=== PATIENT | female | born 1955 | race Caucasian/White ===

== ENCOUNTER → 2018-02-26 21:26 | Outpatient (CLI) | payer OTHER, SELFPAY ==
[2018-02-26 21:40] LABS: Absolute Lymphocyte Count 2.54 X10^3/ul (0.83-4.51); Basophil# 0.04 X10^3/uL; Basophil% 0.4 % (0-1); Eosinophil# 0.66 X10^3/uL; Eosinophils% 7.3 % (0-5); Hematocrit 42.9 % (37-47); Hemoglobin 13.7 g/dl (12.0-15.0); Lymphocyte # 2.54 X10^3/ul (4.0); Lymphocyte % 27.9 % (19-41); Mean Corp Hgb Conc 31.9 g/gl (32-36); Mean Corpuscular Hgb 28.2 pg (27.0-32.0); Mean Corpuscular Volume 88.3 fL (81-99); Mean Platelet Vol. 11.1 fl (6.2-12.0); Monocyte# 0.82 X10^3/uL; Neutrophil # 5.03 X10^3/uL (2.7-7.7); Neutrophil % 55.3 % (47-70); Platelet Count 264 K/mm3 (150-450); RBC Distribution Width CV 13.4 % (11.6-14.6); RBC Distribution Width SD 43.3 fl (35.1-43.9); Red Blood Count 4.86 M/mm3 (4.2-5.4); White Blood Count 9.1 K/mm3 (4.4-11.0)
[2018-02-26 21:41] LABS: POSITIVE COUNT NO; POSITIVE DIFFERENTIAL NO; POSITIVE MORPHOLOGY NO
[2018-02-26 22:07] LABS: ALB/GLOB Ratio 0.8 RATIO (0.9-2.4); AST(SGOT) 19 U/L (15-37); Alanine Aminotransfer ALT/SGPT 30 U/L (13-56); Albumin, Serum 3.5 g/dL (3.2-5.0); Alkaline Phosphatase 112 U/L (45-117); Anion Gap 7 (5-15); BUN 15 mg/dL (7-18); BUN/Creat Ratio 16.4 RATIO (10-20); Calcium,Total 8.6 mg/dL (8.5-10.1); Chloride 106 mmol/L (98-107); Cholesterol 211 mg/dL (200); Creatinine, Serum 0.92 mg/dL (0.55-1.02); EST Glomerular Filtration Rate 67 mL/min (>60); Est Glom Filt Rate - Afr Amer 80 mL/min (>60); Globulin 4.3 g/dL (2.2-4.2); Glucose 129 mg/dL (74-106); High Density Lipoprotein 45 mg/dL; Potassium 3.8 mmol/L (3.5-5.1); Protein, Total 7.8 g/dL (6.4-8.2); Sodium Level 141 mmol/L (136-145); Triglycerides 303 mg/dL; Very Low Density Lipoprotein 61 mg/dL (5-40)
== END ==
PROVIDERS: Referring Provider Nurse Practitioner; Visit Provider Nurse Practitioner
DX: F32.0 Major depressive disorder, single episode, mild (principal); F41.1 Generalized anxiety disorder; E78.1 Pure hyperglyceridemia
CPT/HCPCS: 80053; 80061; 85025

== ENCOUNTER → 2019-03-11 13:00 | Outpatient (CLI) | payer OTHER, SELFPAY ==
[2019-03-11 17:10] VITALS: BMI 33.2
[2019-03-12 00:31] LABS: Absolute Lymphocyte Count 2.95 X10^3/uL (0.83-4.51); Basophil# 0.06 X10^3/uL; Basophil% 0.6 % (0-1); Eosinophil# 0.41 X10^3/uL; Hemoglobin 13.1 g/dL (12.0-15.0); Lymphocyte # 2.95 X10^3/ul (4.0); Lymphocyte % 28.8 % (19-41); Mean Corp Hgb Conc 31.2 g/dL (32-36); Mean Corpuscular Hgb 27.9 pg (27.0-32.0); Mean Corpuscular Volume 89.6 fL (81-99); Monocyte# 0.84 X10^3/uL; Monocyte% 8.2 % (0-10); NRBC Flagged by Analyzer 0 % (0-5); Neutrophil # 5.95 X10^3/uL (2.7-7.7); Neutrophil % 58.1 % (47-70); Platelet Count 284 K/mm3 (150-450); RBC Distribution Width CV 13.5 % (11.6-14.6); RBC Distribution Width SD 44.2 fl (35.1-43.9); Red Blood Count 4.69 M/mm3 (4.2-5.4); White Blood Count 10.2 K/mm3 (4.4-11.0)
[2019-03-12 00:44] LABS: AST(SGOT) 18 U/L (15-37); Alanine Aminotransfer ALT/SGPT 26 U/L (13-56); Albumin, Serum 3.8 g/dL (3.2-5.0); Alkaline Phosphatase 102 U/L (45-117); Anion Gap 4 (5-15); BUN 21 mg/dL (7-18); BUN/Creat Ratio 27.3 RATIO (10-20); Calcium,Total 9.3 mg/dL (8.5-10.1); Chloride 107 mmol/L (98-107); Cholesterol 213 mg/dL (200); Creatinine, Serum 0.77 mg/dL (0.55-1.02); EST Glomerular Filtration Rate 81 mL/min (>60); Est Glom Filt Rate - Afr Amer 98 mL/min (>60); Globulin 3.8 g/dL (2.2-4.2); Glucose 82 mg/dL (74-106); High Density Lipoprotein 69 mg/dL; Potassium 4.5 mmol/L (3.5-5.1); Protein, Total 7.6 g/dL (6.4-8.2); Sodium Level 140 mmol/L (136-145); Triglycerides 78 mg/dL; Very Low Density Lipoprotein 16 mg/dL (5-40)
== END ==
PROVIDERS: Referring Provider Nurse Practitioner; Visit Provider Nurse Practitioner
DX: E78.1 Pure hyperglyceridemia (principal); F32.9 Major depressive disorder, single episode, unspecified
CPT/HCPCS: 80053; 80061; 85025

== ENCOUNTER → 2020-04-08 21:51 | Outpatient (CLI) | payer OTHER, SELFPAY ==
[2020-04-08 16:50] VITALS: BMI 33.3
[2020-04-08 22:10] LABS: Absolute Neutrophil Count 5.8 X10^3/uL (2.0-7.7); Basophil# 0.06 X10^3/uL; Basophil% 0.6 % (0-1); Eosinophil# 0.37 X10^3/uL; Hematocrit 41.2 % (37-47); Hemoglobin 12.8 g/dL (12.0-15.0); Lymphocyte % 25.8 % (19-41); Mean Corp Hgb Conc 31.1 g/dL (32-36); Mean Corpuscular Hgb 27.1 pg (27.0-32.0); Mean Corpuscular Volume 87.3 fL (81-99); Mean Platelet Vol. 11.1 fl (6.2-12.0); Monocyte# 0.65 X10^3/uL; NRBC Flagged by Analyzer 0 % (0-5); Neutrophil # 5.79 X10^3/uL (2.7-7.7); Neutrophil % 62.4 % (47-70); Platelet Count 300 K/mm3 (150-450); RBC Distribution Width CV 14.1 % (11.6-14.6); Red Blood Count 4.72 M/mm3 (4.2-5.4); White Blood Count 9.3 K/mm3 (4.4-11.0)
[2020-04-08 22:22] LABS: ALB/GLOB Ratio 0.9 RATIO (0.9-2.4); AST(SGOT) 18 U/L (15-37); Alanine Aminotransfer ALT/SGPT 25 U/L (13-56); Albumin, Serum 3.7 g/dL (3.2-5.0); Alkaline Phosphatase 114 U/L (45-117); Anion Gap 5 (5-15); BUN 15 mg/dL (7-18); BUN/Creat Ratio 16.8 RATIO (10-20); Chloride 109 mmol/L (98-107); Cholesterol 210 mg/dL (200); Creatinine, Serum 0.89 mg/dL (0.55-1.02); EST Glomerular Filtration Rate 68 mL/min (>60); Est Glom Filt Rate - Afr Amer 82 mL/min (>60); Globulin 3.9 g/dL (2.2-4.2); Glucose 98 mg/dL (74-106); High Density Lipoprotein 65 mg/dL; Potassium 3.8 mmol/L (3.5-5.1); Protein, Total 7.6 g/dL (6.4-8.2); Sodium Level 142 mmol/L (136-145); Triglycerides 95 mg/dL; Very Low Density Lipoprotein 19 mg/dL (5-40)
== END ==
PROVIDERS: Referring Provider Nurse Practitioner; Visit Provider Nurse Practitioner
DX: E78.1 Pure hyperglyceridemia (principal)
CPT/HCPCS: 80053; 80061; 85025

== ENCOUNTER 2021-05-12 21:27 | Outpatient (CLI) | payer OTHER, SELFPAY ==
[2021-05-12 22:26] LABS: Absolute Lymphocyte Count 2.51 X10^3/uL (0.83-4.51); Absolute Neutrophil Count 4.7 X10^3/uL (2.0-7.7); Basophil# 0.05 X10^3/uL; Basophil% 0.6 % (0-1); Eosinophil# 0.28 X10^3/uL; Eosinophils% 3.4 % (0-5); Hematocrit 39.9 % (37-47); Hemoglobin 12.7 g/dL (12.0-15.0); Lymphocyte # 2.51 X10^3/ul (0.83-4.51); Lymphocyte % 30.3 % (19-41); Mean Corp Hgb Conc 31.8 g/dL (32-36); Mean Corpuscular Hgb 27.4 pg (27.0-32.0); Mean Platelet Vol. 11.2 fl (6.2-12.0); Monocyte# 0.68 X10^3/uL; Monocyte% 8.2 % (0-10); NRBC Flagged by Analyzer 0 % (0-5); Neutrophil # 4.73 X10^3/uL (2.7-7.7); Neutrophil % 57.1 % (47-70); Platelet Count 316 K/mm3 (150-450); RBC Distribution Width CV 13.3 % (11.6-14.6); RBC Distribution Width SD 41.1 fl (35.1-43.9); Red Blood Count 4.64 M/mm3 (4.2-5.4); White Blood Count 8.3 K/mm3 (4.4-11.0)
[2021-05-12 22:44] LABS: ALB/GLOB Ratio 0.9 RATIO (0.9-2.4); AST(SGOT) 17 U/L (15-37); Alanine Aminotransfer ALT/SGPT 28 U/L (13-56); Albumin, Serum 3.6 g/dL (3.2-5.0); Alkaline Phosphatase 113 U/L (45-117); Anion Gap 7 (5-15); BUN 17 mg/dL (7-18); BUN/Creat Ratio 20.7 RATIO (10-20); Calcium,Total 9.1 mg/dL (8.5-10.1); Chloride 106 mmol/L (98-107); Cholesterol 185 mg/dL (200); Creatinine, Serum 0.82 mg/dL (0.55-1.02); EST Glomerular Filtration Rate 74 mL/min (>60); Est Glom Filt Rate - Afr Amer 90 mL/min (>60); Globulin 3.9 g/dL (2.2-4.2); Glucose 90 mg/dL (74-106); High Density Lipoprotein 51 mg/dL; Potassium 4.2 mmol/L (3.5-5.1); Protein, Total 7.5 g/dL (6.4-8.2); Sodium Level 142 mmol/L (136-145); Triglycerides 205 mg/dL; Very Low Density Lipoprotein 41 mg/dL (5-40)
== END 2021-05-12 23:59 | disposition short-term general hospital (02) ==
PROVIDERS: PCP Nurse Practitioner; Referring Provider Nurse Practitioner; Visit Provider Nurse Practitioner
DX: E78.1 Pure hyperglyceridemia (principal); R03.0 Elevated blood-pressure reading, without diagnosis of hypertension
CPT/HCPCS: 80053; 80061; 85025

== ENCOUNTER → 2022-02-20 | Outpatient (CLI) | payer OTHER, SELFPAY | END | disposition home or self-care (01) | PROVIDERS: PCP Nurse Practitioner; Visit Provider Nurse Practitioner | DX: G62.9 Polyneuropathy, unspecified (principal); L97.509 Non-pressure chronic ulcer of other part of unspecified foot with unspecified severity; T14.8XXA Other injury of unspecified body region, initial encounter | CPT/HCPCS: 87070; 87075; 87077; 87186; 87205 ==

== ENCOUNTER 2022-02-22 07:34 | Outpatient (RCR) | payer OTHER, SELFPAY ==
[2022-02-22 08:05] VITALS: BP 143/68; PULSE 69; TEMP 36.2; BMI 34.3
[2022-02-22 08:24] VITALS: BMI 34.3
--- NOTE | 2022-02-22 09:17 | PCM.WC.HP ---
History of Present Illness Date of Service: 02/22/22 Chief Complaint: Patient was seen in primary care office on Sunday with a right great toe ulcer of the anterior and posterior great toe. Also was cellulitis developed. Debrided in the office and was put on calcium alginate till seen here on Sunday. Right great toe was swollen debrided a lot of of slough and callus. Patient was placed in a postop shoe and taken off work for 3 days till seen on today. [facility] Medical History (Reviewed 02/22/22 @ 09:20 by Mary Basilio RECEPTIONIST/TELEPHONE OPERATOR, RECEPTIONIST/TELEPHONE OPERATOR-C) Depression GERD (gastroesophageal reflux disease) Hypertriglyceridemia Neuropathy Osteoarthritis Osteoarthritis Home Medications sertraline 50 mg tablet 50 mg PO DAILY #30 tabs 05/12/21 [Rx Last Taken Unknown] sulfamethoxazole 800 mg-trimethoprim 160 mg tablet 1 tab PO BID hematuria 10 days #20 tabs 02/20/22 [Rx Last Taken Unknown] Allergy/AdvReac Type Severity Reaction Status Date / Time No Known Allergies Allergy Verified 02/26/18 19:39 Surgical History (Reviewed 02/22/22 @ 09:20 by Mary Basilio RECEPTIONIST/TELEPHONE OPERATOR, RECEPTIONIST/TELEPHONE OPERATOR-C) History of cholecystectomy ROS Constitutional Constitutional: Reports systems reviewed and no addt'l complaints, except as documented Integumentary Integumentary: Reports systems reviewed and no addt'l complaints, except as documented, rash, skin ulcer, skin swelling and wounds Neurologic Neurologic: Reports paresthesias RLE and LLE and sensory deficit Psychiatric Psychiatric: Reports anxiety and depression Vital Signs Vital Signs Vital Signs: 02/22/22 08:05 Temperature 97.1 F L Temperature Source Temporal Pulse Rate 69 Blood Pressure 143/68 H Blood Pressure Mean 93 Blood Pressure Source Monitor Weight Weight: 194 lb Body Mass Index (BMI) 34.3 Physical Exam Const oriented x3 General Appearance: cooperative Exam Limitations: no limitations Resp normal respiratory effort Effort and Inspection: able to speak in complete sentences Auscultation: clear to auscultation bilaterally Cardio regular rate and regular rhythm Palpation: normal PMI Rate: regular rate Rhythm: regular rhythm Extremity Negative for normal to inspection or no clubbing, cyanosis or edema General Extremity: normal exam except as noted and other findings Skin No no rashes or lesions noted and No no wounds General Skin Exam: dry skin; Negative for no breakdown Rashes: rashes noted Dorsal foot maculopapular red Neuro oriented x3 Neuro Narrative: Patient suffers from neuropathy bilateral lower legs Psych Appearance: grossly normal Speech: normal speech Thought Content: normal thought content Judgement: judgement good Debridement Note Debridement Note Wound debrided: Anterior right great toe from neuropathy and blisters from shoes Type of Debridement: Excisional debridement Anesthesia Used: 5% Lidocaine Gel Depth: in the subcutaneous layer Percentage of wound debrided: 100 Instrument Used: 5mm curette Tissue Removed: Slough fibrin devitalized tissue Severity: Fat Layer Exposed Amount of bleeding with debridement: Mild Bleeding Controlled with: Compression and gauze Patient tolerated procedure: Patient tolerated procedure well Post-Debridement Measurements and Additional Note: Post-Debridement Measurements/Treatment - Nurse 1 - General Ulcer Assessment Start: 02/22/22 08:05 Freq: Status: Active Protocol: SANDRO Activity Type Activity Date Activity User E-sign Co-sign Detail Recorded Client Recorded Date Recorded By Document 02/22/22 08:05 ROMELIA [id number] 02/22/22 08:20 AK Document 02/22/22 08:24 ROMEILA [id number] 02/22/22 08:25 ROMELIA 02/22/22 02/22/22 08:05 08:24 WC - Today's Visit Information Type of service Initial Visit Arrival Mode Ambulatory Patient Identification Verified (Name & Yes ) Patient Requires Transmission-Based No Precautions Safety Precautions NA Height and Weight Height 5 ft 3 in Weight 194 lb Weight in Pounds 194.0 lbs Body Mass Index (BMI) 34.3 34.3 BMI Classification Obese Obese BSA - Nick 1.91 Vital Signs Temperature (97.8 F-99.1 F) 97.1 F L Temperature Source Temporal Pulse Rate (60-100) 69 Pulse Location Monitor Blood Pressure (90/60-120/80) 143/68 H Blood Pressure Mean (mm Hg) 93 Source Monitor History Since Last Visit- (Skip if this is Patient's initial visit) Left Footwear Surgical Shoe with pressure relief insole Right Footwear Regular Shoe Pain Scale: 0-10 Numeric Is Patient Pain Free? Yes Yes - Nurse 1 - General Ulcer Measurement Start: 02/22/22 08:05 Freq: Status: Active Protocol: Activity Type Activity Date Activity User E-sign Co-sign Detail Recorded Client Recorded Date Recorded By Document 02/22/22 08:05 ROMELIA [id number] 02/22/22 08:20 AK 02/22/22 08:05 Wound Center Nurse 1 #2 R Plantar Great toe -Combined with other wound No -Current Size (cm) - Length 2.5 -Current Size (cm) - Width 2.5 -Current Size (cm) - Depth 0.2 -Total Square Cm 6.25 -Photo Taken Yes -Tunneling No -Undermining/Tunneling No -Circular Undermining No -Change in Wound Grade/Stage No -Exudate Amt Large -Exudate Type Yellow/Green -Wound Margin Distinct, Outline Attached -Granulation Amt Large (67-100%) -Granulation Quality [place] -Slough/Fibrin No -Necrosis Amt None Present (0 %) -Structure Exposed N/A -Texture (Sammie-wound Skin Appearance) No Abnormality, Assessed -Moisture (Sammie-wound Skin Appearance) No Abnormality, Assessed -Color (Sammie-wound Skin Appearance) No Abnormality, Assessed -Temperature (Sammie-wound Skin No Abnormality Appearance) (Pt Warm) -Tenderness on Palpation (Sammie-wound No Skin Appearance) -Ulcer Cleansing Rinsed/ Irrigated with Saline -Foul Odor after Cleansing No -Anesthetic Used 5% Lidocaine Gel #1 R anterior great toe -Combined with other wound No -Current Size (cm) - Length 2 -Current Size (cm) - Width 2.6 -Current Size (cm) - Depth 0.1 -Total Square Cm 5.2 -Date of Last Picture (Recall this 02/22/22 field) -Photo Taken Yes -Undermining/Tunneling No -Circular Undermining No -Change in Wound Grade/Stage No -Exudate Amt Large -Exudate Type Serosanguineous -Wound Margin Distinct, Outline Attached -Granulation Amt Large (67-100%) -Granulation Quality Pale,[place] -Slough/Fibrin No -Necrosis Amt None Present (0 %) -Structure Exposed N/A -Texture (Sammie-wound Skin Appearance) No Abnormality, Assessed -Moisture (Sammie-wound Skin Appearance) Maceration -Color (Sammie-wound Skin Appearance) No Abnormality, Assessed -Temperature (Sammie-wound Skin No Abnormality Appearance) (Pt Warm) -Tenderness on Palpation (Sammie-wound No Skin Appearance) -Ulcer Cleansing Rinsed/ Irrigated with Saline -Foul Odor after Cleansing No -Anesthetic Used 5% Lidocaine Gel Right Calf (cm) 37 Right Ankle (cm) 25 WC - Nurse 2 - General Ulcer CM Notes Start: 02/22/22 08:05 Freq: Status: Active Protocol: Activity Type Activity Date Activity User E-sign Co-sign Detail Recorded Client Recorded Date Recorded By Document 02/22/22 08:30 MW [id number] 02/22/22 08:46 MW 02/22/22 08:30 Wound Center Nurse 2 #2 R Plantar Great toe -Time 08:35 -Correct Patient Yes -Correct Side, Site, Position Yes -Correct Procedure Yes -Procedure Performed Yes -Type of Procedure Debridement -Clinical Debridement Subcutaneous -Tissue Removed Subcutaneous -Post Debridement (cm) - Length 3.2 -Post Debridement (cm) - Width 2.3 -Post Debridement (cm) - Depth 0.3 -Total Square (Post) (cm) 7.36 -Area of Debridement (cm) - Length 3.2 -Area of Debridement (cm) - Width 2.3 -Total Square (Area) (cm) 7.36 -Tunneling No -Undermining/Tunneling No -Circular Undermining No -Wound/Ulcer Outcome Not Healed -Ulcer Cleansing Rinsed/ Irrigated with Saline -Foul Odor after Cleansing No -Bioengineered Tissue No -Bleeding Controlled with Pressure -Treatment Response Procedure Tolerated Well -Offloading No -Debridement - Subq, 20sq cm Yes #1 R anterior great toe -Time 08:35 -Correct Patient Yes -Correct Side, Site, Position Yes -Correct Procedure Yes -Procedure Performed Yes -Type of Procedure Debridement -Clinical Debridement Subcutaneous -Tissue Removed Subcutaneous -Post Debridement (cm) - Length 3.2 -Post Debridement (cm) - Width 3.5 -Post Debridement (cm) - Depth 0.2 -Total Square (Post) (cm) 11.20 -Area of Debridement (cm) - Length 3.2 -Area of Debridement (cm) - Width 3.5 -Total Square (Area) (cm) 11.20 -Tunneling No -Undermining/Tunneling No -Circular Undermining No -Wound/Ulcer Outcome Not Healed -Ulcer Cleansing Rinsed/ Irrigated with Saline -Foul Odor after Cleansing No -Bioengineered Tissue No -Bleeding Controlled with Pressure -Treatment Response Procedure Tolerated Well -Offloading No -Debridement - Subq, 1st 20sq cm No Pain Scale: 0-10 Numeric Is Patient Pain Free? Yes WC - Nurse 3 - General Ulcer D/C NN Start: 02/22/22 08:05 Freq: Status: Active Protocol: Activity Type Activity Date Activity User E-sign Co-sign Detail Recorded Client Recorded Date Recorded By Document 02/22/22 08:51 DL [id number] 02/22/22 08:52 DL 02/22/22 08:51 Wound Care Nurse 3 #2 R Plantar Great toe -Ulcer Cleansing Soap and Water -Foul Odor after Cleansing No -Primary Dressing Applied Aquacel Extra -Primary Dressing Covered/Secured with Dry Gauze & Roll Gauze, Secured with Tape -Aquacel Extra 1 #1 R anterior great toe -Ulcer Cleansing Soap and Water -Foul Odor after Cleansing No -Other Dressing Aquacel Ex -Primary Dressing Covered/Secured with Dry Gauze & Roll Gauze, Secured with Tape Treatment Response Procedure Tolerated Well Pain Scale: 0-10 Numeric Is Patient Pain Free? Yes WC - Visit Discharge Discharge Condition Stable Ambulatory Status Ambulatory Transportation Private Auto Additional Wound Wound debrided: Plantar right great toe ulcer from blisters and trauma Type of Debridement: Excisional debridement Anesthesia Used: 5% Lidocaine Gel Depth: in the subcutaneous layer Percentage of wound debrided: 100 Instrument Used: 5mm curette Tissue Removed: Slough fibrin callus Severity: Fat Layer Exposed Amount of bleeding with debridement: Mild Bleeding Controlled with: Compression and gauze Patient tolerated procedure: Patient tolerated procedure well Lab / Micro Data Result Diagrams: 02/22/22 09:16 02/22/22 09:16 Assessment/Plan Assessment/Plan (1) Cellulitis: CODE(S): L03.90 - Cellulitis, unspecified PLAN: Continue antibiotic therapy of Bactrim DS twice daily till cultures return (2) Infected wound: CODE(S): T14.8XXA - Other injury of unspecified body region, initial encounter; L08.9 - Local infection of the skin and subcutaneous tissue, unspecified PLAN: Wound cultures were obtained in office still pending bacteria growth was staph (3) Nonhealing nonsurgical wound: CODE(S): T14.8XXA - Other injury of unspecified body region, initial encounter (4) Ulcer of great toe: CODE(S): L97.509 - Non-pressure chronic ulcer of other part of unspecified foot with unspecified severity PLAN: Wash right foot and great toe with antibacterial soap. Apply Aquacel extra to wound base anterior and posterior toe moistened. Apply gauze Nick and tape. [place] wrap from toes to knee. Follow-up in 1 week Get x-ray done of foot and have labs drawn for next week
--- NOTE | 2022-02-22 09:40 | RAD_ITS ---
STUDY: X-RAY - RIGHT FOOT CLINICAL: Female, 66 years old. ULCER TECHNIQUE: 3 view(s) of the foot. COMPARISON: None. FINDINGS: Talus intact. Tarsal bones mild osteoarthritis. Mild plantar calcaneal spurring. Normal visualized subtalar, talonavicular, calcaneocuboid, tarsal and tarsometatarsal articulations. Normal metatarsi. Metatarsal phalangeal joint of the great toe is normal. Normal tibial and fibular sesamoid bones. First interphalangeal joint demonstrates periarticular osteopenia and erosions consistent with septic arthritis/osteomyelitis. Severe soft tissue swelling of the great toe. Normal phalanges of the great toe. Normal second through fifth metatarsophalangeal joints. Normal interphalangeal joints and phalanges of the lesser toes. The soft tissue structures are unremarkable. RAD/Foot min 3 Views IMPRESSION: Findings consistent with septic arthritis/osteomyelitis first interphalangeal joint with severe soft tissue swelling. Electronically Signed: Orlin Christiansen MD, TRAY at 10:00 EDT ,
--- NOTE | 2022-02-22 09:40 | RAD_ITS ---
STUDY: X-RAY RIGHT FOOT, TOE REASON FOR EXAM: Female, 66 years old. R GREAT TOE TECHNIQUE: 3 view(s) of the toe were obtained. COMPARISON: None. FINDINGS: First interphalangeal joint demonstrates periarticular osteopenia and erosions consistent with osteomyelitis/septic arthritis. Severe soft tissue swelling. RAD/Toe(s) Min 2 Views IMPRESSION: Osteomyelitis/septic arthritis of the first interphalangeal joint with severe soft tissue swelling. Electronically Signed: Orlin Christiansen MD, TRAY at 10:03 EDT ,
[2022-02-22 09:44] LABS: Absolute Lymphocyte Count 2.29 X10^3/uL (0.83-4.51); Absolute Neutrophil Count 6.1 X10^3/uL (2.0-7.7); Basophil# 0.07 X10^3/uL; Basophil% 0.7 % (0-1); Eosinophil# 0.36 X10^3/uL; Eosinophils% 3.8 % (0-5); Hematocrit 37.2 % (37-47); Hemoglobin 11.5 g/dL (12.0-15.0); Lymphocyte # 2.29 X10^3/ul (0.83-4.51); Lymphocyte % 24.1 % (19-41); Mean Corp Hgb Conc 30.9 g/dL (32-36); Mean Corpuscular Hgb 26.8 pg (27.0-32.0); Mean Corpuscular Volume 86.7 fL (81-99); Mean Platelet Vol. 10.2 fl (6.2-12.0); Monocyte# 0.67 X10^3/uL; NRBC Flagged by Analyzer 0 % (0-5); Neutrophil % 64.1 % (47-70); Platelet Count 412 K/mm3 (150-450); RBC Distribution Width CV 13.2 % (11.6-14.6); RBC Distribution Width SD 41.8 fl (35.1-43.9); Red Blood Count 4.29 M/mm3 (4.2-5.4); White Blood Count 9.5 K/mm3 (4.4-11.0)
[2022-02-22 09:53] LABS: Erythrocyte Sedimentation Rate 34 mm/hr (0-30)
[2022-02-22 10:14] LABS: ALB/GLOB Ratio 0.7 RATIO (0.9-2.4); AST(SGOT) 13 U/L (15-37); Alanine Aminotransfer ALT/SGPT 22 U/L (13-56); Alkaline Phosphatase 99 U/L (45-117); Anion Gap 6 (5-15); BUN 17 mg/dL (7-18); BUN/Creat Ratio 19.3 RATIO (10-20); Calcium,Total 8.9 mg/dL (8.5-10.1); Chloride 105 mmol/L (98-107); Cholesterol 134 mg/dL (200); Creatinine, Serum 0.88 mg/dL (0.55-1.02); EST Glomerular Filtration Rate 68 mL/min (>60); Est Glom Filt Rate - Afr Amer 83 mL/min (>60); Estimated Creatinine Clearance 53.43 ml/min; Globulin 4.3 g/dL (2.2-4.2); Glucose 96 mg/dL (74-106); High Density Lipoprotein 43 mg/dL; Potassium 3.9 mmol/L (3.5-5.1); Prealbumin 9.8 mg/dL (20.0-40.0); Protein, Total 7.3 g/dL (6.4-8.2); Sodium Level 137 mmol/L (136-145); Triglycerides 81 mg/dL; Very Low Density Lipoprotein 16 mg/dL (5-40)
--- NOTE | 2022-02-22 14:31 | WC ---
Lab results and x-rays reviewed per Mary Basilio CNP. X-ray results indicating right great toe positive for septic arthritis / osteomylitis. Mary wants patient to go to the ER for evaluation as soon as possible. Spoke with patient. Instructed to go to ER per Mary for evaluation of infected toe. Voiced understanding and stated she will go as soon as possible today.
== END 2022-02-27 23:59 | disposition home or self-care (01) ==
LOC: WC 07:34
PROVIDERS: PCP Nurse Practitioner; Referring Provider Nurse Practitioner; Visit Provider Nurse Practitioner
DX: G62.9 Polyneuropathy, unspecified (principal); L97.512 Non-pressure chronic ulcer of other part of right foot with fat layer exposed; L03.031 Cellulitis of right toe; K21.9 Gastro-esophageal reflux disease without esophagitis; Z79.899 Other long term (current) drug therapy; F32.A Depression, unspecified; M19.90 Unspecified osteoarthritis, unspecified site; S90.421S Blister (nonthermal), right great toe, sequela; S90.424S Blister (nonthermal), right lesser toe(s), sequela; X58.XXXS Exposure to other specified factors, sequela
CPT/HCPCS: 11042; 36415; 73630; 73660; 80053; 80061; 84134; 85025; 85652; 99203; G0463

== ENCOUNTER 2022-02-22 15:32 | Inpatient (IN) | payer OTHER, SELFPAY ==
[2022-02-22] VITALS (9 sets, daily range): BP systolic 118–170; BP diastolic 35–82; PULSE 57–95; RESP 14–18; TEMP 36.6–37.2; O2SAT 98–99; BMI 34.7; BMI 34.2
--- NOTE | 2022-02-22 17:24 | NURSING ---
Patient states she noticed a blister on her right great toe. Patient states she pulled off the toe nail and saw brown drainage. She has had a small whole on the bottom of her toe that started about 2 years ago but has neuropath. Patient states her family member told her to let the dog lick the toe to clean up the infection and has been using bleach and peroxide to clean the area. Patients Wound Care doctor told patient to go to ED immediately to be admitted for possible sepsis.
--- NOTE | 2022-02-22 18:31 | ED.VIS.LOWEX ---
HPI History of Present Illness Chief Complaint: Wound Informant: patient Onset/Context/Timing Onset: Weeks (3) Context: Gradual Onset Timing: Continuous (wound swelling, redness) Location: R great toe Current Severity: Severe Maximum Severity: Severe Worsened by: no pain Relieved by: n/a Associated Symptoms Associated Symptoms: Positive for Parasthesia (chronic BLE, unchanged); Negative for Weakness or Loss of Funtion Narrative Narrative: Patient sent here to be admitted for osteomyelitis that was diagnosed as an outpatient on x-ray today. She was seen recently at the wound center, she had debridement and was placed on calcium alginate according to notes, the patient states she was put on this couple days ago, and was post to be seen back today which she was. It looks worse, she has purulent material coming out of the wound, she had outpatient labs and an x-ray showing osteomyelitis and what appears to be a septic arthritis of the MTPJ, and is sent for admission. She had fevers 3 days ago but she denies having any since that she knows of. She feels fine otherwise. She has chronic neuropathy. She states 3 weeks ago she came home from a trip to [place] she was doing some hiking and wearing crocs and she feels like may be they rubbed on the wound that she has had there for years and opened it up and may be started the infection, or maybe it was when she got home from that trip and saw the wound and purposefully had her dog lick it, she states it seemed to really get worse after that. [facility] Medical History Depression GERD (gastroesophageal reflux disease) Hypertriglyceridemia Neuropathy Osteoarthritis Osteoarthritis Home Medications sertraline 50 mg tablet 50 mg PO DAILY #30 tabs 05/12/21 [Rx Last Taken Unknown] sulfamethoxazole 800 mg-trimethoprim 160 mg tablet 1 tab PO BID hematuria 10 days #20 tabs 02/20/22 [Rx Last Taken Unknown] Allergy/AdvReac Type Severity Reaction Status Date / Time No Known Allergies Allergy Verified 02/22/22 15:33 Surgical History History of cholecystectomy Social History Smoking Status: Never smoker ROS ROS ED Constitutional Constitutional ED: Reports fever(s); Denies chills Eyes Eyes: Denies change in vision or diplopia ENT ENT ED: Denies rhinorrhea or sore throat Cardiovascular Cardiovascular: Denies chest pain or palpitations Respiratory/Chest Respiratory/Chest: Denies cough or dyspnea Gastrointestinal Gastrointestinal: Denies abdominal pain, diarrhea, nausea or vomiting Genitourinary Genitourinary ED: Denies dysuria or hematuria Musculoskeletal Musculoskeletal: Denies back pain or neck pain Integumentary Reports as per HPI and wounds; Denies abscess or rash Neurologic Neurologic: Reports paresthesias RLE and LLE; Denies headache(s) or weakness Psychiatric Psychiatric: Denies anxiety or suicidal thoughts EXAM Physical Exam Const Vital Signs: 02/22/22 15:33 02/22/22 15:35 02/22/22 17:31 Temperature 98.9 F 98.9 F 98.4 F Temperature Source Temporal Temporal Oral Pulse Rate 95 95 64 Respiratory Rate 14 14 14 Blood Pressure 170/82 H 170/82 H 153/56 H Blood Pressure Mean 111 111 88 Pulse Ox 99 99 99 Oxygen Delivery Method Room Air Room Air Room Air 02/22/22 16:35 02/22/22 17:35 02/22/22 18:00 Temperature 98 F 98.1 F 98.8 F Temperature Source Temporal Temporal Temporal Pulse Rate 57 L 59 L 59 L Respiratory Rate 18 18 18 Blood Pressure 153/56 H 142/61 H 157/64 H Blood Pressure Mean 88 88 95 Pulse Ox 99 99 99 Oxygen Delivery Method Room Air Room Air Room Air Positive well nourished and well developed General Appearance ED: well developed and NAD HEENT Reports moist mucous membranes normocephalic and atraumatic Eyes PERRL and EOMs intact bilaterally Neck full ROM and supple Resp normal respiratory effort and clear to auscultation bilaterally Cardio regular rate, regular rhythm and no murmurs GI non-tender and non-distended Auscultation: normoactive bowel sounds Palpation: soft Back/Spine no CVA tenderness General Back: other FROM Extremity Extremity Narrative: Right great toe is diffusely swollen erythematous, nontender due to her neuropathy, the erythema seems to go to the MTPJ and does not go further. The rest of the foot looks good, the leg looks good, no lymphangitis, and no right inguinal lymphadenopathy. The nail is gone from the right great toe, and there is pus pouring from the peroneal aspect of the nailbed. General Extremety ED: Negative for edema, pulses abnormal or tenderness General Extremity: Negative for edema or pulses abnormal Neuro oriented x3 and CN's II-XII intact bilaterally Neuro Narrative: Both feet are numb with brisk cap refill. Sensorium / Orientation: awake and alert Motor Exam: strength 5/5 throughout Skin no rashes or lesions noted and no wounds Sepsis Attestation Sepsis Attestation: Sepsis Ruled Out MDM MDM MDM Narrative Medical decision making narrative: I cleansed the area with isopropanol, followed by expressing fresh purulent material and swabbing it for culture. I then added a CRP in addition to the elevated ESR 34 that she had earlier, I reviewed her labs from earlier today, her white blood count is 9.5, chemistries and liver enzymes are unremarkable. Started her on Zosyn and Flagyl. Discussed with Dr. Nunez with podiatry. States that the patient does not need to go to the operating room tonight, but may need to go for a procedure, but he will need to evaluate the patient first and asked that medicine admit and he consult. Lab Data Attestation: I reviewed the patient's lab results. Labs: Laboratory Results - last 24 hr 02/22/22 18:40 C-React Prot Ext Range 86.10 H Discharge Plan Dx/Rx/DC Orders Clinical Impression: Osteomyelitis of great toe of right foot, Septic arthritis of right foot Disposition Disposition: Acute Care [facility]
[2022-02-22 19:23] LABS: Lactic Acid 1.4 mmol/L (0.4-1.9)
--- NOTE | 2022-02-22 19:38 | HP.PCM.HOS_ITS ---
[facility] - General General Date of Admission: 02/22/22 Date of Service: 02/22/22 Chief Complaint: right great toe swelling. HPI Narrative LANI YUSUF, is a 66 F who presents who while back developed blisters on the plantar aspect of her great toes bilaterally. She treated them on her own with removing skin. Toes are doing well. Then early part of this month, patient went to [place] and was wearing crocs where she developed blisters a gain on her right toe. While she was there in [place] to see her mom, her mom recommended having her dog lick her foot to treat the wound. Previous to that, that same dog was licking another dog's infected eye. The dog did lick her foot. Patient noted at some point thereafter that it started getting worse and it progressed. Patient went to wound care and had an x-ray that showed right first interphalangeal joint with osteopenia and erosions consistent with osteomyelitis/septic arthritis. Severe soft tissue swelling. Dr. Nunez, podiatry was contacted and's told emergency room physician that he would see the patient in consultation. [facility] Medical History Depression GERD (gastroesophageal reflux disease) Hypertriglyceridemia Neuropathy Osteoarthritis Osteoarthritis Home Medications sertraline 50 mg tablet 50 mg PO DAILY #30 tabs 05/12/21 [Rx Last Taken Unknown] sulfamethoxazole 800 mg-trimethoprim 160 mg tablet 1 tab PO BID hematuria 10 days #20 tabs 02/20/22 [Rx Last Taken Unknown] Allergy/AdvReac Type Severity Reaction Status Date / Time No Known Allergies Allergy Verified 02/22/22 15:33 Family History (Updated 02/22/22 @ 19:[address] Agustin Hammer DO) Other Diabetes Surgical History History of cholecystectomy Social History Smoking Status: Never smoker ROS ROS Narrative Fever and chills. Patient would work and when she would come home that her right leg would be more swollen recently. All review of systems were negative except as mentioned above in the history of present illness and the other review of systems. Vital Signs Vital Signs Vital Signs: 02/22/22 15:33 02/22/22 15:35 02/22/22 17:31 Temperature 37.2 C 37.2 C 36.9 C Temperature Source Temporal Temporal Oral Pulse Rate 95 95 64 Respiratory Rate 14 14 14 Blood Pressure 170/82 H 170/82 H 153/56 H Blood Pressure Mean 111 111 88 Pulse Ox 99 99 99 Oxygen Delivery Method Room Air Room Air Room Air 02/22/22 16:35 02/22/22 17:35 02/22/22 18:00 Temperature 36.6 C 36.7 C 37.1 C Temperature Source Temporal Temporal Temporal Pulse Rate 57 L 59 L 59 L Respiratory Rate 18 18 18 Blood Pressure 153/56 H 142/61 H 157/64 H Blood Pressure Mean 88 88 95 Pulse Ox 99 99 99 Oxygen Delivery Method Room Air Room Air Room Air Weight Weight: 88.9 kg Body Mass Index (BMI) 34.7 Physical Exam Const alert and no apparent distress HEENT normocephalic and head/scalp atraumatic Resp normal respiratory effort, no retractions, no use of accessory muscles and clear to auscultation bilaterally Cardio regular rate, regular rhythm, S1 normal heart sound and S2 normal heart sound GI normal to inspection, nondistended, normoactive bowel sounds, soft to palpation, non-tender and non-distended Extremity Extremity Narrative: Right great toe swollen with loss of nail. Patient does have a stage II u lceration on the plantar aspect of her great toe extending to her forefoot. +2 dorsalis pedal pulses bilaterally. Neuro Sensorium / Orientation: awake and alert Psych affect normal Results Lab / Micro Data Labs: Laboratory Results - last 24 hr 02/22/22 18:40: C-React Prot Ext Range 86.10 H 02/22/22 18:40: Lactic Acid 1.4 Assessment & Plan Assessment/Plan (1) Osteomyelitis of great toe of right foot: PLAN: Unclear when this actually started but patient noted changes in her but about 3 weeks ago. Patient's history is complicated by neuropathy. Patient does not appear to have diabetes. She has no known back issues. Patient received piperacillin/tazobactam and metronidazole in the emergency room. Plan: * IV antibiotics with Pipracil/tazobactam and vancomycin * Consult podiatry * Heel weightbearing on the right lower extremity * Patient advised that she will likely require some kind of surgical intervention [place] debridement or I mentioned even amputation of her right first toe. * Patient is medically cleared to proceed with surgery (2) Nonhealing nonsurgical wound: PLAN: Likely source of the infection. Complicated by patient doing self-care though she states that she would use bleach and rubbing alcohol. But she did have a dog that was looking another dogs apparently infected I before licking her foot. Unclear if that was potential source of infection or not. Consult wound care PLAN: Plan Chronic conditions * Neuropathy: Doubt diabetic but will check an A1c. May be due to her back or some other process. Much of this can be performed as outpatient. * Depression: Continue with sertraline VTE prophylaxis with Lovenox Charges/Coding Visit Charges Inpatient E&M: 60485 Init Hosp L2
[2022-02-22] MEDS: metroNIDAZOLE 500 MG/100 ML BAG 100 MG IV (19:44)
--- NOTE | 2022-02-22 21:41 | PCM.RX.CS ---
Consult Pharmacy has been consulted to manage selected antiobiotic: Vancomycin Type of Consult: New start Suspected Infection: Osteomyelitis Prior Doses of Antibiotics Received/Current Regimen: Medications Vancomycin HCl 750 mg/ Sodium (Chloride) 265 mls @ 250 mls/hr IV Q12H TIERNEY Vancomycin HCl 2,000 mg/ (Sodium Chloride) 540 mls @ 250 mls/hr IV X1 ONE Stop: 02/22/22 23:09 Last Admin: 02/22/22 21:23 Dose: 250 mls/hr Weight used for dosin.5 kg Estimated Creatinine Clearance: 53 Goal Trough: 15-20 mcg/mL Pharmacy Plan for Drug Dosing: Pharmacy Service will continue to monitor and adjust dosing as required. Follow-Up Labs: Trough Vancomycin Labs to be done on [date and time ordered]: 02/24/22 @0900
[2022-02-23] VITALS (10 sets, daily range): BP systolic 105–152; BP diastolic 49–100; PULSE 43–94; RESP 14–18; TEMP 36.1–36.9; O2SAT 95–100; BMI 34.2
--- NOTE | 2022-02-23 06:00 | EKG12_ITS ---
Test Reason : AM EKG Blood Pressure : / mmHG Vent. Rate : 053 BPM Atrial Rate : 053 BPM P-R Int : 140 ms QRS Dur : 072 ms QT Int : 450 ms P-R-T Axes : -16 004 018 degrees QTc Int : 422 ms Sinus bradycardia Otherwise normal ECG No previous ECGs available Confirmed by JEISON PRESTON, LOIDA ([id number]), technical writer and editor SHILA PRECIADO ([id number]) on 02/24/2022 2:40:33 P M Referred By: ARMEN Confirmed By:KEAGAN MCHUGH MD
[2022-02-23 06:59] LABS: Absolute Lymphocyte Count 1.44 X10^3/uL (0.83-4.51); Absolute Neutrophil Count 5.6 X10^3/uL (2.0-7.7); Basophil# 0.04 X10^3/uL; Basophil% 0.5 % (0-1); Eosinophil# 0.52 X10^3/uL; Eosinophils% 6.3 % (0-5); Hematocrit 34.6 % (37-47); Hemoglobin 10.6 g/dL (12.0-15.0); Lymphocyte # 1.44 X10^3/ul (0.83-4.51); Lymphocyte % 17.3 % (19-41); Mean Corp Hgb Conc 30.6 g/dL (32-36); Mean Corpuscular Hgb 26.2 pg (27.0-32.0); Mean Corpuscular Volume 85.6 fL (81-99); Mean Platelet Vol. 10.7 fl (6.2-12.0); Monocyte# 0.68 X10^3/uL; Monocyte% 8.2 % (0-10); NRBC Flagged by Analyzer 0 % (0-5); Neutrophil # 5.57 X10^3/uL (2.7-7.7); Neutrophil % 67.1 % (47-70); Platelet Count 357 K/mm3 (150-450); RBC Distribution Width CV 13.2 % (11.6-14.6); RBC Distribution Width SD 40.9 fl (35.1-43.9); Red Blood Count 4.04 M/mm3 (4.2-5.4); White Blood Count 8.3 K/mm3 (4.4-11.0)
[2022-02-23 07:32] LABS: Anion Gap 5 (5-15); BUN 13 mg/dL (7-18); BUN/Creat Ratio 15.1 RATIO (10-20); Calcium,Total 8.6 mg/dL (8.5-10.1); Chloride 108 mmol/L (98-107); Creatinine, Serum 0.86 mg/dL (0.55-1.02); EST Glomerular Filtration Rate 71 mL/min (>60); Est Glom Filt Rate - Afr Amer 85 mL/min (>60); Estimated Creatinine Clearance 54.67 ml/min; Glucose 107 mg/dL (74-106); Sodium Level 139 mmol/L (136-145); Thyroid Stim Hormone (TSH) 2.68 uIU/mL (0.358-3.74)
--- NOTE | 2022-02-23 09:05 | ART_ITS ---
Reason For Study: Ulcer Procedure A bilateral lower extremity continuous wave Doppler with analog waveform analysis,segmental pressures,and ankle brachial indexes without exercise. Left Segmental Pressures Left posterior tibial artery = 163mmHg. Left dorsalis pedis artery = 169mmHg. Left digit = 77 mmHg. The left dorsalis pedis waveforms are triphasic. The left posterior tibial artery waveforms are triphasic. Right Segmental Pressures Right brachial= 129mmHg. Right posterior tibial artery = 168mmHg. Right dorsalis pedis artery = 162mmHg. The right dorsalis pedis waveforms are triphasic. The right posterior tibial artery waveforms are triphasic. Indices The right ankle brachial index by the dorsalis pedis is 1.26. The right ankle brachial index by the posterior tibial artery is 1.30. The left ankle brachial index by the dorsalis pedis is 1.31. The left ankle brachial index by the posterior tibial artery is 1.26. The left digital-brachial index is 0.60. VL/Lower Ext Art Exam w/o Exercis Interpretation Summary Triphasic Doppler waveforms are noted at ankle level bilaterally. Pulse-volume recordings appear satisfactory at low thigh, calf, and ankle levels bilaterally. Pulse-volume rec ordings appear diminished at digital level on the left, and not evaluated at digital level on the right. Resting ankle-brachial indices are normal bilaterally. The right digital-brachial index was not determined. The left digital-brachial index is mildly diminished. Arterial flow appears normal at ankle level bilaterally. Arterial flow was not evaluated at digital level on the right. Arterial flow at digital level on the left appears mildly d iminished. Ordering Physician: Juliano Nunez Referring Physician: Mary Bey Performed By: Barbara Sage RVT
--- NOTE | 2022-02-23 09:41 | CON.PCM_ITS ---
Assessment & Plan Assessment/Plan (1) Non-pressure chronic ulcer of other part of right foot with fat layer exposed: PLAN: Exam evaluated. All findings discussed with patient in detail. Radiographs demonstrate osteomyelitis of the distal phalanx septic arthritis of the interphalangeal joint and osteomyelitis of the distal aspect of the proximal phalanx to the right foot. Ordered MRI for further evaluation of right foot infection. If this is not done prior to the patient's procedure at 1:30 PM today this order should be canceled. Arterial studies ordered to evaluate for healing potential. Cleansed and dressed today for wound care nurse. We will plan for partial hallux amputation today in the operating room at 1:30 PM 02/24/2020. This is to the right foot. And will be n.p.o. Commend infectious disease consult for IV antibiotic management. Will follow closely. discussed with patient due to plantar interphalangeal joint wound this complicates soft tissue coverage. Patient will be required to have increased nonweightbearing to her right foot and attempt to assist closure. There are any delays in skin closure patient may require additional bone and soft tissue resection at a future date. At this time as the infection appears limited to the distal aspect of the proximal phalanx of the right great toe I recommend partial hallux ambulate patient versus total hallux amputation as this will have minimal effect on the patient's ability to ambulate on a day-to-day basis. (2) Idiopathic neuropathy: (3) Osteomyelitis of foot, right, acute: HPI Consult Data Date of Consult: 02/23/22 HPI Narrative HPI Narrative: LANI YUSUF, is a 66 F who presents with chronic right hallux ulceration. She notes she has had this issue for over a year and has been self doctoring the site by trimming any blisters or deep wounds to form with a razor blade. Patient notes that recently her dog licked her big toe wound which she feels initiated a large infection. She presented to the emergency room yesterday and was admitted to the hospital for IV antibiotics. Radiographically there were noted to be evidence of erosion of the distal phalanx septic arthritis to the interphalangeal joint and proximal phalangeal osteomyelitis. Current patient is resting comfortably with no pain. Patient self reports that she is diagnosed with neuropathy due to an unknown reason. Patient is nondiabetic. Patient denies constitutional's. Patient has no other complaints. [facility] Medical History Depression GERD (gastroesophageal reflux disease) Hypertriglyceridemia Neuropathy Osteoarthritis Osteoarthritis Pneumonia Home Medications sulfamethoxazole 800 mg-trimethoprim 160 mg tablet 1 tab PO BID hematuria 10 days #20 tabs 02/20/22 [Rx Last Taken 02/22/22 09:00] naproxen sodium 220 mg tablet (Aleve) 440 mg PO DAILY ARTHRITIS 02/22/22 [History Last Taken 02/21/22] sertraline 50 mg tablet 50 mg PO DAILY DEPRESSION 02/22/22 [History Last Taken 02/21/22] Allergy/AdvReac Type Severity Reaction Status Date / Time No Known Allergies Allergy Verified 02/22/22 15:33 Family History Other Diabetes Surgical History History of cholecystectomy Social History Smoking Status: Never smoker Physical Exam Narrative And alert oriented person place time Vascular: Dorsalis pedis posterior tibial pulses palpable 2 out of 4 bilaterally. Capillary fill time brisk to lesser digits. Digital hair growth noted some atrophic skin changes noted. Neurologic: Light touch protective sensation absent to bilateral feet. Dermatologic: 2 separate full-thickness ulcerations noted right foot. 1 to the dorsal hallux bed 1 to the plantar hallux interphalangeal joint. Both these wounds demonstrate no evidence of deep probing or undermining but there is significant periwound erythema edema warmth and moderate serous drainage from the wound sites. Swelling is limited to the hallux. Musculoskeletal: No Gross deformities noted. Muscular strength full. Pain with calf squeeze or palpation of popliteal fossa Radiographs demonstrate erosive changes to distal phalanx septic arthritis to interphalangeal joint and proximal phalangeal periosteal reaction suggestive of osteomyelitis. This is to the right hallux. Lab / Micro Data Result Diagrams: 02/23/22 06:10 02/23/22 06:10 Labs: Laboratory Results - last 24 hr 02/22/22 18:40: C-React Prot Ext Range 86.10 H 02/22/22 18:40: Lactic Acid 1.4 02/23/22 06:10: WBC 8.3, RBC 4.04 L, Hgb 10.6 L, Hct 34.6 L, MCV 85.6, MCH 26.2 L, MCHC 30.6 L, RDW Std Deviation 40.9, RDW Coeff of Vance 13.2, Plt Count 357, MPV 10.7, Immature Gran % (Auto) 0.600, Neut % (Auto) 67.1, Lymph % (Auto) 17.3 L, [place] % (Auto) 8.2, Eos % (Auto) 6.3 H, Baso % (Auto) 0.5, Absolute Neuts (auto) 5.6, Absolute Lymphs (auto) 1.44, Nucleated RBC % 0 02/23/22 06:10: Sodium 139, Potassium 4.0, Chloride 108 H, Carbon Dioxide 26.0, Anion Gap 5, BUN 13, Creatinine 0.86, Estim Creat Clear Calc 54.67, Est GFR (MDRD) Af Amer 85, Est GFR (MDRD) Non-Af 71, BUN/Creatinine Ratio 15.1, Glucose 107 H, Calcium 8.6, TSH 2.68 02/23/22 06:10: Hemoglobin A1c 6.0 H
--- NOTE | 2022-02-23 10:13 | PN.HOSP_ITS ---
Subjective Subjective Follow-up on acute osteomyelitis of the right great toe: Patient was seen and examined. She is going for surgery later this afternoon. Denies any fever chills or chest pain. Objective Data Objective Data Vital Signs: Vital Signs Temp Pulse Resp BP Pulse Ox O2 Del Method 98.5 F 55 L 15 123/60 H 95 Room Air 02/23/22 07:51 02/23/22 07:51 02/23/22 07:51 02/23/22 07:51 02/23/22 07:51 02/23/22 07:51 Oxygen Delivery Method Room Air Weight: 87.5 kg Body Mass Index (BMI) 34.2 Intake & Output: Intake and Output for Last 24 Hours 02/21/22 02/22/22 02/23/22 23:59 23:59 23:59 Intake Total 690 / 1110 660 / 660 Balance 690 / 1110 660 / 660 Lab / Micro Data Result Diagrams: 02/23/22 06:10 02/23/22 06:10 Labs: Laboratory Results - last 24 hr 02/22/22 18:40: C-React Prot Ext Range 86.10 H 02/22/22 18:40: Lactic Acid 1.4 02/23/22 06:10: WBC 8.3, RBC 4.04 L, Hgb 10.6 L, Hct 34.6 L, MCV 85.6, MCH 26.2 L, MCHC 30.6 L, RDW Std Deviation 40.9, RDW Coeff of Vance 13.2, Plt Count 357, MPV 10.7, Immature Gran % (Auto) 0.600, Neut % (Auto) 67.1, Lymph % (Auto) 17.3 L, [place] % (Auto) 8.2, Eos % (Auto) 6.3 H, Baso % (Auto) 0.5, Absolute Neuts (auto) 5.6, Absolute Lymphs (auto) 1.44, Nucleated RBC % 0 02/23/22 06:10: Sodium 139, Potassium 4.0, Chloride 108 H, Carbon Dioxide 26.0, Anion Gap 5, BUN 13, Creatinine 0.86, Estim Creat Clear Calc 54.67, Est GFR (MDRD) Af Amer 85, Est GFR (MDRD) Non-Af 71, BUN/Creatinine Ratio 15.1, Glucose 107 H, Calcium 8.6, TSH 2.68 10/27/22 06:10: Hemoglobin A1c 6.0 H Micro: Microbiology 02/22/22 18:37 Tissue Ulcer - Great Toe Wound Culture - Preliminary Staphylococcus species Physical Exam Narrative Physical exam: General: Alert, Oriented x3, Cooperative, obese HEENT: Atraumatic Oral: Moist Mucosa Neck: Supple Lungs: Clear to auscultation Cardiovascular: HS I+II, regular, no murmurs Abdomen: Bowel Sounds Present, Soft, Non Tender Extremities: No edema, dressing over the right great toe Skin: No rashes, No breakdown Neurological: Grossly intact Psych/Mental Status: Appropriate Assessment & Plan Assessment/Plan (1) Osteomyelitis of foot, right, acute: PLAN: Plan 1. Acute osteomyelitis/cellulitis of the right great toe Patient has underlying neuropathy MRI of the foot is pending Podiatry consulted, going for surgery today Continue on IV vancomycin and Zosyn 2. Prediabetes, HbA1c 6.0, lifestyle modification recommended 3. Depression, continue sertraline 4. DVT prophylaxis Lovenox subcu Charges/Coding Visit Charges Inpatient E&M: 40317 Subs Hosp L2
--- NOTE | 2022-02-23 10:27 | RAD_ITS ---
STUDY: INTRAOPERATIVE FLUOROSCOPY TECHNIQUE: The examination was performed with referring physician in attendance. Under fluoroscopic observation, fluoroscopic images were obtained. Radiologist was not present for the study. Radiologist did not perform the procedure. This dictation is for documentation of the radiation dosage only. There is no interpretation of the images. TOTAL NUMBER OF IMAGES: 1 COMPARISON: None RADIATION DOSE: .0178 mGy FLUOROSCOPY TIME: .04 seconds REASON FOR EXAM: PARTIAL AMPUTATION Female, 66 years old. FINDINGS: Surgical interpretation of the distal portion of the first digit. RAD/Foot 2 Views IMPRESSION: Fluoroscopic assistance images were obtained. Dictation for documentation purposes only. Electronically Signed: Marciano Lentz MD at 16:57 EDT ,
--- NOTE | 2022-02-23 10:46 | WOUNDNOTE ---
wound photo: right great toe
--- NOTE | 2022-02-23 10:47 | WOUNDNOTE ---
wound photo: right great toe
--- NOTE | 2022-02-23 11:28 | CASEMGMT ---
VERITO RUST Assessment: Face to Face with pt for initial transition planning/care coordination assessment. VERITO RUST introduced self and role at [facility], pt voices understanding and consents to assessment. Pt is A/O x4 and answers all questions appropriately at this time. Pt sitting up in bed in no distress. Care providers, pharmacy, and demographics verified/updated. Admitting Dx: osteomyelitis R foot PCP:Mary Basilio, [facility] Specialists:Pt denies. Preferred Pharmacy: [facility] [place] Insurance: MMO Prescription Benefit: yes LW/HPOA: Pt denies having a LW/DPOA and denies need for info regarding AD. LNOK: Cesar Kinseykentrelltai, sig other Living Arrangements: Pt lives with sig other at times in a two story house with 2 steps to enter. Pt reports she is I in ADL's and denies concerns at home. Pt will sometimes live in her home in [place] and sometimes in [place] with her sig other of 35 years. The above info is based on the [facility] which will be where she will be residing post hospitalization. [address] [place] [address]. Transportation: Pt drives self and denies concerns with transportation. Pt sig other is also able to transport pt if needed to medical appts. DME/HHC/SNF: Pt has canes but does not use. Pt denies further DME. Pt denies hx of HHC or SNF statys. Pt states no concerns with going home at time of dc. She states she was doctoring her wound on her own for the last 3-4 years and can reach and is able to continue with this. Her sig other is also able to help if necessary. Pt does still work. She will have surgery today. Pt states no further concerns/needs. CM to follow. Advised pt to ask CM if any further question/concerns/needs arise, voices understanding. Pt Goal: Home Plan: Home vs Home with HHC pending surgery
[2022-02-23] MEDS: Lactated Ringers 1,000 ML 15 ML IV (12:00)
--- NOTE | 2022-02-23 13:30 | BON_PTH ---
PATIENT: LANI YUSUF LOC: MS3 U#:[id number] AGE/SX: 66/F ROOM: [facility] RE02/22/[address]: Dr. Mary Carrillo MD : [id number] BED: 1 DIS: 02/24/2022 SPEC #: [id number] RECD: 02/23/22 14:51 STATUS: LUIS REQ #: [id number] JEREMY: 02/23/22 13:[address]: Juliano Nunez DEPT: SURGICAL PATHOLOGY RECD BY: Vandana Vidal ENTERED: 02/24/22 08:43 SP TYPE: Bone OTHR DR: MD Dr. Juliano Junior, DPM Dr. Agustin Hammer, MD [address] [employer] INSTRUCTOR-C Tissues: A - Toe, NOS B - Toe, NOS Procedures: Decalcification bone/plaque Surgery Specimen Level IV Comments: @ Ordering doctor for DEC edited from to DR.DBULLA Elena by DEMARIO at 02/24/22 1015 @ Ordering doctor for SUIV edited from to @ by DEMARIO at 02/24/22 1015 @ Submitting doctor edited from to @ by DEMARIO at 02/24/22 1015 HEADER OPERATION: Right foot hallux amputation PRE-OP DIAGNOSIS: Non-pressure chronic ulcer of right foot with fat layer exposed TISSUE SUBMITTED: A ? Right great toe bone and soft tissue, B ? Clean margins right great toe MICROSCOPIC DIAGNOSIS A. Right great toe and tissue, amputation: Skin and soft tissue with ulceration and associated acute and chronic inflammation and granulation. Bone with chronic and focal acute osteomyelitis and associated reparative and reactive change. B. Bone of right great toe, clearance fragment, biopsy: Acute and chronic osteomyelitis and associated reparative and reactive change. AM:chel 03/01/2022 MICROSCOPIC DESCRIPTION Slides are reviewed. GROSS DESCRIPTION A - Received in fixative is one container labeled with the patient's name and designated right great toe bone and soft tissue. The specimen consists of two irregular fragments of skin that in aggregate measure 5 x 4.5 x 1.5 cm. The larger fragment contains an ulcerated area measuring 2.5 cm in greatest dimension. Also present in the specimen container are multiple irregular fragments of cosby bone measuring in aggregate 3.5 x 2.5 x 0.7 cm. [employer] sections are submitted in two cassettes as follows: 1 - skin and underlying soft tissue, 2 - bone, totally submitted after decalcification. B - Received in fixative is one container labeled with the patient's name and designated clearance fragment. The specimen consists of multiple irregular fragments of cosby bone that in aggregate measure 2 x 1 x 0.3 cm. The specimen is totally submitted in one cassette after decalcification. / AM:chel 02/24/2022 TC:2 CPT: 70773 x2, 14689 x2
[2022-02-23] MEDS: Bupivacaine 0.25% 30 ML Vial (13:55)
--- NOTE | 2022-02-23 14:50 | PCM.OPRPT ---
Problems Associated Problem List Diagnoses (1) Osteomyelitis of foot, right, acute: (2) Non-pressure chronic ulcer of other part of right foot with fat layer exposed: Report of Operation Date of Procedure: 02/23/22 Pre-Operative Diagnosis: Right hallux IPJ septic arthritis Right Hallux distal and proximal phalngeal osteomyelitis Idiopathic neuropathy Post-Operative Diagnosis: Same Surgery/Procedure Performed:: Partial hallux amputation right foot Description of Surgical Findings:: Necrotic tissue noted along the interphalangeal joint with seropurulent drainage from the site upon partial amputation of the residual digit. Be healthy and bleeding suggestive of good healing potential Surgeon: Juliano Nunez curriculum coordinator: None (Shade Prado DPM PGYI) Type of Anesthesia: MAC/Supplemental Special Medications: 10 cc quarter percent Marcaine plain used for a Martinez block right Specimen's removed: Swab cultures right big toe. Bone culture right big toe bone biopsy right big toe. Clean margin right proximal phalanx great toe Estimated Blood Loss (mL): Minimal Description of Procedure: Patient brought back to the operating placed comfortably in the supine position patient induced under MAC anesthesia. Well-padded ankle tourniquet applied to right lower extremity right lower extremity was bumped eliminate any external rotation. All osseous prominences were offloaded prevent any compression neuropraxia's. Preoperatively 10 cc quarter percent Marcaine plain block was performed aseptically in a Martinez block fashion to the right great toe. Right lower extremity scrubbed prepped draped using typical aseptic manner. Right lower extremity was elevated exsanguinated tourniquet was inflated to 250 mmHg. Incision planning was complicated by a large plantar interphalangeal joint ulceration which ultimately had to be excised. A larger dorsal skin flap was used for soft tissue coverage. The distal phalanx and interphalangeal joint were excised and sent to pathology and microbiology for further evaluation there is noted to be purulence to the interphalangeal joint this was swabbed cultured. Proximal phalangeal head was noted to be pathologically fractured this was removed and sent with the distal phalanx for pathology microbiology examination. Residual proximal phalanx was noted to be firm and intact and devoid of any infection a portion of this was resected this was called a clean margin and this was sent to pathology for further examination. All necrotic tissue and nonviable tissue was removed no evidence of residual purulence was noted. Fluoroscopic images were taken to confirm adequate resection of bone. Resection of proximal phalanx was performed using a sagittal saw. Incision was flushed with copious amounts of normal sterile saline and then closed using 3-0 Prolene simple interrupted. Tourniquet was let down prior to incisional closure. Incisional site was dressed with Betadine paint Adaptic 4 x 4's and Kerlix. Patient was transferred to PACU vital signs stable and vascular status intact all digits for further monitoring prior to discharge patient tolerated procedure and anesthesia well in apparent satisfactory condition. Patient tolerated anesthesia and procedure well in apparent satisfactory condition. Patient will continue to receive IV antibiotics in the hospital at which time we will continue to check on her. Patient will likely need continued antibiotics upon discharge. Patient will need to maintain nonweightbearing status until her incisional site heals.
[2022-02-24 03:45] VITALS: BP 119/68; PULSE 93; RESP 15; TEMP 36.4; O2SAT 99
[2022-02-24 05:05] LABS: Absolute Lymphocyte Count 0.86 X10^3/uL (0.83-4.51); Absolute Neutrophil Count 10.6 X10^3/uL (2.0-7.7); Basophil# 0.02 X10^3/uL; Basophil% 0.2 % (0-1); Eosinophil# 0.01 X10^3/uL; Eosinophils% 0.1 % (0-5); Hematocrit 35.9 % (37-47); Hemoglobin 11.6 g/dL (12.0-15.0); Lymphocyte # 0.86 X10^3/ul (0.83-4.51); Lymphocyte % 7.2 % (19-41); Mean Corp Hgb Conc 32.3 g/dL (32-36); Mean Corpuscular Hgb 27.3 pg (27.0-32.0); Mean Corpuscular Volume 84.5 fL (81-99); Mean Platelet Vol. 10.4 fl (6.2-12.0); Monocyte# 0.47 X10^3/uL; Monocyte% 3.9 % (0-10); NRBC Flagged by Analyzer 0 % (0-5); Neutrophil # 10.57 X10^3/uL (2.7-7.7); Neutrophil % 88.1 % (47-70); Platelet Count 377 K/mm3 (150-450); RBC Distribution Width CV 13.1 % (11.6-14.6); RBC Distribution Width SD 40.1 fl (35.1-43.9); Red Blood Count 4.25 M/mm3 (4.2-5.4)
[2022-02-24 05:29] LABS: ALB/GLOB Ratio 0.6 RATIO (0.9-2.4); AST(SGOT) 13 U/L (15-37); Alanine Aminotransfer ALT/SGPT 18 U/L (13-56); Albumin, Serum 2.4 g/dL (3.2-5.0); Alkaline Phosphatase 91 U/L (45-117); Anion Gap 5 (5-15); BUN 13 mg/dL (7-18); BUN/Creat Ratio 13.2 RATIO (10-20); Calcium,Total 8.6 mg/dL (8.5-10.1); Chloride 107 mmol/L (98-107); Creatinine, Serum 0.98 mg/dL (0.55-1.02); EST Glomerular Filtration Rate 60 mL/min (>60); Est Glom Filt Rate - Afr Amer 73 mL/min (>60); Estimated Creatinine Clearance 47.97 ml/min; Glucose 200 mg/dL (74-106); Potassium 4.4 mmol/L (3.5-5.1); Protein, Total 6.4 g/dL (6.4-8.2); Sodium Level 138 mmol/L (136-145)
--- NOTE | 2022-02-24 07:37 | PN.HOSP_ITS ---
Subjective Subjective Follow-up on acute osteomyelitis of the right great toe: Patient was seen and examined.? She had a partial hallux amputation of the right foot done yesterday. Denies any fever, chills or chest pain. Objective Data Objective Data Vital Signs: Vital Signs Temp Pulse Resp BP Pulse Ox O2 Del Method 97.5 F L 93 15 119/68 99 Room Air 02/24/22 03:45 02/24/22 03:45 02/24/22 03:45 02/24/22 03:45 02/24/22 03:45 02/24/22 03:45 Oxygen Delivery Method Room Air Weight: 87.5 kg Body Mass Index (BMI) 34.2 Intake & Output: Intake and Output for Last 24 Hours 02/22/22 02/23/22 02/24/22 23:59 23:59 23:59 Intake Total 690 / 1110 1290 / 1950 950 / 950 Balance 690 / 1110 1290 / 1950 950 / 950 Lab / Micro Data Result Diagrams: 02/24/22 04:15 02/24/22 04:15 Labs: Laboratory Results - last 24 hr 02/23/22 06:10: Hemoglobin A1c 6.0 H 02/24/22 04:15: WBC 12.0 H, RBC 4.25, Hgb 11.6 L, Hct 35.9 L, MCV 84.5, MCH 27 .3, MCHC 32.3 D, RDW Std Deviation 40.1, RDW Coeff of Vance 13.1, Plt Count 377, MPV 10.4, Immature Gran % (Auto) 0.500, Neut % (Auto) 88.1 H, Lymph % (Auto) 7.2 L, [place] % (Auto) 3.9, Eos % (Auto) 0.1, Baso % (Auto) 0.2, Absolute Neuts (auto) 10.6 H, Absolute Lymphs (auto) 0.86, Nucleated RBC % 0 02/24/22 04:15: Sodium 138, Potassium 4.4, Chloride 107, Carbon Dioxide 26.0, Anion Gap 5, BUN 13, Creatinine 0.98, Estim Creat Clear Calc 47.97, Est GFR (MDRD) Af Amer 73, Est GFR (MDRD) Non-Af 60, BUN/Creatinine Ratio 13.2, Glucose 200 H, Calcium 8.6, Total Bilirubin 0.20, AST 13 L, ALT 18, Alkaline Phosphatase 91, Total Protein 6.4, Albumin 2.4 L, Globulin 4.0, Albumin/Globulin Ratio 0.6 L Micro: Microbiology 02/22/22 18:37 Tissue Ulcer - Great Toe Gram Stain - Final 02/22/22 18:37 Tissue Ulcer - Great Toe Wound Culture - Preliminary Staphylococcus species Radiography Diagnostic Testing: Radiology Impression Foot X-Ray 02/23/22 10:27 IMPRESSION: Fluoroscopic assistance images were obtained. Dictation for documentation purposes only. Electronically Signed: Marciano Lentz MD at 16:57 EDT Reading Location ID and State: [facility] / [place] , Service support , Physical Exam Narrative Physical exam: General: Alert, Oriented x3, Cooperative, obese HEENT: Atraumatic Oral: Moist Mucosa Neck: Supple Lungs: Clear to auscultation Cardiovascular: HS I+II, regular, no murmurs Abdomen: Bowel Sounds Present, Soft, Non Tender Extremities: No edema, dressing over the right great toe Skin: No rashes, No breakdown Neurological: Grossly intact Psych/Mental Status: Appropriate Assessment & Plan Assessment/Plan (1) Osteomyelitis of foot, right, acute: PLAN: Plan 1. Postop day #1 status post partial hallux amputation of the right foot for acute staph aureus osteomyelitis/cellulitis Patient has underlying neuropathy. Preop wound cultures grew staph aureus Continue on IV vancomycin and Zosyn ID consulted, follow-up recommendations 2. Prediabetes, HbA1c 6.0, lifestyle modification recommended 3. Depression, continue sertraline 4. DVT prophylaxis Lovenox subcu Charges/Coding Visit Charges Inpatient E&M: 30415 Subs Hosp L2
[2022-02-24 09:35] LABS: Vancomycin, Trough Level 11.5 ug/mL (5.0-15.0)
[2022-02-24] MEDS: Sertraline 50 MG Tablet PO (09:40)
[2022-02-24] MEDS: Enoxaparin 40 MG/0.4 ML Syringe SC (09:41)
[2022-02-24 09:45] VITALS: BP 122/60; PULSE 50; RESP 16; TEMP 36.5; O2SAT 97
--- NOTE | 2022-02-24 09:58 | PCM.RX.CS ---
Consult Pharmacy has been consulted to manage selected antiobiotic: Vancomycin Type of Consult: Follow-up Suspected Infection: Osteomyelitis Prior Doses of Antibiotics Received/Current Regimen: current dose is 750mg IV q12h Labs: Sodium 138 mmol/L (136-145) 02/24/22 04:15 Potassium 4.4 mmol/L (3.5-5.1) 02/24/22 04:15 Chloride 107 mmol/L (98-107) 02/24/22 04:15 Carbon Dioxide 26.0 mmol/L (21.0-32.0) 02/24/22 04:15 Anion Gap 5 (5-15) 02/24/22 04:15 BUN 13 mg/dL (7-18) 02/24/22 04:15 Creatinine 0.98 mg/dL (0.55-1.02) 02/24/22 04:15 Est GFR (MDRD) Af Amer 73 mL/min (>60) 02/24/22 04:15 Est GFR (MDRD) Non-Af 60 mL/min (>60) 02/24/22 04:15 BUN/Creatinine Ratio 13.2 RATIO (10-20) 02/24/22 04:15 Glucose 200 mg/dL (74-106) H 02/24/22 04:15 Vancomycin Trough 11.5 ug/mL (5.0-15.0) 02/24/22 09:05 Microbiology: Microbiology 02/22/22 18:37 Tissue Ulcer - Great Toe Gram Stain - Final 02/22/22 18:37 Tissue Ulcer - Great Toe Wound Culture - Final Staphylococcus aureus Weight used for dosin.5 kg Estimated Creatinine Clearance: 61ml/min Goal Trough: 15-20 mcg/mL Pharmacy Plan for Drug Dosing: The vanc trough drawn at 09:05 today (approximately 11.5 hours after the previous dose) was 11.5. Since it is below goal, will increase next dose to 1000mg IV q12h. This morning's dose of 750mg has already been hung so will start the 1000mg dose a little earlier than 12 hours later this evening. Will repeat a trough level before the 4th new dose. The patient's CrCl of 61 ml/min was calculated using an adjusted body weight. Pharmacy Service will continue to monitor and adjust dosing as required. Follow-Up Labs: Trough Vancomycin Labs to be done on [date and time ordered]: 02/26/22 07:30
[2022-02-24 10:31] VITALS: RESP 16; O2SAT 97
--- NOTE | 2022-02-24 10:53 | PN_ITS ---
Subjective Subjective 66-year-old female seen bedside today 1 day postop from left hallux amputation. Patient denies constitutional symptoms or pain as she is neuropathic. Patient passing gas point voiding urine no other complaints overnight. Objective Data Objective Data Vital Signs: Vital Signs Temp Pulse Resp BP Pulse Ox O2 Del Method 97.7 F L 50 L 16 122/60 H 97 Room Air 02/24/22 09:45 02/24/22 09:45 02/24/22 09:45 02/24/22 09:45 02/24/22 09:45 02/24/22 09:45 Oxygen Delivery Method Room Air Weight: 87.5 kg Body Mass Index (BMI) 34.2 Intake & Output: Intake and Output for Last 24 Hours 02/22/22 02/23/22 02/24/22 23:59 23:59 23:59 Intake Total 690 / 1110 1290 / 1950 1265 / 1265 Balance 690 / 1110 1290 / 1950 1265 / 1265 Lab / Micro Data Result Diagrams: 02/24/22 04:15 02/24/22 04:15 Labs: Laboratory Results - last 24 hr 02/24/22 04:15: WBC 12.0 H, RBC 4.25, Hgb 11.6 L, Hct 35.9 L, MCV 84.5, MCH 27.3, MCHC 32.3 D, RDW Std Deviation 40.1, RDW Coeff of Vance 13.1, Plt Count 377, MPV 10.4, Immature Gran % (Auto) 0.500, Neut % (Auto) 88.1 H, Lymph % (Auto) 7.2 L, [place] % (Auto) 3.9, Eos % (Auto) 0.1, Baso % (Auto) 0.2, Absolute Neuts (auto) 10.6 H, Absolute Lymphs (auto) 0.86, Nucleated RBC % 0 02/24/22 04:15: Sodium 138, Potassium 4.4, Chloride 107, Carbon Dioxide 26.0, Anion Gap 5, BUN 13, Creatinine 0.98, Estim Creat Clear Calc 47.97, Est GFR (MDRD) Af Amer 73, Est GFR (MDRD) Non-Af 60, BUN/Creatinine Ratio 13.2, Glucose 200 H, Calcium 8.6, Total Bilirubin 0.20, AST 13 L, ALT 18, Alkaline Phosphatase 91, Total Protein 6.4, Albumin 2.4 L, Globulin 4.0, Albumin/Globulin Ratio 0.6 L 02/24/22 09:05: Vancomycin Trough 11.5 Micro: Microbiology 02/22/22 18:37 Tissue Ulcer - Great Toe Gram Stain - Final 02/22/22 18:37 Tissue Ulcer - Great Toe Wound Culture - Final Staphylococcus aureus Radiography Diagnostic Testing: Radiology Impression Foot X-Ray 02/23/22 10:27 IMPRESSION: Fluoroscopic assistance images were obtained. Dictation for documentation purposes only. Electronically Signed: Marciano Lentz MD at 16:57 EDT , Physical Exam Narrative Neurovascular status of changed from previous evaluation. Skin incision to the right hallux amputation site noted to be well approximated with intact sutures. Mild erythema to incisional site noted no other signs of infection. No signs of wound breakdown. No signs of DVT you with regards to palpation popliteal fossa or calf squeeze bilaterally. Assessment & Plan Assessment/Plan (1) Osteomyelitis of foot, right, acute: (2) Non-pressure chronic ulcer of other part of right foot with fat layer exposed: PLAN: Exam evaluated. All findings discussed with patient in detail. Dressing was changed incisional site was cleansed redressed with Adaptic 4 x 4's Kerlix and [place] bandage. Patient should be nonweightbearing but she can bear weight on her heel for trans isaac purposes and balancing. This should be done so in a surgical shoe. Patient receiving vancomycin and Zosyn. Initial cultures demonstrated MSSA. We will await operative cultures. Infectious disease on board. Patient stable from podiatry standpoint for discharge to home. We will plan to follow up with the patient on a weekly basis. We will await infectious disease antibiotic recs.
--- NOTE | 2022-02-24 13:51 | CASEMGMT ---
VERITO RUST updated by ID that patient can discharge of PO ATBs. VERITO RUST in to patient's room to discuss discharge needs. Patient would like FWW at discharge. Patient states she has no preferences for DME agencies, list provided and would like [facility]. Patient states no need for HHC at discharge. VERITO RUST inquired with [facility] if they could delivery FWW to hospital today, per Tyranny, they can deliver walker today to patient's room. VERITO RUST updated hospitalist and script received. VERITO RUST sent referral via [facility] to [facility] and arranged for delivery. CM will continue to follow this patient and plan for a safe discharge.
--- NOTE | 2022-02-24 14:00 | DCINST_ITS ---
Discharge Instructions Diet Discharge Diet: No restrictions Activity Discharge Activity: Return to Normal Activity Weight Bearing Status: No weight bearing (on the right foot) Dressing / Incision Call your doctor if your incision/area has: Continuous Slow Oozing, Sudden Increased Bleeding, Increased Pain/ Swelling, Increased Redness, Foul Smelling Discharge and Swelling at the incision site Call your doctor if you observe: Fever of 101 or Higher, Coldness, Increased Pain, Numbness or Tingling, Change in Color, Shortness of breath and Uncontrolled pain Follow Up Care Test Results: Test results from this visit will be discussed in further detail at your follow- up appointment, if applicable. Discharge Plan Admission Admit Date/Time: 02/22/22 19:32 Attending Provider: Mary Carrillo Primary Care Provider: Mary Basilio NP Consulting Providers: Agustin Hammer ; Bassam Hernandez ; Juliano Nunez Discharge Orders/Prescriptions Prescriptions: New sulfamethoxazole-trimethoprim [Bactrim DS] 800-160 mg tablet 1 tab PO BID 7 Days Qty: 14 0RF Continued naproxen sodium [Aleve] 220 mg Tablet 440 mg PO DAILY sertraline 50 mg tablet 50 mg PO DAILY Discontinued sulfamethoxazole-trimethoprim 800-160 mg tablet 1 tab PO BID 10 Days Qty: 20 0RF Disposition Discharge Orders: Discharge Patient (Routine); Ordered 02/24/22 Ordered By: Dr. Mary Carrillo
--- NOTE | 2022-02-24 14:08 | DS.PCM_ITS ---
Providers Date of Admission: 02/22/22 Date of Discharge: 02/24/22 Primary Care Physician: MELITON Bernal Consultations 02/22/22 20:28 Consult: Onc/Wound/bending roll operator Routine Comment: 02/23/22 09:06 Consult: Podiatry Routine Consulting Provider: Juliano Nunez Reason for Consult: right great toe EMERGENT Consult: No Notified: Yes Date Notified: 02/23/22 Time Notified: 09:06 Method of Notification: Verbal Method of Consult:: In-Person 02/23/22 14:41 Consult: Infectious Disease Routine Consulting Provider: Bassam Hernandez Reason for Consult: Right great toe osteomyelitis EMERGENT Consult: No Notified: Yes Date Notified: 02/23/22 Time Notified: 16:41 Method of Notification: Text Reason For Visit: OSTEOMYELITIS R FOOT Diagnosis Discharge Diagnosis (1) Osteomyelitis of foot, right, acute: Status: Acute Code(s): M86.171 - Other acute osteomyelitis, right ankle and foot Plan 1. Acute staph aureus osteomyelitis/cellulitis 2. Prediabetes 3. Depression Medications at Discharge Home Medications naproxen sodium 220 mg tablet (Aleve) 440 mg PO DAILY ARTHRITIS 02/22/22 sertraline 50 mg tablet 50 mg PO DAILY DEPRESSION 02/22/22 sulfamethoxazole 800 mg-trimethoprim 160 mg tablet (Bactrim DS) 1 tab PO BID 7 days #14 tabs 02/24/22 Hospital Course Operations - (Partial amputation of the right hallux 02/23/22) Procedures None Summary of Care Provided Minutes Spent on Discharge: 35 Hospital Course: 66-year-old female with past medical history of neuropathy, unclear etiology who developed blisters to her right toe and blister subsequently got infected. Patient had gone to wound care and x-ray showed a right first interphalangeal joint with osteopenia and erosions suggestive of osteomyelitis/septic arthritis with severe soft tissues swelling. Patient was admitted to the [facility] floor, podiatry and infectious disease were consulted. She was started on IV vancomycin and Zosyn. Her wound cultures grew MSSA. Patient underwent partial hallux amputation of the right foot. There was necrotic tissue noted along the interphalangeal joint with seropurulent drainage from the site. Postoperatively, patient did well. No acute events overnight. Stable vitals. Patient was recommended to go home on 1 week of oral Bactrim DS. She was highly recommended to follow-up with her primary care doctor within 1 week to check on kidney function. She will follow-up with podiatry on 02/27/2022. She was recommended not to bear weight on her foot but to ambulate with a surgical shoe and bear weight on her heel. Patient was also discharged home with a walker. Physical Exam Narrative Physical exam: General: Alert, Oriented x3, Cooperative, obese HEENT: Atraumatic Oral: Moist Mucosa Neck: Supple Lungs: Clear to auscultation Cardiovascular: HS I+II, regular, no murmurs Abdomen: Bowel Sounds Present, Soft, Non Tender Extremities: No edema, dressing over the right great toe Skin: No rashes, No breakdown Neurological: Grossly intact Psych/Mental Status: Appropriate Weight / BMI Weight Weight: 87.5 kg Body Mass Index (BMI) 34.2 ABG / Lab / Microbiology Data Result Diagrams: 02/24/22 04:15 02/24/22 04:15 Laboratory: Laboratory Results - last 24 hr 02/24/22 04:15: WBC 12.0 H, RBC 4.25, Hgb 11.6 L, Hct 35.9 L, MCV 84.5, MCH 27.3, MCHC 32.3 D, RDW Std Deviation 40.1, RDW Coeff of Vance 13.1, Plt Count 377, MPV 10.4, Immature Gran % (Auto) 0.500, Neut % (Auto) 88.1 H, Lymph % (Auto) 7.2 L, [place] % (Auto) 3.9, Eos % (Auto) 0.1, Baso % (Auto) 0.2, Absolute Neuts (auto) 10.6 H, Absolute Lymphs (auto) 0.86, Nucleated RBC % 0 02/24/22 04:15: Sodium 138, Potassium 4.4, Chloride 107, Carbon Dioxide 26.0, Anion Gap 5, BUN 13, Creatinine 0.98, Estim Creat Clear Calc 47.97, Est GFR ( MDRD) Af Amer 73, Est GFR (MDRD) Non-Af 60, BUN/Creatinine Ratio 13.2, Glucose 200 H, Calcium 8.6, Total Bilirubin 0.20, AST 13 L, ALT 18, Alkaline Phosphatase 91, Total Protein 6.4, Albumin 2.4 L, Globulin 4.0, Albumin/Globulin Ratio 0.6 L 02/24/22 09:05: Vancomycin Trough 11.5 Microbiology: Microbiology 02/23/22 14:35 Tissue - Great Toe Gram Stain - Final 02/23/22 14:35 Tissue - Great Toe Wound Culture - Preliminary Staphylococcus aureus 02/23/22 14:29 Tissue - Great Toe Gram Stain - Final 02/23/22 14:29 Tissue - Great Toe Wound Culture - Preliminary Staphylococcus aureus 02/22/22 18:37 Tissue Ulcer - Great Toe Gram Stain - Final 02/22/22 18:37 Tissue Ulcer - Great Toe Wound Culture - Final Staphylococcus aureus Radiography Diagnostic Testing: Radiology Impression Foot X-Ray 02/23/22 10:27 IMPRESSION: Fluoroscopic assistance images were obtained. Dictation for documentation purposes only. Electronically Signed: Marciano Lentz MD at 16:57 EDT Reading Location ID and State: [address] [place] [address] , Service support , D/C Instructions Discharge Diet: No restrictions Weight Bearing Status: No weight bearing (on the right foot) Call your doctor if your incision/area has: Continuous Slow Oozing, Sudden Incre ased Bleeding, Increased Pain/ Swelling, Increased Redness, Foul Smelling Discharge and Swelling at the incision site Call your doctor if you observe: Fever of 101 or Higher, Coldness, Increased Pain, Numbness or Tingling, Change in Color, Shortness of breath and Uncontrolled pain Meaningful Use Info Meaningful Use Diagnoses (Choose all that apply): None applicable Discharge Plan Admission Admit Date/Time: 02/22/22 19:32 Primary Reason for Your Visit: Acute right great toe osteomyelitis Attending Provider: Mary Carrillo Primary Care Provider: Mary Basilio NP Consulting Providers: Agustin Hammer ; Bassam Hernandez ; Juliano Nunez Instructions Additional Instructions / Restrictions: Ambulates with a surgical shoe and walker Complete your antibiotics as prescribed Follow-up with podiatry on 02/27/22 You will need to follow-up with your primary care doctor within 1 week for blood work to check on kidney function was on antibiotics. Discharge Orders/Prescriptions Prescriptions: New sulfamethoxazole-trimethoprim [Bactrim DS] 800-160 mg tablet 1 tab PO BID 7 Days Qty: 14 0RF Continued naproxen sodium [Aleve] 220 mg Tablet 440 mg PO DAILY sertraline 50 mg tablet 50 mg PO DAILY Discontinued sulfamethoxazole-trimethoprim 800-160 mg tablet 1 tab PO BID 10 Days Qty: 20 0RF Referrals / Follow Up: Juliano Nunez, CHINMAYM [Med Staff - Active Staff] - See Referral Note (Follow-up on Sunday02/27/22) Mary Basilio NP, PHOTOLETTERING MACHINE OPERATOR-C [Primary Care Provider] - In 1 Week Disposition Disposition (needs filled in before D/C Order can be placed): Home, Self Care Charges/Coding Visit Charges Inpatient E&M: 63637 Disch Hosp
[2022-02-24 14:10] VITALS: BP 114/59; PULSE 55; RESP 18; TEMP 36.4; O2SAT 100
--- NOTE | 2022-02-24 15:46 | PCM.CONS.GEN ---
Assessment & Plan Assessment/Plan (1) Idiopathic neuropathy: (2) Osteomyelitis of great toe of right foot: PLAN: Now s/p distal toe amp 02/23/[address] Nunez. Wound cx and surg cx with mssa. On vanc/zosyn. Clearance cx and path pending. Ok for home with one week bactrim DS. Will need course extended if residual osteo seen. Will follow as needed, thank you, d/w primary team HPI Consult Data Date of Consult: 02/24/22 HPI Narrative Reason for Consultation: osteo HPI Narrative: LANI YUSUF, is a 66 F who presented with 2 weeks progressive R 1st toe swelling, redness, drainage. Week prior had dogs licking her chronic foot wounds/blisters. Developed associated fever, chills, weakness. Admitted, started on vanc/zosyn. Taken for distal toe amp 02/[address] Nunez, feeling much better. Full ROS performed and neg except as noted above. [facility] Medical History Depression GERD (gastroesophageal reflux disease) Hypertriglyceridemia Neuropathy Osteoarthritis Osteoarthritis Pneumonia Home Medications naproxen sodium 220 mg tablet (Aleve) 440 mg PO DAILY ARTHRITIS 02/22/22 [History Last Taken 02/21/22] sertraline 50 mg tablet 50 mg PO DAILY DEPRESSION 02/22/22 [History Last Taken 02/21/22] sulfamethoxazole 800 mg-trimethoprim 160 mg tablet (Bactrim DS) 1 tab PO BID 7 days #14 tabs 02/24/22 [Rx Last Taken Unknown] Allergy/AdvReac Type Severity Reaction Status Date / Time No Known Allergies Allergy Verified 02/22/22 15:33 Family History Other Diabetes Surgical History History of cholecystectomy Social History Smoking Status: Never smoker Physical Exam Const alert, oriented x3 and no apparent distress General Appearance: cooperative HEENT normocephalic and head/scalp atraumatic Eyes PERRL and EOMs intact bilaterally Neck supple and No nodes Resp normal air movement and clear to auscultation bilaterally Cardio regular rate and regular rhythm GI soft to palpation, non-tender and non-distended Extremity General Extremity: Negative for edema Skin Skin Narrative: foot wrapped, reviewed photo Neuro CN's II-XII intact bilaterally Lab / Micro Data Attestation: I reviewed the patient's lab results. Result Diagrams: 02/24/22 04:15 02/24/22 04:15 Labs: Laboratory Results - last 24 hr 02/24/22 04:15: WBC 12.0 H, RBC 4.25, Hgb 11.6 L, Hct 35.9 L, MCV 84.5, MCH 27.3, MCHC 32.3 D, RDW Std Deviation 40.1, RDW Coeff of Vance 13.1, Plt Count 377, MPV 10.4, Immature Gran % (Auto) 0.500, Neut % (Auto) 88.1 H, Lymph % (Auto) 7.2 L, [place] % (Auto) 3.9, Eos % (Auto) 0.1, Baso % (Auto) 0.2, Absolute Neuts (auto) 10.6 H, Absolute Lymphs (auto) 0.86, Nucleated RBC % 0 02/24/22 04:15: Sodium 138, Potassium 4.4, Chloride 107, Carbon Dioxide 26.0, Anion Gap 5, BUN 13, Creatinine 0.98, Estim Creat Clear Calc 47.97, Est GFR (MDRD) Af Amer 73, Est GFR (MDRD) Non-Af 60, BUN/Creatinine Ratio 13.2, Glucose 200 H, Calcium 8.6, Total Bilirubin 0.20, AST 13 L, ALT 18, Alkaline Phosphatase 91, Total Protein 6.4, Albumin 2.4 L, Globulin 4.0, Albumin/Globulin Ratio 0.6 L 02/24/22 09:05: Vancomycin Trough 11.5 Micro: Microbiology 02/23/22 14:35 Tissue - Great Toe Gram Stain - Final 02/23/22 14:35 Tissue - Great Toe Wound Culture - Preliminary Staphylococcus aureus 02/23/22 14:29 Tissue - Great Toe Gram Stain - Final 02/23/22 14:29 Tissue - Great Toe Wound Culture - Preliminary Staphylococcus aureus 02/22/22 18:37 Tissue Ulcer - Great Toe Gram Stain - Final 02/22/22 18:37 Tissue Ulcer - Great Toe Wound Culture - Final Staphylococcus aureus Radiology Impression Foot X-Ray 02/23/22 10:27 IMPRESSION: Fluoroscopic assistance images were obtained. Dictation for documentation purposes only. Electronically Signed: Marciano Lentz MD at 16:57 EDT ,
== END 2022-02-24 15:41 | disposition home or self-care (01) | DRG 504 ==
LOC: ED 18:37 → MS3 19:57
PROVIDERS: Podiatrist; Emergency Provider Emergency Medicine; PCP Nurse Practitioner; Visit Provider Internal Medicine
PROC: 0Y6P0Z1 Detachment at Right 1st Toe, High, Open Approach (ICD-10-PCS; principal; 2022-02-23 13:15)
DX: M86.171 Other acute osteomyelitis, right ankle and foot (principal); M00.871 Arthritis due to other bacteria, right ankle and foot; L97.512 Non-pressure chronic ulcer of other part of right foot with fat layer exposed; G60.9 Hereditary and idiopathic neuropathy, unspecified; K21.9 Gastro-esophageal reflux disease without esophagitis; M19.90 Unspecified osteoarthritis, unspecified site; L03.031 Cellulitis of right toe; R73.03 Prediabetes; F32.A Depression, unspecified; Z79.899 Other long term (current) drug therapy; B95.61 Methicillin susceptible Staphylococcus aureus infection as the cause of diseases classified elsewhere
CPT/HCPCS: 36415; 73620; 76000; 80048; 80053; 80202; 83036; 83605; 84443; 85025; 86140; 87015; 87040; 87070; 87075; 87077; 87102; 87116; 87176; 87186; 87205; 87206; 88305; 88311; 93005; 93923; 97116; 97162; 99284; J7040; J7050; J7120; J2405

== ENCOUNTER → 2022-03-31 | Outpatient (CLI) | payer OTHER, SELFPAY ==
--- NOTE | 2022-03-31 08:16 | VDLE_ITS ---
Reason For Study: Edema RIGHT LEFT GSV is normal. GSV is normal. CFV is compressible, spontaneous, phasic, CFV is compressible, spontaneous, phasic, competent and demonstrates normal competent, and demonstrates normal augmentation. augmentation. FV is compressible, spontaneous, phasic, FV is compressible, spontaneous, phasic, competent and demonstrates normal competent and demonstrates normal augmentation. augmentation. POP V is compressible, spontaneous, phasic, POP V is compressible, spontaneous, phasic, competent and demonstrates normal competent and demonstrates normal augmentation. augmentation. T/P Trunk is compressible. T/P Trunk is compressible. PTV is compressible. PTV is compressible. RT PerV is compressible. LT PerV is compressible. SFJ is competent and measures 0.82cm x 0.91 SFJ is INCOMPETENT and measures 0.68cm x 0.68 cm. cm. GSV proximal thigh measures 0.34cm x 0.35 cm. GSV proximal thigh measures 0.30cm x 0.32 cm. GSV at knee measures 0.33cm x 0.43 cm. GSV at knee measures 0.20cm x 0.19 cm. SSV proximal calf is competent and measures SSV proximal calf is competent and measures 0.40cm x 0.42 cm. 0.25cm x 0.27 cm. GSV is competent throughout. GSV is competent throughout. Procedure This is a venous duplex using B-mode, color flow and spectral Doppler. Exam performed in department. A preliminary report was called and/or faxed to Mary Basilio NP. VL/Venous Duplex US - Renetta Extrem Interpretation Summary Deep veins of the lower extremities are bilaterally patent and compressible seg mentally. There is no evidence of deep vein thrombosis on either side. Valvular competence appears in tact within the proximal deep venous systems bilaterally. The great saphenous veins appear bila terally patent and compressible segmentally. The right sapheno-femoral junction is competent . The left sapheno-femoral junction is incompetent . Valvular competence appears to be intact segmentally within the great saphenous veins bilaterally. Small saphenous veins are patent and competent renetta aterally. Ordering Physician: Mary Basilio Referring Physician: Mary Basilio Performed By: Cortney Rose, VALERIY, RVT
== END | disposition home or self-care (01) ==
LOC: CVS 08:09
PROVIDERS: PCP Nurse Practitioner; Referring Provider Nurse Practitioner; Visit Provider Nurse Practitioner
DX: L97.512 Non-pressure chronic ulcer of other part of right foot with fat layer exposed (principal); I73.9 Peripheral vascular disease, unspecified; R60.0 Localized edema
CPT/HCPCS: 93970

== ENCOUNTER 2022-10-25 10:00 | Outpatient (RCR) | payer OTHER, SELFPAY ==
[2022-10-18 10:07] VITALS: BP 168/85; PULSE 69; RESP 16; TEMP 35.9; BMI 34.5
--- NOTE | 2022-10-18 11:28 | RAD_ITS ---
EXAM: XR RIGHT FOOT COMPLETE, 3 OR MORE VIEWS CLINICAL INDICATION: OSTEOMYLITIS TECHNIQUE: Frontal, lateral and oblique views of the right foot. COMPARISON: 02/22/2022 FINDINGS: BONES/JOINTS: There is been amputation of the distal aspect of the proximal first phalanx as well as the distal first phalanx. There are destructive changes seen of the third phalanx. No acute fracture. No subluxation. Normal alignment. Preservation of the joint space. SOFT TISSUES: Unremarkable. No soft tissue swelling or gas. No radiopaque foreign body. RAD/Foot min 3 Views IMPRESSION: 1. Destructive changes of the distal third phalanx which may be due to osteomyelitis. There is soft tissue swelling. 2. Previous amputation of the distal aspect of the proximal first phalanx and distal first phalanx. Electronically Signed: Cameron Rachel MD at 23:57 EDT ,
--- NOTE | 2022-10-18 11:30 | RAD_ITS ---
EXAM: XR LEFT FOOT COMPLETE, 3 OR MORE VIEWS CLINICAL INDICATION: OSTEOMYLITIS TECHNIQUE: Frontal, lateral and oblique views of the left foot. COMPARISON: No relevant prior studies available. FINDINGS: BONES/JOINTS: Unremarkable. No acute fracture. No subluxation. Normal alignment. Preservation of the joint space. No sclerotic or destructive changes observed. SOFT TISSUES: Unremarkable. No soft tissue swelling or gas. No radiopaque foreign body. RAD/Foot min 3 Views IMPRESSION: Negative left foot x-rays. Electronically Signed: Cameron Rachel MD at 23:28 EDT ,
--- NOTE | 2022-10-18 11:47 | PCM.WC.PN ---
History of Present Illness Date of Service: 10/18/22 Chief Complaint: Follow-up multiple wounds of right great toe plantar side right second third and fourth toe right heel and left second toe all from her idiopathic neuropathy. Patient refuses to stay off her feet and is on working 10 to 12 hours a day. She also likes to pick at her wounds which does not help. 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 She was seen in my office about 6 months ago and was given to her calcium alginate. Still using that and Neosporin on her wounds. She feels the toes are from the shoe she pumped it up too high and her toes were extended past the ends and she does not realize that they are getting hit or rubbing when she walks. The right second and third fourth toe are all superficial wounds The right heel looks like she had some skin cracking and is picking at it and opened some wounds on her heel. Again very superficial The worst would be the right foot plantar that is open and has some depth. We will order x-rays to check for osteomyelitis and have patient follow-up in 1 week with a different dressing change. Progress of Wound: Debrided all wounds well all wounds look clean no odor will start her on Bactroban and Fibracol over top on the right plantar ulcer. All the other ulcers will just cover with fibrin call . Subjective Subjective Patient is okay with outcomes and with treatment plan Objective Data Objective Data Again we will try using fibric all this time and not the calcium alginate and see if that works better for her wound get x-rays. Vital Signs: Vital Signs Temp Pulse Resp BP O2 Del Method 96.7 F L 69 16 168/85 H Room Air 10/18/22 10:07 10/18/22 10:07 10/18/22 10:07 10/18/22 10:07 10/18/22 10:07 Oxygen Delivery Method Room Air Weight: 195 lb Body Mass Index (BMI) 34.5 Lab / Micro Data Attestation: I reviewed the patient's lab results. Physical Exam Const oriented x3 General Appearance: cooperative Exam Limitations: no limitations HEENT normocephalic Eyes PERRL Resp normal respiratory effort Effort and Inspection: able to speak in complete sentences Auscultation: clear to auscultation bilaterally Cardio regular rate and regular rhythm Palpation: normal PMI Rate: regular rate Rhythm: regular rhythm Extremity Extremity Narrative: Right foot has wounds on right plantar amputated partial of the right great toe and open wounds on second third and fourth toe plantar side. Right heel is open wounds from cracked skin and left second toe is open also General Extremity: amputation Skin Wounds: wounds noted Neuro oriented x3 Psych Appearance: grossly normal Speech: normal speech Thought Content: normal thought content Judgement: judgement good Debridement Note Debridement Note Wound debrided: Right great toe nonpressure ulcer Laterality: Right Type of Debridement: Excisional debridement Anesthesia Used: 5% Lidocaine Gel Depth: Down to and including healthy tissue Percentage of wound debrided: 100 Instrument Used: 5mm curette Tissue Removed: Callus and devitalized tissue and fibrin Severity: Limited To Skin Breakdown Amount of bleeding with debridement: Mild Bleeding Controlled with: Compression and gauze Patient tolerated procedure: Patient tolerated procedure well Post-Debridement Measurements and Additional Note: Post-Debridement Measurements/Treatment - Nurse 1 - General Ulcer Assessment Start: 10/18/22 10:02 Freq: Status: Active Protocol: SANDRO Activity Type Activity Date Activity User E-sign Co-sign Detail Recorded Client Recorded Date Recorded By Document 10/18/22 10:07 [facility] [id number] 10/18/22 10:32 [facility] 10/18/22 10:07 - Today's Visit Information Type of service Initial Visit Arrival Mode Ambulatory Transfer Assistance None Accompanied by SIG OTHER Patient Identification Verified (Name & Yes ) Patient Requires Transmission-Based No Precautions Height and Weight Height 5 ft 3 in Weight 195 lb Weight in Pounds 195.0 lbs Weight Measurement Method Estimated by Patient Body Mass Index (BMI) 34.5 BMI Classification Obese BSA - Nick 1.91 Vital Signs Temperature (97.8 F-99.1 F) 96.7 F L Temperature Source Temporal Pulse Rate (60-100) 69 Pulse Location Monitor Respiratory Rate (12-18) 16 Respiratory rate source Observation Oxygen Delivery Method Room Air Blood Pressure (90/60-120/80) 168/85 H Blood Pressure Mean (mm Hg) 112 Source Monitor Position Sitting Blood Pressure Location Left Arm History Since Last Visit- (Skip if this is Patient's initial visit) Left Footwear Regular Shoe Right Footwear Removable Cast Walker/Walking Boot Pain Scale: 0-10 Numeric Is Patient Pain Free? Yes Lower Extremity Assessment/ Foot Assessment/ Toe Nail Assessment Right -Lower Extremity Comment (If N/A Above ARTERIAL ) STUDIES 01/2022 Left -Lower Extremity Comment (If N/A Above ARTERIAL ) STUDIES 01/2022 Communication Assessment Preferred language Maur[place]ian Digital Field Service Technician Required No Able to Read Yes Able to Write Yes Communication Tools None Right Hearing Abillity Normal Left Hearing Abillity Normal Visual Assistive Devices Glasses Teaching Assessment Preferences Verbal,Written, Audio/Visual, Demonstration Barriers to Learning None Readiness To Learn Excellent Willingness to Engage in Self Management High Activies Readiness to Engage in Self Management High Activities Anxiety Level Calm Cooperation Cooperative Perception Coherent Interest in Health Problem Asks Questions Education Importance Acknowledges Need Does Patient Smoke tobacco or other No substances Is Patient Diabetic No Functional Assessment Recent Decline in Ability to Perform Denies Any Declines 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 Cultural/Anglican Needs that may affect No Treatment Plan WC - Nurse 1 - General Ulcer Measurement Start: 10/18/22 10:02 Freq: Status: Active Protocol: Activity Type Activity Date Activity User E-sign Co-sign Detail Recorded Client Recorded Date Recorded By Document 10/18/22 10:07 [facility] [id number] 10/18/22 10:32 [facility] 10/18/22 10:07 Wound Center Nurse 1 #4- L KNEE -Combined with other wound No -Current Size (cm) - Length 0.5 -Current Size (cm) - Width 0.7 -Current Size (cm) - Depth 0.1 -Total Square Cm 0.35 -Date of Last Picture (Recall this 10/18/22 field) -Photo Taken Yes -Epithelialization None Present -Tunneling No -Undermining/Tunneling No -Circular Undermining No -Exudate Amt None Present -Wound Margin Distinct, Outline Attached -Granulation Amt None Present (0 %) -Slough/Fibrin Yes -Necrosis Amt Large (67-100%) -Necrotic Tissue Type Eschar -Texture (Sammie-wound Skin Appearance) Assessed, Localized Edema ,Scarring -Moisture (Sammie-wound Skin Appearance) Assessed,Dry/ Scaly -Color (Sammie-wound Skin Appearance) Assessed, Erythema -Temperature (Sammie-wound Skin No Abnormality Appearance) (Pt Warm) -Tenderness on Palpation (Sammie-wound No Skin Appearance) -Ulcer Cleansing Rinsed/ Irrigated with Saline -Foul Odor after Cleansing No -Anesthetic Used 5% Lidocaine Gel #9- R 4TH TOE -Combined with other wound No -Current Size (cm) - Length 0.1 -Current Size (cm) - Width 0.1 -Current Size (cm) - Depth 0.1 -Total Square Cm 0.01 -Date of Last Picture (Recall this 10/18/22 field) -Photo Taken Yes -Epithelialization None Present -Tunneling No -Undermining/Tunneling No -Circular Undermining No -Exudate Amt Small -Exudate Type Serosanguineous -Wound Margin Distinct, Outline Attached -Granulation Amt Large (67-100%) -Granulation Quality Red -Slough/Fibrin No -Necrosis Amt None Present (0 %) -Texture (Sammie-wound Skin Appearance) Assessed,Callus ,Scarring -Moisture (Sammie-wound Skin Appearance) Assessed,Dry/ Scaly -Color (Sammie-wound Skin Appearance) Assessed -Temperature (Sammie-wound Skin No Abnormality Appearance) (Pt Warm) -Tenderness on Palpation (Sammie-wound No Skin Appearance) -Ulcer Cleansing Rinsed/ Irrigated with Saline -Foul Odor after Cleansing No -Anesthetic Used 5% Lidocaine Gel #8- R 3RD TOE -Combined with other wound No -Current Size (cm) - Length 0.3 -Current Size (cm) - Width 0.4 -Current Size (cm) - Depth 0.1 -Total Square Cm 0.12 -Date of Last Picture (Recall this 10/18/22 field) -Photo Taken Yes -Epithelialization None Present -Tunneling No -Undermining/Tunneling No -Circular Undermining No -Exudate Amt Small -Exudate Type Serosanguineous -Wound Margin Distinct, Outline Attached -Granulation Amt Large (67-100%) -Granulation Quality Red -Slough/Fibrin No -Necrosis Amt None Present (0 %) -Texture (Sammie-wound Skin Appearance) Assessed,Callus ,Scarring -Moisture (Sammie-wound Skin Appearance) Assessed,Dry/ Scaly -Color (Sammie-wound Skin Appearance) Assessed -Temperature (Sammie-wound Skin No Abnormality Appearance) (Pt Warm) -Tenderness on Palpation (Sammie-wound No Skin Appearance) -Ulcer Cleansing Rinsed/ Irrigated with Saline -Foul Odor after Cleansing No -Anesthetic Used 5% Lidocaine Gel #7- R 2ND TOE PLANTAR -Combined with other wound No -Current Size (cm) - Length 0.2 -Current Size (cm) - Width 0.2 -Current Size (cm) - Depth 0.1 -Total Square Cm 0.04 -Date of Last Picture (Recall this 10/18/22 field) -Photo Taken Yes -Epithelialization None Present -Tunneling No -Undermining/Tunneling No -Circular Undermining No -Exudate Amt Small -Exudate Type Serosanguineous -Wound Margin Flat & Intact -Granulation Amt Large (67-100%) -Granulation Quality Red -Slough/Fibrin No -Necrosis Amt None Present (0 %) -Texture (Sammie-wound Skin Appearance) Assessed,Callus ,Scarring -Moisture (Sammie-wound Skin Appearance) Assessed -Color (Sammie-wound Skin Appearance) Assessed -Temperature (Sammie-wound Skin No Abnormality Appearance) (Pt Warm) -Tenderness on Palpation (Sammie-wound No Skin Appearance) -Ulcer Cleansing Rinsed/ Irrigated with Saline -Foul Odor after Cleansing No -Anesthetic Used 5% Lidocaine Gel #6- R HEEL CLUSTER -Combined with other wound No -Current Size (cm) - Length 4.5 -Current Size (cm) - Width 4 -Current Size (cm) - Depth 0.1 -Total Square Cm 18.0 -Date of Last Picture (Recall this 10/18/22 field) -Photo Taken Yes -Epithelialization None Present -Tunneling No -Undermining/Tunneling No -Circular Undermining No -Exudate Amt Small -Exudate Type Serosanguineous -Wound Margin Flat & Intact -Granulation Amt Large (67-100%) -Granulation Quality Red -Slough/Fibrin Yes -Necrosis Amt Small (1-33%) -Necrotic Tissue Type Eschar -Texture (Sammie-wound Skin Appearance) Assessed, Scarring -Moisture (Sammie-wound Skin Appearance) Assessed,Dry/ Scaly -Color (Sammie-wound Skin Appearance) Assessed -Temperature (Sammie-wound Skin No Abnormality Appearance) (Pt Warm) -Tenderness on Palpation (Sammie-wound No Skin Appearance) -Ulcer Cleansing Soap and Water -Foul Odor after Cleansing No -Anesthetic Used 5% Lidocaine Gel #5- R FOOT PLANTAR -Combined with other wound No -Current Size (cm) - Length 1.7 -Current Size (cm) - Width 1.5 -Current Size (cm) - Depth 0.5 -Total Square Cm 2.55 -Date of Last Picture (Recall this 10/18/22 field) -Photo Taken Yes -Epithelialization None Present -Tunneling No -Undermining/Tunneling No -Circular Undermining No -Exudate Amt Medium -Exudate Type Serosanguineous -Wound Margin Distinct, Outline Attached -Granulation Amt Large (67-100%) -Granulation Quality Red -Slough/Fibrin Yes -Necrosis Amt Small (1-33%) -Necrotic Tissue Type Adherent Slough -Texture (Sammie-wound Skin Appearance) Assessed,Callus ,Scarring -Moisture (Sammie-wound Skin Appearance) Assessed,Dry/ Scaly -Color (Sammie-wound Skin Appearance) Assessed -Temperature (Sammie-wound Skin No Abnormality Appearance) (Pt Warm) -Tenderness on Palpation (Sammie-wound No Skin Appearance) -Ulcer Cleansing Rinsed/ Irrigated with Saline -Foul Odor after Cleansing No -Anesthetic Used 5% Lidocaine Gel #3- L 2ND TOE PLANTAR -Combined with other wound No -Current Size (cm) - Length 1 -Current Size (cm) - Width 1.1 -Current Size (cm) - Depth 0.1 -Total Square Cm 1.1 -Date of Last Picture (Recall this 10/18/22 field) -Photo Taken Yes -Epithelialization None Present -Tunneling No -Undermining/Tunneling No -Circular Undermining No -Exudate Amt Medium -Exudate Type Serosanguineous -Wound Margin Flat & Intact -Granulation Amt Large (67-100%) -Granulation Quality Red -Slough/Fibrin Yes -Necrosis Amt Small (1-33%) -Necrotic Tissue Type Adherent Slough -Texture (Sammie-wound Skin Appearance) Assessed,Callus ,Scarring -Moisture (Sammie-wound Skin Appearance) Assessed,Dry/ Scaly -Color (Sammie-wound Skin Appearance) Assessed -Temperature (Sammie-wound Skin No Abnormality Appearance) (Pt Warm) -Tenderness on Palpation (Sammie-wound No Skin Appearance) -Ulcer Cleansing Rinsed/ Irrigated with Saline -Foul Odor after Cleansing No -Anesthetic Used 5% Lidocaine Gel Right Calf (cm) 36.7 Right Ankle (cm) 21.7 Left Calf (cm) 38 Left Ankle (cm) 21.7 WC - Nurse 2 - General Ulcer CM Notes Start: 10/18/22 10:02 Freq: Status: Active Protocol: Activity Type Activity Date Activity User E-sign Co-sign Detail Recorded Client Recorded Date Recorded By Document 10/18/22 10:49 MW [id number] 10/18/22 11:03 MW 10/18/22 10:49 Wound Center Nurse 2 #9- R 4TH TOE -Time 10:50 -Correct Patient Yes -Correct Side, Site, Position Yes -Correct Procedure Yes -Procedure Performed Yes -Type of Procedure Debridement -Clinical Debridement Subcutaneous -Tissue Removed Subcutaneous -Post Debridement (cm) - Length 0.2 -Post Debridement (cm) - Width 0.1 -Post Debridement (cm) - Depth 0.1 -Total Square (Post) (cm) 0.02 -Area of Debridement (cm) - Length 0.2 -Area of Debridement (cm) - Width 0.1 -Total Square (Area) (cm) 0.02 -Tunneling No -Undermining/Tunneling No -Circular Undermining No -Wound/Ulcer Outcome Not Healed -Ulcer Cleansing Rinsed/ Irrigated with Saline -Foul Odor after Cleansing No -Bioengineered Tissue No -Bleeding Controlled with Pressure -Treatment Response Procedure Tolerated Well -Offloading No -Debridement - Subq, 1st 20sq cm No #8- R 3RD TOE -Time 10:50 -Correct Patient Yes -Correct Side, Site, Position Yes -Correct Procedure Yes -Procedure Performed Yes -Type of Procedure Debridement -Clinical Debridement Subcutaneous -Tissue Removed Subcutaneous -Post Debridement (cm) - Length 0.3 -Post Debridement (cm) - Width 0.4 -Post Debridement (cm) - Depth 0.1 -Total Square (Post) (cm) 0.12 -Area of Debridement (cm) - Length 0.3 -Area of Debridement (cm) - Width 0.4 -Total Square (Area) (cm) 0.12 -Tunneling No -Undermining/Tunneling No -Circular Undermining No -Wound/Ulcer Outcome Not Healed -Ulcer Cleansing Rinsed/ Irrigated with Saline -Foul Odor after Cleansing No -Bioengineered Tissue No -Bleeding Controlled with Pressure -Treatment Response Procedure Tolerated Well -Offloading No -Debridement - Subq, 1st 20sq cm No #7- R 2ND TOE PLANTAR -Time 10:51 -Correct Patient Yes -Correct Side, Site, Position Yes -Correct Procedure Yes -Procedure Performed Yes -Type of Procedure Debridement -Clinical Debridement Subcutaneous -Tissue Removed Subcutaneous -Post Debridement (cm) - Length 0.5 -Post Debridement (cm) - Width 0.3 -Post Debridement (cm) - Depth 0.1 -Total Square (Post) (cm) 0.15 -Area of Debridement (cm) - Length 0.5 -Area of Debridement (cm) - Width 0.3 -Total Square (Area) (cm) 0.15 -Tunneling No -Undermining/Tunneling No -Circular Undermining No -Wound/Ulcer Outcome Not Healed -Ulcer Cleansing Rinsed/ Irrigated with Saline -Foul Odor after Cleansing No -Bioengineered Tissue No -Bleeding Controlled with Pressure -Treatment Response Procedure Tolerated Well -Offloading No -Debridement - Subq, 1st 20sq cm No #6- R HEEL CLUSTER -Time 10:51 -Correct Patient Yes -Correct Side, Site, Position Yes -Correct Procedure Yes -Procedure Performed Yes -Type of Procedure Debridement -Clinical Debridement Subcutaneous -Tissue Removed Subcutaneous -Post Debridement (cm) - Length 3.5 -Post Debridement (cm) - Width 4.0 -Post Debridement (cm) - Depth 0.1 -Total Square (Post) (cm) 14.00 -Area of Debridement (cm) - Length 3.5 -Area of Debridement (cm) - Width 4.0 -Total Square (Area) (cm) 14.00 -Tunneling No -Undermining/Tunneling No -Circular Undermining No -Wound/Ulcer Outcome Not Healed -Ulcer Cleansing Rinsed/ Irrigated with Saline -Foul Odor after Cleansing No -Bioengineered Tissue No -Bleeding Controlled with Pressure -Treatment Response Procedure Tolerated Well -Offloading No -Debridement - Subq, 1st 20sq cm No #5- R FOOT PLANTAR -Time 10:51 -Correct Patient Yes -Correct Side, Site, Position Yes -Correct Procedure Yes -Procedure Performed Yes -Type of Procedure Debridement -Clinical Debridement Subcutaneous -Tissue Removed Subcutaneous -Post Debridement (cm) - Length 1.7 -Post Debridement (cm) - Width 1.5 -Post Debridement (cm) - Depth 0.2 -Total Square (Post) (cm) 2.55 -Area of Debridement (cm) - Length 1.7 -Area of Debridement (cm) - Width 1.5 -Total Square (Area) (cm) 2.55 -Tunneling No -Undermining/Tunneling No -Circular Undermining No -Wound/Ulcer Outcome Not Healed -Ulcer Cleansing Rinsed/ Irrigated with Saline -Foul Odor after Cleansing No -Bioengineered Tissue No -Bleeding Controlled with Pressure -Treatment Response Procedure Tolerated Well -Offloading No -Debridement - Subq, 1st 20sq cm Yes #3- L 2ND TOE PLANTAR -Time 10:52 -Correct Patient Yes -Correct Side, Site, Position Yes -Correct Procedure Yes -Procedure Performed Yes -Type of Procedure Debridement -Clinical Debridement Subcutaneous -Tissue Removed Subcutaneous -Post Debridement (cm) - Length 1.5 -Post Debridement (cm) - Width 1.5 -Post Debridement (cm) - Depth 0.1 -Total Square (Post) (cm) 2.25 -Area of Debridement (cm) - Length 1.5 -Area of Debridement (cm) - Width 1.5 -Total Square (Area) (cm) 2.25 -Tunneling No -Undermining/Tunneling No -Circular Undermining No -Wound/Ulcer Outcome Not Healed -Ulcer Cleansing Rinsed/ Irrigated with Saline -Foul Odor after Cleansing No -Bioengineered Tissue No -Bleeding Controlled with Pressure -Treatment Response Procedure Tolerated Well -Offloading No -Debridement - Subq, 1st 20sq cm No Pain Scale: 0-10 Numeric Is Patient Pain Free? Yes WC - Nurse 3 - General Ulcer D/C NN Start: 10/18/22 10:02 Freq: Status: Active Protocol: Activity Type Activity Date Activity User E-sign Co-sign Detail Recorded Client Recorded Date Recorded By Document 10/18/22 11:20 [facility] [id number] 10/18/22 11:22 [facility] 10/18/22 11:20 Wound Care Center Nurse 3 #9- R 4TH TOE -Ulcer Cleansing Rinsed/ Irrigated with Saline -Foul Odor after Cleansing No -Primary Dressing Applied Fibracol Plus 4x4 -Primary Dressing Covered/Secured with Dry Gauze & Roll Gauze, Secured with Tape -Fibracol Plus 4x4 1 #8- R 3RD TOE -Ulcer Cleansing Rinsed/ Irrigated with Saline -Foul Odor after Cleansing No -Primary Dressing Applied Fibracol Plus 4x4 -Primary Dressing Covered/Secured with Dry Gauze & Roll Gauze, Secured with Tape -Fibracol Plus 4x4 0 #7- R 2ND TOE PLANTAR -Ulcer Cleansing Rinsed/ Irrigated with Saline -Foul Odor after Cleansing No -Primary Dressing Applied Fibracol Plus 4x4 -Primary Dressing Covered/Secured with Dry Gauze & Roll Gauze, Secured with Tape -Fibracol Plus 4x4 0 #6- R HEEL CLUSTER -Ulcer Cleansing Rinsed/ Irrigated with Saline -Foul Odor after Cleansing No -Primary Dressing Applied Fibracol Plus 4x4 -Primary Dressing Covered/Secured with Dry Gauze & Roll Gauze, Secured with Tape -Fibracol Plus 4x4 0 #5- R FOOT PLANTAR -Ulcer Cleansing Rinsed/ Irrigated with Saline -Foul Odor after Cleansing No -Primary Dressing Applied Fibracol Plus 4x4 -Other Dressing BACTROBAN -Primary Dressing Covered/Secured with Dry Gauze & Roll Gauze, Secured with Tape -Fibracol Plus 4x4 0 #3- L 2ND TOE PLANTAR -Ulcer Cleansing Rinsed/ Irrigated with Saline -Foul Odor after Cleansing No -Primary Dressing Applied Fibracol Plus 4x4 -Primary Dressing Covered/Secured with Dry Gauze & Roll Gauze, Secured with Tape -Fibracol Plus 4x4 0 Treatment Response Procedure Tolerated Well Pain Scale: 0-10 Numeric Is Patient Pain Free? Yes WC - Visit Discharge Discharge Condition Stable Ambulatory Status Ambulatory Transportation Private Auto Accompanied by BOYFRIEND Additional Wound Wound debrided: Right second third fourth toe nonpressure ulcers from her neuropathy Type of Debridement: Excisional debridement Anesthesia Used: 5% Lidocaine Gel Depth: Down to and including healthy tissue Percentage of wound debrided: 100 Instrument Used: 5mm curette Tissue Removed: Fibrin Severity: Limited To Skin Breakdown Amount of bleeding with debridement: Mild Bleeding Controlled with: Pressure Patient tolerated procedure: Patient tolerated procedure well Additional Wound Wound debrided: Left second toe nonpressure ulcer Type of Debridement: Excisional debridement Anesthesia Used: 5% Lidocaine Gel Depth: Down to and including healthy tissue Percentage of wound debrided: 100 Instrument Used: 5mm curette Tissue Removed: Fibrin Severity: Limited To Skin Breakdown Amount of bleeding with debridement: Mild Bleeding Controlled with: Compression and gauze Patient tolerated procedure: Patient tolerated procedure well Assessment/Plan Assessment/Plan (1) Idiopathic neuropathy: CODE(S): G60.9 - Hereditary and idiopathic neuropathy, unspecified (2) Non-pressure chronic ulcer of other part of right foot with fat layer exposed: CODE(S): L97.512 - Non-pressure chronic ulcer of other part of right foot with fat layer exposed PLAN: Wash foot with antibacterial soap and apply Bactroban nickel thickness in base of wound cover with the recall gauze and tape X-ray bilateral feet for osteomyelitis (3) Ulcer of toe: CODE(S): L97.509 - Non-pressure chronic ulcer of other part of unspecified foot with unspecified severity PLAN: Wash foot with antibacterial soap and apply fibrin call to all open wounds on toes cover with gauze and tape Follow-up in 1 week
--- NOTE | 2022-10-20 16:20 | WC ---
X-ray results of feet reviewed per Mary Basilio CRACKING MACHINE OPERATOR. X-ray of right foot suspicious for osteo right third toe. Referral sent to infectious disease per Mary request. Message left for patient concerning xray results and referral to ID.
--- NOTE | 2022-10-25 11:33 | PCM.WC.PN ---
History of Present Illness Date of Service: 10/25/22 Chief Complaint: Follow-up multiple wounds of right great toe plantar side right second third and fourth toe right heel and left second toe all from her idiopathic neuropathy. Patient refuses to stay off her feet and is on working 10 to 12 hours a day. She also likes to pick at her wounds which does not help. 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 She was seen in my office about 6 months ago and was given to her calcium alginate. Still using that and Neosporin on her wounds. She feels the toes are from the shoe she pumped it up too high and her toes were extended past the ends and she does not realize that they are getting hit or rubbing when she walks. The right second and third fourth toe are all superficial wounds The right heel looks like she had some skin cracking and is picking at it and opened some wounds on her heel. Again very superficial The worst would be the right foot plantar that is open and has some depth. We will order x-rays to check for osteomyelitis and have patient follow-up in 1 week with a different dressing change. Progress of Wound: Debrided all wounds well all measuring smaller more superficial. The right third toe is still very red. [place] of the third toe shows possible osteomyelitis ordering an MRI now of the foot and toe. Patient has a appointment with infectious disease on November 17 at 245 here at the wound center. We will continue with the same wound care until seen by him. . Subjective Subjective Patient is just nervous that she is can lose her foot Objective Data Objective Data All measurements on wounds look better the plantar right great toe is much improved Vital Signs: Vital Signs Temp Pulse Resp BP O2 Del Method 96.7 F L 69 16 168/85 H Room Air 10/18/22 10:07 10/18/22 10:07 10/18/22 10:07 10/18/22 10:07 10/18/22 10:07 Oxygen Delivery Method Room Air Weight: 195 lb Body Mass Index (BMI) 34.5 Lab / Micro Data Attestation: I reviewed the patient's lab results. Physical Exam Const oriented x3 General Appearance: cooperative Exam Limitations: no limitations HEENT normocephalic Eyes PERRL Resp normal respiratory effort Effort and Inspection: able to speak in complete sentences Auscultation: clear to auscultation bilaterally Cardio regular rate and regular rhythm Palpation: normal PMI Rate: regular rate Rhythm: regular rhythm Extremity Extremity Narrative: Right foot has wounds on right plantar amputated partial of the right great toe and open wounds on second third and fourth toe plantar side. Right heel is open wounds from cracked skin and left second toe is open also General Extremity: amputation Skin Wounds: wounds noted Neuro oriented x3 Psych Appearance: grossly normal Speech: normal speech Thought Content: normal thought content Judgement: judgement good Debridement Note Debridement Note Wound debrided: Right plantar foot great toe chronic wound nonpressure Laterality: Right Type of Debridement: Excisional debridement Anesthesia Used: 5% Lidocaine Gel Depth: Down to and including healthy tissue Percentage of wound debrided: 100 Instrument Used: 5mm curette Tissue Removed: Fibrin Severity: Fat Layer Exposed Amount of bleeding with debridement: Mild Bleeding Controlled with: Compression and gauze Patient tolerated procedure: Patient tolerated procedure well Post-Debridement Measurements and Additional Note: Post-Debridement Measurements/Treatment - Nurse 1 - General Ulcer Assessment Start: 10/18/22 10:02 Freq: Status: Active Protocol: [email or web address] Activity Type Activity Date Activity User E-sign Co-sign Detail Recorded Client Recorded Date Recorded By Document 10/18/22 10:07 [facility] [id number] 10/18/22 10:32 [facility] 10/18/22 10:07 - Today's Visit Information Type of service Initial Visit Arrival Mode Ambulatory Transfer Assistance None Accompanied by SIG OTHER Patient Identification Verified (Name & Yes ) Patient Requires Transmission-Based No Precautions Height and Weight Height 5 ft 3 in Weight 195 lb Weight in Pounds 195.0 lbs Weight Measurement Method Estimated by Patient Body Mass Index (BMI) 34.5 BMI Classification Obese BSA - Nick 1.91 Vital Signs Temperature (97.8 F-99.1 F) 96.7 F L Temperature Source Temporal Pulse Rate (60-100) 69 Pulse Location Monitor Respiratory Rate (12-18) 16 Respiratory rate source Observation Oxygen Delivery Method Room Air Blood Pressure (90/60-120/80) 168/85 H Blood Pressure Mean (mm Hg) 112 Source Monitor Position Sitting Blood Pressure Location Left Arm History Since Last Visit- (Skip if this is Patient's initial visit) Left Footwear Regular Shoe Right Footwear Removable Cast Walker/Walking Boot Pain Scale: 0-10 Numeric Is Patient Pain Free? Yes Lower Extremity Assessment/ Foot Assessment/ Toe Nail Assessment Right -Lower Extremity Comment (If N/A Above ARTERIAL ) STUDIES 01/2022 Left -Lower Extremity Comment (If N/A Above ARTERIAL ) STUDIES 01/2022 Communication Assessment Preferred language Maltese Business And Financial Counsel Required No Able to Read Yes Able to Write Yes Communication Tools None Right Hearing Abillity Normal Left Hearing Abillity Normal Visual Assistive Devices Glasses Teaching Assessment Preferences Verbal,Written, Audio/Visual, Demonstration Barriers to Learning None Readiness To Learn Excellent Willingness to Engage in Self Management High Activies Readiness to Engage in Self Management High Activities Anxiety Level Calm Cooperation Cooperative Perception Coherent Interest in Health Problem Asks Questions Education Importance Acknowledges Need Does Patient Smoke tobacco or other No substances Is Patient Diabetic No Functional Assessment Recent Decline in Ability to Perform Denies Any Declines Culture/Mormon/Audiology Technician Cultural/Mormon Needs that may affect No Treatment Plan WC - Nurse 1 - General Ulcer Measurement Start: 10/18/22 10:02 Freq: Status: Active Protocol: Activity Type Activity Date Activity User E-sign Co-sign Detail Recorded Client Recorded Date Recorded By Document 10/18/22 10:07 [facility] [id number] 10/18/22 10:32 [facility] 10/18/22 10:07 Wound Center Nurse 1 #4- L KNEE -Combined with other wound No -Current Size (cm) - Length 0.5 -Current Size (cm) - Width 0.7 -Current Size (cm) - Depth 0.1 -Total Square Cm 0.35 -Date of Last Picture (Recall this 10/18/22 field) -Photo Taken Yes -Epithelialization None Present -Tunneling No -Undermining/Tunneling No -Circular Undermining No -Exudate Amt None Present -Wound Margin Distinct, Outline Attached -Granulation Amt None Present (0 %) -Slough/Fibrin Yes -Necrosis Amt Large (67-100%) -Necrotic Tissue Type Eschar -Texture (Sammie-wound Skin Appearance) Assessed, Localized Edema ,Scarring -Moisture (Sammie-wound Skin Appearance) Assessed,Dry/ Scaly -Color (Sammie-wound Skin Appearance) Assessed, Erythema -Temperature (Sammie-wound Skin No Abnormality Appearance) (Pt Warm) -Tenderness on Palpation (Sammie-wound No Skin Appearance) -Ulcer Cleansing Rinsed/ Irrigated with Saline -Foul Odor after Cleansing No -Anesthetic Used 5% Lidocaine Gel #9- R 4TH TOE -Combined with other wound No -Current Size (cm) - Length 0.1 -Current Size (cm) - Width 0.1 -Current Size (cm) - Depth 0.1 -Total Square Cm 0.01 -Date of Last Picture (Recall this 10/18/22 field) -Photo Taken Yes -Epithelialization None Present -Tunneling No -Undermining/Tunneling No -Circular Undermining No -Exudate Amt Small -Exudate Type Serosanguineous -Wound Margin Distinct, Outline Attached -Granulation Amt Large (67-100%) -Granulation Quality Red -Slough/Fibrin No -Necrosis Amt None Present (0 %) -Texture (Sammie-wound Skin Appearance) Assessed,Callus ,Scarring -Moisture (Sammie-wound Skin Appearance) Assessed,Dry/ Scaly -Color (Sammie-wound Skin Appearance) Assessed -Temperature (Sammie-wound Skin No Abnormality Appearance) (Pt Warm) -Tenderness on Palpation (Sammie-wound No Skin Appearance) -Ulcer Cleansing Rinsed/ Irrigated with Saline -Foul Odor after Cleansing No -Anesthetic Used 5% Lidocaine Gel #8- R 3RD TOE -Combined with other wound No -Current Size (cm) - Length 0.3 -Current Size (cm) - Width 0.4 -Current Size (cm) - Depth 0.1 -Total Square Cm 0.12 -Date of Last Picture (Recall this 10/18/22 field) -Photo Taken Yes -Epithelialization None Present -Tunneling No -Undermining/Tunneling No -Circular Undermining No -Exudate Amt Small -Exudate Type Serosanguineous -Wound Margin Distinct, Outline Attached -Granulation Amt Large (67-100%) -Granulation Quality Red -Slough/Fibrin No -Necrosis Amt None Present (0 %) -Texture (Sammie-wound Skin Appearance) Assessed,Callus ,Scarring -Moisture (Sammie-wound Skin Appearance) Assessed,Dry/ Scaly -Color (Sammie-wound Skin Appearance) Assessed -Temperature (Sammie-wound Skin No Abnormality Appearance) (Pt Warm) -Tenderness on Palpation (Sammie-wound No Skin Appearance) -Ulcer Cleansing Rinsed/ Irrigated with Saline -Foul Odor after Cleansing No -Anesthetic Used 5% Lidocaine Gel #7- R 2ND TOE PLANTAR -Combined with other wound No -Current Size (cm) - Length 0.2 -Current Size (cm) - Width 0.2 -Current Size (cm) - Depth 0.1 -Total Square Cm 0.04 -Date of Last Picture (Recall this 10/18/22 field) -Photo Taken Yes -Epithelialization None Present -Tunneling No -Undermining/Tunneling No -Circular Undermining No -Exudate Amt Small -Exudate Type Serosanguineous -Wound Margin Flat & Intact -Granulation Amt Large (67-100%) -Granulation Quality Red -Slough/Fibrin No -Necrosis Amt None Present (0 %) -Texture (Sammie-wound Skin Appearance) Assessed,Callus ,Scarring -Moisture (Sammie-wound Skin Appearance) Assessed -Color (Sammie-wound Skin Appearance) Assessed -Temperature (Sammie-wound Skin No Abnormality Appearance) (Pt Warm) -Tenderness on Palpation (Sammie-wound No Skin Appearance) -Ulcer Cleansing Rinsed/ Irrigated with Saline -Foul Odor after Cleansing No -Anesthetic Used 5% Lidocaine Gel #6- R HEEL CLUSTER -Combined with other wound No -Current Size (cm) - Length 4.5 -Current Size (cm) - Width 4 -Current Size (cm) - Depth 0.1 -Total Square Cm 18.0 -Date of Last Picture (Recall this 10/18/22 field) -Photo Taken Yes -Epithelialization None Present -Tunneling No -Undermining/Tunneling No -Circular Undermining No -Exudate Amt Small -Exudate Type Serosanguineous -Wound Margin Flat & Intact -Granulation Amt Large (67-100%) -Granulation Quality Red -Slough/Fibrin Yes -Necrosis Amt Small (1-33%) -Necrotic Tissue Type Eschar -Texture (Sammie-wound Skin Appearance) Assessed, Scarring -Moisture (Sammie-wound Skin Appearance) Assessed,Dry/ Scaly -Color (Sammie-wound Skin Appearance) Assessed -Temperature (Sammie-wound Skin No Abnormality Appearance) (Pt Warm) -Tenderness on Palpation (Sammie-wound No Skin Appearance) -Ulcer Cleansing Soap and Water -Foul Odor after Cleansing No -Anesthetic Used 5% Lidocaine Gel #5- R FOOT PLANTAR -Combined with other wound No -Current Size (cm) - Length 1.7 -Current Size (cm) - Width 1.5 -Current Size (cm) - Depth 0.5 -Total Square Cm 2.55 -Date of Last Picture (Recall this 10/18/22 field) -Photo Taken Yes -Epithelialization None Present -Tunneling No -Undermining/Tunneling No -Circular Undermining No -Exudate Amt Medium -Exudate Type Serosanguineous -Wound Margin Distinct, Outline Attached -Granulation Amt Large (67-100%) -Granulation Quality Red -Slough/Fibrin Yes -Necrosis Amt Small (1-33%) -Necrotic Tissue Type Adherent Slough -Texture (Sammie-wound Skin Appearance) Assessed,Callus ,Scarring -Moisture (Sammie-wound Skin Appearance) Assessed,Dry/ Scaly -Color (Sammie-wound Skin Appearance) Assessed -Temperature (Sammie-wound Skin No Abnormality Appearance) (Pt Warm) -Tenderness on Palpation (Sammie-wound No Skin Appearance) -Ulcer Cleansing Rinsed/ Irrigated with Saline -Foul Odor after Cleansing No -Anesthetic Used 5% Lidocaine Gel #3- L 2ND TOE PLANTAR -Combined with other wound No -Current Size (cm) - Length 1 -Current Size (cm) - Width 1.1 -Current Size (cm) - Depth 0.1 -Total Square Cm 1.1 -Date of Last Picture (Recall this 10/18/22 field) -Photo Taken Yes -Epithelialization None Present -Tunneling No -Undermining/Tunneling No -Circular Undermining No -Exudate Amt Medium -Exudate Type Serosanguineous -Wound Margin Flat & Intact -Granulation Amt Large (67-100%) -Granulation Quality Red -Slough/Fibrin Yes -Necrosis Amt Small (1-33%) -Necrotic Tissue Type Adherent Slough -Texture (Sammie-wound Skin Appearance) Assessed,Callus ,Scarring -Moisture (Sammie-wound Skin Appearance) Assessed,Dry/ Scaly -Color (Sammie-wound Skin Appearance) Assessed -Temperature (Sammie-wound Skin No Abnormality Appearance) (Pt Warm) -Tenderness on Palpation (Sammie-wound No Skin Appearance) -Ulcer Cleansing Rinsed/ Irrigated with Saline -Foul Odor after Cleansing No -Anesthetic Used 5% Lidocaine Gel Right Calf (cm) 36.7 Right Ankle (cm) 21.7 Left Calf (cm) 38 Left Ankle (cm) 21.7 WC - Nurse 2 - General Ulcer CM Notes Start: 10/18/22 10:02 Freq: Status: Active Protocol: Activity Type Activity Date Activity User E-sign Co-sign Detail Recorded Client Recorded Date Recorded By Document 10/18/22 10:49 MW [id number] 10/18/22 11:03 MW 10/18/22 10:49 Wound Center Nurse 2 #9- R 4TH TOE -Time 10:50 -Correct Patient Yes -Correct Side, Site, Position Yes -Correct Procedure Yes -Procedure Performed Yes -Type of Procedure Debridement -Clinical Debridement Subcutaneous -Tissue Removed Subcutaneous -Post Debridement (cm) - Length 0.2 -Post Debridement (cm) - Width 0.1 -Post Debridement (cm) - Depth 0.1 -Total Square (Post) (cm) 0.02 -Area of Debridement (cm) - Length 0.2 -Area of Debridement (cm) - Width 0.1 -Total Square (Area) (cm) 0.02 -Tunneling No -Undermining/Tunneling No -Circular Undermining No -Wound/Ulcer Outcome Not Healed -Ulcer Cleansing Rinsed/ Irrigated with Saline -Foul Odor after Cleansing No -Bioengineered Tissue No -Bleeding Controlled with Pressure -Treatment Response Procedure Tolerated Well -Offloading No -Debridement - Subq, 1st 20sq cm No #8- R 3RD TOE -Time 10:50 -Correct Patient Yes -Correct Side, Site, Position Yes -Correct Procedure Yes -Procedure Performed Yes -Type of Procedure Debridement -Clinical Debridement Subcutaneous -Tissue Removed Subcutaneous -Post Debridement (cm) - Length 0.3 -Post Debridement (cm) - Width 0.4 -Post Debridement (cm) - Depth 0.1 -Total Square (Post) (cm) 0.12 -Area of Debridement (cm) - Length 0.3 -Area of Debridement (cm) - Width 0.4 -Total Square (Area) (cm) 0.12 -Tunneling No -Undermining/Tunneling No -Circular Undermining No -Wound/Ulcer Outcome Not Healed -Ulcer Cleansing Rinsed/ Irrigated with Saline -Foul Odor after Cleansing No -Bioengineered Tissue No -Bleeding Controlled with Pressure -Treatment Response Procedure Tolerated Well -Offloading No -Debridement - Subq, 1st 20sq cm No #7- R 2ND TOE PLANTAR -Time 10:51 -Correct Patient Yes -Correct Side, Site, Position Yes -Correct Procedure Yes -Procedure Performed Yes -Type of Procedure Debridement -Clinical Debridement Subcutaneous -Tissue Removed Subcutaneous -Post Debridement (cm) - Length 0.5 -Post Debridement (cm) - Width 0.3 -Post Debridement (cm) - Depth 0.1 -Total Square (Post) (cm) 0.15 -Area of Debridement (cm) - Length 0.5 -Area of Debridement (cm) - Width 0.3 -Total Square (Area) (cm) 0.15 -Tunneling No -Undermining/Tunneling No -Circular Undermining No -Wound/Ulcer Outcome Not Healed -Ulcer Cleansing Rinsed/ Irrigated with Saline -Foul Odor after Cleansing No -Bioengineered Tissue No -Bleeding Controlled with Pressure -Treatment Response Procedure Tolerated Well -Offloading No -Debridement - Subq, 1st 20sq cm No #6- R HEEL CLUSTER -Time 10:51 -Correct Patient Yes -Correct Side, Site, Position Yes -Correct Procedure Yes -Procedure Performed Yes -Type of Procedure Debridement -Clinical Debridement Subcutaneous -Tissue Removed Subcutaneous -Post Debridement (cm) - Length 3.5 -Post Debridement (cm) - Width 4.0 -Post Debridement (cm) - Depth 0.1 -Total Square (Post) (cm) 14.00 -Area of Debridement (cm) - Length 3.5 -Area of Debridement (cm) - Width 4.0 -Total Square (Area) (cm) 14.00 -Tunneling No -Undermining/Tunneling No -Circular Undermining No -Wound/Ulcer Outcome Not Healed -Ulcer Cleansing Rinsed/ Irrigated with Saline -Foul Odor after Cleansing No -Bioengineered Tissue No -Bleeding Controlled with Pressure -Treatment Response Procedure Tolerated Well -Offloading No -Debridement - Subq, 1st 20sq cm No #5- R FOOT PLANTAR -Time 10:51 -Correct Patient Yes -Correct Side, Site, Position Yes -Correct Procedure Yes -Procedure Performed Yes -Type of Procedure Debridement -Clinical Debridement Subcutaneous -Tissue Removed Subcutaneous -Post Debridement (cm) - Length 1.7 -Post Debridement (cm) - Width 1.5 -Post Debridement (cm) - Depth 0.2 -Total Square (Post) (cm) 2.55 -Area of Debridement (cm) - Length 1.7 -Area of Debridement (cm) - Width 1.5 -Total Square (Area) (cm) 2.55 -Tunneling No -Undermining/Tunneling No -Circular Undermining No -Wound/Ulcer Outcome Not Healed -Ulcer Cleansing Rinsed/ Irrigated with Saline -Foul Odor after Cleansing No -Bioengineered Tissue No -Bleeding Controlled with Pressure -Treatment Response Procedure Tolerated Well -Offloading No -Debridement - Subq, 1st 20sq cm Yes #3- L 2ND TOE PLANTAR -Time 10:52 -Correct Patient Yes -Correct Side, Site, Position Yes -Correct Procedure Yes -Procedure Performed Yes -Type of Procedure Debridement -Clinical Debridement Subcutaneous -Tissue Removed Subcutaneous -Post Debridement (cm) - Length 1.5 -Post Debridement (cm) - Width 1.5 -Post Debridement (cm) - Depth 0.1 -Total Square (Post) (cm) 2.25 -Area of Debridement (cm) - Length 1.5 -Area of Debridement (cm) - Width 1.5 -Total Square (Area) (cm) 2.25 -Tunneling No -Undermining/Tunneling No -Circular Undermining No -Wound/Ulcer Outcome Not Healed -Ulcer Cleansing Rinsed/ Irrigated with Saline -Foul Odor after Cleansing No -Bioengineered Tissue No -Bleeding Controlled with Pressure -Treatment Response Procedure Tolerated Well -Offloading No -Debridement - Subq, 1st 20sq cm No Pain Scale: 0-10 Numeric Is Patient Pain Free? Yes - Nurse 3 - General Ulcer D/C NN Start: 10/18/22 10:02 Freq: Status: Active Protocol: Activity Type Activity Date Activity User E-sign Co-sign Detail Recorded Client Recorded Date Recorded By Document 10/18/22 11:20 [facility] [id number] 10/18/22 11:22 [facility] 10/18/22 11:20 Wound Care Center Nurse 3 #9- R 4TH TOE -Ulcer Cleansing Rinsed/ Irrigated with Saline -Foul Odor after Cleansing No -Primary Dressing Applied Fibracol Plus 4x4 -Primary Dressing Covered/Secured with Dry Gauze & Roll Gauze, Secured with Tape -Fibracol Plus 4x4 1 #8- R 3RD TOE -Ulcer Cleansing Rinsed/ Irrigated with Saline -Foul Odor after Cleansing No -Primary Dressing Applied Fibracol Plus 4x4 -Primary Dressing Covered/Secured with Dry Gauze & Roll Gauze, Secured with Tape -Fibracol Plus 4x4 0 #7- R 2ND TOE PLANTAR -Ulcer Cleansing Rinsed/ Irrigated with Saline -Foul Odor after Cleansing No -Primary Dressing Applied Fibracol Plus 4x4 -Primary Dressing Covered/Secured with Dry Gauze & Roll Gauze, Secured with Tape -Fibracol Plus 4x4 0 #6- R HEEL CLUSTER -Ulcer Cleansing Rinsed/ Irrigated with Saline -Foul Odor after Cleansing No -Primary Dressing Applied Fibracol Plus 4x4 -Primary Dressing Covered/Secured with Dry Gauze & Roll Gauze, Secured with Tape -Fibracol Plus 4x4 0 #5- R FOOT PLANTAR -Ulcer Cleansing Rinsed/ Irrigated with Saline -Foul Odor after Cleansing No -Primary Dressing Applied Fibracol Plus 4x4 -Other Dressing BACTROBAN -Primary Dressing Covered/Secured with Dry Gauze & Roll Gauze, Secured with Tape -Fibracol Plus 4x4 0 #3- L 2ND TOE PLANTAR -Ulcer Cleansing Rinsed/ Irrigated with Saline -Foul Odor after Cleansing No -Primary Dressing Applied Fibracol Plus 4x4 -Primary Dressing Covered/Secured with Dry Gauze & Roll Gauze, Secured with Tape -Fibracol Plus 4x4 0 Treatment Response Procedure Tolerated Well Pain Scale: 0-10 Numeric Is Patient Pain Free? Yes WC - Visit Discharge Discharge Condition Stable Ambulatory Status Ambulatory Transportation Private Auto Accompanied by BOYFRIEND Additional Wound Wound debrided: Right foot plantar fourth toe superficial open wound Type of Debridement: Excisional debridement Anesthesia Used: 5% Lidocaine Gel Depth: Down to and including healthy tissue Percentage of wound debrided: 100 Instrument Used: 5mm curette Severity: Limited To Skin Breakdown Amount of bleeding with debridement: Mild Bleeding Controlled with: Pressure and Compression and gauze Patient tolerated procedure: Patient tolerated procedure well Additional Wound Wound debrided: Right third toe plantar superficial open wound nonhealing nonpressure Type of Debridement: Excisional debridement Anesthesia Used: 5% Lidocaine Gel Depth: Down to and including healthy tissue Percentage of wound debrided: 100 Instrument Used: 5mm curette Tissue Removed: Fibrin Severity: Limited To Skin Breakdown Amount of bleeding with debridement: Mild Bleeding Controlled with: Compression and gauze Patient tolerated procedure: Patient tolerated procedure well Additional Wound Wound debrided: Right second toe plantar nonpressure Type of Debridement: Excisional debridement Anesthesia Used: 5% Lidocaine Gel Depth: Down to and including healthy tissue Percentage of wound debrided: 100 Instrument Used: 5mm curette Tissue Removed: Fibrin Severity: Limited To Skin Breakdown Amount of bleeding with debridement: Mild Bleeding Controlled with: Compression and gauze Patient tolerated procedure: Patient tolerated procedure well Operative Diagnosis: Left second toe plantar open nonhealing chronic nonpressure Additional Wound Laterality: Left Type of Debridement: Excisional debridement Anesthesia Used: 5% Lidocaine Gel Depth: Down to and including healthy tissue Percentage of wound debrided: 100 Instrument Used: 5mm curette Tissue Removed: Fibrin Severity: Limited To Skin Breakdown Amount of bleeding with debridement: Mild Bleeding Controlled with: Compression and gauze Patient tolerated procedure: Patient tolerated procedure well Assessment/Plan Assessment/Plan (1) Idiopathic neuropathy: CODE(S): G60.9 - Hereditary and idiopathic neuropathy, unspecified (2) Non-pressure chronic ulcer of other part of right foot with fat layer exposed: CODE(S): L97.512 - Non-pressure chronic ulcer of other part of right foot with fat layer exposed PLAN: Wash foot with antibacterial soap and apply Bactroban nickel thickness in base of wound cover with the fibrocall gauze and tape MRI ordered of the right foot and toe Keep appointment with infectious disease on November 17 here at the wound center (3) Ulcer of toe: CODE(S): L97.509 - Non-pressure chronic ulcer of other part of unspecified foot with unspecified severity QUALIFIERS: Laterality: unspecified laterality Non-pressure ulcer stage: limited to breakdown of skin Qualified Code(s): L97.501 - Non-pressure chronic ulcer of other part of unspecified foot limited to breakdown of skin PLAN: Wash foot with antibacterial soap and apply fibrin call to all open wounds on toes cover with gauze and tape Follow-up in 1 week
[2022-10-25 11:36] VITALS: BP 145/55; PULSE 68; TEMP 35.9; BMI 34.5
== END 2022-10-27 23:59 | disposition home or self-care (01) ==
LOC: WC 10:00
PROVIDERS: PCP Nurse Practitioner; Referring Provider Nurse Practitioner; Visit Provider Nurse Practitioner
DX: G60.9 Hereditary and idiopathic neuropathy, unspecified (principal); L97.512 Non-pressure chronic ulcer of other part of right foot with fat layer exposed; L97.521 Non-pressure chronic ulcer of other part of left foot limited to breakdown of skin
CPT/HCPCS: 11042; 73630; 99203; G0463

== ENCOUNTER 2022-11-22 08:30 | Outpatient (RCR) | payer OTHER, SELFPAY ==
[2022-10-28 01:45] VITALS: BP 145/55; PULSE 68; RESP 16; TEMP 35.9; BMI 34.5
--- NOTE | 2022-11-01 08:19 | MRI_ITS ---
The STUDY: MRI RIGHT FOREFOOT WITHOUT CONTRAST REASON FOR EXAM: Female, 67 years old. Evaluate for osteomyelitis of the third toe. TECHNIQUE: Multisequence multiplanar imaging of the right forefoot was obtained without contrast administration. COMPARISON: X-rays of the right foot dated October 18, 2022 showing marked soft tissue swelling with destruction of the distal phalanx of the third digit compatible with osteomyelitis. FINDINGS: Resection of the distal aspect of the proximal phalanx and distal phalanx of the first toe. Moderate arthrosis of the tarsometatarsal joints and metatarsal phalangeal joints with joint effusions and hammertoe deformities. Marked soft tissue swelling over the distal phalanx of the third digit with fluid collection surrounding the phalanx compatible with abscess. Marked increased signal intensity within the entire distal phalanx of the third digit. Findings compatible with contiguous-spread osteomyelitis of the entire distal phalanx of the third digit (sagittal series 6 images 18-22). Superficial soft tissue edema dorsal to the distal phalanx of the second toe compatible with cellulitis (sagittal series 6 image 14). Superficial dorsal subcutaneous edema compatible with cellulitis (sagittal series 6 images 14-21). MRI/Lower Ext/No Jt/w/o IMPRESSION: Moderate to marked osteoarthritic changes of the tarsometatarsal joints, the MTP joints and the IP joints with joint effusions and hammertoe deformities. Findings compatible with cellulitis of the second toe and the dorsal aspect of the midfoot and forefoot. Osteomyelitis of the entire distal phalanx of the third digit with surrounding abscess. Electronically Signed: Trevor Sinclair MD at 10:03 EDT ,
[2022-11-01 10:19] VITALS: BP 152/56; PULSE 56; RESP 16; TEMP 36.3; BMI 34.5
--- NOTE | 2022-11-01 12:40 | PCM.WC.PN ---
History of Present Illness Date of Service: 11/01/22 Chief Complaint: Follow-up multiple wounds of right great toe plantar side right second third and fourth toe right heel and left second toe all from her idiopathic neuropathy. Patient refuses to stay off her feet and is on working 10 to 12 hours a day. She also likes to pick at her wounds which does not help. 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 She was seen in my office about 6 months ago and was given to her calcium alginate. Still using that and Neosporin on her wounds. She feels the toes are from the shoe she pumped it up too high and her toes were extended past the ends and she does not realize that they are getting hit or rubbing when she walks. The right second and third fourth toe are all superficial wounds The right heel looks like she had some skin cracking and is picking at it and opened some wounds on her heel. Again very superficial The worst would be the right foot plantar that is open and has some depth. We will order x-rays to check for osteomyelitis and have patient follow-up in 1 week with a different dressing change. Progress of Wound: So the right plantar great toe is looking good continues to heal and get smaller using the Bactroban and the Fibracol together she is very happy. The right third toe does show osteo had an MRI done today. She does have an appointment November 15 with infectious disease. We will get cultures today for the third toe also she has a slight open wound at the tip. Debrided a lot with nippers to get all the skin. Subjective Subjective Patient had given reassurance that were on top of everything and that her left foot is fine Objective Data Objective Data Measurements for everything is about the same pending her cultures we will get her started on antibiotics we will call her and we will call her when we get the MRI results that were done today. Vital Signs: Vital Signs Temp Pulse Resp BP O2 Del Method 97.4 F L 56 L 16 152/56 H Room Air 11/01/22 10:19 11/01/22 10:19 11/01/22 10:19 11/01/22 10:11/01/22 10:19 Oxygen Delivery Method Room Air Weight: 195 lb Body Mass Index (BMI) 34.5 Lab / Micro Data Attestation: I reviewed the patient's lab results. Physical Exam Const oriented x3 General Appearance: cooperative Exam Limitations: no limitations HEENT normocephalic Eyes PERRL Resp normal respiratory effort Effort and Inspection: able to speak in complete sentences Auscultation: clear to auscultation bilaterally Cardio regular rate and regular rhythm Palpation: normal PMI Rate: regular rate Rhythm: regular rhythm Extremity Extremity Narrative: Right foot has wounds on right plantar amputated partial of the right great toe and open wounds on second third and fourth toe plantar side. Right heel is open wounds from cracked skin and left second toe is open also General Extremity: amputation Skin Wounds: wounds noted Neuro oriented x3 Psych Appearance: grossly normal Speech: normal speech Thought Content: normal thought content Judgement: judgement good Debridement Note Debridement Note Wound debrided: Right great toe plantar side DFU Laterality: Right Type of Debridement: Excisional debridement Anesthesia Used: 5% Lidocaine Gel Depth: in the subcutaneous layer Percentage of wound debrided: 100 Instrument Used: 7mm curette Tissue Removed: Callus devitalized tissue and fibrin Severity: Limited To Skin Breakdown Amount of bleeding with debridement: Mild Bleeding Controlled with: Compression and gauze Patient tolerated procedure: Patient tolerated procedure well Post-Debridement Measurements and Additional Note: Post-Debridement Measurements/Treatment - Nurse 1 - General Ulcer Assessment Start: 11/01/22 10:02 Freq: Status: Active Protocol: .LOWRUBA Activity Type Activity Date Activity User E-sign Co-sign Detail Recorded Client Recorded Date Recorded By Document 11/01/22 10:19 [facility] [id number] 11/01/22 10:28 [facility] 11/01/22 10:19 - Today's Visit Information Type of service Follow-up Visit (Physician/RISK MGR ) Arrival Mode Ambulatory Transfer Assistance None Accompanied by boyfriend Patient Identification Verified (Name & Yes ) Patient Requires Transmission-Based No Precautions Height and Weight Weight Measurement Method Estimated by Patient Body Mass Index (BMI) 34.5 BMI Classification Obese Vital Signs Temperature (97.8 F-99.1 F) 97.4 F L Temperature Source Temporal Pulse Rate (60-100) 56 L Pulse Location Monitor Respiratory Rate (12-18) 16 Respiratory rate source Observation Oxygen Delivery Method Room Air Blood Pressure (90/60-120/80) 152/56 H Blood Pressure Mean (mm Hg) 88 Source Monitor Position Sitting Blood Pressure Location Left Arm History Since Last Visit- (Skip if this is Patient's initial visit) Have you changed medications since your No last visit? Any new allergies or adverse reactions No Had a fall/change in ADL's that may No increase risk of falls Signs or symptoms of abuse and/or No neglect since last visit Have you been in the hospital since your No last visit? Has dressing in place as prescribed Yes Has compression in place as prescribed N/A Has offloadiing in place as prescribed N/A Experienced any changes in pain level or No management Left Footwear Regular Shoe Right Footwear Regular Shoe Pain Scale: 0-10 Numeric Is Patient Pain Free? Yes WC - Nurse 1 - General Ulcer Measurement Start: 11/01/22 10:02 Freq: Status: Active Protocol: Activity Type Activity Date Activity User E-sign Co-sign Detail Recorded Client Recorded Date Recorded By Document 11/01/22 10:19 [facility] [id number] 11/01/22 10:28 [facility] 11/01/22 10:19 Wound Center Nurse 1 #8- R 3RD TOE -Combined with other wound No -Current Size (cm) - Length 0.1 -Current Size (cm) - Width 0.1 -Current Size (cm) - Depth 0.1 -Total Square Cm 0.01 -Date of Last Picture (Recall this 11/01/22 field) -Photo Taken Yes -Texture (Sammie-wound Skin Appearance) Assessed, Scarring -Moisture (Sammie-wound Skin Appearance) Assessed,Dry/ Scaly -Color (Sammie-wound Skin Appearance) Assessed -Temperature (Sammie-wound Skin No Abnormality Appearance) (Pt Warm) -Tenderness on Palpation (Sammie-wound No Skin Appearance) -Ulcer Cleansing Rinsed/ Irrigated with Saline -Foul Odor after Cleansing No -Anesthetic Used 5% Lidocaine Gel #5- R FOOT PLANTAR -Combined with other wound No -Current Size (cm) - Length 1.3 -Current Size (cm) - Width 1.1 -Current Size (cm) - Depth 0.2 -Total Square Cm 1.43 -Date of Last Picture (Recall this 11/01/22 field) -Photo Taken Yes -Epithelialization Small 1-33% -Tunneling No -Undermining/Tunneling No -Circular Undermining No -Exudate Amt Medium -Exudate Type Serosanguineous -Wound Margin Distinct, Outline Attached -Granulation Amt Large (67-100%) -Granulation Quality Red -Slough/Fibrin Yes -Necrosis Amt Small (1-33%) -Necrotic Tissue Type Adherent Slough -Texture (Sammie-wound Skin Appearance) Assessed, Scarring -Moisture (Sammie-wound Skin Appearance) Assessed,Dry/ Scaly -Color (Sammie-wound Skin Appearance) Assessed -Temperature (Sammie-wound Skin No Abnormality Appearance) (Pt Warm) -Tenderness on Palpation (Sammie-wound No Skin Appearance) -Ulcer Cleansing Rinsed/ Irrigated with Saline -Foul Odor after Cleansing No -Anesthetic Used 5% Lidocaine Gel #3- L 2ND TOE PLANTAR -Combined with other wound No -Current Size (cm) - Length 0.4 -Current Size (cm) - Width 0.5 -Current Size (cm) - Depth 0.2 -Total Square Cm 0.20 -Date of Last Picture (Recall this 11/01/22 field) -Photo Taken Yes -Epithelialization Small 1-33% -Tunneling No -Undermining/Tunneling No -Circular Undermining No -Exudate Amt Medium -Exudate Type Serosanguineous -Wound Margin Distinct, Outline Attached -Granulation Amt Large (67-100%) -Granulation Quality Red -Slough/Fibrin Yes -Necrosis Amt Small (1-33%) -Necrotic Tissue Type Adherent Slough -Texture (Sammie-wound Skin Appearance) Assessed, Scarring -Moisture (Sammie-wound Skin Appearance) Assessed,Dry/ Scaly -Color (Sammie-wound Skin Appearance) Assessed -Temperature (Sammie-wound Skin No Abnormality Appearance) (Pt Warm) -Tenderness on Palpation (Sammie-wound No Skin Appearance) -Ulcer Cleansing Rinsed/ Irrigated with Saline -Foul Odor after Cleansing No -Anesthetic Used 5% Lidocaine Gel WC - Nurse 2 - General Ulcer CM Notes Start: 11/01/22 10:02 Freq: Status: Active Protocol: Activity Type Activity Date Activity User E-sign Co-sign Detail Recorded Client Recorded Date Recorded By Document 11/01/22 10:33 MW [id number] 11/01/22 10:47 MW 11/01/22 10:33 Wound Center Nurse 2 #8- R 3RD TOE -Time 10:34 -Correct Patient Yes -Correct Side, Site, Position Yes -Correct Procedure Yes -Procedure Performed Yes -Type of Procedure Debridement -Clinical Debridement Subcutaneous -Tissue Removed Subcutaneous -Post Debridement (cm) - Length 1.0 -Post Debridement (cm) - Width 0.5 -Post Debridement (cm) - Depth 0.2 -Total Square (Post) (cm) 0.50 -Area of Debridement (cm) - Length 1.0 -Area of Debridement (cm) - Width 0.5 -Total Square (Area) (cm) 0.50 -Tunneling No -Undermining/Tunneling No -Circular Undermining No -Wound/Ulcer Outcome Not Healed -Ulcer Cleansing Rinsed/ Irrigated with Saline -Foul Odor after Cleansing No -Bioengineered Tissue No -Bleeding Controlled with Pressure -Treatment Response Procedure Tolerated Well -Offloading No -Debridement - Subq, 1st 20sq cm Yes #5- R FOOT PLANTAR -Time 10:34 -Correct Patient Yes -Correct Side, Site, Position Yes -Correct Procedure Yes -Procedure Performed Yes -Type of Procedure Debridement -Clinical Debridement Subcutaneous -Tissue Removed Subcutaneous -Post Debridement (cm) - Length 1.4 -Post Debridement (cm) - Width 1.3 -Post Debridement (cm) - Depth 0.3 -Total Square (Post) (cm) 1.82 -Area of Debridement (cm) - Length 1.4 -Area of Debridement (cm) - Width 1.3 -Total Square (Area) (cm) 1.82 -Tunneling No -Undermining/Tunneling No -Circular Undermining No -Wound/Ulcer Outcome Not Healed -Ulcer Cleansing Rinsed/ Irrigated with Saline -Foul Odor after Cleansing No -Bioengineered Tissue No -Bleeding Controlled with Pressure -Treatment Response Procedure Tolerated Well -Offloading No -Debridement - Subq, 1st 20sq cm No #3- L 2ND TOE PLANTAR -Time 10:35 -Correct Patient Yes -Correct Side, Site, Position Yes -Correct Procedure Yes -Procedure Performed Yes -Type of Procedure Debridement -Clinical Debridement Subcutaneous -Tissue Removed Subcutaneous -Post Debridement (cm) - Length 0.8 -Post Debridement (cm) - Width 0.8 -Post Debridement (cm) - Depth 0.1 -Total Square (Post) (cm) 0.64 -Area of Debridement (cm) - Length 0.8 -Area of Debridement (cm) - Width 0.8 -Total Square (Area) (cm) 0.64 -Tunneling No -Undermining/Tunneling No -Circular Undermining No -Wound/Ulcer Outcome Not Healed -Ulcer Cleansing Rinsed/ Irrigated with Saline -Foul Odor after Cleansing No -Bioengineered Tissue No -Bleeding Controlled with Pressure -Treatment Response Procedure Tolerated Well -Offloading No -Debridement - Subq, 1st 20sq cm No Pain Scale: 0-10 Numeric Is Patient Pain Free? Yes - Nurse 3 - General Ulcer D/C NN Start: 11/01/22 10:02 Freq: Status: Active Protocol: Activity Type Activity Date Activity User E-sign Co-sign Detail Recorded Client Recorded Date Recorded By Document 11/01/22 11:11 LYLE [id number] 11/01/22 11:12 LYLE 11/01/22 11:11 Wound Care Center Nurse 3 #8- R 3RD TOE -Ulcer Cleansing Rinsed/ Irrigated with Saline -Primary Dressing Applied Fibracol Plus 4x4 -Other Dressing bactroban, gauze ,coban -Primary Dressing Covered/Secured with Dry Gauze -Fibracol Plus 4x4 1 #5- R FOOT PLANTAR -Other Dressing bactoban , fibracol, coban -Primary Dressing Covered/Secured with Dry Gauze #3- L 2ND TOE PLANTAR -Other Dressing bactroban , fibroacol -Primary Dressing Covered/Secured with Dry Gauze Treatment Response Procedure Tolerated Well Pain Scale: 0-10 Numeric Is Patient Pain Free? Yes - Visit Discharge Discharge Condition Stable Ambulatory Status Ambulatory Transportation Private Auto Medication Reconcilliation completed & No provided to patient/care provider Clinical Summary of Care Provided Yes Additional Wound Wound debrided: Right third toe plantar side nonhealing ulcer with osteomyelitis Laterality: Right Type of Debridement: Excisional debridement Anesthesia Used: 5% Lidocaine Gel Depth: Down to and including healthy tissue Percentage of wound debrided: 100 Instrument Used: 5mm curette and - (Nippers) Tissue Removed: Devitalized tissue and callus fibrin Severity: Limited To Skin Breakdown Amount of bleeding with debridement: Mild Bleeding Controlled with: Compression and gauze Patient tolerated procedure: Patient tolerated procedure well Additional Wound Wound debrided: Left fourth toe ulcers nonhealing nonpressure Type of Debridement: Excisional debridement Anesthesia Used: 5% Lidocaine Gel Depth: Down to and including healthy tissue Percentage of wound debrided: 100 Instrument Used: 5mm curette and - (Nippers) Tissue Removed: Devitalized tissue and callus fibrin Severity: Limited To Skin Breakdown Amount of bleeding with debridement: Mild Bleeding Controlled with: Compression and gauze Patient tolerated procedure: Patient tolerated procedure well Assessment/Plan Assessment/Plan (1) Idiopathic neuropathy: CODE(S): G60.9 - Hereditary and idiopathic neuropathy, unspecified (2) Non-pressure chronic ulcer of other part of right foot with fat layer exposed: CODE(S): L97.512 - Non-pressure chronic ulcer of other part of right foot with fat layer exposed PLAN: Wash foot with antibacterial soap and apply Bactroban nickel thickness in base of wound cover with the fibrocall gauze and tape MRI ordered of the right foot and toe done today we will call with results Keep appointment with infectious disease on November 15 here at the wound center Pending culture results we will get on antibiotics. Follow-up in 1 week (3) Ulcer of toe: CODE(S): L97.509 - Non-pressure chronic ulcer of other part of unspecified foot with unspecified severity QUALIFIERS: Laterality: unspecified laterality Non-pressure ulcer stage: limited to breakdown of skin Qualified Code(s): L97.501 - Non-pressure chronic ulcer of other part of unspecified foot limited to breakdown of skin PLAN: Wash foot with antibacterial soap and apply fibrin call to all open wounds on toes cover with gauze and tape Follow-up in 1 week
--- NOTE | 2022-11-07 15:42 | WC ---
Wound culture results reviewed per Mary Basilio NP and she sent antibiotic order yesterday that was called in per Francisco Villalobos RN. Received a call from pharmacist from [facility] this afternoon stating there is an interaction between the antibiotic Linzolid and SSRI (zoloft) that the patient is currently on. Mary [employer]PER notified of interaction, gave okay to hold SSRI or take it at a different scheduled time while on Linzolid. Pharmacist notified of Mary's instructions and stated she will samish the patient when she picks up the medication. Message left for patient concerning medication interaction and Mary's instructions.
[2022-11-08 10:22] VITALS: BP 155/74; PULSE 54; RESP 16; TEMP 36; BMI 34.5
--- NOTE | 2022-11-08 12:38 | PCM.WC.PN ---
History of Present Illness Date of Service: 11/08/22 Chief Complaint: Follow-up multiple wounds of right great toe plantar side right second third and fourth toe right heel and left second toe all from her idiopathic neuropathy. Patient refuses to stay off her feet and is on working 10 to 12 hours a day. She also likes to pick at her wounds which does not help. 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 She was seen in my office about 6 months ago and was given to her calcium alginate. Still using that and Neosporin on her wounds. She feels the toes are from the shoe she pumped it up too high and her toes were extended past the ends and she does not realize that they are getting hit or rubbing when she walks. The right second and third fourth toe are all superficial wounds that are now healed. But the right third toe is stayed erythematous and swollen. X-ray and MRI shows osteomyelitis in that joint. She does have an appointment with infectious disease next Sunday, November 15. The right heel looks like she had some skin cracking and is picking at it and opened some wounds on her heel. Again very superficial and has healed. The worst would be the right foot plantar that is open and has some depth. The left second toe at the tip is mostly healed she has a lot of callus around the healing area that I will try to debride off that may have some bleeding that we might need to cover for 1 more week otherwise will be healed. Progress of Wound: So the right plantar great toe is looking good continues to heal and get smaller using the Bactroban and the Fibracol together she is very happy. The right third toe does show osteo had an MRI done today. She does have an appointment November 15 with infectious disease. We will get cultures today for the third toe also she has a slight open wound at the tip. The bacteria shows rare but I am going to go ahead and treat it because of the osteomyelitis emergent start her on linezolid 600 mg twice a day for 14 days. Debrided a lot with nippers to get all the skin. Subjective Subjective Discussed with patient about an alternative surgeon in case she has to have a toe amputation and we will send her to Dr. Rosalia Solano in [place] we we will refer her over there they are happy with that. They prefer not to go back to the same office of Dr. Dempsey and they prefer not to go to [facility]. Objective Data Objective Data As stated all above feet are looking better the toes are healing we will progress on and continue all treatments and antibiotic therapy till she can get seen by infectious disease and Dr. Jo Vital Signs: Vital Signs Temp Pulse Resp BP O2 Del Method 96.8 F L 54 L 16 155/74 H Room Air 11/08/22 10:22 11/08/22 10:22 11/08/22 10:22 11/08/22 10:22 11/08/22 10:22 Oxygen Delivery Method Room Air Weight: 195 lb Body Mass Index (BMI) 34.5 Lab / Micro Data Attestation: I reviewed the patient's lab results. Micro: Microbiology 11/01/22 10:40 Tissue Ulcer - 3rd Toe Gram Stain - Final 11/01/22 10:40 Tissue Ulcer - 3rd Toe Wound Culture - Final Enterococcus faecalis Staphylococcus haemolyticus 11/01/22 10:40 Tissue Ulcer - 3rd Toe Anaerobic Culture - Final No anaerobic bacteria isolated. Physical Exam Const oriented x3 General Appearance: cooperative Exam Limitations: no limitations HEENT normocephalic Eyes PERRL Resp normal respiratory effort Effort and Inspection: able to speak in complete sentences Auscultation: clear to auscultation bilaterally Cardio regular rate and regular rhythm Palpation: normal PMI Rate: regular rate Rhythm: regular rhythm Extremity Extremity Narrative: Right foot has wounds on right plantar amputated partial of the right great toe and open wounds on second third and fourth toe plantar side. Right heel is open wounds from cracked skin and left second toe is open also General Extremity: amputation Skin Wounds: wounds noted Neuro oriented x3 Psych Appearance: grossly normal Speech: normal speech Thought Content: normal thought content Judgement: judgement good Debridement Note Debridement Note Wound debrided: Right great toe plantar side ulcer from trauma nontraumatic amputation of f Type of Debridement: Excisional debridement Anesthesia Used: 5% Lidocaine Gel Depth: Down to and including healthy tissue Percentage of wound debrided: 100 Instrument Used: 5mm curette Tissue Removed: Fibrin and callus and devitalized tissue Severity: Fat Layer Exposed Amount of bleeding with debridement: Mild Bleeding Controlled with: Pressure and Compression and gauze Patient tolerated procedure: Patient tolerated procedure well Post-Debridement Measurements and Additional Note: Post-Debridement Measurements/Treatment ZAIN - Nurse 1 - General Ulcer Assessment Start: 11/01/22 10:02 Freq: Status: Active Protocol: SANDRO Activity Type Activity Date Activity User E-sign Co-sign Detail Recorded Client Recorded Date Recorded By Document 11/01/22 10:19 [facility] [id number] 11/01/22 10:28 BM Document 11/08/22 10:22 [facility] [id number] 11/08/22 10:33 BM 11/01/22 11/08/22 10:19 10:22 WC - Today's Visit Information Type of service Follow-up Visit Follow-up Visit (Physician/WRITING TUTOR (Physician/WRITING TUTOR ) ) Arrival Mode Ambulatory Ambulatory Transfer Assistance None None Accompanied by boyfriend BOYFRIEND Patient Identification Verified (Name & Yes Yes ) Patient Requires Transmission-Based No No Precautions Height and Weight Weight Measurement Method Estimated by Patient Body Mass Index (BMI) 34.5 34.5 BMI Classification Obese Obese Vital Signs Temperature (97.8 F-99.1 F) 97.4 F L 96.8 F L Temperature Source Temporal Temporal Pulse Rate (60-100) 56 L 54 L Pulse Location Monitor Monitor Respiratory Rate (12-18) 16 16 Respiratory rate source Observation Observation Oxygen Delivery Method Room Air Room Air Blood Pressure (90/60-120/80) 152/56 H 155/74 H Blood Pressure Mean (mm Hg) 88 101 Source Monitor Monitor Position Sitting Sitting Blood Pressure Location Left Arm Left Arm History Since Last Visit- (Skip if this is Patient's initial visit) Have you changed medications since your No No last visit? Any new allergies or adverse reactions No No Had a fall/change in ADL's that may No No increase risk of falls Signs or symptoms of abuse and/or No No neglect since last visit Have you been in the hospital since your No No last visit? Has dressing in place as prescribed Yes No Has compression in place as prescribed N/A N/A Has offloadiing in place as prescribed N/A N/A Experienced any changes in pain level or No No management Left Footwear Regular Shoe Regular Shoe Right Footwear Regular Shoe Regular Shoe Pain Scale: 0-10 Numeric Is Patient Pain Free? Yes Yes ZAIN - Nurse 1 - General Ulcer Measurement Start: 11/01/22 10:02 Freq: Status: Active Protocol: Activity Type Activity Date Activity User E-sign Co-sign Detail Recorded Client Recorded Date Recorded By Document 11/01/22 10:19 [facility] [id number] 11/01/22 10:28 BM Document 11/08/22 10:22 [facility] [id number] 11/08/22 10:33 [facility] 11/01/22 11/08/22 10:19 10:22 Wound Center Nurse 1 #8- R 3RD TOE -Combined with other wound No No -Current Size (cm) - Length 0.1 0.1 -Current Size (cm) - Width 0.1 0.1 -Current Size (cm) - Depth 0.1 0.1 -Total Square Cm 0.01 0.01 -Date of Last Picture (Recall this 11/01/22 field) -Photo Taken Yes No -Epithelialization Large 67-100% -Tunneling No -Undermining/Tunneling No -Circular Undermining No -Exudate Amt None Present -Texture (Sammie-wound Skin Appearance) Assessed, Assessed Scarring -Moisture (Sammie-wound Skin Appearance) Assessed,Dry/ Assessed Scaly -Color (Sammie-wound Skin Appearance) Assessed Assessed -Temperature (Sammie-wound Skin No Abnormality No Abnormality Appearance) (Pt Warm) (Pt Warm) -Tenderness on Palpation (Sammie-wound No No Skin Appearance) -Ulcer Cleansing Rinsed/ Rinsed/ Irrigated with Irrigated with Saline Saline -Foul Odor after Cleansing No No -Anesthetic Used 5% Lidocaine 5% Lidocaine Gel Gel #5- R FOOT PLANTAR -Combined with other wound No No -Current Size (cm) - Length 1.3 1.1 -Current Size (cm) - Width 1.1 1 -Current Size (cm) - Depth 0.2 0.4 -Total Square Cm 1.43 1.1 -Date of Last Picture (Recall this 11/01/22 field) -Photo Taken Yes No -Epithelialization Small 1-33% Small 1-33% -Tunneling No No -Undermining/Tunneling No No -Circular Undermining No No -Exudate Amt Medium Medium -Exudate Type Serosanguineous Serosanguineous -Wound Margin Distinct, Distinct, Outline Outline Attached Attached -Granulation Amt Large (67-100%) Large (67-100%) -Granulation Quality Red Red -Slough/Fibrin Yes No -Necrosis Amt Small (1-33%) None Present (0 %) -Necrotic Tissue Type Adherent Slough -Texture (Sammie-wound Skin Appearance) Assessed, Assessed,Callus Scarring -Moisture (Sammie-wound Skin Appearance) Assessed,Dry/ Assessed,Dry/ Scaly Scaly -Color (Sammie-wound Skin Appearance) Assessed Assessed -Temperature (Sammie-wound Skin No Abnormality No Abnormality Appearance) (Pt Warm) (Pt Warm) -Tenderness on Palpation (Sammie-wound No No Skin Appearance) -Ulcer Cleansing Rinsed/ Rinsed/ Irrigated with Irrigated with Saline Saline -Foul Odor after Cleansing No No -Anesthetic Used 5% Lidocaine 5% Lidocaine Gel Gel #3- L 2ND TOE PLANTAR -Combined with other wound No No -Current Size (cm) - Length 0.4 0.2 -Current Size (cm) - Width 0.5 0.2 -Current Size (cm) - Depth 0.2 0.1 -Total Square Cm 0.20 0.04 -Date of Last Picture (Recall this 11/01/22 field) -Photo Taken Yes No -Epithelialization Small 1-33% Medium 34-66% -Tunneling No No -Undermining/Tunneling No No -Circular Undermining No No -Exudate Amt Medium Small -Exudate Type Serosanguineous Serosanguineous -Wound Margin Distinct, Distinct, Outline Outline Attached Attached -Granulation Amt Large (67-100%) Large (67-100%) -Granulation Quality Red Red -Slough/Fibrin Yes Yes -Necrosis Amt Small (1-33%) Small (1-33%) -Necrotic Tissue Type Adherent Slough Adherent Slough -Texture (Sammie-wound Skin Appearance) Assessed, Assessed Scarring -Moisture (Sammie-wound Skin Appearance) Assessed,Dry/ Assessed,Dry/ Scaly Scaly -Color (Sammie-wound Skin Appearance) Assessed Assessed -Temperature (Sammie-wound Skin No Abnormality No Abnormality Appearance) (Pt Warm) (Pt Warm) -Tenderness on Palpation (Sammie-wound No No Skin Appearance) -Ulcer Cleansing Rinsed/ Rinsed/ Irrigated with Irrigated with Saline Saline -Foul Odor after Cleansing No No -Anesthetic Used 5% Lidocaine 5% Lidocaine Gel Gel WC - Nurse 2 - General Ulcer CM Notes Start: 11/01/22 10:02 Freq: Status: Active Protocol: Activity Type Activity Date Activity User E-sign Co-sign Detail Recorded Client Recorded Date Recorded By Document 11/01/22 10:33 MW [id number] 11/01/22 10:47 MW Document 11/08/22 11:05 MW [id number] 11/08/22 11:16 MW 11/01/22 11/08/22 10:33 11:05 Wound Center Nurse 2 #8- R 3RD TOE -Time 10:34 11:06 -Correct Patient Yes Yes -Correct Side, Site, Position Yes Yes -Correct Procedure Yes Yes -Procedure Performed Yes No -Type of Procedure Debridement -Clinical Debridement Subcutaneous -Tissue Removed Subcutaneous -Post Debridement (cm) - Length 1.0 0 -Post Debridement (cm) - Width 0.5 0 -Post Debridement (cm) - Depth 0.2 0 -Total Square (Post) (cm) 0.50 0 -Area of Debridement (cm) - Length 1.0 -Area of Debridement (cm) - Width 0.5 -Total Square (Area) (cm) 0.50 -Tunneling No No -Undermining/Tunneling No No -Circular Undermining No No -Wound/Ulcer Outcome Not Healed Healed- Epithelialized -Ulcer Cleansing Rinsed/ Irrigated with Saline -Foul Odor after Cleansing No -Bioengineered Tissue No -Bleeding Controlled with Pressure -Treatment Response Procedure Tolerated Well -Offloading No -Debridement - Subq, 1st 20sq cm Yes #5- R FOOT PLANTAR -Time 10:34 11:07 -Correct Patient Yes Yes -Correct Side, Site, Position Yes Yes -Correct Procedure Yes Yes -Procedure Performed Yes Yes -Type of Procedure Debridement Debridement -Clinical Debridement Subcutaneous Subcutaneous -Tissue Removed Subcutaneous Subcutaneous -Post Debridement (cm) - Length 1.4 1.8 -Post Debridement (cm) - Width 1.3 1.1 -Post Debridement (cm) - Depth 0.3 0.3 -Total Square (Post) (cm) 1.82 1.98 -Area of Debridement (cm) - Length 1.4 1.8 -Area of Debridement (cm) - Width 1.3 1.1 -Total Square (Area) (cm) 1.82 1.98 -Tunneling No No -Undermining/Tunneling No No -Circular Undermining No No -Wound/Ulcer Outcome Not Healed Not Healed -Ulcer Cleansing Rinsed/ Rinsed/ Irrigated with Irrigated with Saline Saline -Foul Odor after Cleansing No No -Bioengineered Tissue No No -Bleeding Controlled with Pressure Pressure -Treatment Response Procedure Procedure Tolerated Well Tolerated Well -Offloading No No -Debridement - Subq, 1st 20sq cm No Yes #3- L 2ND TOE PLANTAR -Time 10:35 11:08 -Correct Patient Yes Yes -Correct Side, Site, Position Yes Yes -Correct Procedure Yes Yes -Procedure Performed Yes Yes -Type of Procedure Debridement Debridement -Clinical Debridement Subcutaneous Subcutaneous -Tissue Removed Subcutaneous Subcutaneous -Post Debridement (cm) - Length 0.8 0.2 -Post Debridement (cm) - Width 0.8 0.2 -Post Debridement (cm) - Depth 0.1 0.1 -Total Square (Post) (cm) 0.64 0.04 -Area of Debridement (cm) - Length 0.8 0.2 -Area of Debridement (cm) - Width 0.8 0.2 -Total Square (Area) (cm) 0.64 0.04 -Tunneling No No -Undermining/Tunneling No No -Circular Undermining No No -Wound/Ulcer Outcome Not Healed Not Healed -Ulcer Cleansing Rinsed/ Rinsed/ Irrigated with Irrigated with Saline Saline -Foul Odor after Cleansing No No -Bioengineered Tissue No No -Bleeding Controlled with Pressure Pressure -Treatment Response Procedure Procedure Tolerated Well Tolerated Well -Offloading No No -Debridement - Subq, 1st 20sq cm No No Pain Scale: 0-10 Numeric Is Patient Pain Free? Yes Yes - Nurse 3 - General Ulcer D/C NN Start: 11/01/22 10:02 Freq: Status: Active Protocol: Activity Type Activity Date Activity User E-sign Co-sign Detail Recorded Client Recorded Date Recorded By Document 11/01/22 11:11 RB [id number] 11/01/22 11:12 RB 11/01/22 11:11 Wound Care Center Nurse 3 #8- R 3RD TOE -Ulcer Cleansing Rinsed/ Irrigated with Saline -Primary Dressing Applied Fibracol Plus 4x4 -Other Dressing bactroban, gauze ,coban -Primary Dressing Covered/Secured with Dry Gauze -Fibracol Plus 4x4 1 #5- R FOOT PLANTAR -Other Dressing bactoban , fibracol, coban -Primary Dressing Covered/Secured with Dry Gauze #3- L 2ND TOE PLANTAR -Other Dressing bactroban , fibroacol -Primary Dressing Covered/Secured with Dry Gauze Treatment Response Procedure Tolerated Well Pain Scale: 0-10 Numeric Is Patient Pain Free? Yes WC - Visit Discharge Discharge Condition Stable Ambulatory Status Ambulatory Transportation Private Auto Medication Reconcilliation completed & No provided to patient/care provider Clinical Summary of Care Provided Yes Additional Wound Wound debrided: Left second toe callus Type of Debridement: Excisional debridement Anesthesia Used: 5% Lidocaine Gel Depth: Down to and including healthy tissue Percentage of wound debrided: 100 Instrument Used: - (Nippers) Tissue Removed: Callus fibrin Severity: Limited To Skin Breakdown Amount of bleeding with debridement: Mild Bleeding Controlled with: Compression and gauze Patient tolerated procedure: Patient tolerated procedure well Assessment/Plan Assessment/Plan (1) Idiopathic neuropathy: CODE(S): G60.9 - Hereditary and idiopathic neuropathy, unspecified (2) Non-pressure chronic ulcer of other part of right foot with fat layer exposed: CODE(S): L97.512 - Non-pressure chronic ulcer of other part of right foot with fat layer exposed PLAN: Wash foot with antibacterial soap and apply Bactroban nickel thickness in base of wound cover with the fibrocall gauze and tape MRI ordered of the right foot and toe done and discussed with patient both are osteomyelitis Keep appointment with infectious disease on November 15 here at the wound center Though bacteria is rare we will treat with linezolid 2 times a day for 14 days We will send a referral to Dr. Jo for podiatry possibly surgery if needed for amputation Follow-up in 1 week (3) Ulcer of toe: CODE(S): L97.509 - Non-pressure chronic ulcer of other part of unspecified foot with unspecified severity QUALIFIERS: Laterality: unspecified laterality Non-pressure ulcer stage: limited to breakdown of skin Qualified Code(s): L97.501 - Non-pressure chronic ulcer of other part of unspecified foot limited to breakdown of skin PLAN: Wash foot with antibacterial soap and apply fibrin call to all open wounds on toes cover with gauze and tape Follow-up in 1 week
[2022-11-15 11:18] VITALS: BP 149/44; PULSE 59; RESP 16; TEMP 35.8; BMI 34.5
--- NOTE | 2022-11-15 12:25 | PN.PCM_ITS ---
History of Present Illness Date of Service: 11/15/22 Chief Complaint: Follow-up multiple wounds of right great toe plantar side right second third and fourth toe right heel and left second toe all from her idiopathic neuropathy. Patient refuses to stay off her feet and is on working 10 to 12 hours a day. She also likes to pick at her wounds which does not help. 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 She was seen in my office about 6 months ago and was given to her calcium alginate. Still using that and Neosporin on her wounds. She feels the toes are from the shoe she pumped it up too high and her toes were extended past the ends and she does not realize that they are getting hit or rubbing when she walks. The right second and third fourth toe are all superficial wounds that are now healed. But the right third toe is stayed erythematous and swollen. X-ray and MRI shows osteomyelitis in that joint. She does have an appointment with infectious disease next Sunday, November 15. The right heel looks like she had some skin cracking and is picking at it and opened some wounds on her heel. Again very superficial and has healed. The worst would be the right foot plantar that is open and has some depth. The left second toe at the tip is mostly healed she has a lot of callus around the healing area that I will try to debride off that may have some bleeding that we might need to cover for 1 more week otherwise will be healed. Progress of Wound: Patient was seen by Dr. Deysi ko in [place]. He is taking her to surgery in 2 weeks. We will continue seeing her until she has the surgery he is going to take the top of the third right toe off and then he will do a entrance from the side to shave the bone on the plantar side so that plantar wound will close. She will then follow-up with him unless he wants us to follow it up on the wounds but he should finish her up. Today is her appointment with Dr. Vu which is the I&D Dr. She is still taking the linezolid antibiotic. She stopped taking her sertraline 25 daily because of the interaction she says she is really cannot tell a difference being off of it. I told her that is because it still in her blood system and she is getting some effects. We will continue the same wound care until Dr. Jo does the surgery Subjective Subjective Patient agreed with outcomes and plan of action Objective Data Objective Data Measurements are all smaller on all her wounds she is looking good no sign of infection no odor no redness even the clerk guide thought it looked good. Vital Signs: Vital Signs Temp Pulse Resp BP O2 Del Method 96.4 F L 59 L 16 149/44 H Room Air 11/15/22 11:18 11/15/22 11:18 11/15/22 11:18 11/15/22 11:18 11/15/22 11:18 Oxygen Delivery Method Room Air Weight: 195 lb Body Mass Index (BMI) 34.5 Lab / Micro Data Micro: Microbiology 11/01/22 10:40 Tissue Ulcer - 3rd Toe Gram Stain - Final 11/01/22 10:40 Tissue Ulcer - 3rd Toe Wound Culture - Final Enterococcus faecalis Staphylococcus haemolyticus 11/01/22 10:40 Tissue Ulcer - 3rd Toe Anaerobic Culture - Final No anaerobic bacteria isolated. Physical Exam Const oriented x3 General Appearance: cooperative Exam Limitations: no limitations HEENT normocephalic Eyes PERRL Resp normal respiratory effort Effort and Inspection: able to speak in complete sentences Auscultation: clear to auscultation bilaterally Cardio regular rate and regular rhythm Palpation: normal PMI Rate: regular rate Rhythm: regular rhythm Extremity Extremity Narrative: Right foot has wounds on right plantar amputated partial of the right great toe and open wounds on second third and fourth toe plantar side. Right heel is open wounds from cracked skin and left second toe is open also General Extremity: amputation Skin Wounds: wounds noted Neuro oriented x3 Psych Appearance: grossly normal Speech: normal speech Thought Content: normal thought content Judgement: judgement good Debridement Note Debridement Note Wound debrided: Right plantar great toe nonpressure ulcer Type of Debridement: Excisional debridement Anesthesia Used: 5% Lidocaine Gel Depth: Down to and including healthy tissue Percentage of wound debrided: 100 Instrument Used: 7mm curette Tissue Removed: Fibrin Severity: Fat Layer Exposed Amount of bleeding with debridement: Mild Bleeding Controlled with: Compression and gauze Patient tolerated procedure: Patient tolerated procedure well Post-Debridement Measurements and Additional Note: Post-Debridement Measurements/Treatment WC - Nurse 1 - General Ulcer Assessment Start: 11/01/22 10:02 Freq: Status: Active Protocol: WC.LOWEXT Activity Type Activity Date Activity User E-sign Co-sign Detail Recorded Client Recorded Date Recorded By Document 11/01/22 10:19 [facility] [id number] 11/01/22 10:28 BM Document 11/08/22 10:22 [facility] [id number] 11/08/22 10:33 [facility] Document 11/15/22 11:18 [facility] [id number] 11/15/22 11:27 [facility] 11/01/22 11/08/22 11/15/22 10:19 10:22 11:18 - Today's Visit Information Type of service Follow-up Visit Follow-up Visit Follow-up Visit (Physician/ASSOCIATE PROFESSOR OF GEOGRAPHY (Physician/ASSOCIATE PROFESSOR OF GEOGRAPHY (Physician/ASSOCIATE PROFESSOR OF GEOGRAPHY ) ) ) Arrival Mode Ambulatory Ambulatory Ambulatory Transfer Assistance None None None Accompanied by boyfriend BOYFRIEND BOYFRIEND Patient Identification Verified (Name & Yes Yes Yes ) Patient Requires Transmission-Based No No No Precautions Height and Weight Weight Measurement Method Estimated by Patient Body Mass Index (BMI) 34.5 34.5 34.5 BMI Classification Obese Obese Obese Vital Signs Temperature (97.8 F-99.1 F) 97.4 F L 96.8 F L 96.4 F L Temperature Source Temporal Temporal Temporal Pulse Rate (60-100) 56 L 54 L 59 L Pulse Location Monitor Monitor Monitor Respiratory Rate (12-18) 16 16 16 Respiratory rate source Observation Observation Observation Oxygen Delivery Method Room Air Room Air Room Air Blood Pressure (90/60-120/80) 152/56 H 155/74 H 149/44 H Blood Pressure Mean (mm Hg) 88 101 79 Source Monitor Monitor Monitor Position Sitting Sitting Sitting Blood Pressure Location Left Arm Left Arm Left Arm History Since Last Visit- (Skip if this is Patient's initial visit) Have you changed medications since your No No No last visit? Any new allergies or adverse reactions No No No Had a fall/change in ADL's that may No No No increase risk of falls Signs or symptoms of abuse and/or No No No neglect since last visit Have you been in the hospital since your No No No last visit? Has dressing in place as prescribed Yes No No Has compression in place as prescribed N/A N/A N/A Has offloadiing in place as prescribed N/A N/A No Experienced any changes in pain level or No No No management Left Footwear Regular Shoe Regular Shoe Regular Shoe Right Footwear Regular Shoe Regular Shoe Regular Shoe Pain Scale: 0-10 Numeric Is Patient Pain Free? Yes Yes Yes WC - Nurse 1 - General Ulcer Measurement Start: 11/01/22 10:02 Freq: Status: Active Protocol: Activity Type Activity Date Activity User E-sign Co-sign Detail Recorded Client Recorded Date Recorded By Document 11/01/22 10:19 [facility] [id number] 11/01/22 10:28 BM Document 11/08/22 10:22 BM [id number] 11/08/22 10:33 BM Document 11/15/22 11:18 BM [id number] 11/15/22 11:27 BMF 11/01/22 11/08/22 11/15/22 10:19 10:22 11:18 Wound Center Nurse 1 #8- R 3RD TOE -Combined with other wound No No -Current Size (cm) - Length 0.1 0.1 -Current Size (cm) - Width 0.1 0.1 -Current Size (cm) - Depth 0.1 0.1 -Total Square Cm 0.01 0.01 -Date of Last Picture (Recall this 11/01/22 field) -Photo Taken Yes No -Epithelialization Large 67-100% -Tunneling No -Undermining/Tunneling No -Circular Undermining No -Exudate Amt None Present -Texture (Sammie-wound Skin Appearance) Assessed, Assessed Scarring -Moisture (Sammie-wound Skin Appearance) Assessed,Dry/ Assessed Scaly -Color (Sammie-wound Skin Appearance) Assessed Assessed -Temperature (Sammie-wound Skin No Abnormality No Abnormality Appearance) (Pt Warm) (Pt Warm) -Tenderness on Palpation (Sammie-wound No No Skin Appearance) -Ulcer Cleansing Rinsed/ Rinsed/ Irrigated with Irrigated with Saline Saline -Foul Odor after Cleansing No No -Anesthetic Used 5% Lidocaine 5% Lidocaine Gel Gel #5- R FOOT PLANTAR -Combined with other wound No No No -Current Size (cm) - Length 1.3 1.1 1.3 -Current Size (cm) - Width 1.1 1 1.1 -Current Size (cm) - Depth 0.2 0.4 0.2 -Total Square Cm 1.43 1.1 1.43 -Date of Last Picture (Recall this 11/01/22 11/15/22 field) -Photo Taken Yes No Yes -Epithelialization Small 1-33% Small 1-33% Small 1-33% -Tunneling No No No -Undermining/Tunneling No No No -Circular Undermining No No No -Exudate Amt Medium Medium Medium -Exudate Type Serosanguineous Serosanguineous Serosanguineous -Wound Margin Distinct, Distinct, Distinct, Outline Outline Outline Attached Attached Attached -Granulation Amt Large (67-100%) Large (67-100%) Large (67-100%) -Granulation Quality Red Red [place] -Slough/Fibrin Yes No No -Necrosis Amt Small (1-33%) None Present (0 None Present (0 %) %) -Necrotic Tissue Type Adherent Slough -Texture (Sammie-wound Skin Appearance) Assessed, Assessed,Callus Assessed, Scarring Scarring -Moisture (Sammie-wound Skin Appearance) Assessed,Dry/ Assessed,Dry/ Assessed Scaly Scaly -Color (Sammie-wound Skin Appearance) Assessed Assessed Assessed -Temperature (Sammie-wound Skin No Abnormality No Abnormality No Abnormality Appearance) (Pt Warm) (Pt Warm) (Pt Warm) -Tenderness on Palpation (Sammie-wound No No No Skin Appearance) -Ulcer Cleansing Rinsed/ Rinsed/ Rinsed/ Irrigated with Irrigated with Irrigated with Saline Saline Saline -Foul Odor after Cleansing No No No -Anesthetic Used 5% Lidocaine 5% Lidocaine 5% Lidocaine Gel Gel Gel #3- L 2ND TOE PLANTAR -Combined with other wound No No No -Current Size (cm) - Length 0.4 0.2 0.1 -Current Size (cm) - Width 0.5 0.2 0.1 -Current Size (cm) - Depth 0.2 0.1 0.1 -Total Square Cm 0.20 0.04 0.01 -Date of Last Picture (Recall this 11/01/22 11/15/22 field) -Photo Taken Yes No Yes -Epithelialization Small 1-33% Medium 34-66% -Tunneling No No -Undermining/Tunneling No No -Circular Undermining No No -Exudate Amt Medium Small -Exudate Type Serosanguineous Serosanguineous -Wound Margin Distinct, Distinct, Outline Outline Attached Attached -Granulation Amt Large (67-100%) Large (67-100%) -Granulation Quality Red Red -Slough/Fibrin Yes Yes -Necrosis Amt Small (1-33%) Small (1-33%) -Necrotic Tissue Type Adherent Slough Adherent Slough -Texture (Sammie-wound Skin Appearance) Assessed, Assessed Assessed,Callus Scarring -Moisture (Sammie-wound Skin Appearance) Assessed,Dry/ Assessed,Dry/ Assessed Scaly Scaly -Color (Sammie-wound Skin Appearance) Assessed Assessed Assessed -Temperature (Sammie-wound Skin No Abnormality No Abnormality No Abnormality Appearance) (Pt Warm) (Pt Warm) (Pt Warm) -Tenderness on Palpation (Sammie-wound No No No Skin Appearance) -Ulcer Cleansing Rinsed/ Rinsed/ Rinsed/ Irrigated with Irrigated with Irrigated with Saline Saline Saline -Foul Odor after Cleansing No No No -Anesthetic Used 5% Lidocaine 5% Lidocaine 5% Lidocaine Gel Gel Gel WC - Nurse 2 - General Ulcer CM Notes Start: 11/01/22 10:02 Freq: Status: Active Protocol: Activity Type Activity Date Activity User E-sign Co-sign Detail Recorded Client Recorded Date Recorded By Document 11/01/22 10:33 MW [id number] 11/01/22 10:47 MW Document 11/08/22 11:05 MW [id number] 11/08/22 11:16 MW Document 11/15/22 11:34 MW [id number] 11/15/22 11:43 MW 11/01/22 11/08/22 11/15/22 10:33 11:05 11:34 Wound Center Nurse 2 #8- R 3RD TOE -Time 10:34 11:06 -Correct Patient Yes Yes -Correct Side, Site, Position Yes Yes -Correct Procedure Yes Yes -Procedure Performed Yes No -Type of Procedure Debridement -Clinical Debridement Subcutaneous -Tissue Removed Subcutaneous -Post Debridement (cm) - Length 1.0 0 -Post Debridement (cm) - Width 0.5 0 -Post Debridement (cm) - Depth 0.2 0 -Total Square (Post) (cm) 0.50 0 -Area of Debridement (cm) - Length 1.0 -Area of Debridement (cm) - Width 0.5 -Total Square (Area) (cm) 0.50 -Tunneling No No -Undermining/Tunneling No No -Circular Undermining No No -Wound/Ulcer Outcome Not Healed Healed- Epithelialized -Ulcer Cleansing Rinsed/ Irrigated with Saline -Foul Odor after Cleansing No -Bioengineered Tissue No -Bleeding Controlled with Pressure -Treatment Response Procedure Tolerated Well -Offloading No -Debridement - Subq, 1st 20sq cm Yes #5- R FOOT PLANTAR -Time 10:34 11:07 11:35 -Correct Patient Yes Yes Yes -Correct Side, Site, Position Yes Yes Yes -Correct Procedure Yes Yes Yes -Procedure Performed Yes Yes Yes -Type of Procedure Debridement Debridement Debridement -Clinical Debridement Subcutaneous Subcutaneous Subcutaneous -Tissue Removed Subcutaneous Subcutaneous Subcutaneous -Post Debridement (cm) - Length 1.4 1.8 1.3 -Post Debridement (cm) - Width 1.3 1.1 1.1 -Post Debridement (cm) - Depth 0.3 0.3 0.2 -Total Square (Post) (cm) 1.82 1.98 1.43 -Area of Debridement (cm) - Length 1.4 1.8 1.3 -Area of Debridement (cm) - Width 1.3 1.1 1.1 -Total Square (Area) (cm) 1.82 1.98 1.43 -Tunneling No No No -Undermining/Tunneling No No No -Circular Undermining No No No -Wound/Ulcer Outcome Not Healed Not Healed Not Healed -Ulcer Cleansing Rinsed/ Rinsed/ Rinsed/ Irrigated with Irrigated with Irrigated with Saline Saline Saline -Foul Odor after Cleansing No No No -Bioengineered Tissue No No No -Bleeding Controlled with Pressure Pressure Pressure -Treatment Response Procedure Procedure Procedure Tolerated Well Tolerated Well Tolerated Well -Offloading No No No -Debridement - Subq, 1st 20sq cm No Yes Yes #3- L 2ND TOE PLANTAR -Time 10:35 11:08 11:35 -Correct Patient Yes Yes Yes -Correct Side, Site, Position Yes Yes Yes -Correct Procedure Yes Yes Yes -Procedure Performed Yes Yes Yes -Type of Procedure Debridement Debridement Debridement -Clinical Debridement Subcutaneous Subcutaneous Subcutaneous -Tissue Removed Subcutaneous Subcutaneous Subcutaneous -Post Debridement (cm) - Length 0.8 0.2 1.0 -Post Debridement (cm) - Width 0.8 0.2 0.5 -Post Debridement (cm) - Depth 0.1 0.1 0.1 -Total Square (Post) (cm) 0.64 0.04 0.50 -Area of Debridement (cm) - Length 0.8 0.2 1.0 -Area of Debridement (cm) - Width 0.8 0.2 0.5 -Total Square (Area) (cm) 0.64 0.04 0.50 -Tunneling No No No -Undermining/Tunneling No No No -Circular Undermining No No No -Wound/Ulcer Outcome Not Healed Not Healed Not Healed -Ulcer Cleansing Rinsed/ Rinsed/ Rinsed/ Irrigated with Irrigated with Irrigated with Saline Saline Saline -Foul Odor after Cleansing No No No -Bioengineered Tissue No No No -Bleeding Controlled with Pressure Pressure Pressure -Treatment Response Procedure Procedure Procedure Tolerated Well Tolerated Well Tolerated Well -Offloading No No No -Debridement - Subq, 1st 20sq cm No No No Pain Scale: 0-10 Numeric Is Patient Pain Free? Yes Yes Yes WC - Nurse 3 - General Ulcer D/C NN Start: 11/01/22 10:02 Freq: Status: Active Protocol: Activity Type Activity Date Activity User E-sign Co-sign Detail Recorded Client Recorded Date Recorded By Document 11/01/22 11:11 RB [id number] 11/01/22 11:12 RB Document 11/15/22 11:57 RB [id number] 11/15/22 11:58 RB 11/01/22 11/15/22 11:11 11:57 Wound Care Center Nurse 3 #8- R 3RD TOE -Ulcer Cleansing Rinsed/ Irrigated with Saline -Primary Dressing Applied Fibracol Plus 4x4 -Other Dressing bactroban, gauze ,coban -Primary Dressing Covered/Secured with Dry Gauze -Fibracol Plus 4x4 1 #5- R FOOT PLANTAR -Primary Dressing Applied Fibracol Plus 4x4 -Other Dressing bactoban , thin layer of fibracol, coban bactroban, gauze and coban -Primary Dressing Covered/Secured with Dry Gauze -Fibracol Plus 4x4 1 #3- L 2ND TOE PLANTAR -Other Dressing bactroban , bactroban, fibroacol fibracol gauze -Primary Dressing Covered/Secured with Dry Gauze Dry Gauze, Secured with Tape Treatment Response Procedure Procedure Tolerated Well Tolerated Well Pain Scale: 0-10 Numeric Is Patient Pain Free? Yes Yes WC - Visit Discharge Discharge Condition Stable Stable Ambulatory Status Ambulatory Ambulatory Transportation Private Auto Private Auto Medication Reconcilliation completed & No No provided to patient/care provider Clinical Summary of Care Provided Yes Yes Assessment/Plan Assessment/Plan (1) Idiopathic neuropathy: CODE(S): G60.9 - Hereditary and idiopathic neuropathy, unspecified (2) Non-pressure chronic ulcer of other part of right foot with fat layer exposed: CODE(S): L97.512 - Non-pressure chronic ulcer of other part of right foot with fat layer exposed PLAN: Wash foot with antibacterial soap and apply Bactroban nickel thickness in base of wound cover with the fibrocall gauze and tape MRI ordered of the right foot and toe done and discussed with patient both are osteomyelitis Keep appointment with infectious disease on November 15 here at the wound center Though bacteria is rare we will treat with linezolid 2 times a day for 14 days Follow-up with Dr. Jo for podiatry for surgery scheduled in 2 weeks Follow-up in 1 week (3) Ulcer of toe: CODE(S): L97.509 - Non-pressure chronic ulcer of other part of unspecified foot with unspecified severity QUALIFIERS: Laterality: unspecified laterality Non-pressure ulcer stage: limited to breakdown of skin Qualified Code(s): L97.501 - Non-pressure chronic ulcer of other part of unspecified foot limited to breakdown of skin PLAN: Wash foot with antibacterial soap and apply fibrin call to all open wounds on toes cover with gauze and tape Follow-up in 1 week
[2022-11-22 08:08] VITALS: BP 163/58; PULSE 60; RESP 20; TEMP 36.3; BMI 34.5
--- NOTE | 2022-11-22 09:46 | PN.PCM_ITS ---
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 Patient refuses to stay off her feet and is on working 10 to 12 hours a day. She also likes to pick at her wounds which does not help. 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 She was seen in my office about 6 months ago and was given to her calcium alginate. Still using that and Neosporin on her wounds. She feels the toes are from the shoe she pumped it up too high and her toes were extended past the ends and she does not realize that they are getting hit or rubbing when she walks. The right second and third fourth toe are all superficial wounds that are now healed. But the right third toe is stayed erythematous and swollen. X-ray and MRI shows osteomyelitis in that joint. She does have an appointment with infectious disease next Sunday, November 15. The right heel looks like she had some skin cracking and is picking at it and opened some wounds on her heel. Again very superficial and has healed. The worst would be the right foot plantar that is open and has some depth. The left second toe at the tip is mostly healed she has a lot of callus around the healing area that I will try to debride off that may have some bleeding that we might need to cover for 1 more week otherwise will be healed. Update on right foot, seen by infectious disease and he approved of the linzoid antibiotic to be used till surgery. We also sent her to Dr. Jo a education associate in [place]. And he is going to perform a a transmetatarsal amputation of the right foot. Progress of Wound: Patient was seen by Dr. Jo over in [place]. He is taking her to surgery this Sunday. We will continue seeing her until she has the surgery he is going to do a transmetatarsal amputation of the right foot. Dr. Hernandez met he agreed with using linzoid. she will then follow-up with him unless he wants us to follow it up on the wounds but he should finish her up. She stopped taking her sertraline 25 daily because of the interaction, but he states she can continue taking the Zoloft. We will continue the same wound care until Dr. Jo does the surgery Subjective Subjective Patient is very anxious about having surgery done this Sunday but happy will be over with Objective Data Objective Data At this time nothing is really changed on any of the wounds the she needs an amputation he will do a flap and then we will not have to worry about any more ulcers on that right foot. On the left second toe she is developing a callus that she was picking at. Now it is closed we will put in a pad over that toe to see if that will help with preventing callus development. Basically patient would be transferred his care and will not have to return after today. Vital Signs: Vital Signs Temp Pulse Resp BP O2 Del Method 97.3 F L 60 20 H 163/58 H Room Air 11/22/22 08:08 11/22/22 08:08 11/22/22 08:08 11/22/22 08:08 11/15/22 11:18 Oxygen Delivery Method Room Air Weight: 195 lb Body Mass Index (BMI) 34.5 Lab / Micro Data Attestation: I reviewed the patient's lab results. Micro: Microbiology 11/01/22 10:40 Tissue Ulcer - 3rd Toe Gram Stain - Final 11/01/22 10:40 Tissue Ulcer - 3rd Toe Wound Culture - Final Enterococcus faecalis Staphylococcus haemolyticus 11/01/22 10:40 Tissue Ulcer - 3rd Toe Anaerobic Culture - Final No anaerobic bacteria isolated. Physical Exam Const oriented x3 General Appearance: cooperative Exam Limitations: no limitations HEENT normocephalic Eyes PERRL Resp normal respiratory effort Effort and Inspection: able to speak in complete sentences Auscultation: clear to auscultation bilaterally Cardio regular rate and regular rhythm Palpation: normal PMI Rate: regular rate Rhythm: regular rhythm Extremity Extremity Narrative: Right foot has wounds on right plantar amputated partial of the right great toe and open wounds on second third and fourth toe plantar side. Right heel is open wounds from cracked skin and left second toe is open also General Extremity: amputation Skin Wounds: wounds noted Neuro oriented x3 Psych Appearance: grossly normal Speech: normal speech Thought Content: normal thought content Judgement: judgement good Debridement Note Debridement Note Wound debrided: Right plantar ulcer Wound Grade/Stage: Stage II Type of Debridement: Excisional debridement Anesthesia Used: 5% Lidocaine Gel Depth: Down to and including healthy tissue and in the subcutaneous layer Percentage of wound debrided: 100 Instrument Used: 5mm curette Tissue Removed: Fibrin Severity: Fat Layer Exposed Amount of bleeding with debridement: Mild Bleeding Controlled with: Compression and gauze Patient tolerated procedure: Patient tolerated procedure well Post-Debridement Measurements and Additional Note: Post-Debridement Measurements/Treatment - Nurse 1 - General Ulcer Assessment Start: 11/01/22 10:02 Freq: Status: Active Protocol: SANDRO Activity Type Activity Date Activity User E-sign Co-sign Detail Recorded Client Recorded Date Recorded By Document 11/01/22 10:19 [facility] [id number] 11/01/22 10:28 [facility] Document 11/08/22 10:22 [facility] [id number] 11/08/22 10:33 [facility] Document 11/15/22 11:18 [facility] [id number] 11/15/22 11:27 [facility] Document 11/22/22 08:08 DL [id number] 11/22/22 08:12 DL 11/01/22 11/08/22 11/15/22 10:19 10:22 11:18 - Today's Visit Information Type of service Follow-up Visit Follow-up Visit Follow-up Visit (Physician/TOWEL ROLLING MACHINE OPERATOR (Physician/TOWEL ROLLING MACHINE OPERATOR (Physician/TOWEL ROLLING MACHINE OPERATOR ) ) ) Arrival Mode Ambulatory Ambulatory Ambulatory Transfer Assistance None None None Accompanied by boyfriend BOYFRIEND BOYFRIEND Patient Identification Verified (Name & Yes Yes Yes ) Patient Requires Transmission-Based No No No Precautions Height and Weight Weight Measurement Method Estimated by Patient Body Mass Index (BMI) 34.5 34.5 34.5 BMI Classification Obese Obese Obese Vital Signs Temperature (97.8 F-99.1 F) 97.4 F L 96.8 F L 96.4 F L Temperature Source Temporal Temporal Temporal Pulse Rate (60-100) 56 L 54 L 59 L Pulse Location Monitor Monitor Monitor Respiratory Rate (12-18) 16 16 16 Respiratory rate source Observation Observation Observation Oxygen Delivery Method Room Air Room Air Room Air Blood Pressure (90/60-120/80) 152/56 H 155/74 H 149/44 H Blood Pressure Mean (mm Hg) 88 101 79 Source Monitor Monitor Monitor Position Sitting Sitting Sitting Blood Pressure Location Left Arm Left Arm Left Arm History Since Last Visit- (Skip if this is Patient's initial visit) Have you changed medications since your No No No last visit? Any new allergies or adverse reactions No No No Had a fall/change in ADL's that may No No No increase risk of falls Signs or symptoms of abuse and/or No No No neglect since last visit Have you been in the hospital since your No No No last visit? Has dressing in place as prescribed Yes No No Has compression in place as prescribed N/A N/A N/A Has offloadiing in place as prescribed N/A N/A No Experienced any changes in pain level or No No No management Left Footwear Regular Shoe Regular Shoe Regular Shoe Right Footwear Regular Shoe Regular Shoe Regular Shoe Pain Scale: 0-10 Numeric Is Patient Pain Free? Yes Yes Yes 11/22/22 08:08 WC - Today's Visit Information Type of service Follow-up Visit (Physician/TOWEL ROLLING MACHINE OPERATOR ) Arrival Mode Ambulatory Transfer Assistance None Accompanied by Patient Identification Verified (Name & Yes ) Patient Requires Transmission-Based No Precautions Height and Weight Weight Measurement Method Body Mass Index (BMI) 34.5 BMI Classification Obese Vital Signs Temperature (97.8 F-99.1 F) 97.3 F L Temperature Source Temporal Pulse Rate (60-100) 60 Pulse Location Monitor Respiratory Rate (12-18) 20 H Respiratory rate source Observation Oxygen Delivery Method Blood Pressure (90/60-120/80) 163/58 H Blood Pressure Mean (mm Hg) 93 Source Monitor Position Blood Pressure Location History Since Last Visit- (Skip if this is Patient's initial visit) Have you changed medications since your No last visit? Any new allergies or adverse reactions No Had a fall/change in ADL's that may No increase risk of falls Signs or symptoms of abuse and/or No neglect since last visit Have you been in the hospital since your No last visit? Has dressing in place as prescribed Yes Has compression in place as prescribed N/A Has offloadiing in place as prescribed Yes Experienced any changes in pain level or No management Left Footwear Right Footwear Pain Scale: 0-10 Numeric Is Patient Pain Free? Yes - Nurse 1 - General Ulcer Measurement Start: 11/01/22 10:02 Freq: Status: Active Protocol: Activity Type Activity Date Activity User E-sign Co-sign Detail Recorded Client Recorded Date Recorded By Document 11/01/22 10:19 [facility] [id number] 11/01/22 10:28 [facility] Document 11/08/22 10:22 [facility] [id number] 11/08/22 10:33 [facility] Document 11/15/22 11:18 BM[facility] [id number] 11/15/22 11:27 [facility] Document 11/22/22 08:08 DL [id number] 11/22/22 08:12 DL 11/01/22 11/08/22 11/15/22 10:19 10:22 11:18 Wound Center Nurse 1 #8- R 3RD TOE -Combined with other wound No No -Current Size (cm) - Length 0.1 0.1 -Current Size (cm) - Width 0.1 0.1 -Current Size (cm) - Depth 0.1 0.1 -Total Square Cm 0.01 0.01 -Date of Last Picture (Recall this 11/01/22 field) -Photo Taken Yes No -Epithelialization Large 67-100% -Tunneling No -Undermining/Tunneling No -Circular Undermining No -Exudate Amt None Present -Texture (Sammie-wound Skin Appearance) Assessed, Assessed Scarring -Moisture (Sammie-wound Skin Appearance) Assessed,Dry/ Assessed Scaly -Color (Sammie-wound Skin Appearance) Assessed Assessed -Temperature (Sammie-wound Skin No Abnormality No Abnormality Appearance) (Pt Warm) (Pt Warm) -Tenderness on Palpation (Sammie-wound No No Skin Appearance) -Ulcer Cleansing Rinsed/ Rinsed/ Irrigated with Irrigated with Saline Saline -Foul Odor after Cleansing No No -Anesthetic Used 5% Lidocaine 5% Lidocaine Gel Gel #3- L 2ND TOE PLANTAR -Combined with other wound No No No -Current Size (cm) - Length 0.4 0.2 0.1 -Current Size (cm) - Width 0.5 0.2 0.1 -Current Size (cm) - Depth 0.2 0.1 0.1 -Total Square Cm 0.20 0.04 0.01 -Date of Last Picture (Recall this 11/01/22 11/15/22 field) -Photo Taken Yes No Yes -Epithelialization Small 1-33% Medium 34-66% -Tunneling No No -Undermining/Tunneling No No -Circular Undermining No No -Exudate Amt Medium Small -Exudate Type Serosanguineous Serosanguineous -Wound Margin Distinct, Distinct, Outline Outline Attached Attached -Granulation Amt Large (67-100%) Large (67-100%) -Granulation Quality Red Red -Slough/Fibrin Yes Yes -Necrosis Amt Small (1-33%) Small (1-33%) -Necrotic Tissue Type Adherent Slough Adherent Slough -Structure Exposed -Texture (Sammie-wound Skin Appearance) Assessed, Assessed Assessed,Callus Scarring -Moisture (Sammie-wound Skin Appearance) Assessed,Dry/ Assessed,Dry/ Assessed Scaly Scaly -Color (Sammie-wound Skin Appearance) Assessed Assessed Assessed -Temperature (Sammie-wound Skin No Abnormality No Abnormality No Abnormality Appearance) (Pt Warm) (Pt Warm) (Pt Warm) -Tenderness on Palpation (Sammie-wound No No No Skin Appearance) -Ulcer Cleansing Rinsed/ Rinsed/ Rinsed/ Irrigated with Irrigated with Irrigated with Saline Saline Saline -Foul Odor after Cleansing No No No -Anesthetic Used 5% Lidocaine 5% Lidocaine 5% Lidocaine Gel Gel Gel #10 R 2nd toe -Current Size (cm) - Length -Current Size (cm) - Width -Current Size (cm) - Depth -Total Square Cm -Photo Taken -Exudate Amt -Exudate Type -Wound Margin -Granulation Amt -Granulation Quality -Necrosis Amt -Structure Exposed -Texture (Sammie-wound Skin Appearance) -Moisture (Sammie-wound Skin Appearance) -Color (Sammie-wound Skin Appearance) -Temperature (Sammie-wound Skin Appearance) -Ulcer Cleansing -Foul Odor after Cleansing -Anesthetic Used #5- R FOOT PLANTAR -Combined with other wound No No No -Current Size (cm) - Length 1.3 1.1 1.3 -Current Size (cm) - Width 1.1 1 1.1 -Current Size (cm) - Depth 0.2 0.4 0.2 -Total Square Cm 1.43 1.1 1.43 -Date of Last Picture (Recall this 11/01/22 11/15/22 field) -Photo Taken Yes No Yes -Epithelialization Small 1-33% Small 1-33% Small 1-33% -Tunneling No No No -Undermining/Tunneling No No No -Circular Undermining No No No -Exudate Amt Medium Medium Medium -Exudate Type Serosanguineous Serosanguineous Serosanguineous -Wound Margin Distinct, Distinct, Distinct, Outline Outline Outline Attached Attached Attached -Granulation Amt Large (67-100%) Large (67-100%) Large (67-100%) -Granulation Quality Red Red [place] -Slough/Fibrin Yes No No -Necrosis Amt Small (1-33%) None Present (0 None Present (0 %) %) -Necrotic Tissue Type Adherent Slough -Structure Exposed -Texture (Sammie-wound Skin Appearance) Assessed, Assessed,Callus Assessed, Scarring Scarring -Moisture (Sammie-wound Skin Appearance) Assessed,Dry/ Assessed,Dry/ Assessed Scaly Scaly -Color (Sammie-wound Skin Appearance) Assessed Assessed Assessed -Temperature (Sammie-wound Skin No Abnormality No Abnormality No Abnormality Appearance) (Pt Warm) (Pt Warm) (Pt Warm) -Tenderness on Palpation (Sammie-wound No No No Skin Appearance) -Ulcer Cleansing Rinsed/ Rinsed/ Rinsed/ Irrigated with Irrigated with Irrigated with Saline Saline Saline -Foul Odor after Cleansing No No No -Anesthetic Used 5% Lidocaine 5% Lidocaine 5% Lidocaine Gel Gel Gel 11/22/22 08:08 Wound Center Nurse 1 #8- R 3RD TOE -Combined with other wound -Current Size (cm) - Length -Current Size (cm) - Width -Current Size (cm) - Depth -Total Square Cm -Date of Last Picture (Recall this field) -Photo Taken -Epithelialization -Tunneling -Undermining/Tunneling -Circular Undermining -Exudate Amt -Texture (Sammie-wound Skin Appearance) -Moisture (Sammie-wound Skin Appearance) -Color (Sammie-wound Skin Appearance) -Temperature (Sammie-wound Skin Appearance) -Tenderness on Palpation (Sammie-wound Skin Appearance) -Ulcer Cleansing -Foul Odor after Cleansing -Anesthetic Used #3- L 2ND TOE PLANTAR -Combined with other wound -Current Size (cm) - Length 0.1 -Current Size (cm) - Width 0.1 -Current Size (cm) - Depth 0.1 -Total Square Cm 0.01 -Date of Last Picture (Recall this field) -Photo Taken No -Epithelialization -Tunneling -Undermining/Tunneling -Circular Undermining -Exudate Amt Small -Exudate Type Serosanguineous -Wound Margin Distinct, Outline Attached -Granulation Amt Small (1-33%) -Granulation Quality Pale,[place] -Slough/Fibrin -Necrosis Amt Small (1-33%) -Necrotic Tissue Type Adherent Slough -Structure Exposed N/A -Texture (Sammie-wound Skin Appearance) Callus,Scarring -Moisture (Sammie-wound Skin Appearance) No Abnormality -Color (Sammie-wound Skin Appearance) No Abnormality -Temperature (Sammie-wound Skin No Abnormality Appearance) (Pt Warm) -Tenderness on Palpation (Sammie-wound No Skin Appearance) -Ulcer Cleansing Soap and Water -Foul Odor after Cleansing No -Anesthetic Used 5% Lidocaine Gel #10 R 2nd toe -Current Size (cm) - Length 0.7 -Current Size (cm) - Width 1.1 -Current Size (cm) - Depth 0.1 -Total Square Cm 0.77 -Photo Taken Yes -Exudate Amt Small -Exudate Type Serosanguineous -Wound Margin Distinct, Outline Attached -Granulation Amt Large (67-100%) -Granulation Quality Pale,[place] -Necrosis Amt None Present (0 %) -Structure Exposed N/A -Texture (Sammie-wound Skin Appearance) Callus,Scarring -Moisture (Sammie-wound Skin Appearance) No Abnormality -Color (Sammie-wound Skin Appearance) No Abnormality -Temperature (Sammie-wound Skin No Abnormality Appearance) (Pt Warm) -Ulcer Cleansing Soap and Water -Foul Odor after Cleansing No -Anesthetic Used 5% Lidocaine Gel #5- R FOOT PLANTAR -Combined with other wound -Current Size (cm) - Length 0.9 -Current Size (cm) - Width 0.9 -Current Size (cm) - Depth 0.2 -Total Square Cm 0.81 -Date of Last Picture (Recall this field) -Photo Taken No -Epithelialization -Tunneling -Undermining/Tunneling -Circular Undermining -Exudate Amt Small -Exudate Type Serosanguineous -Wound Margin Thickened -Granulation Amt Large (67-100%) -Granulation Quality Pale,[place] -Slough/Fibrin -Necrosis Amt Small (1-33%) -Necrotic Tissue Type Adherent Slough -Structure Exposed N/A -Texture (Sammie-wound Skin Appearance) Callus,Scarring -Moisture (Sammie-wound Skin Appearance) No Abnormality -Color (Sammie-wound Skin Appearance) No Abnormality -Temperature (Sammie-wound Skin No Abnormality Appearance) (Pt Warm) -Tenderness on Palpation (Sammie-wound Skin Appearance) -Ulcer Cleansing Soap and Water -Foul Odor after Cleansing No -Anesthetic Used 5% Lidocaine Gel WC - Nurse 2 - General Ulcer CM Notes Start: 11/01/22 10:02 Freq: Status: Active Protocol: Activity Type Activity Date Activity User E-sign Co-sign Detail Recorded Client Recorded Date Recorded By Document 11/01/22 10:33 MW [id number] 11/01/22 10:47 MW Document 11/08/22 11:05 MW [id number] 11/08/22 11:16 MW Document 11/15/22 11:34 MW [id number] 11/15/22 11:43 MW Document 11/22/22 08:26 MW [id number] 11/22/22 08:38 MW 11/01/22 11/08/22 11/15/22 10:33 11:05 11:34 Wound Center Nurse 2 #8- R 3RD TOE -Time 10:34 11:06 -Correct Patient Yes Yes -Correct Side, Site, Position Yes Yes -Correct Procedure Yes Yes -Procedure Performed Yes No -Type of Procedure Debridement -Clinical Debridement Subcutaneous -Tissue Removed Subcutaneous -Post Debridement (cm) - Length 1.0 0 -Post Debridement (cm) - Width 0.5 0 -Post Debridement (cm) - Depth 0.2 0 -Total Square (Post) (cm) 0.50 0 -Area of Debridement (cm) - Length 1.0 -Area of Debridement (cm) - Width 0.5 -Total Square (Area) (cm) 0.50 -Tunneling No No -Undermining/Tunneling No No -Circular Undermining No No -Wound/Ulcer Outcome Not Healed Healed- Epithelialized -Ulcer Cleansing Rinsed/ Irrigated with Saline -Foul Odor after Cleansing No -Bioengineered Tissue No -Bleeding Controlled with Pressure -Treatment Response Procedure Tolerated Well -Offloading No -Debridement - Subq, 1st 20sq cm Yes #3- L 2ND TOE PLANTAR -Time 10:35 11:08 11:35 -Correct Patient Yes Yes Yes -Correct Side, Site, Position Yes Yes Yes -Correct Procedure Yes Yes Yes -Procedure Performed Yes Yes Yes -Type of Procedure Debridement Debridement Debridement -Clinical Debridement Subcutaneous Subcutaneous Subcutaneous -Tissue Removed Subcutaneous Subcutaneous Subcutaneous -Post Debridement (cm) - Length 0.8 0.2 1.0 -Post Debridement (cm) - Width 0.8 0.2 0.5 -Post Debridement (cm) - Depth 0.1 0.1 0.1 -Total Square (Post) (cm) 0.64 0.04 0.50 -Area of Debridement (cm) - Length 0.8 0.2 1.0 -Area of Debridement (cm) - Width 0.8 0.2 0.5 -Total Square (Area) (cm) 0.64 0.04 0.50 -Tunneling No No No -Undermining/Tunneling No No No -Circular Undermining No No No -Wound/Ulcer Outcome Not Healed Not Healed Not Healed -Ulcer Cleansing Rinsed/ Rinsed/ Rinsed/ Irrigated with Irrigated with Irrigated with Saline Saline Saline -Foul Odor after Cleansing No No No -Bioengineered Tissue No No No -Bleeding Controlled with Pressure Pressure Pressure -Treatment Response Procedure Procedure Procedure Tolerated Well Tolerated Well Tolerated Well -Offloading No No No -Debridement - Subq, 1st 20sq cm No No No #10 R 2nd toe -Time -Correct Patient -Correct Side, Site, Position -Correct Procedure -Procedure Performed -Type of Procedure -Clinical Debridement -Tissue Removed -Post Debridement (cm) - Length -Post Debridement (cm) - Width -Post Debridement (cm) - Depth -Total Square (Post) (cm) -Area of Debridement (cm) - Length -Area of Debridement (cm) - Width -Total Square (Area) (cm) -Tunneling -Undermining/Tunneling -Circular Undermining -Wound/Ulcer Outcome -Ulcer Cleansing -Foul Odor after Cleansing -Bioengineered Tissue -Bleeding Controlled with -Treatment Response -Offloading -Debridement - Subq, 1st 20sq cm #5- R FOOT PLANTAR -Time 10:34 11:07 11:35 -Correct Patient Yes Yes Yes -Correct Side, Site, Position Yes Yes Yes -Correct Procedure Yes Yes Yes -Procedure Performed Yes Yes Yes -Type of Procedure Debridement Debridement Debridement -Clinical Debridement Subcutaneous Subcutaneous Subcutaneous -Tissue Removed Subcutaneous Subcutaneous Subcutaneous -Post Debridement (cm) - Length 1.4 1.8 1.3 -Post Debridement (cm) - Width 1.3 1.1 1.1 -Post Debridement (cm) - Depth 0.3 0.3 0.2 -Total Square (Post) (cm) 1.82 1.98 1.43 -Area of Debridement (cm) - Length 1.4 1.8 1.3 -Area of Debridement (cm) - Width 1.3 1.1 1.1 -Total Square (Area) (cm) 1.82 1.98 1.43 -Tunneling No No No -Undermining/Tunneling No No No -Circular Undermining No No No -Wound/Ulcer Outcome Not Healed Not Healed Not Healed -Ulcer Cleansing Rinsed/ Rinsed/ Rinsed/ Irrigated with Irrigated with Irrigated with Saline Saline Saline -Foul Odor after Cleansing No No No -Bioengineered Tissue No No No -Bleeding Controlled with Pressure Pressure Pressure -Treatment Response Procedure Procedure Procedure Tolerated Well Tolerated Well Tolerated Well -Offloading No No No -Debridement - Subq, 1st 20sq cm No Yes Yes Pain Scale: 0-10 Numeric Is Patient Pain Free? Yes Yes Yes 11/22/22 08:26 Wound Center Nurse 2 #8- R 3RD TOE -Time -Correct Patient -Correct Side, Site, Position -Correct Procedure -Procedure Performed -Type of Procedure -Clinical Debridement -Tissue Removed -Post Debridement (cm) - Length -Post Debridement (cm) - Width -Post Debridement (cm) - Depth -Total Square (Post) (cm) -Area of Debridement (cm) - Length -Area of Debridement (cm) - Width -Total Square (Area) (cm) -Tunneling -Undermining/Tunneling -Circular Undermining -Wound/Ulcer Outcome -Ulcer Cleansing -Foul Odor after Cleansing -Bioengineered Tissue -Bleeding Controlled with -Treatment Response -Offloading -Debridement - Subq, 1st 20sq cm #3- L 2ND TOE PLANTAR -Time 08:28 -Correct Patient Yes -Correct Side, Site, Position Yes -Correct Procedure Yes -Procedure Performed No -Type of Procedure -Clinical Debridement -Tissue Removed -Post Debridement (cm) - Length -Post Debridement (cm) - Width -Post Debridement (cm) - Depth -Total Square (Post) (cm) -Area of Debridement (cm) - Length -Area of Debridement (cm) - Width -Total Square (Area) (cm) -Tunneling No -Undermining/Tunneling No -Circular Undermining No -Wound/Ulcer Outcome Healed- Epithelialized -Ulcer Cleansing -Foul Odor after Cleansing -Bioengineered Tissue -Bleeding Controlled with -Treatment Response -Offloading -Debridement - Subq, 1st 20sq cm #10 R 2nd toe -Time 08:26 -Correct Patient Yes -Correct Side, Site, Position Yes -Correct Procedure Yes -Procedure Performed Yes -Type of Procedure Debridement -Clinical Debridement Subcutaneous -Tissue Removed Subcutaneous -Post Debridement (cm) - Length 0.8 -Post Debridement (cm) - Width 0.9 -Post Debridement (cm) - Depth 0.1 -Total Square (Post) (cm) 0.72 -Area of Debridement (cm) - Length 0.8 -Area of Debridement (cm) - Width 0.9 -Total Square (Area) (cm) 0.72 -Tunneling No -Undermining/Tunneling No -Circular Undermining No -Wound/Ulcer Outcome Not Healed -Ulcer Cleansing Rinsed/ Irrigated with Saline -Foul Odor after Cleansing No -Bioengineered Tissue No -Bleeding Controlled with Pressure -Treatment Response Procedure Tolerated Well -Offloading No -Debridement - Subq, 20sq cm Yes #5- R FOOT PLANTAR -Time 08:28 -Correct Patient Yes -Correct Side, Site, Position Yes -Correct Procedure Yes -Procedure Performed Yes -Type of Procedure Debridement -Clinical Debridement Subcutaneous -Tissue Removed Subcutaneous -Post Debridement (cm) - Length 1.2 -Post Debridement (cm) - Width 1.0 -Post Debridement (cm) - Depth 0.2 -Total Square (Post) (cm) 1.20 -Area of Debridement (cm) - Length 1.2 -Area of Debridement (cm) - Width 1.0 -Total Square (Area) (cm) 1.20 -Tunneling No -Undermining/Tunneling No -Circular Undermining No -Wound/Ulcer Outcome Not Healed -Ulcer Cleansing Rinsed/ Irrigated with Saline -Foul Odor after Cleansing No -Bioengineered Tissue No -Bleeding Controlled with Pressure -Treatment Response Procedure Tolerated Well -Offloading No -Debridement - Subq, 20sq cm No Pain Scale: 0-10 Numeric Is Patient Pain Free? Yes WC - Nurse 3 - General Ulcer D/C NN Start: 11/01/22 10:02 Freq: Status: Active Protocol: Activity Type Activity Date Activity User E-sign Co-sign Detail Recorded Client Recorded Date Recorded By Document 11/01/22 11:11 [id number] 11/01/22 11:12 RB Document 11/15/22 11:57 RB [id number] 11/15/22 11:58 RB Document 11/22/22 08:52 [facility] [id number] 11/22/22 08:53 [facility] 11/01/22 11/15/22 11/22/22 11:11 11:57 08:52 [facility] Nurse 3 #8- R 3RD TOE -Ulcer Cleansing Rinsed/ Irrigated with Saline -Primary Dressing Applied Fibracol Plus 4x4 -Other Dressing bactroban, gauze ,coban -Primary Dressing Covered/Secured with Dry Gauze -Fibracol Plus 4x4 1 #3- L 2ND TOE PLANTAR -Other Dressing bactroban , bactroban, fibroacol fibracol gauze -Primary Dressing Covered/Secured with Dry Gauze Dry Gauze, Secured with Tape #10 R 2nd toe -Ulcer Cleansing Rinsed/ Irrigated with Saline -Foul Odor after Cleansing No -Primary Dressing Applied Fibracol Plus 4x4 -Other Dressing BACTROBAN -Primary Dressing Covered/Secured with Dry Gauze -Other Covering SECURED W/ COBAN -Fibracol Plus 4x4 1 #5- R FOOT PLANTAR -Ulcer Cleansing Rinsed/ Irrigated with Saline -Foul Odor after Cleansing No -Primary Dressing Applied Fibracol Plus Fibracol Plus 4x4 4x4 -Other Dressing bactoban , thin layer of BACTROBAN, fibracol, coban bactroban, SECURED W/ gauze and coban COBAN -Primary Dressing Covered/Secured with Dry Gauze Dry Gauze -Fibracol Plus 4x4 1 0 Treatment Response Procedure Procedure Procedure Tolerated Well Tolerated Well Tolerated Well Pain Scale: 0-10 Numeric Is Patient Pain Free? Yes Yes Yes WC - Visit Discharge Discharge Condition Stable Stable Stable Ambulatory Status Ambulatory Ambulatory Ambulatory Transportation Private Auto Private Auto Private Auto Medication Reconcilliation completed & No No provided to patient/care provider Clinical Summary of Care Provided Yes Yes Assessment/Plan Assessment/Plan (1) Idiopathic neuropathy: CODE(S): G60.9 - Hereditary and idiopathic neuropathy, unspecified (2) Non-pressure chronic ulcer of other part of right foot with fat layer exposed: CODE(S): L97.512 - Non-pressure chronic ulcer of other part of right foot with fat layer exposed PLAN: Wash foot with antibacterial soap and apply Bactroban nickel thickness in base of wound cover with the fibrocall gauze and tape Continue wound care till transfer care to Dr. Jo (3) Ulcer of toe: CODE(S): L97.509 - Non-pressure chronic ulcer of other part of unspecified foot with unspecified severity QUALIFIERS: Laterality: unspecified laterality Non-pressure ulcer stage: limited to breakdown of skin Qualified Code(s): L97.501 - Non-pressure chronic ulcer of other part of unspecified foot limited to breakdown of skin PLAN: Wash foot with antibacterial soap apply stasis pad to left second toe to help with callus formation Discharge from the wound center and transfer care to podiatry for surgery (4) Osteomyelitis of toe of right foot: CODE(S): M86.9 - Osteomyelitis, unspecified PLAN: Patient will be scheduled for a partial metatarsal amputation of the right foot
== END 2022-11-27 23:59 ==
LOC: WC 08:30
PROVIDERS: PCP Nurse Practitioner; Referring Provider Nurse Practitioner; Visit Provider Nurse Practitioner
DX: G60.9 Hereditary and idiopathic neuropathy, unspecified (principal); L97.512 Non-pressure chronic ulcer of other part of right foot with fat layer exposed; M86.9 Osteomyelitis, unspecified
CPT/HCPCS: 11042; 73718; 87070; 87075; 87077; 87186; 87205

== ENCOUNTER → 2023-06-01 | Outpatient (CLI) | payer OTHER, SELFPAY ==
--- OUTSIDE RECORDS SUMMARY | 2023-06-01 20:49 | XMS RPT_ITS | CCD ---
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 Name Role Phone ЕКАТЕРИНА CORNEJO DPM Attending Unavailable ЕКАТЕРИНА CORNEJO DPM Attending Unavailable Medications Current Medications Medication Drug Class(es) Dates Sig (Normalized) Sig (Original) linezolid 600 mg oral tablet (1 source) Oxazolidinone Antibacterial Start: 11-22-2022 End: 12-06-2022 linezolid 600 mg oral tablet Dose : 600 mg = 1 tab(s), Oral, q12hr Start Date: 11/22/22 Stop Date: 12/06/22 Status: Ordered mupirocin 0.02 mg/mg topical ointment (1 source) RNA Synthetase Inhibitor Antibacterial Start: 11-22-2022 mupirocin 2% topical ointment Apply 1 va, Topical, Daily, 0 Refill(s) Start Date: 11/22/22 Status: Ordered naproxen sodium 220 mg oral tablet (1 source) Nonsteroidal Anti-inflammatory Drug Start: 11-22-2022 Aleve 220 mg oral tablet Dose : 440 mg = 2 tab(s), Oral, Daily, PRN as needed for pain Start Date: 11/22/22 Status: Ordered sertraline 50 mg oral tablet (1 source) Serotonin Reuptake Inhibitor Start: 11-22-2022 sertraline 50 mg oral tablet Dose : 25 mg = 0.5 tab(s), Oral, Daily, 0 Refill(s) Start Date: 11/22/22 Status: Ordered Results Test Name Value Interpretation Reference Range Facil ity Vital Signs Date Time Vital Sign Value Performing Clinician Nahomi blas 11-22-2022 13:10-0400 Blood Pressure Location ЕКАТЕРИНА SUPPAN DPM [facility] 11-22-2022 13:10-0400 Body height 162.6 cm ЕКАТЕРИНА SUPPAN DPM [facility] 11-22-2022 13:10-0400 Body weight 88.6 kg ЕКАТЕРИНА SUPPAN DPM [facility] 11-22-2022 13:10-0400 Body weight 33.51 kg/m2 ЕКАТЕРИНА SUPPAN DPM [facility] 11-22-2022 13:10-0400 Diastolic Blood Pressure Non-Invasive 70 1 ЕКАТЕРИНА SUPPAN DPM [facility] 11-22-2022 13:10-0400 Heart rate 67 /min ЕКАТЕРИНА SUPPAN DPM [facility] 11-22-2022 13:10-0400 Respiratory rate 20 /min ЕКАТЕРИНА SUPPAN DPM [facility] 11-22-2022 13:10-0400 Systolic Blood Pressure Non-Invasive 130 1 ЕКАТЕРИНА SUPPAN DPM [facility] Encounters Encounter Date Encounter Type Care Provider Facility Start: 11-24-2022 End: 11-24-2022 ambulatory ЕКАТЕРИНА N SUPPAN DPM Facility:B Start: 11-22-2022 End: 11-23-2022 ambulatory ЕКАТЕРИНА N SUPPAN DPM Facility:B Start: 11-22-2022 End: 11-22-2022 Admission to establishment ЕКАТЕРИНА N SUPPAN DPM [facility] Procedures Date Procedure Procedure Detail Performing Clinician Start: 04-30-2021 Amputation of right great toe ЕКАТЕРИНА SUPPAN DPM Cholecystectomy ЕКАТЕРИНА SUPPAN DPM Payers Date Payer Category Payer Unknown [id number] 1955 Unknown [id number] 1955 Unknown [id number] Social History Date Type Detail Facility Start: 11-22-2022 Tobacco smoking status Never s moked tobacco (finding) [facility] Sex Assigned At Female [facility] Functional Status Date Assessment Result Facility 11-22-2022 Functional Status Sensory Deficits None A [facility] Evaluation + Plan note Note Date & Type Note Facility Evaluation + Plan note Future Appointments [facility] Hospital course Narrative Note Date & Type Note Facility Hospital course Narrative No data available for this section [facility] Hospital Discharge instructions Note Date & Type Note Facility Hospital Discharge instructions No data available for this section [facility] Progress note Note Date & Type Note Facility Progress note No data available for this section [facility] Summary Purpose Family History No Family History Records Found Advance Directives No Advanced Directives Records Found Additional Source Comments INFORMATION SOURCE (unrecogn ized section and content) FOR RECORDS PERTAINING TO PATIENTS WHO ARE OR HAVE BEEN ENROLLED IN A CHEMICAL DEPENDENCY/SUBSTANCEABUSE PROGRAM, SOME INFORMATION MAY BE OMITTED. This clinical summary was aggregated from multiple sources. Caution should be exercised in using it in the provision of clinical care. This summary normalizes information from multiple sources, and as a consequence, information in this document may materially change the coding, format and clinical context of patient data. In addition, data may be omitted in some cases. CLINICAL DECISIONS SHOULD BE BASED ON THE PRIMARY CLINICAL RECORDS. [facility] provides no warranty or guarantee of the accuracy or completeness of information in this document.
[2023-06-01 20:54] LABS: Absolute Lymphocyte Count 2.77 X10^3/uL (0.83-4.51); Absolute Neutrophil Count 6.3 X10^3/uL (2.0-7.7); Eosinophil# 0.34 X10^3/uL; Eosinophils% 3.3 % (0-5); Hematocrit 43.6 % (37-47); Hemoglobin 13.8 g/dL (12.0-15.0); Lymphocyte # 2.77 X10^3/ul (0.83-4.51); Lymphocyte % 27.1 % (19-41); Mean Corp Hgb Conc 31.7 g/dL (32-36); Mean Corpuscular Hgb 28.3 pg (27.0-32.0); Mean Corpuscular Volume 89.5 fL (81-99); Mean Platelet Vol. 11.3 fl (6.2-12.0); Monocyte# 0.73 X10^3/uL; Monocyte% 7.1 % (0-10); NRBC Flagged by Analyzer 0 % (0-5); Neutrophil # 6.27 X10^3/uL (2.7-7.7); Neutrophil % 61.2 % (47-70); Platelet Count 294 K/mm3 (150-450); RBC Distribution Width SD 45.7 fl (35.1-43.9); Red Blood Count 4.87 M/mm3 (4.2-5.4); White Blood Count 10.2 K/mm3 (4.4-11.0)
[2023-06-01 21:28] LABS: ALB/GLOB Ratio 0.9 RATIO (0.9-2.4); AST(SGOT) 16 U/L (15-37); Alanine Aminotransfer ALT/SGPT 23 U/L (13-56); Albumin, Serum 3.5 g/dL (3.2-5.0); Alkaline Phosphatase 109 U/L (45-117); Anion Gap 3 (5-15); BUN 22 mg/dL (7-18); BUN/Creat Ratio 23.2 RATIO (10-20); Chloride 107 mmol/L (98-107); Cholesterol 214 mg/dL (200); Creatinine, Serum 0.95 mg/dL (0.55-1.02); EST Glomerular Filtration Rate 63 mL/min (>60); Est Glom Filt Rate - Afr Amer 76 mL/min (>60); Globulin 3.8 g/dL (2.2-4.2); Glucose 91 mg/dL (74-106); High Density Lipoprotein 57 mg/dL; Potassium 3.5 mmol/L (3.5-5.1); Protein, Total 7.3 g/dL (6.4-8.2); Sodium Level 138 mmol/L (136-145); Triglycerides 335 mg/dL; Very Low Density Lipoprotein 67 mg/dL (5-40)
== END | disposition home or self-care (01) ==
PROVIDERS: PCP Nurse Practitioner; Referring Provider Nurse Practitioner; Visit Provider Nurse Practitioner
DX: Z00.00 Encounter for general adult medical examination without abnormal findings (principal)
CPT/HCPCS: 80053; 80061; 85025

== ENCOUNTER → 2024-06-06 | Outpatient (CLI) | payer OTHER, SELFPAY ==
[2024-06-07 02:12] LABS: Absolute Lymphocyte Count 2.01 X10^3/uL (0.83-4.51); Absolute Neutrophil Count 6.1 X10^3/uL (2.0-7.7); Basophil# 0.05 X10^3/uL; Basophil% 0.5 % (0-1); Eosinophils% 3.2 % (0-5); Hematocrit 43.5 % (37-47); Lymphocyte # 2.01 X10^3/ul (0.83-4.51); Lymphocyte % 21.7 % (19-41); Mean Corp Hgb Conc 32.2 g/dL (32-36); Mean Corpuscular Hgb 28.4 pg (27.0-32.0); Mean Corpuscular Volume 88.2 fL (81-99); Mean Platelet Vol. 12.2 fl (6.2-12.0); Monocyte# 0.74 X10^3/uL; NRBC Flagged by Analyzer 0 % (0-5); Neutrophil # 6.13 X10^3/uL (2.7-7.7); Neutrophil % 66.1 % (47-70); Platelet Count 249 K/mm3 (150-450); RBC Distribution Width SD 44.7 fl (35.1-43.9); Red Blood Count 4.93 M/mm3 (4.2-5.4); White Blood Count 9.3 K/mm3 (4.4-11.0)
[2024-06-07 02:25] LABS: AST(SGOT) 16 U/L (15-37); Alanine Aminotransfer ALT/SGPT 21 U/L (13-56); Albumin, Serum 3.7 g/dL (3.2-5.0); Alkaline Phosphatase 124 U/L (45-117); Anion Gap 9 (5-15); BUN 16 mg/dL (7-18); BUN/Creat Ratio 18.3 RATIO (10-20); Calcium,Total 8.6 mg/dL (8.5-10.1); Chloride 108 mmol/L (98-107); Cholesterol 216 mg/dL (200); Creatinine, Serum 0.88 mg/dL (0.55-1.02); EST Glomerular Filtration Rate 69 mL/min (>60); Est Glom Filt Rate - Afr Amer 83 mL/min (>60); Globulin 3.8 g/dL (2.2-4.2); Glucose 87 mg/dL (74-106); High Density Lipoprotein 64 mg/dL; Potassium 3.6 mmol/L (3.5-5.1); Protein, Total 7.5 g/dL (6.4-8.2); Sodium Level 143 mmol/L (136-145); Triglycerides 202 mg/dL; Very Low Density Lipoprotein 40 mg/dL (5-40)
[2024-06-08 20:00] LABS: Hemoglobin A1c 5.7 % (3.8-5.6)
== END | disposition home or self-care (01) ==
PROVIDERS: PCP Nurse Practitioner; Referring Provider Nurse Practitioner; Visit Provider Nurse Practitioner
DX: E78.1 Pure hyperglyceridemia (principal); L97.512 Non-pressure chronic ulcer of other part of right foot with fat layer exposed; M86.171 Other acute osteomyelitis, right ankle and foot; R73.9 Hyperglycemia, unspecified
CPT/HCPCS: 80053; 80061; 83036; 85025

== ENCOUNTER → 2024-10-20 | Outpatient (CLI) | payer MEDICARE, SELFPAY ==
--- OUTSIDE RECORDS SUMMARY | 2024-10-21 02:35 | XMS RPT_ITS | CCD ---
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 Kendell Proctor Emergency Provider Dr. Agustin Hammer Admit Provider Dr. Agustin Hammer Attending Provider Dr. Agustin Hammer Other Provider Dr. Mary Carrillo Attending Provider Dr. Mary Carrillo Other Provider Dr. Juliano Nunez Other Provider Dr. Bassam Hernandez Other Provider Praful BUTTONHOLE MAKER HAND, BUTTONHOLE MAKER HAND-C Mary Primary Care Provider Dr. Kendell Proctor Emergency Provider Dr. Agustin Hammer Admit Provider Dr. Agustin Hammer Attending Provider Dr. Agustin Hammer Other Provider Dr. Ila Paez Attending Provider Dr. Agustin Hammer Referring Provider Dr. Mary Carrillo Attending Provider Dr. Mary Carrillo Other Provider Dr. Juliano Nunez Other Provider Dr. Bassam Hernandez Other Provider SUPPЕКАТЕРИНА MANN DPM Attending Unavailable SUPPAN DPM, ЕКАТЕРИНА N Attending Unavailable Mary Basilio NP Referring Unavailable Mary Basilio NP Attending Unavailable Praful EAGLE, Mary Primary Care Unavailable Medications Current Medications Medication Drug Class(es) Dates Sig (Normalized) Sig (Original) acetaminophen 325 mg / oxyCODONE hydrochloride 5 mg oral tablet (1 source) Opioid Agonist Start: 11-24-2022 take 1 tablet by mouth every six hours as needed for pain acetaminophen-ox yCODONE 325 mg-5 mg oral tablet Dose = 1 tab(s), Oral, q6h, PRN for pain, # 12 tab(s), 0 Refill(s), 88.6 Start Date: 11/24/22 Status: Ordered linezolid 600 mg oral tablet (2 sources) Oxazolidinone Antibacterial Start: 11-22-2022 End: 12-06-2022 linezolid 600 mg oral tablet Dose : 600 mg = 1 tab(s), Oral, q12hr Start Date: 11/22/22 Stop Date: 12/06/22 Status: Ordered mupirocin 0.02 mg/mg topical ointment (2 sources) RNA Synthetase Inhibitor Antibacterial Start: 11-22-2022 mupirocin 2% topical ointment Apply 1 va, Topical, Daily, 0 Refill(s) Start Date: 11/22/22 Status: Ordered naproxen sodium 220 mg oral tablet (9 sources) Nonsteroidal Anti-inflammatory Drug Start: 11-22-2022 Aleve 220 mg oral tablet Dose : 440 mg = 2 tab(s), Oral, Daily, PRN as needed for pain Start Date: 11/22/22 Status: Ordered Start: 02-22-2022 take 2 tablets by mo [facility] once daily Naproxen Sodium (Aleve) 220 mg Tablet Active 440 MG PO DAILY February 21, 2022 11:00pm sertraline 50 mg oral tablet (20 sources) Serotonin Reuptake Inhibitor Start: 02-22-2022 End: 06-01-2023 sertraline 50 mg oral tablet Dose : 25 mg = 0.5 tab(s), Oral, Daily, 0 Refill(s) Start Date: 11/22/22 Status: Ordered Start: 02-26-2018 End: 05-12-2021 take 50 mg by mouth once daily Sertraline Discontinued 50 MG PO DAILY April 08, 2020 5:00pm May 12, 2021 4:31pm Completed/Discontinued Medications Medication Drug Class(es) Dates Sig (Normalized) Sig (Original) amoxicillin 875 mg oral tablet (7 sources) Penicillin-class Antibacterial Start: 04-14-2019 End: 04-08-2020 take 875 mg by mouth twice daily Amoxicillin Discontinued 875 MG PO TWICE A DAY April 14, 2019 12:00am April 08, 2020 4:52pm cefuroxime 500 mg oral tablet (3 sources) Cephalosporin Antibacterial Start: 08-04-2022 End: 08-14-2022 take 500 mg by mouth twice daily Cefuroxime Axetil Discontinued 500 MG PO TWICE A DAY August 03, 2022 11:00pm August 14, 2022 4:48pm meclizine hydrochloride 12.5 mg oral tablet (7 sources) Antiemetic Start: 04-14-2019 End: 04-08-2020 take 12.5 mg by mouth three times daily Meclizine Discontinued 12.5 MG PO THREE TIMES A DAY April 14, 2019 12:00am April 08, 2020 4:52pm sulfamethoxazole 800 mg / trimethoprim 160 mg oral tablet (12 sources) Dihydrofolate Reductase Inhibitor Antibacterial, Sulfonamide Antimicrobial Start: 02-24-2022 End: 08-04-2022 take 1 tablet by mouth twice daily Sulfamethoxazole- Trimethoprim (Bactrim Ds) 800-160 mg tablet Discontinued 1 TABLET PO TWICE A DAY 14 February 23, 2022 11:00pm August 04, 2022 3:01pm Start: 02-20-2022 End: 02-24-2022 take 1 tablet by mouth twice daily Sulfamethoxazole-Trimethoprim Discontinu ed 1 TABLET PO TWICE A DAY 20 February 19, 2022 11:00pm February 24, 2022 1:02pm Problems Problem Classification Problem Date Documented Da te Episodic/Chronic Chronic obstructive pulmonary disease and bronchiectasis (3 sources) Bronchitis; Translations: [Bronchitis, not specified as acute or chronic] 08-04-2022 Episodic Chronic ulcer of skin (20 sources) Ulcer of big toe; Translations: [Non-pressure chronic ulcer of other part of unspecified foot with unspecified severity] Chronic Conditions associated with dizziness or vertigo (7 sources) Dizziness; Translations: [Dizziness and giddiness] 04-14-2019 Episodic Disorders of lipid metabolism (8 sources) Hypertriglyceridemia ; Translations: [Pure hyperglyceridemia] Onset: 06-24-2024 02-26-2018 Chronic Infective arthritis and osteomyelitis (except that caused by tuberculosis or sexually transmitted disease) (20 sources) Osteomyelitis of forefoot; Translations: [Osteomyelitis, unspecified] Chronic Infective arthritis and osteomyelitis (except that caused by tuberculosis or sexually transmitted disease) (11 sources) Infective arthritis of ankle and/or foot; Translations: [Pyogenic arthritis, unspecified] Episodic Mood disorders (7 sources) Depressive disorder; Translations: [Depression] 03-11-2019 Chronic Other bone disease and musculoskeletal deformities (4 sources) Amputated foot; Translations: [Acquired absence of unspecified foot] 03-19-2022 Chronic Other circulatory disease (7 sources) Elevated blood-pressure reading without diagnosis of hypertension; Translations: [Elevated blood-pressure reading, without diagnosis of hypertension] 04-14-2019 Episodic Other injuries and conditions due to external causes (7 sources) Local infection of wound; Translations: [Other injury of unspecified body region, initial encounter] 02-20-2022 Episodic Other injuries and conditions due to external causes (7 sources) Open wound with complication; Translations: [Other injury of unspecified body region, initial encounter] 02-20-2022 Episodic Other injuries and conditions due to external causes (12 sources) Other injury of unspecified body region, initial encounter; Translations: [Posttraumatic wound infection not elsewhere classified] Episodic Other nervous system disorders (7 sources) Polyneuropathy; Translations: [Polyneuropathy, unspecified] 02-20-2022 Chronic Other nervous system disorders (6 sources) Neuropathy; Translations: [Hereditary and idiopathic neuropathy, unspecified] 02-23-2022 Chronic Other nervous system disorders (6 sources) Hereditary and idiopathic neuropathy, unspecified; Translations: [Mononeuritis of unspecified site] Chronic Otitis media and related conditions (3 sources) Otitis media; Translations: [Otitis media, unspecified, left ear] 08-04-2022 Episodic Skin and subcutaneous tissue infections (11 sources) Cellulitis; Translations: [Cellulitis, unspecified] Episodic Results Test Name Value Interpretation Reference Range Facility Hemoglobin A1con 06-08-2024 HbA1c (Bld) [Mass fraction] 5.7 % High 3.8-5.6 [facility] Comment on above: Result Comment: Norm al < 5.7 % Prediabetic 5.7 - 6.4 % Diabetic >or= 6.5 % Please note range changes. Performed By: #### L 100.0100, L500.4100, L501.9985, L500.4050 #### [facility] [address] [place], [address] CBC W/Diff, Automatedon 02-0 8-2024 Absolute Lymph 2.01 X10 3/uL Normal 0.83-4.51 [facility] Comment on above: Performed By: #### L 100.0100, L500.4100, L501.9985, L500.4050 #### [facility] [address] [place], [address] Absolute Neut 6.1 X10 3/uL Normal 2.0-7.7 [facility] Comment on above: Performed By: #### L 100.0100, L500.4100, L501.9985, L500.4050 #### [facility] [address] [place], [address] Basophils/100 WBC (Bld) 0.5 % Normal 0-1 [facility] Comment on above: Performed By: #### L 100.0100, L500.4100, L501.9985, L500.4050 #### [facility] [address] [place], [address] Eosinophils/100 WBC (Bld) 3.2 % Normal 0-5 [facility] Comment on above: Performed By: #### L 100.0100, L500.4100, L501.9985, L500.4050 #### [facility] [address] [place], [address] Erythrocyte distribution width (RBC) [Ratio] 14.0 % Normal 11.6-14.6 [facility] Comment on above: Performed By: #### L 100.0100, L500.4100, L501.9985, L500.4050 #### [facility] [address] [place], [address] Hematocrit (Bld) [Volume fraction] 43.5 % Normal 37-47 [facility] Comment on above: Performed By: #### L 100.0100, L500.4100, L501.9985, L500.4050 #### [facility] [address] [place], [address] Hemoglobin (Bld) [Mass/Vol] 14.0 g/dL Normal 12.0-15.0 [facility] Comment on above: Performed By: #### L 100.0100, L500.4100, L501.9985, L500.4050 #### [facility] [address] [place], [address] IG% 0.500 Normal 0.0-0.9 [facility] Comment on above: Result Comment: IG% - Immature Granulocytes (promyelocytes, myelocytes and metamyelocytes) > 1% indicates that a LEFT SHIFT is Present. Performed By: #### L 100.0100, L500.4100, L501.9985, L500.4050 #### [facility] [address] [place], [address] Lymphocytes/100 WBC (Bld) 21.7 % Normal 19-41 [facility] Comment on above: Performed By: #### L 100.0100, L500.4100, L501.9985, L500.4050 #### [facility] [address] [place], [address] MCH (RBC) [Entitic mass] 28.4 pg Normal 27.0-32.0 [facility] Comment on above: Performed By: #### L 100.0100, L500.4100, L501.9985, L500.4050 #### [facility] [address] [place], [address] MCHC (RBC) [Mass/Vol] 32.2 g/dL Normal 32-36 [facility] Comment on above: Performed By: #### L 100.0100, L500.4100, L501.9985, L500.4050 #### [facility] [address] [place], [address] MCV (RBC) [Entitic vol] 88.2 fL Normal 81-99 [facility] Comment on above: Performed By: #### L 100.0100, L500.4100, L501.9985, L500.4050 #### [facility] [address] [place], [address] Monocytes/100 WBC (Bld) 8.0 % Normal 0-10 [facility] Comment on above: Performed By: #### L 100.0100, L500.4100, L501.9985, L500.4050 #### [facility] [address] [place], [address] Neutrophils/100 WBC (Bld) 66.1 % Normal 47-70 [facility] Comment on above: Performed By: #### L 100.0100, L500.4100, L501.9985, L500.4050 #### [facility] [address] [place], [address] Nucleated RBC (Bld) [#/Vol] 0 10*3/uL Normal 0-5 [facility] Comment on above: Performed By: #### L 100.0100, L500.4100, L501.9985, L500.4050 #### [facility] [address] [place], [address] Platelet mean volume (Bld) [Entitic vol] 12.2 fL High 6.2-12.0 [facility] Comment on above: Performed By: #### L 100.0100, L500.4100, L501.9985, L500.4050 #### [facility] [address] [place], [address] Platelets (Bld) [#/Vol] 249 10*3/uL Normal 150-450 [facility] Comment on above: Performed By: #### L 100.0100, L500.4100, L501.9985, L500.4050 #### [facility] [address] [place], [address] RBC (Bld) [#/Vol] 4.93 10*6/uL Normal 4.2-5.4 [facility] Comment on above: Performed By: #### L 100.0100, L500.4100, L501.9985, L500.4050 #### [facility] [address] [place], [address] RDW SD 44.7 fl High 35.1-43.9 [facility] Comment on above: Performed By: #### L 100.0100, L500.4100, L501.9985, L500.4050 #### [facility] [address] [place], [address] WBC (Bld) [#/Vol] 9.3 10*3/uL Normal 4.4-11.[address] [facility] Comment on above: Performed By: #### L 100.0100, L500.4100, L501.9985, L500.4050 #### [facility] [address] [place], [address] Comprehensive Metabolic Prof ilon 06-07-2024 Albumin [Mass/Vol] 3.7 g/dL Normal 3.2-5.[address] [facility] Comment on above: Performed By: #### L 100.0100, L500.4100, L501.9985, L500.4050 #### [facility] [address] [place], [address] Albumin/Globulin [Mass ratio] 1.0 {ratio} Normal 0.9-2.4 [facility] Comment on above: Performed By: #### L 100.0100, L500.4100, L501.9985, L500.4050 #### [facility] [address] [place], [address] ALK P 124 U/L High 45-117 [facility] Comment on above: Performed By: #### L 100.0100, L500.4100, L501.9985, L500.4050 #### [facility] [address] [place], [address] ALT [Catalytic activity/Vol] 21 U/L Normal 13-56 [facility] Comment on above: Performed By: #### L 100.0100, L500.4100, L501.9985, L500.4050 #### [facility] [address] [place], [address] AST [Catalytic activity/Vol] 16 U/L Normal 15-37 [facility] Comment on above: Performed By: #### L 100.0100, L500.4100, L501.9985, L500.4050 #### [facility] [address] [place], [address] Bilirubin [Mass/Vol] 0.30 mg/dL Normal 0.20-1.00 [facility] Comment on above: Result Comment: For patients on eltrombopag therapy, use of Dimension Sutton TBIL is not recommended. Performed By: #### L 100.0100, L500.4100, L501.9985, L500.4050 #### [facility] [address] [place], [address] BUN/CRE 18.3 RATIO Normal 10-20 [facility] Comment on above: Performed By: #### L 100.0100, L500.4100, L501.9985, L500.4050 #### [facility] [address] [place], [address] CA,Total 8.6 mg/dL Normal 8.5-10.1 [facility] Comment on above: Performed By: #### L 100.0100, L500.4100, L501.9985, L500.4050 #### [facility] [address] [place], [address] Chloride [Moles/Vol] 108 mmol/L High 98-107 [facility] Comment on above: Performed By: #### L 100.0100, L500.4100, L501.9985, L500.4050 #### [facility] [address] [place], [address] CO2 [Moles/Vol] 27.0 mmol/L Normal 21.0-32.0 [facility] Comment on above: Performed By: #### L 100.0100, L500.4100, L501.9985, L500.4050 #### [facility] [address] [place], [address] Creatinine [Mass/Vol] 0.88 mg/dL Normal 0.55-1.02 [facility] Comment on above: Result Comment: The validity of the calculated GFR GFRAA in patients over 70 years has not been determined. Clinical correlation is essential. Performed By: #### L 100.0100, L500.4100, L501.9985, L500.4050 #### [facility] [address] [place], [address] EST GFR - AA 83 mL/min Normal >60 [facility] Comment on above: Result Comment: Afri can Montenegrin GFR Calc Performed By: #### L 100.0100, L500.4100, L501.9985, L500.4050 #### [facility] [address] [place], [address] GAP 9 Normal 5-15 [facility] Comment on above: Performed By: #### L 100.0100, L500.4100, L501.9985, L500.4050 #### [facility] [address] [place], [address] GFR/1.73 sq M.predicted among non-blacks MDRD (S/P/Bld) [Vol rate/Area] 69 mL/min/{1.73_m2} Normal >60 [facility] Comment on above: Result Comment: Non- GFR Calc Performed By: #### L 100.0100, L500.4100, L501.9985, L500.4050 #### [facility] [address] [place], [address] Globulin (S) [Mass/Vol] 3.8 g/dL Normal 2.2-4.2 [facility] Comment on above: Performed By: #### L 100.0100, L500.4100, L501.9985, L500.4050 #### [facility] [address] [place], [address] Glucose [Mass/Vol] 87 mg/dL Normal 74-[address] [facility] Comment on above: Performed By: #### L 100.0100, L500.4100, L501.9985, L500.4050 #### [facility] [address] [place], [address] Potassium [Moles/Vol] 3.6 mmol/L Normal 3.5-5.1 [facility] Comment on above: Performed By: #### L 100.0100, L500.4100, L501.9985, L500.4050 #### [facility] [address] [place], [address] Sodium [Moles/Vol] 143 mmol/L Normal 136-[address] [facility] Comment on above: Performed By: #### L 100.0100, L500.4100, L501.9985, L500.4050 #### [facility] [address] [place], [address] T PROT 7.5 g/dL Normal 6.4-8.2 [facility] Comment on above: Performed By: #### L 100.0100, L500.4100, L501.9985, L500.4050 #### [facility] [address] [place], [address] Urea nitrogen [Mass/Vol] 16 mg/dL Normal 7-18 [facility] Comment on above: Performed By: #### L 100.0100, L500.4100, L501.9985, L500.4050 #### [facility] [address] [place], [address] Lipid Profileon 06-07-2024 Cholesterol [Mass/Vol] 216 mg/dL High 200 [facility] Comment on above: Result Comment: <200 mg/dL Desirable 200-240 mg/dL Borderline >240 mg/dL High Risk Performed By: #### L 100.0100, L500.4100, L501.9985, L500.4050 #### [facility] [address] [place], [address] Cholesterol in HDL [Mass/Vol] 64 mg/dL Normal [facility] Comment on above: Result Comment: The drugs N-Acetylcysteine and Metamizole may falsely depress this assay. Reference Range HDL <40 mg/dL Low HDL Cholesterol HDL >or= 60 mg/dL High HDL Cholesterol Performed By: #### L 100.0100, L500.4100, L501.9985, L500.4050 #### [facility] [address] [place], [address] Cholesterol in LDL [Mass/Vol] 112 mg/dL Normal 0-130 [facility] Comment on above: Performed By: #### L 100.0100, L500.4100, L501.9985, L500.4050 #### [facility] [address] [place], [address] Cholesterol in VLDL [Mass/Vol] 40 mg/dL Normal 5-40 [facility] Comment on above: Performed By: #### L 100.0100, L500.4100, L501.9985, L500.4050 #### [facility] [address] [place], [address] Triglyceride [Mass/Vol] 202 mg/dL High [facility] Comment on above: Result Comment: The drugs N-Acetylcysteine and Metamizole may falsely depress this assay. Serum Triglycerides Reference Interval Normal <150 mg/dL Borderline high 150 - 199 mg/dL High 200 - 499 mg/dL Very High > or = 500 mg/dL Performed By: #### L 100.0100, L500.4100, L501.9985, L500.4050 #### [facility] [address] [place], [address] Absolute lymphocyte countOrd ered By: Mary Basilio on 06-01-2023 Lymphocytes Auto (Unsp spec) [#/Vol] 2.77 10*3/uL 0.83-4.51 [facility] Automated lymphocyte count a s percentage of total leukocytesOrdered By: Mary Basilio on 06-01-2023 Lymphocytes/100 WBC Auto (Unsp spec) 27.1 % 19-41 [facility] Basophil percentageOrdered B y: Mary Basilio on 06-01-2023 Basophils/100 WBC (Bld) 1.0 % 0-1 [facility] Bilirubin [Mass/Vol] 0.30 mg/dL 0.20-1.00 [facility] Comment on above: For patients on eltr ombopag therapy, use of Dimension [place] TBIL is not recommended. Chloride [Moles/Vol] 107 mmol/L 98-107 [facility] Cholesterol [Mass/Vol] 214 mg/dL <200 [facility] Comment on above: <200 mg/dL Desirable 200-240 mg/dL Borderline >240 mg/dL High Risk Eosinophils/100 WBC (Bld) 3.3 % 0-5 [facility] Glucose [Mass/Vol] 91 mg/dL 74-[address] [facility] Hemoglobin (Bld) [Mass/Vol] 13.8 g/dL 12.0-15.0 [facility] Monocytes/100 WBC (Bld) 7.1 % 0-10 [facility] Neutrophils (Bld) [#/Vol] 6.3 10*3/uL 2.0-7.7 [facility] Neutrophils/100 WBC (Bld) 61.2 % 47-70 [facility] Potassium [Moles/Vol] 3.5 mmol/L 3.5-5.1 [facility] Protein [Mass/Vol] 7.3 g/dL 6.4-8.[address] [facility] Sodium [Moles/Vol] 138 mmol/L 136-[address] [facility] Triglyceride [Mass/Vol] 335 mg/dL <199 [facility] Comment on above: The drugs N-Acetylcy steine and Metamizole may falsely depress this assay.Serum Triglycerides Reference Interval Normal <150 mg/dL Borderline high 150 - 199 mg/dL High 200 - 499 mg/dL Very High > or = 500 mg/dL WBC (Bld) [#/Vol] 10.2 10*3/uL 4.4-11.0 [facility] Determination of erythrocyte mean corpuscular volume (MCV)Ordered By: Mary Basilio on 06-01-2023 MCV (RBC) [Entitic vol] 89.5 fL 81-99 [facility] Erythrocyte distribution wid th ratioOrdered By: Mary Basilio on 06-01-2023 Erythrocyte distribution width (RBC) [Ratio] 14.0 % 11.6-14.6 [facility] Erythrocyte distribution wid th standard deviationOrdered By: Mary Basilio on 06-01-2023 Erythrocyte distribution width (RBC) [Entitic vol] 45.7 fL 35.1-43.9 [facility] Hematocrit Auto (Bld) [Volum e fraction]Ordered By: Mary Basilio on 06-01-2023 Hematocrit (Bld) [Volume fraction] 43.6 % 37-47 [facility] Immature granulocytes/100 WB C Auto (Bld)Ordered By: Mary Basilio on 06-01-2023 Immature granulocytes/100 WBC (Bld) 0.300 % 0.0-0.9 [facility] Comment on above: IG% - Immature Granu locytes (promyelocytes, myelocytes and metamyelocytes) > 1% indicates that a LEFT SHIFT is Present. Laboratory - Chemistry and C hemistry - challengeOrdered By: Mary Basilio on 06-01-2023 Albumin/Globulin [Mass ratio] 0.9 {ratio} 0.9-2.4 [facility] ALP [Catalytic activity/Vol] 109 U/L 45-117 [facility] ALT [Catalytic activity/Vol] 23 U/L 13-56 [facility] Cholesterol in HDL (Body fld) [Mass/Vol] 57 mg/dL >40 [facility] Comment on above: The drugs N-Acetylcy steine and Metamizole may falsely depress this assay. Reference Range HDL <40 mg/dL Low HDL Cholesterol HDL >or= 60 mg/dL High HDL Cholesterol Cholesterol in LDL (Body fld) [Moles/Vol] 90 mg/dL 0-130 [facility] Cholesterol in VLDL Calc [Moles/Vol] 67 mg/dL 5-40 [facility] CO2 [Moles/Vol] 28.0 mmol/L 21.0-32.0 [facility] Globulin (S) [Mass/Vol] 3.8 g/dL 2.2-4.2 [facility] Urea nitrogen/Creatinine [Mass ratio] 23.2 mg/mg 10-20 [facility] Laboratory - Hematology and Cell countsOrdered By: Mary Basilio on 06-01-2023 MCH (RBC) [Entitic mass] 28.3 pg 27.0-32.0 [facility] MCHC (RBC) [Mass/Vol] 31.7 g/dL 32-36 [facility] Nucleated RBC/100 WBC (Bld) [Ratio] 0 % 0-5 [facility] Platelets (Bld) [#/Vol] 294 10*3/uL 150-450 [facility] No Panel InformationOrdered By: Mary Basilio on 06-01-2023 Estimated GFR (MDRD) Amer 76 mL/min >60 [facility] Comment on above: GFR Calc Estimated GFR (MDRD) Non-Af Amer 63 mL/min >60 [facility] Comment on above: Non- GFR Calc Platelet mean volume John-Ec ker (Bld) [Entitic vol]Ordered By: Mary Basilio on 06-01-2023 Platelet mean volume (Bld) [Entitic vol] 11.3 fL 6.2-12.0 [facility] RBC Auto (Bld) [#/Vol]Ordere d By: Mary Basilio on 06-01-2023 RBC (Bld) [#/Vol] 4.87 10*6/uL 4.2-5.4 [facility] Serum or plasma calcium shannon urement (mass/volume)Ordered By: Mary Basilio on 06-01-2023 Calcium [Mass/Vol] 9.0 mg/dL 8.5-10.[address] [facility] Serum or plasma creatinine m easurement (mass/volume)Ordered By: Mary Basilio on 06-01-2023 Creatinine [Mass/Vol] 0.95 mg/dL 0.55-1.02 [facility] Comment on above: The validity of the calculated GFR & GFRAA in patients over 70 years has not been determined. Clinical correlation is essential. Serum or plasma urea nitroge n measurement (mass/volume)Ordered By: Mary Basilio on 06-01-2023 Urea nitrogen [Mass/Vol] 22 mg/dL 7-18 [facility] Thin prep Papanicolaou smear with manual screeningOrdered By: Mary Basilio on 06-01-2023 Thin prep Papanicolaou smear with manual screening 3.5 g/dL 3.2-5.0 [facility] Thin prep Papanicolaou smear with manual screening 16 U/L 15-37 [facility] Thin prep Papanicolaou smear with manual screening 3 5-15 [facility] .GFRon 11-22-2022 GFR 63 ml/min/1.73sqm Normal [facility] ([place]) Comment on above: Result Comment: GFR Population mean for , Non- Americans Ages 20-29 = 116 mL/min/1.73 sq.m. Ages 30-39 = 107 mL/min/1.73 sq.m. Ages 40-49 = 99 mL/min/1.73 sq.m. Ages 50-59 = 93 mL/min/1.73 sq.m. Ages 60-69 = 85 mL/min/1.73 sq.m. Ages 70+ = 75 mL/min/1.73 sq.m. Chronic Kidney Disease: Less than 60 mL/min/1.73 square meters End Stage Renal Disease: Less than 15 mL/min/1.73 square meters Performed By: #### Pradip PRIDE, BMP #### [address] [address] GFR Non- 52 ml/min/1.73sqm Normal [facility] ([place]) Comment on above: Result Comment: GFR Population mean for , Non- Americans Ages 20-29 = 116 mL/min/1.73 sq.m. Ages 30-39 = 107 mL/min/1.73 sq.m. Ages 40-49 = 99 mL/min/1.73 sq.m. Ages 50-59 = 93 mL/min/1.73 sq.m. Ages 60-69 = 85 mL/min/1.73 sq.m. Ages 70+ = 75 mL/min/1.73 sq.m. Chronic Kidney Disease: Less than 60 mL/min/1.73 square meters End Stage Renal Disease: Less than 15 mL/min/1.73 square meters Performed By: #### Pradip PRIDE, BMP #### [address] [address] [facility] 11-22-2022 BUN/Creatinine Ratio 18 ratio Normal 7-27 Count includes the [facility] ([place]) Comment on above: Performed By: #### Pradip PRIDE, BMP #### [address] [address] Calcium [Mass/Vol] 8.9 mg/dL Normal 8.4-10.2 [facility] ([place]) Comment on above: Performed By: #### Pradip PRIDE, BMP #### [address] [address] Chloride [Moles/Vol] 104 mmol/L Normal 98-107 Count includes the [facility] ([place]) Comment on above: Performed By: #### Pradip PRIDE, BMP #### [address] [address] CO2 [Moles/Vol] 27 mmol/L Normal 23-31 [facility] ([place]) Comment on above: Performed By: #### Pradip PRIDE, BMP #### [address] [address] Creatinine [Mass/Vol] 1.06 mg/dL High 0.55-1.02 [facility] ([place]) Comment on above: Performed By: #### Pradip PRIDE, BMP #### [address] [address] Electrolyte Balance 9.0 mEq/L Normal 4.0-15.0 [facility] ([place]) Comment on above: Performed By: #### Pradip PRIDE, BMP #### [address] [address] Glucose [Mass/Vol] 114 mg/dL Normal 80-115 [facility] ([place]) Comment on above: Performed By: #### Pradip PRIDE, BMP #### [address] [address] Potassium [Moles/Vol] 3.8 mmol/L Normal 3.5-5.1 [facility] ([place]) Comment on above: Performed By: #### Pradip PRIDE, BMP #### [address] [address] Sodium [Moles/Vol] 140 mmol/L Normal 136-145 [facility] ([place]) Comment on above: Performed By: #### Pradip PRIDE, BMP #### [address] [address] Urea nitrogen [Mass/Vol] 19 mg/dL High 7-18 [facility] ([place]) Comment on above: Performed By: #### Pradip PRIDE, BMP #### [address] [address] LABORATORYOrdered By: SYSTEM SYSTEM on 11-22-2022 Calcium [Mass/Vol] 8.9 mg/dL Invalid Interpretation Code 8.4 - 10.2 mg/dL AO ADM SS Chloride [Moles/Vol] 104 mmol/L Invalid Interpretation Code 98 - 107 mmol/L AO ADM SS CO2 [Moles/Vol] 27 mmol/L Invalid Interpretation Code 23 - 31 mmol/L AO ADM SS Creatinine [Mass/Vol] 1.06 mg/dL Invalid Interpretation Code 0.55 - 1.02 mg/dL AO ADM SS Electrolyte Balance 9.0 mEq/L Invalid Interpretation Code 4.0 - 15.0 mEq/L AO ADM SS GFR/1.73 sq M.predicted among blacks MDRD (S/P/Bld) [Vol rate/Area] 63 ml/min/1.73sqm Invalid Interpretation Code AO Chemistry S Comment on above: Interpretive Data: GFR Population mean for , Non- Americans Ages 20-29 = 116 mL/min/1.73 sq.m. Ages 30-39 = 107 mL/min/1.73 sq.m. Ages 40-49 = 99 mL/min/1.73 sq.m. Ages 50-59 = 93 mL/min/1.73 sq.m. Ages 60-69 = 85 mL/min/1.73 sq.m. Ages 70+ = 75 mL/min/1.73 sq.m. Chronic Kidney Disease: Less than 60 mL/min/1.73 square meters End Stage Renal Disease: Less than 15 mL/min/1.73 square meters GFR/1.73 sq M.predicted among non-blacks MDRD (S/P/Bld) [Vol rate/Area] 52 ml/min/1.73sqm Invalid Interpretation Code AO Chemistry S Comment on above: Interpretive Data: GFR Population mean for , Non- Americans Ages 20-29 = 116 mL/min/1.73 sq.m. Ages 30-39 = 107 mL/min/1.73 sq.m. Ages 40-49 = 99 mL/min/1.73 sq.m. Ages 50-59 = 93 mL/min/1.73 sq.m. Ages 60-69 = 85 mL/min/1.73 sq.m. Ages 70+ = 75 mL/min/1.73 sq.m. Chronic Kidney Disease: Less than 60 mL/min/1.73 square meters End Stage Renal Disease: Less than 15 mL/min/1.73 square meters Glucose [Mass/Vol] 114 mg/dL Invalid Interpretation Code 80 - 115 mg/dL AO ADM SS Potassium [Moles/Vol] 3.8 mmol/L Invalid Interpretation Code 3.5 - 5.1 mmol/L AO ADM SS Sodium [Moles/Vol] 140 mmol/L Invalid Interpretation Code 136 - 145 mmol/L AO ADM SS Urea nitrogen [Mass/Vol] 19 mg/dL Invalid Interpretation Code 7 - 18 mg/dL AO ADM SS Urea nitrogen/Creatinine [Mass ratio] 18 ratio Invalid Interpretation Code 7 - 27 ratio AO ADM SS Anaerobic cultureOrdered By: Mary Basilio on 11-01-2022 Bacteria identified Anaer cx Nom (Unsp spec) No anaerobic bacteria isolated. [facility] Bacteria identified Cx Nom ( Wound)Ordered By: Mary Basilio on 11-01-2022 Wound Culture Enterococcus faecalis [facility] Wound Culture Staphylococcus haemolyticus [facility] Gram stain for investigation of transfusion reactionOrdered By: Mary Basilio on 11-01-2022 Microscopic observation Gram stain Nom (Unsp spec) [facility] Absolute lymphocyte counton 02-24-2022 Lymphocytes Auto (Unsp spec) [#/Vol] 0.86 10*3/uL 0.83-4.51 [facility] Work Phone: Basophil percentageon 2021 Basophils/100 WBC (Bld) 0.2 % 0-1 [facility] Work Phone: Bilirubin [Mass/Vol] 0.20 mg/dL 0.20-1.00 [facility] Work Phone: Comment on above: For patients on eltr ombopag therapy, use of Dimension Sutton TBIL is not recommended. Chloride [Moles/Vol] 107 mmol/L 98-107 [facility] Work Phone: Eosinophils/100 WBC (Bld) 0.1 % 0-5 [facility] Work Phone: Glucose [Mass/Vol] 200 mg/dL 74-[address] [facility] Work Phone: Comment on above: Glucose result great er than or equal to 200 mg/dLsuggests DIABETES MELLITUS per A.D.A. criteria. Neutrophils (Bld) [#/Vol] 10.6 10*3/uL 2.0-7.7 [facility] Work Phone: [phone] Neutrophils/100 WBC (Bld) 88.1 % 47-70 [facility] Work Phone: [phone] Potassium [Moles/Vol] 4.4 mmol/L 3.5-5.1 [facility] Work Phone: Protein [Mass/Vol] 6.4 g/dL 6.4-8.2 [facility] Work Phone: [phone] Sodium [Moles/Vol] 138 mmol/L 136-145 [facility] Work Phone: [phone] WBC (Bld) [#/Vol] 12.0 10*3/uL 4.4-11.0 [facility] Work Phone: Blood erythrocytes count (nu mber/volume)on 02-24-2022 RBC (Bld) [#/Vol] 4.25 10*6/uL 4.2-5.4 [facility] Work Phone: Blood hemoglobin measurement (mass/volume)on 02-24-2022 Hemoglobin (Bld) [Mass/Vol] 11.6 g/dL 12.0-15.0 [facility] Work Phone: [phone] Blood lymphocytes/100 leukoc yteson 02-24-2022 Lymphocytes/100 WBC (Bld) 7.2 % 19-41 [facility] Work Phone: [phone] Blood monocytes/100 leukocyt eson 02-24-2022 Monocytes/100 WBC (Bld) 3.9 % 0-10 [facility] Work Phone: Blood platelet mean volumeon 02-24-2022 Platelet mean volume (Bld) [Entitic vol] 10.4 fL 6.2-12.0 [facility] Work Phone: Determination of erythrocyte mean corpuscular volume (MCV)on 02-24-2022 MCV (RBC) [Entitic vol] 84.5 fL 81-99 [facility] Work Phone: Hematocrit Auto (Bld) [Volum e fraction]on 02-24-2022 Hematocrit (Bld) [Volume fraction] 35.9 % 37-47 [facility] Work Phone: Laboratory - Chemistry and C hemistry - challengeon 02-24-2022 ALP [Catalytic activity/Vol] 91 U/L 45-117 [facility] Work Phone: ALT [Catalytic activity/Vol] 18 U/L 13-56 [facility] Work Phone: CO2 [Moles/Vol] 26.0 mmol/L 21.0-32.0 [facility] Work Phone: Globulin (S) [Mass/Vol] 4.0 g/dL 2.2-4.2 [facility] Work Phone: Urea nitrogen/Creatinine [Mass ratio] 13.2 mg/mg 10-20 [facility] Work Phone: Laboratory - Hematology and Cell countson 02-24-2022 Erythrocyte distribution width (RBC) [Entitic vol] 40.1 fL 35.1-43.9 [facility] Work Phone: Erythrocyte distribution width (RBC) [Ratio] 13.1 % 11.6-14.6 [facility] Work Phone: Immature granulocytes/100 WBC (Bld) 0.500 % 0.0-0.9 [facility] Work Phone: Comment on above: IG% - Immature Granu locytes (promyelocytes, myelocytes and metamyelocytes) > 1% indicates that a LEFT SHIFT is Present. MCH (RBC) [Entitic mass] 27.3 pg 27.0-32.0 [facility] Work Phone: Nucleated RBC/100 WBC (Bld) [Ratio] 0 % 0-5 [facility] Work Phone: MCHC Auto (RBC) [Mass/Vol]on 02-24-2022 MCHC (RBC) [Mass/Vol] 32.3 g/dL 32-36 [facility] Work Phone: Comment on above: Delta: 30.6 on 02/23 No Panel Informationon 02-24 Estimated Creatinine Clearance Calc 47.97 ml/min [facility] Work Phone: Estimated GFR (MDRD) Amer 73 mL/min >60 [facility] Work Phone: Comment on above: GFR Calc Estimated GFR (MDRD) Non-Af Amer 60 mL/min >60 [facility] Work Phone: Comment on above: Non- GFR Calc Platelets bldon 02-24-2022 Platelets (Bld) [#/Vol] 377 10*3/uL 150-450 [facility] Work Phone: Serum or plasma albumin shannon urement (mass/volume)on 02-24-2022 Albumin [Mass/Vol] 2.4 g/dL 3.2-5.[address] [facility] Work Phone: Serum or plasma albumin/glob ulin mass ratioon 02-24-2022 Albumin/Globulin [Mass ratio] 0.6 {ratio} 0.9-2.4 [facility] Work Phone: Serum or plasma calcium shannon urement (mass/volume)on 02-24-2022 Calcium [Mass/Vol] 8.6 mg/dL 8.5-10.[address] [facility] Work Phone: Serum or plasma creatinine m easurement (mass/volume)on 02-24-2022 Creatinine [Mass/Vol] 0.98 mg/dL 0.55-1.02 [facility] Work Phone: Comment on above: The validity of the calculated GFR & GFRAA in patients over 70 years has not been determined. Clinical correlation is essential. Serum or plasma urea nitroge n measurement (mass/volume)on 02-24-2022 Urea nitrogen [Mass/Vol] 13 mg/dL 7-18 [facility] Work Phone: Thin prep Papanicolaou smear with manual screeningon 02-24-2022 Thin prep Papanicolaou smear with manual screening 13 U/L 15-37 [facility] Work Phone: [phone] Thin prep Papanicolaou smear with manual screening 5 5-15 [facility] Work Phone: Vancomycin troughon 02-25-20 22 Vancomycin trough [Mass/Vol] 11.5 ug/mL 5.0-15.0 [facility] Work Phone: Comment on above: VANCOMYCIN STANDARED DRUG THERAPY TROUGH LEVEL: 5.0 - 15.0 mg/L VANCOMYCIN HIGH INTENSITY THERAPY TROUGH LEVEL: 15.0 - 20.0 mg/L High Intensity therapy recommended for serious lifethreatening infections include:- Situhxukri-Kcrlyidgctru-Tjfcahygx (Ventilator/Healtcare Associated)-Sepsis PLEASE CONTACT PHARMACY SERVICES (#[id number]) FOR INTERPRETATIONOF RESULTS. Absolute lymphocyte counton 02-23-2022 Lymphocytes Auto (Unsp spec) [#/Vol] 1.44 10*3/uL 0.83-4.51 [facility] Work Phone: Basophil percentageon 2021 Basophils/100 WBC (Bld) 0.5 % 0-1 [facility] Work Phone: Chloride [Moles/Vol] 108 mmol/L 98-107 [facility] Work Phone: Eosinophils/100 WBC (Bld) 6.3 % 0-5 [facility] Work Phone: Glucose [Mass/Vol] 107 mg/dL 74-[address] [facility] Work Phone: Comment on above: Fasting Glucose resu lt from 100 to 125 mg/dL suggests IMPAIRED HOMEOSTASIS per A.D.A. criteria. Neutrophils (Bld) [#/Vol] 5.6 10*3/uL 2.0-7.7 [facility] Work Phone: Neutrophils/100 WBC (Bld) 67.1 % 47-70 [facility] Work Phone: Potassium [Moles/Vol] 4.0 mmol/L 3.5-5.1 [facility] Work Phone: Sodium [Moles/Vol] 139 mmol/L 136-[address] [facility] Work Phone: WBC (Bld) [#/Vol] 8.3 10*3/uL 4.4-11.[address] [facility] Work Phone: Blood erythrocytes count (nu mber/volume)on 02-23-2022 RBC (Bld) [#/Vol] 4.04 10*6/uL 4.2-5.4 [facility] Work Phone: Blood hemoglobin measurement (mass/volume)on 02-23-2022 Hemoglobin (Bld) [Mass/Vol] 10.6 g/dL 12.0-15.0 [facility] Work Phone: Blood lymphocytes/100 leukoc yteson 02-23-2022 Lymphocytes/100 WBC (Bld) 17.3 % 19-41 [facility] Work Phone: Blood monocytes/100 leukocyt eson 02-23-2022 Monocytes/100 WBC (Bld) 8.2 % 0-10 [facility] Work Phone: Blood platelet mean volumeon 02-23-2022 Platelet mean volume (Bld) [Entitic vol] 10.7 fL 6.2-12.0 [facility] Work Phone: Determination of erythrocyte mean corpuscular volume (MCV)on 02-23-2022 MCV (RBC) [Entitic vol] 85.6 fL 81-99 [facility] Work Phone: Hematocrit Auto (Bld) [Volum e fraction]on 02-23-2022 Hematocrit (Bld) [Volume fraction] 34.6 % 37-47 [facility] Work Phone: Laboratory - Chemistry and C hemistry - challengeon 02-23-2022 CO2 [Moles/Vol] 26.0 mmol/L 21.0-32.0 [facility] Work Phone: Urea nitrogen/Creatinine [Mass ratio] 15.1 mg/mg 10-20 [facility] Work Phone: Laboratory - Hematology and Cell countson 02-23-2022 Erythrocyte distribution width (RBC) [Entitic vol] 40.9 fL 35.1-43.9 [facility] Work Phone: Erythrocyte distribution width (RBC) [Ratio] 13.2 % 11.6-14.6 [facility] Work Phone: Immature granulocytes/100 WBC (Bld) 0.600 % 0.0-0.9 [facility] Work Phone: Comment on above: IG% - Immature Granu locytes (promyelocytes, myelocytes and metamyelocytes) > 1% indicates that a LEFT SHIFT is Present. MCH (RBC) [Entitic mass] 26.2 pg 27.0-32.0 [facility] Work Phone: Nucleated RBC/100 WBC (Bld) [Ratio] 0 % 0-5 [facility] Work Phone: MCHC Auto (RBC) [Mass/Vol]on 02-23-2022 MCHC (RBC) [Mass/Vol] 30.6 g/dL 32-36 [facility] Work Phone: No Panel Informationon 02-23 Estimated Creatinine Clearance Calc 54.67 ml/min [facility] Work Phone: Estimated GFR (MDRD) Amer 85 mL/min >60 [facility] Work Phone: Comment on above: GFR Calc Estimated GFR (MDRD) Non-Af Amer 71 mL/min >60 [facility] Work Phone: Comment on above: Non- GFR Calc Thyroid Stimulating Hormone (TSH) 2.68 uIU/mL 0.358-3.74 [facility] Work Phone: Platelets bldon 02-23-2022 Platelets (Bld) [#/Vol] 357 10*3/uL 150-450 [facility] Work Phone: Serum or plasma calcium shannon urement (mass/volume)on 02-23-2022 Calcium [Mass/Vol] 8.6 mg/dL 8.5-10.[address] [facility] Work Phone: Serum or plasma creatinine m easurement (mass/volume)on 02-23-2022 Creatinine [Mass/Vol] 0.86 mg/dL 0.55-1.02 [facility] Work Phone: Comment on above: The validity of the calculated GFR & GFRAA in patients over 70 years has not been determined. Clinical correlation is essential. Serum or plasma urea nitroge n measurement (mass/volume)on 02-23-2022 Urea nitrogen [Mass/Vol] 13 mg/dL 7-18 [facility] Work Phone: Thin prep Papanicolaou smear with manual screeningon 02-23-2022 Thin prep Papanicolaou smear with manual screening 5 5-15 [facility] Work Phone: Whole blood hemoglobin A1c/t otal hemoglobin ratio (mass fraction)on 02-23-2022 HbA1c (Bld) [Mass fraction] 6.0 % 3.8-5.6 [facility] Work Phone: Comment on above: Normal < 5.7 % Predi abetic 5.7 - 6.4 % Diabetic >or= 6.5 % Please note range changes. Absolute lymphocyte counton 02-22-2022 Lymphocytes Auto (Unsp spec) [#/Vol] 2.29 10*3/uL 0.83-4.51 [facility] Work Phone: Basophil percentageon 2021 Lactate [Moles/Vol] 1.4 mmol/L 0.4-2.0 [facility] Work Phone: Basophils/100 WBC (Bld) 0.7 % 0-1 [facility] Work Phone: Bilirubin [Mass/Vol] 0.20 mg/dL 0.20-1.00 [facility] Work Phone: Comment on above: For patients on eltr ombopag therapy, use of Dimension [place] TBIL is not recommended. Chloride [Moles/Vol] 105 mmol/L 98-107 [facility] Work Phone: Cholesterol [Mass/Vol] 134 mg/dL <200 [facility] Work Phone: [phone] Comment on above: <200 mg/dL Desirable 200-240 mg/dL Borderline >240 mg/dL High Risk Eosinophils/100 WBC (Bld) 3.8 % 0-5 [facility] Work Phone: Glucose [Mass/Vol] 96 mg/dL 74-[address] [facility] Work Phone: Neutrophils (Bld) [#/Vol] 6.1 10*3/uL 2.0-7.7 [facility] Work Phone: [phone] Neutrophils/100 WBC (Bld) 64.1 % 47-70 [facility] Work Phone: Potassium [Moles/Vol] 3.9 mmol/L 3.5-5.1 [facility] Work Phone: Protein [Mass/Vol] 7.3 g/dL 6.4-8.[address] [facility] Work Phone: [phone] Sodium [Moles/Vol] 137 mmol/L 136-[address] [facility] Work Phone: [phone] Triglyceride [Mass/Vol] 81 mg/dL <199 [facility] Work Phone: [phone] Comment on above: The drugs N-Acetylcy steine and Metamizole may falsely depress this assay.Serum Triglycerides Reference Interval Normal <150 mg/dL Borderline high 150 - 199 mg/dL High 200 - 499 mg/dL Very High > or = 500 mg/dL WBC (Bld) [#/Vol] 9.5 10*3/uL 4.4-11.[address] [facility] Work Phone: Blood erythrocytes count (nu mber/volume)on 02-22-2022 RBC (Bld) [#/Vol] 4.29 10*6/uL 4.2-5.4 [facility] Work Phone: Blood hemoglobin measurement (mass/volume)on 02-22-2022 Hemoglobin (Bld) [Mass/Vol] 11.5 g/dL 12.0-15.0 [facility] Work Phone: Blood lymphocytes/100 leukoc yteson 02-22-2022 Lymphocytes/100 WBC (Bld) 24.1 % 19-41 [facility] Work Phone: Blood monocytes/100 leukocyt eson 02-22-2022 Monocytes/100 WBC (Bld) 7.0 % 0-10 [facility] Work Phone: Blood platelet mean volumeon 02-22-2022 Platelet mean volume (Bld) [Entitic vol] 10.2 fL 6.2-12.0 [facility] Work Phone: Determination of erythrocyte mean corpuscular volume (MCV)on 02-22-2022 MCV (RBC) [Entitic vol] 86.7 fL 81-99 [facility] Work Phone: Erythrocyte sedimentation ra bailey 02-22-2022 ESR (Bld) [Velocity] 34 mm/h 0-30 [facility] Work Phone: Hematocrit Auto (Bld) [Volum e fraction]on 02-22-2022 Hematocrit (Bld) [Volume fraction] 37.2 % 37-47 [facility] Work Phone: Laboratory - Chemistry and C hemistry - challengeon 02-22-2022 ALP [Catalytic activity/Vol] 99 U/L 45-117 [facility] Work Phone: ALT [Catalytic activity/Vol] 22 U/L 13-56 [facility] Work Phone: CO2 [Moles/Vol] 26.0 mmol/L 21.0-32.0 [facility] Work Phone: Globulin (S) [Mass/Vol] 4.3 g/dL 2.2-4.2 [facility] Work Phone: Urea nitrogen/Creatinine [Mass ratio] 19.3 mg/mg 10-20 [facility] Work Phone: Laboratory - Hematology and Cell countson 02-22-2022 Erythrocyte distribution width (RBC) [Entitic vol] 41.8 fL 35.1-43.9 [facility] Work Phone: Erythrocyte distribution width (RBC) [Ratio] 13.2 % 11.6-14.6 [facility] Work Phone: Immature granulocytes/100 WBC (Bld) 0.300 % 0.0-0.9 [facility] Work Phone: Comment on above: IG% - Immature Granu locytes (promyelocytes, myelocytes and metamyelocytes) > 1% indicates that a LEFT SHIFT is Present. MCH (RBC) [Entitic mass] 26.8 pg 27.0-32.0 [facility] Work Phone: Nucleated RBC/100 WBC (Bld) [Ratio] 0 % 0-5 [facility] Work Phone: MCHC Auto (RBC) [Mass/Vol]on 02-22-2022 MCHC (RBC) [Mass/Vol] 30.9 g/dL 32-36 [facility] Work Phone: No Panel Informationon 02-22 Estimated Creatinine Clearance Calc 53.43 ml/min [facility] Work Phone: Estimated GFR (MDRD) Amer 83 mL/min >60 [facility] Work Phone: Comment on above: GFR Calc Estimated GFR (MDRD) Non-Af Amer 68 mL/min >60 [facility] Work Phone: Comment on above: Non- GFR Calc Platelets bldon 02-22-2022 Platelets (Bld) [#/Vol] 412 10*3/uL 150-450 [facility] Work Phone: Serum or plasma C reactive p rotein measurement (mass/volume)on 02-22-2022 CRP [Mass/Vol] 86.10 mg/L 0.0-3.0 [facility] Work Phone: Comment on above: C-Reactive Protein ( CRP) provides useful information for thediagnosis, therapy and monitoring of inflammatory processesand associated diseases. For the evaluation of Relative Riskfor Cardiovascular Disease, a High Sensitivity CRP (HSCRP)should be ordered. Serum or plasma albumin shannon urement (mass/volume)on 02-22-2022 Albumin [Mass/Vol] 3.0 g/dL 3.2-5.[address] [facility] Work Phone: Serum or plasma albumin/glob ulin mass ratioon 02-22-2022 Albumin/Globulin [Mass ratio] 0.7 {ratio} 0.9-2.4 [facility] Work Phone: Serum or plasma calcium shannon urement (mass/volume)on 02-22-2022 Calcium [Mass/Vol] 8.9 mg/dL 8.5-10.[address] [facility] Work Phone: Serum or plasma cholesterol in HDL measurement (mass/volume)on 02-22-2022 Cholesterol in HDL [Mass/Vol] 43 mg/dL >40 [facility] Work Phone: Comment on above: The drugs N-Acetylcy steine and Metamizole may falsely depress this assay. Reference Range HDL <40 mg/dL Low HDL Cholesterol HDL >or= 60 mg/dL High HDL Cholesterol Serum or plasma cholesterol in VLDL measurement (mass/volume)on 02-22-2022 Cholesterol in VLDL [Mass/Vol] 16 mg/dL 5-40 [facility] Work Phone: Serum or plasma creatinine m easurement (mass/volume)on 02-22-2022 Creatinine [Mass/Vol] 0.88 mg/dL 0.55-1.02 [facility] Work Phone: Comment on above: The validity of the calculated GFR & GFRAA in patients over 70 years has not been determined. Clinical correlation is essential. Serum or plasma low density lipoprotein (LDL) cholesterol measurement (mass/volume)on 02-22-2022 Cholesterol in LDL [Mass/Vol] 75 mg/dL 0-130 [facility] Work Phone: Serum or plasma transthyreti n measurement (mass/volume)on 02-22-2022 Prealbumin [Mass/Vol] 9.8 mg/dL 20.0-40.0 [facility] Work Phone: Serum or plasma urea nitroge n measurement (mass/volume)on 02-22-2022 Urea nitrogen [Mass/Vol] 17 mg/dL 7-18 [facility] Work Phone: Thin prep Papanicolaou smear with manual screeningon 02-22-2022 Thin prep Papanicolaou smear with manual screening 13 U/L 15-37 [facility] Work Phone: Thin prep Papanicolaou smear with manual screening 6 5-15 [facility] Work Phone: Bacteria identified Anaer cx Nom (Unsp spec) Anaerobic Culture Anaerobic cocci [facility] Work Phone: Bacteria identified Cx Nom ( Wound) Wound Culture Staphylococcus aureus [facility] Work Phone: Fungus culture Fungus identified Cx Nom (Unsp spec) [facility] Work Phone: Fungus stain Fungus identified Fungus stain Nom (Unsp spec) [facility] Work Phone: Gram stain for investigation of transfusion reaction Microscopic observation Gram stain Nom (Unsp spec) [facility] Work Phone: Laboratory - Microbiology an d Antimicrobial susceptibility Bacteria identified Cx Nom (Bld) No growth in 5 days. [facility] Work Phone: Thin prep Papanicolaou smear with manual screening Thin prep Papanicolaou smear with manual screening [facility] Work Phone: Vital Signs Date Time Vital Sign Value Performing Clinician Facility 06-01-2023 16:08-0500 Body height 160.02 cm [facility] 06-01-2023 16:08-0500 Body mass index (BMI) [Ratio] 35 kg/m2 [facility] 06-01-2023 16:08-0500 Body temperature 97.3 [degF] [facility] 06-01-2023 16:08-0500 Body weight 89.81 kg [facility] 06-01-2023 16:08-0500 Diastolic blood pressure 80 mm[Hg] [facility] 06-01-2023 16:08-0500 Heart rate 79 /min [facility] 06-01-2023 16:08-0500 Respiratory rate 18 /min [facility] 06-01-2023 16:08-0500 SaO2% (BldA) [Mass fraction] 99 % [facility] 06-01-2023 16:08-0500 Systolic blood pressure 138 mm[Hg] [facility] 11-24-2022 10:19-0400 Diastolic Blood Pressure Non-Invasive 71 1 ЕКАТЕРИНА SUPPAN DPM [facility] 11-24-2022 10:19-0400 Heart rate 61 /min ЕКАТЕРИНА SUPPAN DPM [facility] 11-24-2022 10:19-0400 Respiratory rate 13 /min ЕКАТЕРИНА SUPPAN DPM [facility] 11-24-2022 10:19-0400 Systolic Blood Pressure Non-Invasive 129 1 ЕКАТЕРИНА SUPPAN DPM [facility] 11-24-2022 10:03-0400 Diastolic Blood Pressure Non-Invasive 68 1 ЕКАТЕРИНА SUPPAN DPM [facility] 11-24-2022 10:03-0400 Heart rate 65 /min ЕКАТЕРИНА SUPPAN DPM [facility] 07-28-2023 10:03-0400 Respiratory rate 14 /min ЕКАТЕРИНА SUPPAN DPM [facility] 11-24-2022 10:03-0400 Systolic Blood Pressure Non-Invasive 128 1 ЕКАТЕРИНА SUPPAN DPM [facility] 11-24-2022 09:54-0400 Diastolic Blood Pressure Non-Invasive 62 1 ЕКАТЕРИНА SUPPAN DPM [facility] 11-24-2022 09:54-0400 Heart rate 69 /min ЕКАТЕРИНА SUPPAN DPM [facility] 11-24-2022 09:54-0400 Respiratory rate 11 /min ЕКАТЕРИНА SUPPAN DPM [facility] 11-24-2022 09:54-0400 Systolic Blood Pressure Non-Invasive 112 1 ЕКАТЕРИНА SUPPAN DPM [facility] 11-24-2022 09:40-0400 Respiratory Rate - Anes 9 br/min ЕКАТЕРИНА SUPPAN DPM [facility] 11-24-2022 09:35-0400 Respiratory Rate - Anes 11 br/min ЕКАТЕРИНА SUPPAN DPM [facility] 11-24-2022 09:30-0400 Respiratory Rate - Anes 11 br/min ЕКАТЕРИНА SUPPAN DPM [facility] 11-24-2022 08:02-0400 Blood Pressure Cuff Size ЕКАТЕРИНА SUPPAN DPM [facility] 11-24-2022 08:02-0400 Blood Pressure Location ЕКАТЕРИНА SUPPAN DPM [facility] 11-24-2022 08:02-0400 Blood Pressure Method ЕКАТЕРИНА SUPPAN DPM [facility] 11-24-2022 08:02-0400 Body height 162.6 cm ЕКАТЕРИНА SUPPAN DPM [facility] 11-24-2022 08:02-0400 Body temperature 96.08 [degF] ЕКАТЕРИНА SUPPAN DPM [facility] 11-24-2022 08:02-0400 Body weight 88.6 kg ЕКАТЕРИНА SUPPAN DPM [facility] 11-24-2022 08:02-0400 Diastolic blood pressure 65 mm[Hg] ЕКАТЕРИНА SUPPAN DPM [facility] 11-24-2022 08:02-0400 Heart rate 62 /min ЕКАТЕРИНА SUPPAN DPM [facility] 11-24-2022 08:02-0400 Systolic blood pressure 138 mm[Hg] ЕКАТЕРИНА SUPPAN DPM [facility] 11-22-2022 13:10-0400 Blood Pressure Location ЕКАТЕРИНА SUPPAN DPM [facility] 11-22-2022 13:10-0400 Body height 162.6 cm ЕКАТЕРИНА SUPPAN DPM [facility] 11-22-2022 13:10-0400 Body weight 88.6 kg ЕКАТЕРИНА SUPPAN DPM [facility] 11-22-2022 13:10-0400 Body weight 33.51 kg/m2 ЕКАТЕРИНА SUPPAN DPM [facility] 11-22-2022 13:10-0400 Diastolic Blood Pressure Non-Invasive 70 1 ЕКАТЕРИНА SUPPAN DPM [facility] 11-22-2022 13:10-0400 Heart rate 67 /min ЕКАТЕРИНА JO DPM [facility] 11-22-2022 13:10-0400 Respiratory rate 20 /min ЕКАТЕРИНА LOCKHARTAN DPM [facility] 11-22-2022 13:10-0400 Systolic Blood Pressure Non-Invasive 130 1 ЕКАТЕРИНА LOCKHARTAN DPM [facility] 11-22-2022 08:08-0400 Body mass index (BMI) [Ratio] 34.5 kg/m2 [facility] 11-22-2022 08:08-0400 Body temperature 97.3 [degF] [facility] 11-22-2022 08:08-0400 Diastolic blood pressure 58 mm[Hg] [facility] 11-22-2022 08:08-0400 Heart rate 60 /min [facility] 11-22-2022 08:08-0400 Respiratory rate 20 /min [facility] 11-22-2022 08:08-0400 Systolic blood pressure 163 mm[Hg] [facility] 10-28-2022 01:45-0400 Body weight 88.45 kg [facility] 10-25-2022 11:36-0400 Body mass index (BMI) [Ratio] 34.5 kg/m2 [facility] 10-25-2022 11:36-0400 Body temperature 96.7 [degF] [facility] 10-25-2022 11:36-0400 Diastolic blood pressure 55 mm[Hg] [facility] 10-25-2022 11:36-0400 Heart rate 68 /min [facility] 10-25-2022 11:36-0400 Systolic blood pressure 145 mm[Hg] [facility] 10-18-2022 10:07-0400 Body height 160.02 cm [facility] 10-18-2022 10:07-0400 Body weight 88.45 kg [facility] 10-18-2022 10:07-0400 Respiratory rate 16 /min [facility] 08-14-2022 17:45-0400 Body mass index (BMI) [Ratio] 31.6 kg/m2 [facility] 08-14-2022 17:45-0400 Body temperature 97.3 [degF] [facility] 08-14-2022 17:45-0400 Body weight 88.9 kg [facility] 08-14-2022 17:45-0400 Diastolic blood pressure 80 mm[Hg] [facility] 08-14-2022 17:45-0400 Heart rate 117 /min [facility] 08-14-2022 17:45-0400 Respiratory rate 18 /min [facility] 08-14-2022 17:45-0400 SaO2% (BldA) [Mass fraction] 98 % [facility] 08-14-2022 17:45-0400 Systolic blood pressure 170 mm[Hg] [facility] 08-04-2022 16:00-0400 Body mass index (BMI) [Ratio] 34.2 kg/m2 [facility] 08-04-2022 16:00-0400 Body temperature 98.2 [degF] [facility] 08-04-2022 16:00-0400 Body weight 87.54 kg [facility] 08-04-2022 16:00-0400 Diastolic blood pressure 70 mm[Hg] [facility] 08-04-2022 16:00-0400 Heart rate 74 /min [facility] 08-04-2022 16:00-0400 Respiratory rate 18 /min [facility] 08-04-2022 16:00-0400 SaO2% (BldA) [Mass fraction] 97 % [facility] 08-04-2022 16:00-0400 Systolic blood pressure 130 mm[Hg] [facility] 03-09-2022 16:43-0500 Body height 160.02 cm MELITON Basilio NP Work Phone: [facility] Work Phone: 03-09-2022 16:43-0500 Body mass index (BMI) [Ratio] 34.7 kg/m2 [employer] Mary Fryeson [employer] Work Phone: [facility] Work Phone: 03-09-2022 16:43-0500 Body weight 88.9 kg [employer] Mary Fryeson [employer] Work Phone: [facility] Work Phone: 03-09-2022 16:43-0500 Diastolic blood pressure 80 mm[Hg] [employer] Mary Basilio [employer] Work Phone: [facility] Work Phone: 03-09-2022 16:43-0500 Systolic blood pressure 150 mm[Hg] [employer] Mary Basilio [employer] Work Phone: [facility] Work Phone: 03-09-2022 16:33-0500 Body temperature 97.7 [degF] [employer] Mary Basilio [employer] Work Phone: [facility] Work Phone: 03-09-2022 16:33-0500 Heart rate 57 /min [employer] Mary Basilio [employer] Work Phone: [facility] Work Phone: 03-09-2022 16:33-0500 Respiratory rate 18 /min [employer] Mary Basilio [employer] Work Phone: [facility] Work Phone: 03-09-2022 16:33-0500 SaO2% (BldA) [Mass fraction] 98 % [employer] Mary Basilio [employer] Work Phone: [facility] Work Phone: 02-24-2022 14:10-0400 Body temperature 97.5 [degF] [employer] Mary Basilio [employer] Work Phone: [facility] Work Phone: 02-24-2022 14:10-0400 Diastolic blood pressure 59 mm[Hg] [employer] Mary Basilio [employer] Work Phone: [facility] Work Phone: 02-24-2022 14:10-0400 Heart rate 55 /min [employer] Mary Basilio [employer] Work Phone: [facility] Work Phone: 02-24-2022 14:10-0400 Respiratory rate 18 /min [employer] Mary Basilio [employer] Work Phone: [facility] Work Phone: 02-24-2022 14:10-0400 SaO2% (BldA) [Mass fraction] 100 % [employer] Mary Basilio [employer] Work Phone: [facility] Work Phone: 02-24-2022 14:10-0400 Systolic blood pressure 114 mm[Hg] [employer] Mary Basilio [employer] Work Phone: [facility] Work Phone: 02-23-2022 15:19-0400 Body temperature 97.1 [degF] [employer] Mary Basilio [employer] Work Phone: [facility] Work Phone: 02-23-2022 15:19-0400 Diastolic blood pressure 60 mm[Hg] [employer] Mary Basilio [employer] Work Phone: [facility] Work Phone: 02-23-2022 15:19-0400 Heart rate 46 /min [employer] Mary Basilio [employer] Work Phone: [facility] Work Phone: 02-23-2022 15:19-0400 Respiratory rate 18 /min [employer] Mary Basilio [employer] Work Phone: [facility] Work Phone: 02-23-2022 15:19-0400 SaO2% (BldA) [Mass fraction] 100 % [employer] Mary Basilio [employer] Work Phone: [facility] Work Phone: 02-23-2022 15:19-0400 Systolic blood pressure 110 mm[Hg] [employer] Mary Basilio [employer] Work Phone: [facility] Work Phone: 02-23-2022 14:13-0400 Body height 160.02 cm [employer] Mary Basilio [employer] Work Phone: [facility] Work Phone: 02-23-2022 14:13-0400 Body weight 87.5 kg [employer] Mary Basilio [employer] Work Phone: [facility] Work Phone: 02-23-2022 12:10-0400 Body mass index (BMI) [Ratio] 34.2 kg/m2 [employer] Mary Basilio [employer] Work Phone: [facility] Work Phone: 02-22-2022 20:00-0400 Body temperature 98.8 [degF] [employer] Mary Basilio [employer] Work Phone: [facility] Work Phone: 02-22-2022 20:00-0400 Diastolic blood pressure 35 mm[Hg] [employer] Mary Basilio [employer] Work Phone: [facility] Work Phone: 02-22-2022 20:00-0400 Heart rate 66 /min [employer] Mary Basilio [employer] Work Phone: [facility] Work Phone: 02-22-2022 20:00-0400 Respiratory rate 18 /min [employer] Mary Basilio [employer] Work Phone: [facility] Work Phone: 02-22-2022 20:00-0400 SaO2% (BldA) [Mass fraction] 99 % [employer] Mary Basilio [employer] Work Phone: [facility] Work Phone: 02-22-2022 20:00-0400 Systolic blood pressure 156 mm[Hg] [employer] Mary Basilio [employer] Work Phone: [facility] Work Phone: 02-22-2022 15:33-0400 Body height 160.02 cm [employer] Mary Basilio [employer] Work Phone: [facility] Work Phone: 02-22-2022 15:33-0400 Body mass index (BMI) [Ratio] 34.7 kg/m2 [employer] Mary Basilio [employer] Work Phone: [facility] Work Phone: 02-22-2022 15:33-0400 Body weight 88.9 kg [employer] Mary Basilio [employer] Work Phone: [facility] Work Phone: 02-22-2022 08:24-0400 Body mass index (BMI) [Ratio] 34.3 kg/m2 [employer] Mary Basilio [employer] Work Phone: [facility] Work Phone: 02-22-2022 08:05-0400 Body temperature 97.1 [degF] [employer] Mary Basilio [employer] Work Phone: [facility] Work Phone: 02-22-2022 08:05-0400 Body weight 87.99 kg [employer] Mary Basilio [employer] Work Phone: [facility] Work Phone: 02-22-2022 08:05-0400 Diastolic blood pressure 68 mm[Hg] [employer] Mary Basilio [employer] Work Phone: [facility] Work Phone: 02-22-2022 08:05-0400 Heart rate 69 /min [employer] Mary Basilio [employer] Work Phone: [facility] Work Phone: 02-22-2022 08:05-0400 Systolic blood pressure 143 mm[Hg] [employer] Mary Basilio [employer] Work Phone: [facility] Work Phone: 02-20-2022 20:50-0400 Body mass index (BMI) [Ratio] 32.6 kg/m2 [employer] Mary Basilio [employer] Work Phone: [facility] Work Phone: 02-20-2022 20:50-0400 Body temperature 97.7 [degF] [employer] Mary Basilio [employer] Work Phone: [facility] Work Phone: 02-20-2022 20:50-0400 Body weight 87.99 kg [employer] Mary Basilio [employer] Work Phone: [facility] Work Phone: 02-20-2022 20:50-0400 Diastolic blood pressure 60 mm[Hg] [employer] Mary Basilio [employer] Work Phone: [facility] Work Phone: 02-20-2022 20:50-0400 Heart rate 93 /min [employer] Mary Basilio [employer] Work Phone: [facility] Work Phone: 02-20-2022 20:50-0400 Respiratory rate 18 /min [employer] Mary Basilio [employer] Work Phone: [facility] Work Phone: 02-20-2022 20:50-0400 SaO2% (BldA) [Mass fraction] 97 % [employer] Mary Basilio [employer] Work Phone: [facility] Work Phone: 02-20-2022 20:50-0400 Systolic blood pressure 110 mm[Hg] [employer] Mary Basilio [employer] Work Phone: [facility] Work Phone: Encounters Encounter Date Encounter Type Care Provider Facility Start: 06-06-2024 End: 06-06-2024 ambulatory Mary Basilio [employer] Facility:[facility] Start: 06-01-2023 End: 06-01-2023 ambulatory [facility] Work Phone: Start: 06-01-2023 End: 06-01-2023 Patient encounter procedure [facility]Labor[facility] Specimen Work Phone: Start: 06-01-2023 Patient encounter status [facility] Start: 11-24-2022 End: 11-24-2022 ambulatory ЕКАТЕРИНА N RICHYAN DPM Facility:B Start: 11-24-2022 End: 11-24-2022 SAME DAY STAY ЕКАТЕРИНА LOCKHARTAN DPM [facility] Start: 11-22-2022 End: 11-23-2022 ambulatory ЕКАТЕРИНА N SUPPAN DPM Facility:B Start: 11-22-2022 End: 11-22-2022 Admission to establishment ЕКАТЕРИНА N SUPPAN DPM [facility] Start: 11-22-2022 Non-patient / Non-visit After Hours [facility] Start: 11-22-2022 End: 11-27-2022 ambulatory [facility] Work Phone: Start: 11-22-2022 End: 11-27-2022 Discharged Recurring [facility] Work Phone: Start: 11-15-2022 Non-patient / Non-visit After Hours [facility] Start: 11-08-2022 Non-patient / Non-visit After Hours [facility] Start: 11-01-2022 Non-patient / Non-visit After Hours [facility] Start: 10-25-2022 Non-patient / Non-visit After Hours [facility] Start: 10-25-2022 End: 10-27-2022 ambulatory [facility] Work Phone: Start: 10-25-2022 End: 10-27-2022 [facility] Work [facility]: Start: 10-18-2022 Non-patient / Non-visit After Hours [facility] Start: 03-31-2022 End: 03-31-2022 ambulatory [employer] Mary Basilio [employer] Work Phone: [facility] Work Phone: Start: 03-31-2022 End: 03-31-2022 Patient encounter procedure [employer]-Kayla Basilio [employer] Work Phone: [facility] Start: 02-24-2022 Non-patient / Non-visit [employer] Allen Basilio [employer] Work Phone: [facility] Start: 02-23-2022 Non-patient / Non-visit [employer] Allen Basilio [employer] Work Phone: [facility] Start: 02-22-2022 Non-patient / Non-visit [employer] Allen Basilio [employer] Work Phone: [facility] Start: 02-22-2022 End: 02-24-2022 Evaluation and management of inpatient [employer]-Kayla Basilio [employer] Work Phone: [facility]Medical Surgical 3 Start: 02-22-2022 End: 02-24-2022 Non-patient / Non-visit [employer]Kayla Basilio [employer] Work Phone: [facility] Start: 02-22-2022 End: 02-27-2022 Discharged Recurring [employer]Kayla Basilio [employer] [facility] Start: 02-22-2022 Registered Recurring [employer] Mary Basilio [employer] Work Phone: [facility] Start: 02-20-2022 End: 02-20-2022 ambulatory [employer]Kayla Basilio [employer] Work Phone: [facility] Work Phone: Start: 02-20-2022 End: 02-20-2022 Patient encounter procedure [employer]Kayla Basilio [employer] Work Phone: [facility]Laboratory, Specimen Procedures Date Procedure Procedure Detail Performing Clinician Start: 11-01-2022 Anaerobic microbial culture Start: 11-01-2022 Investigation of tra nsfusion reaction Start: 11-01-2022 Microbial culture, routine Start: 11-01-2022 MRI of lower extremity Start: 10-18-2022 End: 10-18-2022 X-ray of both feet Start: 02-23-2022 Amputation of toe [employer]-Kayla Basilio [employer] Work Phone: Start: 02-23-2022 Fluoroscopic guidance N P-Kayla Basilio [employer] Work Phone: Start: 02-23-2022 Radiography of foot [employer] Kayla Basilio [employer] Work Phone: Start: 02-22-2022 Plain X-ray of toe [employer]Kayla Basilio [employer] Work Phone: Start: 02-22-2022 X-ray of both feet [employer]Kayla Basilio [employer] Work Phone: Start: 04-30-2021 Amputation of right [place] ЕКАТЕРИНА LOCKHARTAN DPM Acid fast bacilli culture [employer] -Kayla Basilio [employer] Work Phone: Anaerobic microbial culture [employer]-C Mary Basilio [employer] Work Phone: Bacteria identified in Blood by Culture [employer]-Kayla Basilio [employer] Work Phone: Cholecystectomy ЕКАТЕРИНА SUPPAN DPM Cytopathology proced ure, preparation of smear, genital source [employer]-Kayla Basilio [employer] Work Phone: Fungus stain method [employer]-C Peter jean pierre FryeBasilio [employer] Work Phone: Investigation of tra nsfusion reaction [employer]-C Mary Praful [employer] Work Phone: Microbial culture, routine N P-C Mary Basilio [employer] Work Phone: Mycology culture [employer]-C Mary Celso alfredo [employer] Work Phone: Plan of Treatment Date Care Activity Detail Author Start: 02-25-2022 [facility] Work Phone: Start: 02-24-2022 Patient discharge [facility] Work Phone: Start: 02-24-2022 [facility] Work Phone: Start: 02-23-2022 Referral to service [facility] Work Phone: Start: 02-23-2022 [facility] Work Phone: Start: 02-23-2022 Consultation [facility] Work Phone: Start: 02-23-2022 Radiography of foot Foot 2 Views [facility] Work Phone: Start: 02-23-2022 XR Foot 2 Views [facility] Work Phone: Start: 02-23-2022 Referral to maintenance mechanic millwright [facility] Work Phone: Start: 02-22-2022 Ambulation without limitation [facility] Work Phone: Start: 02-22-2022 Assessment of risk of venous thromboembolism [facility] Work Phone: Start: 02-22-2022 Consultation for treatment [facility] Work Phone: Start: 02-22-2022 Insertion of catheter into peripheral vein [facility] Work Phone: Start: 02-22-2022 Providing care according to standard [facility] Work Phone: Start: 02-22-2022 Wound care [facility] Work Phone: Start: 02-22-2022 [facility] Work Phone: Start: 02-22-2022 Following clinical pathway protocol [facility] Work Phone: Start: 02-22-2022 Verification routine [facility] Work Phone: Start: 02-22-2022 Admission procedure [facility] Work Phone: Start: 02-22-2022 End: 02-22-2022 Blood culture [facility] Work Phone: Start: 02-22-2022 End: 02-22-2022 [facility] Work Phone: Start: 02-20-2022 [facility] Work Phone: Acid Fast Bacilli Culture Acid F ast Bacilli Culture [facility] Work Phone: Acid fast bacilli culture [facility] Work Phone: Acid Fast Bacilli Smear Acid Fas t Bacilli Smear [facility] Work Phone: Anaerobic Culture Anaerobic Culture [facility] Work Phone: Anaerobic microbial culture Anaerobic Cul [facility] Work Phone: Bacteria identified in Blood by Culture Blood Culture [facility] Work Phone: Bacteria identified in Unspecified specimen by Anaerobe culture [facility] Work Phone: Blood culture [facility] Work Phone: Fungal Culture Fungal Culture [facility] Work Phone: Fungal Smear Fungal Smear [facility] Work Phone: Microbial culture, routine Wound Culture [facility] Work Phone: Microscopic observat ion [Identifier] in Unspecified specimen by Gram stain Gram Stain [facility] Work Phone: Mycobacterium sp silvia ntified in Unspecified specimen by Organism specific culture [facility] Work Phone: Patient referral [facility] Work Phone: Wound Culture Wound Culture [facility] Work Phone: [facility] Work Phone: Payers Date Payer Category Payer Self-pay [id number] 2022 Unknown [id number] 1955 Unknown [id number] 1955 Unknown [id number] Unknown [id number] DO NOT USE* [id number] [facility] [id number] * * DO NOT USE [id number] Unknown [id number] Social History Date Type Detail Facility Start: 02-22-2022 End: 02-22-2022 Tobacco smoking status NHIS Unknown if ever smoked [facility] Start: 1955 Sex Assigned At Female [facility] Start: 11-22-2022 Tobacco smoking status Never s moked tobacco (finding) [facility] Goals Date Patient Goal Desired Activity /State Functional Status Date Assessment Result Facility 11-24-2022 Functional Status Sleeps intermittently A [facility] 11-24-2022 Functional Status Maintained [facility] 11-22-2022 Functional Status Sensory Deficits None A [facility] 02-24-2022 Functional status Bedrest;Bathroom Privil ege [facility] Work Phone: 02-23-2022 Functional status Ambulates [facility] Work Phone: Mental Status Date Assessment Result Facility 11-24-2022 Mental Status Orientation Oriented x 4 [facility] 11-24-2022 Mental Status [facility] 02-24-2022 Cognitive function Voice/Name [facility] Work Phone: 02-23-2022 Cognitive function Voice/Name [facility] Work Phone: Clinical Notes 10-18-2022 to 11-24-2022 Note Date & Type Note Facility 11-24-2022 Hospital Discharg e instructions Patient Education 11/24/2022 09:57:15 Toe Amputation, Care After Toe Amputation, Care After This sheet gives you information about how to care for yourself after your procedure. Your health care provider may also give you more specific instructions. If you have problems or questions, contact your health care provider. What can I expect after the procedure? After the procedure, it is common to have some pain. Pain usually improves within a week. Follow these instructions at home: Medicines Take dbzc-jyf-hjdushl and prescription medicines only as told by your health care provider. If you were prescribed an antibiotic medicine, take it as told by your health care provider. Do not stop taking the antibiotic even if you start to feel better. Ask your health care provider if the medicine prescribed to you: ?Requires you to avoid driving or using heavy machinery. ?Can cause constipation. You may need to take actions to prevent or treat constipation, such as: ?Drink enough fluid to keep your urine pale yellow. ?Take wdpr-qcw-sfeuaib or prescription medicines. ? Eat foods that are high in fiber, such as beans, whole grains, and fresh fruits and vegetables. ?Limit foods that are high in fat and processed sugars, such as fried or sweet foods. Managing pain, stiffness, and swelling If directed, put ice on the painful area. ?Put ice in a plastic bag. ?Place a towel between your skin and the bag. ?Leave the ice on for 20 minutes, 2 3 times a day. Move your other toes often to reduce stiffness and swelling. Raise (elevate) your foot above the level of your heart while you are sitting or lying down. Incision care Follow instructions from your health care provider about how to take care of your incision. Make sure you: ?Wash your hands with soap and water before and after you change your bandage (dressing). If soap and water are not available, use hand manager front office. ?Change your dressing as told by your health care provider. ?Leave stitches (sutures), skin glue, or adhesive strips in place. These skin closures may need to stay in place for 2 weeks or longer. If adhesive strip edges start to loosen and curl up, you may trim the loose edges. Do not remove adhesive strips completely unless your health care provider tells you to do that. Check your incision area every day for signs of infection. Check for: ?More redness, swelling, or pain. ?Fluid or blood. ?Warmth. ?Pus or a bad smell. Bathing Do not take baths, swim, use a hot tub, or soak your foot until your health care provider approves. Ask your health care provider if you may take showers. You may only be allowed to take sponge baths. If your dressing has been removed, you may wash your skin with warm water and soap. Activity Rest as told by your health care provider. Avoid sitting for a long time without moving. Get up to take short walks every 1 2 hours. This is important to improve blood flow and breathing. Ask for help if you feel weak or unsteady. If you have been given crutches, use them as told by your health care provider. Do exercises as told by your health care provider. Return to your normal activities as told by your health care provider. Ask your health care provider what activities are safe for you. General instructions Do not drive for 24 hours if you were given a sedative during your procedure. Do not use any products that contain nicotine or tobacco, such as cigarettes, e-cigarettes, and chewing tobacco. If you need help quitting, ask your health care provider. Ask your health care provider about wearing supportive shoes or using inserts to help with your balance when walking. If you have diabetes, keep your blood sugar under good control and check your feet daily for sores or open areas. Keep all follow-up visits as told by your health care provider. This is important. Contact a health care provider if: You have signs of infection at your incision, such as: ?Redness, swelling, or pain. ?Fluid or blood. ?Warmth. ?Pus or a bad smell. You have a fever or chills. Your dressing is soaked with blood. Your sutures tear or they separate. You have numbness or tingling in your toes or foot. Your foot is cool or pale, or it changes color. Your pain does not improve after you take your medicine. Get help right away if you have: Pain or swelling near your incision that gets worse or does not go away. Red streaks on your skin near your toes, foot, or leg. Pain in your calf or behind your knee. Shortness of breath. Chest pain. Summary After the procedure, it is common to have some pain. Pain usually improves within a week. If you were prescribed an antibiotic medicine, take it as told by your health care provider. Do not stop taking the antibiotic even if you start to feel better. Change your dressing as told by your health care provider. Contact a health care provider if you have signs of infection. Keep all follow-up visits as told by your health care provider. This is important. This information is not intended to replace advice given to you by your health care provider. Make sure you discuss any questions you have with your health care provider. Document Released: 03/27/2016 Document Revised: 08/06/2019 Document Reviewed: 04/08/2019 [employer] Patient Education 2020 [employer]. 11/24/2022 09:57:04 Moderate Conscious Sedation, Adult, Care After Moderate Conscious Sedation, Adult, Care After These instructions provide you with information about caring for yourself after your procedure. Your health care provider may also give you more specific instructions. Your treatment has been planned according to current medical practices, but problems sometimes occur. Call your health care provider if you have any problems or questions after your procedure. What can I expect after the procedure? After your procedure, it is common: To feel sleepy for several hours. To feel clumsy and have poor balance for several hours. To have poor judgment for several hours. To vomit if you eat too soon. Follow these instructions at home: For at least 24 hours after the procedure: Do not: ?Participate in activities where you could fall or become injured. ?Drive. ?Use heavy machinery. ?Drink alcohol. ?Take sleeping pills or medicines that cause drowsiness. ?Make important decisions or sign legal documents. ?Take care of children on your own. Rest. Eating and drinking Follow the diet recommended by your health care provider. If you vomit: ?Drink water, juice, or soup when you can drink without vomiting. ?Make sure you have little or no nausea before eating solid foods. General instructions Have a responsible adult stay with you until you are awake and alert. Take chdk-tug-mtdrzpq and prescription medicines only as told by your health care provider. If you smoke, do not smoke without supervision. Keep all follow-up visits as told by your health care provider. This is important. Contact a health care provider if: You keep feeling nauseous or you keep vomiting. You feel light-headed. You develop a rash. You have a fever. Get help right away if: You have trouble breathing. This information is not intended to replace advice given to you by your health care provider. Make sure you discuss any questions you have with your health care provider. Document Released: 02/04/2014 Document Revised: 03/29/2018 Document Reviewed: 08/05/2016 [employer] Patient Education [employer]. Follow Up Care 11/22/2022 07:59:07 With:ЕКАТЕРИНА JO DPM, Surgery Address: [address] [place] [address], [address] [facility] [place], [place] [address]- When: Unknown Comments:Follow up in office november 30 @ 1PM [facility] 11-24-2022 Summary of episod e note Discharge Instructions Thank you for allowing [facility] to assist you with your healthcare needs. The following is important discharge information regarding your hospital visit. What to do next Follow Up Appointments Follow Up with ЕКАТЕРИНА JO DPM, Surgery When Why: Follow up in office november 30 @ 1PM Where: [address] [facility] [address] [facility] [place], [place] [address]- Allergies NKA Medications Please ask your primary doctor or pharmacist before taking any other medication not listed, including over the counter drugs, herbal medications, vitamins and or supplements as they may interact with your home medications. What How Much When Instructions Last Dose Unchanged acetaminophen-oxyCODONE (acetaminophen-oxyCODONE 325 mg-5 mg oral tablet) 1 tab(s) by mouth Every 6 hours as needed for for pain Unchanged linezolid (linezolid 600 mg oral tablet) 1 tab(s) by mouth Every 12 hours Duration: 14 Days Unchanged mupirocin topical (mupirocin 2% topical ointment) 1 application Topical Every day Unchanged naproxen (Aleve 220 mg oral tablet) 2 tab(s) by mouth Every day as needed for as needed for pain Unchanged sertraline (sertraline 50 mg oral tablet) 0.5 tab(s) by mouth Every day Please take this list to your next doctor s visit. Bring all medications you take, including over the counter medications, herbals and other supplements with you to your doctor s visit. Patients and families are reminded to discard old lists and to update any records with all medication providers or retail pharmacies. Education Materials Toe Amputation, Care After This sheet gives you information about how to care for yourself after your procedure. Your health care provider may also give you more specific instructions. If you have problems or questions, contact your health care provider. What can I expect after the procedure? After the procedure, it is common to have some pain. Pain usually improves within a week. Follow these instructions at home: Medicines Take evln-cii-wxzcbde and prescription medicines only as told by your health care provider. If you were prescribed an antibiotic medicine, take it as told by your health care provider. Do not stop taking the antibiotic even if you start to feel better. Ask your health care provider if the medicine prescribed to you: ? Requires you to avoid driving or using heavy machinery. ? Can cause constipation. You may need to take actions to prevent or treat constipation, such as: ? Drink enough fluid to keep your urine pale yellow. ? Take pfub-ljr-ivuopnx or prescription medicines. ? Eat foods that are high in fiber, such as beans, whole grains, and fresh fruits and vegetables. ? Limit foods that are high in fat and processed sugars, such as fried or sweet foods. Managing pain, stiffness, and swelling If directed, put ice on the painful area. ? Put ice in a plastic bag. ? Place a towel between your skin and the bag. ? Leave the ice on for 20 minutes, 2 3 times a day. Move your other toes often to reduce stiffness and swelling. Raise (elevate) your foot above the level of your heart while you are sitting or lying down. Incision care Follow instructions from your health care provider about how to take care of your incision. Make sure you: ? Wash your hands with soap and water before and after you change your bandage (dressing). If soap and water are not available, use hand manager front office. ? Change your dressing as told by your health care provider. ? Leave stitches (sutures), skin glue, or adhesive strips in place. These skin closures may need to stay in place for 2 weeks or longer. If adhesive strip edges start to loosen and curl up, you may trim the loose edges. Do not remove adhesive strips completely unless your health care provider tells you to do that. Check your incision area every day for signs of infection. Check for: ? More redness, swelling, or pain. ? Fluid or blood. ? Warmth. ? Pus or a bad smell. Bathing Do not take baths, swim, use a hot tub, or soak your foot until your health care provider approves. Ask your health care provider if you may take showers. You may only be allowed to take sponge baths. If your dressing has been removed, you may wash your skin with warm water and soap. Activity Rest as told by your health care provider. Avoid sitting for a long time without moving. Get up to take short walks every 1 2 hours. This is important to improve blood flow and breathing. Ask for help if you feel weak or unsteady. If you have been given crutches, use them as told by your health care provider. Do exercises as told by your health care provider. Return to your normal activities as told by your health care provider. Ask your health care provider what activities are safe for you. General instructions Do not drive for 24 hours if you were given a sedative during your procedure. Do not use any products that contain nicotine or tobacco, such as cigarettes, e-cigarettes, and chewing tobacco. If you need help quitting, ask your health care provider. Ask your health care provider about wearing supportive shoes or using inserts to help with your balance when walking. If you have diabetes, keep your blood sugar under good control and check your feet daily for sores or open areas. Keep all follow-up visits as told by your health care provider. This is important. Contact a health care provider if: You have signs of infection at your incision, such as: ? Redness, swelling, or pain. ? Fluid or blood. ? Warmth. ? Pus or a bad smell. You have a fever or chills. Your dressing is soaked with blood. Your sutures tear or they separate. You have numbness or tingling in your toes or foot. Your foot is cool or pale, or it changes color. Your pain does not improve after you take your medicine. Get help right away if you have: Pain or swelling near your incision that gets worse or does not go away. Red streaks on your skin near your toes, foot, or leg. Pain in your calf or behind your knee. Shortness of breath. Chest pain. Summary After the procedure, it is common to have some pain. Pain usually improves within a week. If you were prescribed an antibiotic medicine, take it as told by your health care provider. Do not stop taking the antibiotic even if you start to feel better. Change your dressing as told by your health care provider. Contact a health care provider if you have signs of infection. Keep all follow-up visits as told by your health care provider. This is important. This information is not intended to replace advice given to you by your health care provider. Make sure you discuss any questions you have with your health care provider. Document Released: 03/27/2016 Document Revised: 08/06/2019 Document Reviewed: 04/08/2019 [employer] Patient Education 2020 [employer] Moderate Conscious Sedation, Adult, Care After These instructions provide you with information about caring for yourself after your procedure. Your health care provider may also give you more specific instructions. Your treatment has been planned according to current medical practices, but problems sometimes occur. Call your health care provider if you have any problems or questions after your procedure. What can I expect after the procedure? After your procedure, it is common: To feel sleepy for several hours. To feel clumsy and have poor balance for several hours. To have poor judgment for several hours. To vomit if you eat too soon. Follow these instructions at home: For at least 24 hours after the procedure: Do not: ? Participate in activities where you could fall or become injured. ? Drive. ? Use heavy machinery. ? Drink alcohol. ? Take sleeping pills or medicines that cause drowsiness. ? Make important decisions or sign legal documents. ? Take care of children on your own. Rest. Eating and drinking Follow the diet recommended by your health care provider. If you vomit: ? Drink water, juice, or soup when you can drink without vomiting. ? Make sure you have little or no nausea before eating solid foods. General instructions Have a responsible adult stay with you until you are awake and alert. Take zeby-cff-cjtpyvs and prescription medicines only as told by your health care provider. If you smoke, do not smoke without supervision. Keep all follow-up visits as told by your health care provider. This is important. Contact a health care provider if: You keep feeling nauseous or you keep vomiting. You feel light-headed. You develop a rash. You have a fever. Get help right away if: You have trouble breathing. This information is not intended to replace advice given to you by your health care provider. Make sure you discuss any questions you have with your health care provider. Document Released: 02/04/2014 Document Revised: 03/29/2018 Document Reviewed: 08/05/2016 [employer] Patient Education 2020 [employer]. Additional Information VACCINATE! IT SAVES LIVES! Members of the community who have not yet received the COVID-19 vaccine and would like to receive it can visit one of [facility] vaccine clinics. There are many vaccine clinic locations within the [facility]. For locations and available times, please visit https://gettheshot.coronavirus.[place] o[place].gov/. It is important to note that some COVID mobile vaccine clinics are held outdoors and may be canceled in rainy or stormy conditions. To learn more about pediatric vaccinations (ages 5-11), we invite you to visit the [facility] webpage. https://www.[facility].org/p ages/8628-Bdviu-Avydixedjaa-Freq canbtu-Seszh-Cjqzalmyf.html To learn more about the COVID-19 vaccine, we invite you to visit the CDC website for a list of frequently asked questions.https://www.cdc.gov/co ronavirus/2019-ncov/vaccines/faq .html [employer] Patient Portal Access Instructions: Stay connected with your healthcare team and access your personal medical information anytime with the [facility] Patient Portal. Please follow the directions below to create your [employer] account: 1.Access the email account you provided upon registration to the hospital/physician office.2.Look for an invitation email from [facility].3.Open the email and access the invitation link: Accept Invitation to [facility].4.Fill in the required seals to create your account. To access your account, visit [email or web address]. Click the blue button labeled Access Patient Portal and then log in with the username and password that you created in the steps above. You will be able to view your test results, lab results, a summary of your visits, upcoming appointments and more. There is also a convenient messaging option where you can send secure messages to your provider. In addition, you will have the ability to download any documents or summaries to your computer and/or send the information securely to a physician. Remember that your healthcare information is confidential, so carefully consider who you will allow to register on the [facility] [employer] [facility] [employer] Patient Portal for access to your information. You can also access the [facility] [employer] Patient Portal on the [facility]. Simply click on Patient Portal and then log into your account. If you would like to receive a full copy of your medical records, please contact the [facility] Medical Records Department by calling [phone], Sunday through Sunday between 8 a.m. and 4:30 p.m. HOW TO SAFELY DISPOSE OF PRESCRIPTION MEDICATIONS Please use one of the following methods to safely dispose of your unused medications. 1.Use a drug disposal kit: the drug disposal pouch allows you to safely discard your old and unused drugs. Ask your nurse to give you one when you are discharged.2.Visit a local take-back location: Many local pharmacies and police departments have programs that collect old and unwanted prescription drugs. Call your local pharmacy or go to http://BuySimple.Lightbox/5B9Ok7u to find one close to you.3.Make use of household items: Use cat litter or old coffee grounds to dispose medications if other options are not available. Mix your drugs with these household products, seal them in an airtight container and throw it into the garbage. Call [facility]: [phone] to be sure your drugs can be disposed of in this way. Some medicines may require a different approach.4.Never flush your medications down the toilet. IF YOU HAVE BEEN PRESCRIBED AN OPIOID FOR PAIN If you have been prescribed an opioid (such as hydrocodone, oxycodone or morphine), it is critical to understand the possible side effects and risks of opioid pain medications. Even when taken as directed, opioids can have several side effects including: Tolerance, meaning you might need to take more of a medication for the same pain relief. Nausea, vomiting and/or constipation. Sleepiness, dizziness, dry mouth, confusion, depression or itching. Physical dependence, meaning you have withdrawal symptoms when a medication is stopped, can develop within a few days. KNOW YOUR RESPONSIBILITIES It is important to know exactly how much and how often to take the opioid pain medications you are prescribed. Never take opioids in higher amounts or more often than prescribed. Do not combine opioids with alcohol or other drugs that cause drowsiness, such as benzodiazepines, also known as benzos, including diazepam and alprazolam, muscle relaxants or sleep aids. Never sell or share prescription opioids. This is illegal. Store opioids in a secure place and out of reach of others (including children, family, friends and visitors). The last page of this document has been signed and retained as a CHART COPY. Signatures Patient Education Materials Toe Amputation, Care After Moderate Conscious Sedation, Adult, Care After Medication Leaflets My discharge plan and instructions have been reviewed and explained to me and I,LANI YUSUF understand my current condition and have read and understand these discharge instructions. I have received a written copy of the plan/instructions. If I have questions, I am aware that I should contact my doctor. 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 Family's history: negative. Review of Systems Ear/Nose/Mouth/Throat: Negative except as documented in history of present illness. Respiratory: Negative except as documented in history of present illness. Cardiovascular: Negative except as documented in history of present illness. Gastrointestinal: Negative except as documented in history of present illness. Genitourinary: Negative except as documented in history of present illness. Endocrine: Negative except as documented in history of present illness. Musculoskeletal: Negative except as documented in history of present illness. Integumentary: Negative except as documented in history of present illness. Neurologic: Negative except as documented in history of present illness. Health Status Allergies: Allergic Reactions (Selected) NKA, Allergies (1) ActiveReaction NKANone Documented Current medications: (Selected) Inpatient Medications Ordered LR 1000 mL: 125 mL/hr, Intravenous cefOXitin: 1 gram(s), 200 mL/hr, IV Piggyback, PREOP pharm Documented Medications Documented Aleve 220 mg oral tablet: 440 mg, 2 tab(s), Oral, Daily, PRN: as needed for pain acetaminophen-oxyCODONE 325 mg-5 mg oral tablet: 1 tab(s), Oral, q6h, PRN: for pain, 12 tab(s), 0 Refill(s) linezolid 600 mg oral tablet: 600 mg, 1 tab(s), Oral, q12hr, for 14 day(s) mupirocin 2% topical ointment: 1 va, Topical, Daily, 0 Refill(s) sertraline 50 mg oral tablet: 25 mg, 0.5 tab(s), Oral, Daily, 0 Refill(s), Medications (2) Active Scheduled: (1) ceFOXitin 1 gram(s), IV Piggyback, PREOP pharm Continuous: (1) Lactated Ringers Infusion 1000 mL 1,000 mL, Intravenous, 125 mL/hr PRN: (0) Problem list: No problem items selected or recorded., Active Problems (2) Neuropathy OA (osteoarthritis) Histories Past Medical History: No active or resolved past medical history items have been selected or recorded. Family History: No family history items have been selected or recorded. Procedure history: Amputation of right great toe ([id number]) in 2021 at 66 Years. Cholecystectomy ([id number]). 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 Physical Examination Vital Signs 11/24/2022 8:02 EDT Temperature Temporal Artery 35.6 DegC Apical Heart Rate 62 bpm Respiratory Rate 18 br/min Systolic Blood Pressure Invasive 138 mmHg Diastolic Blood Pressure Invasive 65 mmHg Blood Pressure Method Automatic Blood Pressure Location Left arm Blood Pressure Cuff Size Medium Vital Signs(last 24 hrs) Last Charted Resp Rate 18 br/min (NOV 24 08:02) Measurements from flowsheet : Measurements 11/24/2022 8:02 EDT Height 162.6 cm Admission Weight 88.6 kg [place] Body Weight 54.74 kg Admission Body Mass Index 33.51 m2 Pain assessment: Pain Assessment 11/24/2022 8:02 EDT Primary Pain Intensity 0 Pain Scale Type 0-10 Pain scale . General: Alert and oriented. Airway: Normal neck range of motion. Mallampati classification: II (soft palate, fauces, uvula visible). Head: Normocephalic. Dentition Evaluation: Intact, Own teeth. Neck: Full range of motion. Respiratory: Lungs are clear to auscultation. Cardiovascular: Normal rate. Heart Sounds: Normal. Gastrointestinal: Soft. Musculoskeletal Normal range of motion. Integumentary: Intact, Warm, Dry. Neurologic: Alert, Oriented. Review / Management Results review: No qualifying data available , Lab results 11/24/2022 8:21 EDT Lactated Ringers Injection Begin Bag 1,000 mL mL 11/24/2022 8:20 EDT Infectious Disease Symptoms Patient states no symptoms Teaching Evaluation Needs further teaching Safety Brochure Information Reviewed Unable to complete Tarun Collazo Video Viewed No Prev Test Positive/Diagnosis w/COVID-19 No Admission Note-Nursing Same Day Patient History (Modified) 11/24/2022 8:14 EDT Individuals Taught Patient Learning Readiness Willing to learn Barriers to Learning None evident Teaching Method Explanation, Printed materials Preferred Spoken Language Ghanaian Preferred Written Language Ghanaian Equipment Education SCDs 11/24/2022 8:09 EDT Continuous IV Infusions LR Forearm Right 11/24/2022 20 gauge Peripheral IV Activity: Insert new site Peripheral IV Dressing Condition: Clean, Dry, Intact Peripheral IV Dressing Activity: Applied, Transparent dressing Peripheral IV Line Status/Patency: Continuous infusion Peripheral IV Line Care: Secured with tape Peripheral IV Site Condition: No complications Peripheral IV Equipment: Extension set, PRN Adaptor Peripheral IV Number of Attempts: 1 11/24/2022 8:05 EDT Urinary Elimination Voiding, no difficulties IV Present Present Allergies No Anesthesia Extension Set Applied Yes Cereal Popper On Yes Consent Form Signed Yes Patient Dressed In Hospital gown CH Preoperative Wash/Wipe Night before procedure, Day of procedure History & Physical Update On Chart Yes History & Physical On Chart Yes Obstructive Sleep Apnea Assess Completed No Belongings At Bedside Dress, Shoes, Undergarments Personal Home Medications Received No home medications were brought in Belongings Sent Home None Belongings to Security/Secured in Dept None NPO Status Maintained Patient ID Band on and Verified Yes Implants Verified Yes Pacemaker/AICD Verified Yes Site Verified by Patient/Family Yes Anesthesia Consent Signed Yes Blood Consent Signed Yes Last Fluid Intake 11/23/2022 19:00 Last Food Intake 11/23/2022 18:30 Last Void 11/24/2022 8:08 11/24/2022 8:02 EDT Height 162.6 cm Admission Weight 88.6 kg [place] Body Weight 54.74 kg Admission Body Mass Index 33.51 m2 Temperature Temporal Artery 35.6 DegC Apical Heart Rate 62 bpm Respiratory Rate 18 br/min Systolic Blood Pressure Invasive 138 mmHg Diastolic Blood Pressure Invasive 65 mmHg Blood Pressure Method Automatic Blood Pressure Location Left arm Blood Pressure Cuff Size Medium Primary Pain Intensity 0 Pain Scale Type 0-10 Pain scale Heart Rhythm Irregular Dorsalis Pedis Pulse, Left 2+ Normal Dorsalis Pedis Pulse, Right 2+ Normal Respirations Unlabored All Lobes Breath Sounds Clear Oxygen Therapy Room air Oxygen Saturation 95 % Abdomen Description Non-distended, Soft Bowel Sounds All Quadrants Present Skin Temperature Warm Skin Description [place], Dry Skin Integrity Intact Skin Moisture General Dry Characteristics of Speech Clear Level of Consciousness Alert Strength All Extremities Strong Affect/Behavior Appropriate, Calm, Cooperative Orientation Oriented x 4 Patient Identified Identification band, Verbal Arrival Mode Ambulatory Ghazala Motor (2) Moves 4 extremities voluntarily or on command Ghazala Respirations (2) Spontaneous respiration without support, RR > 10 Ghazala Blood Pressure (2) BP 20% above or below preanesthetic level Ghazala Pulse (2) Pulse 20% above or below preanesthetic level Ghazala Oxygen Saturation (2) 94% or more Ghazala Level of Consciousness (2) Fully awake Ghazala III Score 12 Orientation Assessment Oriented x 4 Activity Status ADL Ambulating in room, Awake Activity Assistance Independent 11/23/2022 8:46 EDT CYNDYumrashmi ECTORBernard . Assessment and Plan [place] [employer] of Anesthesiologists (ASA) physical status classification: Class III. Anesthetic Preoperative Plan Premedication: intravenous. Anesthetic technique: MAC. Induction: intravenously. Maintenance airway: Mask. Postoperative pain management: Per surgeon. Risks discussed: nausea, vomiting, headache, sore throat, dental injury, hypotension, allergic reaction, serious complications. Informed consent: signed by patient. Digitally Signed by RAJINDER EVANS on 11/24/2022 08:23 AM [facility] 11-22-2022 Progress note Note Date/Time November 22, 2022 9:49am [facility] [address] [place] [address] Progress Note - Wound Care 11/22/22 0946 MR#: [id number] Acct: [id number] Name: LANI YUSUF KWABENA Rep #:[id number] : 1955 67 From: Mary Basilio NP, NP-C PCP: MELITON Bernal Status:REG RCR Location: History of Present Illness Date of Service: 11/22/22 Chief Complaint: Follow-up multiple wounds of right great toe plantar side rightsecond third and fourth toe right heel and left second toe all from her idiopathic neuropathy. Patient refuses to stay off her feet and is on working 10 to 12 hours a day. She also likes to pick at her wounds which does not help. 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 She was seen in my office about 6 months ago and was given to her calcium alginate. Still using that and Neosporin on her wounds. She feels the toes are from the shoe she pumped it up too high and her toes wereextended past the ends and she does not realize that they are getting hit or rubbing when she walks. The right second and third fourth toe are all superficial wounds that are now healed. But the right third toe is stayed erythematous and swollen. X-ray and MRI showsosteomyelitis in that joint. She does have an appointment with infectious disease next Sunday, November 15. The right heel looks like she had some skin cracking and is picking at it and opened some wounds on her heel. Again very superficial and has healed. The worst would be the right foot plantar that is open and has some depth. The left second toe at the tip is mostly healed she has a lot of callus around the healing area that I will try to debride off that may have some bleeding thatwe might need to cover for 1 more week otherwise will be healed. Update on right foot, seen by infectious disease and he approved of the linzoid antibiotic to be used till surgery. We also sent her to Dr. Jo a maintenance mechanic millwright in [place]. And he is going to perform a a transmetatarsal amputation of the right foot. Progress of Wound: Patient was seen by Dr. Jo over in [place]. He is taking her to surgery this Sunday. We will continue seeing her until she has the surgery he is going to do a transmetatarsal amputation of the right foot. Dr. Hernandez met he agreed with using linzoid. she will then follow-up with him unless he wants us to follow it up on the wounds but he should finish her up. She stopped taking her sertraline 25 daily because of the interaction, but he states she can continue taking the Zoloft. We will continue the same wound care until Dr. Jo does the surgery Subjective Subjective Patient is very anxious about having surgery done this Sunday but happy will be over with Objective Data Objective Data At this time nothing is really changed on any of the wounds the she needs an amputation he will do a flap and then we will not have to worry about any more ulcers on that right foot. On the left second toe she is developing a callus that she was picking at. Now it is closed we will put in a pad over that toe tosee if that will help with preventing callus development. Basically patient would be transferred his care and will not have to return after today. Vital Signs: Vital Signs Temp Pulse Resp BP O2 Del Method 97.3 F L 60 20 H 163/58 H Room Air 11/22/22 08:08 11/22/22 08:08 11/22/22 08:08 11/22/22 08:08 11/15/22 11:18 Oxygen Delivery Method Room Air Weight: 195 lb Body Mass Index (BMI) 34.5 Lab / Micro Data Attestation: I reviewed the patient's lab results. Micro: Microbiology 11/01/22 10:40 Tissue Ulcer - 3rd Toe Gram Stain - Final 11/01/22 10:40 Tissue Ulcer - 3rd Toe Wound Culture - Final Enterococcus faecalis Staphylococcus haemolyticus 11/01/22 10:40 Tissue Ulcer - 3rd Toe Anaerobic Culture - Final No anaerobic bacteria isolated. Physical Exam Const oriented x3 General Appearance: cooperative Exam Limitations: no limitations HEENT normocephalic Eyes PERRL Resp normal respiratory effort Effort and Inspection: able to speak in complete sentences Auscultation: clear to auscultation bilaterally Cardio regular rate and regular rhythm Palpation: normal PMI Rate: regular rate Rhythm: regular rhythm Extremity Extremity Narrative: Right foot has wounds on right plantar amputated partial of the right great toe and open wounds on second third and fourth toe plantar side. Right heel is openwounds from cracked skin and left second toe is open also General Extremity: amputation Skin Wounds: wounds noted Neuro oriented x3 Psych Appearance: grossly normal Speech: normal speech Thought Content: normal thought content Judgement: judgement good Debridement Note Debridement Note Wound debrided: Right plantar ulcer Wound Grade/Stage: Stage II Type of Debridement: Excisional debridement Anesthesia Used: 5% Lidocaine Gel Depth: Down to and including healthy tissue and in the subcutaneous layer Percentage of wound debrided: 100 Instrument Used: 5mm curette Tissue Removed: Fibrin Severity: Fat Layer Exposed Amount of bleeding with debridement: Mild Bleeding Controlled with: Compression and gauze Patient tolerated procedure: Patient tolerated procedure well Post-Debridement Measurements and Additional Note: Post-Debridement Measurements/Treatment WC - Nurse 1 - General Ulcer Assessment Start: 11/01/22 10:02 Freq: Status: Active Protocol: SANDRO Activity Type Activity Date Activity User E-sign Co-sign Detail Recorded Client Recorded Date Recorded By Document 11/01/22 10:19 [facility] [id number] 11/01/22 10:28 BM Document 11/08/22 10:22 BM [id number] 11/08/22 10:33 BM Document 11/15/22 11:18 BMF [id number] 11/15/22 11:27 BMF Document 11/22/22 08:08 DL [id number] 11/22/22 08:12 DL 11/01/22 11/08/22 11/15/22 10:19 10:22 11:18 - Today's Visit Information Type of service Follow-up Visit Follow-up Visit 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 (Physician/METAL RIVET MACHINE OPERATOR (Physician/METAL RIVET MACHINE OPERATOR ) ) ) Arrival Mode Ambulatory Ambulatory Ambulatory Transfer Assistance None None None Accompanied by boyfriend BOYFRIEND BOYFRIEND Patient Identification Verified (Name & Yes Yes Yes ) Patient Requires Transmission-Based No No No Precautions Height and Weight Weight Measurement Method Estimated by Patient Body Mass Index (BMI) 34.5 34.5 34.5 BMI Classification Obese Obese Obese Vital Signs Temperature (97.8 F-99.1 F) 97.4 F L 96.8 F L 96.4 F L Temperature Source Temporal Temporal Temporal Pulse Rate (60-100) 56 L 54 L 59 L Pulse Location Monitor Monitor Monitor Respiratory Rate (12-18) 16 16 16 Respiratory rate source Observation Observation Observation Oxygen Delivery Method Room Air Room Air Room Air Blood Pressure (90/60-120/80) 152/56 H 155/74 H 149/44 H Blood Pressure Mean (mm Hg) 88 101 79 Source Monitor Monitor Monitor Position Sitting Sitting Sitting Blood Pressure Location Left Arm Left Arm Left Arm History Since Last Visit- (Skip if this is Patient's initial visit) Have you changed medications since your No No No last visit? Any new allergies or adverse reactions No No No Had a fall/change in ADL's that may No No No increase risk of falls Signs or symptoms of abuse and/or No No No neglect since last visit Have you been in the hospital since your No No No last visit? Has dressing in place as prescribed Yes No No Has compression in place as prescribed N/A N/A N/A Has offloadiing in place as prescribed N/A N/A No Experienced any changes in pain level or No No No management Left Footwear Regular Shoe Regular Shoe Regular Shoe Right Footwear Regular Shoe Regular Shoe Regular Shoe Pain Scale: 0-10 Numeric Is Patient Pain Free? Yes Yes Yes 11/22/22 08:08 - Today's Visit Information Type of service 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 ) Arrival Mode Ambulatory Transfer Assistance None Accompanied by Patient Identification Verified (Name & Yes ) Patient Requires Transmission-Based No Precautions Height and Weight Weight Measurement Method Body Mass Index (BMI) 34.5 BMI Classification Obese Vital Signs Temperature (97.8 F-99.1 F) 97.3 F L Temperature Source Temporal Pulse Rate (60-100) 60 Pulse Location Monitor Respiratory Rate (12-18) 20 H Respiratory rate source Observation Oxygen Delivery Method Blood Pressure (90/60-120/80) 163/58 H Blood Pressure Mean (mm Hg) 93 Source Monitor Position Blood Pressure Location History Since Last Visit- (Skip if this is Patient's initial visit) Have you changed medications since your No last visit? Any new allergies or adverse reactions No Had a fall/change in ADL's that may No increase risk of falls Signs or symptoms of abuse and/or No neglect since last visit Have you been in the hospital since your No last visit? Has dressing in place as prescribed Yes Has compression in place as prescribed N/A Has offloadiing in place as prescribed Yes Experienced any changes in pain level or No management Left Footwear Right Footwear Pain Scale: 0-10 Numeric Is Patient Pain Free? Yes - Nurse 1 - General Ulcer Measurement Start: 11/01/22 10:02 Freq: Status: Active Protocol: Activity Type Activity Date Activity User E-sign Co-sign Detail Recorded Client Recorded Date Recorded By Document 11/01/22 10:19 [facility] [id number] 11/01/22 10:28 [facility] Document 11/08/22 10:22 [facility] [id number] 11/08/22 10:33 BMF Document 11/15/22 11:18 BMF [id number] 11/15/22 11:27 BMF Document 11/22/22 08:08 DL [id number] 11/22/22 08:12 DL 11/01/22 11/08/22 11/15/22 10:19 10:22 11:18 Wound Center Nurse 1 #8- R 3RD TOE -Combined with other wound No No -Current Size (cm) - Length 0.1 0.1 -Current Size (cm) - Width 0.1 0.1 -Current Size (cm) - Depth 0.1 0.1 -Total Square Cm 0.01 0.01 -Date of Last Picture (Recall this 11/01/22 field) -Photo Taken Yes No -Epithelialization Large 67-100% -Tunneling No -Undermining/Tunneling No -Circular Undermining No -Exudate Amt None Present -Texture (Sammie-wound Skin Appearance) Assessed, Assessed Scarring -Moisture (Sammie-wound Skin Appearance) Assessed,Dry/ Assessed Scaly -Color (Sammie-wound Skin Appearance) Assessed Assessed -Temperature (Sammie-wound Skin No Abnormality No Abnormality Appearance) (Pt Warm) (Pt Warm) -Tenderness on Palpation (Sammie-wound No No Skin Appearance) -Ulcer Cleansing Rinsed/ Rinsed/ Irrigated with Irrigated with Saline Saline -Foul Odor after Cleansing No No -Anesthetic Used 5% Lidocaine 5% Lidocaine Gel Gel #3- L 2ND TOE PLANTAR -Combined with other wound No No No -Current Size (cm) - Length 0.4 0.2 0.1 -Current Size (cm) - Width 0.5 0.2 0.1 -Current Size (cm) - Depth 0.2 0.1 0.1 -Total Square Cm 0.20 0.04 0.01 -Date of Last Picture (Recall this 11/01/22 11/15/22 field) -Photo Taken Yes No Yes -Epithelialization Small 1-33% Medium 34-66% -Tunneling No No -Undermining/Tunneling No No -Circular Undermining No No -Exudate Amt Medium Small -Exudate Type Serosanguineous Serosanguineous -Wound Margin Distinct, Distinct, Outline Outline Attached Attached -Granulation Amt Large (67-100%) Large (67-100%) -Granulation Quality Red Red -Slough/Fibrin Yes Yes -Necrosis Amt Small (1-33%) Small (1-33%) -Necrotic Tissue Type Adherent Slough Adherent Slough -Structure Exposed -Texture (Sammie-wound Skin Appearance) Assessed, Assessed Assessed,Callus Scarring -Moisture (Sammie-wound Skin Appearance) Assessed,Dry/ Assessed,Dry/ Assessed Scaly Scaly -Color (Sammie-wound Skin Appearance) Assessed Assessed Assessed -Temperature (Sammie-wound Skin No Abnormality No Abnormality No Abnormality Appearance) (Pt Warm) (Pt Warm) (Pt Warm) -Tenderness on Palpation (Sammie-wound No No No Skin Appearance) -Ulcer Cleansing Rinsed/ Rinsed/ Rinsed/ Irrigated with Irrigated with Irrigated with Saline Saline Saline -Foul Odor after Cleansing No No No -Anesthetic Used 5% Lidocaine 5% Lidocaine 5% Lidocaine Gel Gel Gel #10 R 2nd toe -Current Size (cm) - Length -Current Size (cm) - Width -Current Size (cm) - Depth -Total Square Cm -Photo Taken -Exudate Amt -Exudate Type -Wound Margin -Granulation Amt -Granulation Quality -Necrosis Amt -Structure Exposed -Texture (Sammie-wound Skin Appearance) -Moisture (Sammie-wound Skin Appearance) -Color (Sammie-wound Skin Appearance) -Temperature (Sammie-wound Skin Appearance) -Ulcer Cleansing -Foul Odor after Cleansing -Anesthetic Used #5- R FOOT PLANTAR -Combined with other wound No No No -Current Size (cm) - Length 1.3 1.1 1.3 -Current Size (cm) - Width 1.1 1 1.1 -Current Size (cm) - Depth 0.2 0.4 0.2 -Total Square Cm 1.43 1.1 1.43 -Date of Last Picture (Recall this 11/01/22 11/15/22 field) -Photo Taken Yes No Yes -Epithelialization Small 1-33% Small 1-33% Small 1-33% -Tunneling No No No -Undermining/Tunneling No No No -Circular Undermining No No No -Exudate Amt Medium Medium Medium -Exudate Type Serosanguineous Serosanguineous Serosanguineous -Wound Margin Distinct, Distinct, Distinct, Outline Outline Outline Attached Attached Attached -Granulation Amt Large (67-100%) Large (67-100%) Large (67-100%) -Granulation Quality Red Red [place] -Slough/Fibrin Yes No No -Necrosis Amt Small (1-33%) None Present (0 None Present (0 %) %) -Necrotic Tissue Type Adherent Slough -Structure Exposed -Texture (Sammie-wound Skin Appearance) Assessed, Assessed,Callus Assessed, Scarring Scarring -Moisture (Sammie-wound Skin Appearance) Assessed,Dry/ Assessed,Dry/ Assessed Scaly Scaly -Color (Sammie-wound Skin Appearance) Assessed Assessed Assessed -Temperature (Sammie-wound Skin No Abnormality No Abnormality No Abnormality Appearance) (Pt Warm) (Pt Warm) (Pt Warm) -Tenderness on Palpation (Sammie-wound No No No Skin Appearance) -Ulcer Cleansing Rinsed/ Rinsed/ Rinsed/ Irrigated with Irrigated with Irrigated with Saline Saline Saline -Foul Odor after Cleansing No No No -Anesthetic Used 5% Lidocaine 5% Lidocaine 5% Lidocaine Gel Gel Gel 11/22/22 08:08 Wound Center Nurse 1 #8- R 3RD TOE -Combined with other wound -Current Size (cm) - Length -Current Size (cm) - Width -Current Size (cm) - Depth -Total Square Cm -Date of Last Picture (Recall this field) -Photo Taken -Epithelialization -Tunneling -Undermining/Tunneling -Circular Undermining -Exudate Amt -Texture (Sammie-wound Skin Appearance) -Moisture (Sammie-wound Skin Appearance) -Color (Sammie-wound Skin Appearance) -Temperature (Sammie-wound Skin Appearance) -Tenderness on Palpation (Sammie-wound Skin Appearance) -Ulcer Cleansing -Foul Odor after Cleansing -Anesthetic Used #3- L 2ND TOE PLANTAR -Combined with other wound -Current Size (cm) - Length 0.1 -Current Size (cm) - Width 0.1 -Current Size (cm) - Depth 0.1 -Total Square Cm 0.01 -Date of Last Picture (Recall this field) -Photo Taken No -Epithelialization -Tunneling -Undermining/Tunneling -Circular Undermining -Exudate Amt Small -Exudate Type Serosanguineous -Wound Margin Distinct, Outline Attached -Granulation Amt Small (1-33%) -Granulation Quality Pale,[place] -Slough/Fibrin -Necrosis Amt Small (1-33%) -Necrotic Tissue Type Adherent Slough -Structure Exposed N/A -Texture (Sammie-wound Skin Appearance) Callus,Scarring -Moisture (Sammie-wound Skin Appearance) No Abnormality -Color (Sammie-wound Skin Appearance) No Abnormality -Temperature (Sammie-wound Skin No Abnormality Appearance) (Pt Warm) -Tenderness on Palpation (Sammie-wound No Skin Appearance) -Ulcer Cleansing Soap and Water -Foul Odor after Cleansing No -Anesthetic Used 5% Lidocaine Gel #10 R 2nd toe -Current Size (cm) - Length 0.7 -Current Size (cm) - Width 1.1 -Current Size (cm) - Depth 0.1 -Total Square Cm 0.77 -Photo Taken Yes -Exudate Amt Small -Exudate Type Serosanguineous -Wound Margin Distinct, Outline Attached -Granulation Amt Large (67-100%) -Granulation Quality Pale,[place] -Necrosis Amt None Present (0 %) -Structure Exposed N/A -Texture (Sammie-wound Skin Appearance) Callus,Scarring -Moisture (Sammie-wound Skin Appearance) No Abnormality -Color (Sammie-wound Skin Appearance) No Abnormality -Temperature (Sammie-wound Skin No Abnormality Appearance) (Pt Warm) -Ulcer Cleansing Soap and Water -Foul Odor after Cleansing No -Anesthetic Used 5% Lidocaine Gel #5- R FOOT PLANTAR -Combined with other wound -Current Size (cm) - Length 0.9 -Current Size (cm) - Width 0.9 -Current Size (cm) - Depth 0.2 -Total Square Cm 0.81 -Date of Last Picture (Recall this field) -Photo Taken No -Epithelialization -Tunneling -Undermining/Tunneling -Circular Undermining -Exudate Amt Small -Exudate Type Serosanguineous -Wound Margin Thickened -Granulation Amt Large (67-100%) -Granulation Quality Pale,[place] -Slough/Fibrin -Necrosis Amt Small (1-33%) -Necrotic Tissue Type Adherent Slough -Structure Exposed N/A -Texture (Sammie-wound Skin Appearance) Callus,Scarring -Moisture (Sammie-wound Skin Appearance) No Abnormality -Color (Sammie-wound Skin Appearance) No Abnormality -Temperature (Sammie-wound Skin No Abnormality Appearance) (Pt Warm) -Tenderness on Palpation (Sammie-wound Skin Appearance) -Ulcer Cleansing Soap and Water -Foul Odor after Cleansing No -Anesthetic Used 5% Lidocaine Gel WC - Nurse 2 - General Ulcer CM Notes Start: 11/01/22 10:02 Freq: Status: Active Protocol: Activity Type Activity Date Activity User E-sign Co-sign Detail Recorded Client Recorded Date Recorded By Document 11/01/22 10:33 MW [id number] 11/01/22 10:47 MW Document 11/08/22 11:05 MW [id number] 11/08/22 11:16 MW Document 11/15/22 11:34 MW [id number] 11/15/22 11:43 MW Document 11/22/22 08:26 MW [id number] 11/22/22 08:38 MW 11/01/22 11/08/22 11/15/22 10:33 11:05 11:34 Wound Center Nurse 2 #8- R 3RD TOE -Time 10:34 11:06 -Correct Patient Yes Yes -Correct Side, Site, Position Yes Yes -Correct Procedure Yes Yes -Procedure Performed Yes No -Type of Procedure Debridement -Clinical Debridement Subcutaneous -Tissue Removed Subcutaneous -Post Debridement (cm) - Length 1.0 0 -Post Debridement (cm) - Width 0.5 0 -Post Debridement (cm) - Depth 0.2 0 -Total Square (Post) (cm) 0.50 0 -Area of Debridement (cm) - Length 1.0 -Area of Debridement (cm) - Width 0.5 -Total Square (Area) (cm) 0.50 -Tunneling No No -Undermining/Tunneling No No -Circular Undermining No No -Wound/Ulcer Outcome Not Healed Healed- Epithelialized -Ulcer Cleansing Rinsed/ Irrigated with Saline -Foul Odor after Cleansing No -Bioengineered Tissue No -Bleeding Controlled with Pressure -Treatment Response Procedure Tolerated Well -Offloading No -Debridement - Subq, 1st 20sq cm Yes #3- L 2ND TOE PLANTAR -Time 10:35 11:08 11:35 -Correct Patient Yes Yes Yes -Correct Side, Site, Position Yes Yes Yes -Correct Procedure Yes Yes Yes -Procedure Performed Yes Yes Yes -Type of Procedure Debridement Debridement Debridement -Clinical Debridement Subcutaneous Subcutaneous Subcutaneous -Tissue Removed Subcutaneous Subcutaneous Subcutaneous -Post Debridement (cm) - Length 0.8 0.2 1.0 -Post Debridement (cm) - Width 0.8 0.2 0.5 -Post Debridement (cm) - Depth 0.1 0.1 0.1 -Total Square (Post) (cm) 0.64 0.04 0.50 -Area of Debridement (cm) - Length 0.8 0.2 1.0 -Area of Debridement (cm) - Width 0.8 0.2 0.5 -Total Square (Area) (cm) 0.64 0.04 0.50 -Tunneling No No No -Undermining/Tunneling No No No -Circular Undermining No No No -Wound/Ulcer Outcome Not Healed Not Healed Not Healed -Ulcer Cleansing Rinsed/ Rinsed/ Rinsed/ Irrigated with Irrigated with Irrigated with Saline Saline Saline -Foul Odor after Cleansing No No No -Bioengineered Tissue No No No -Bleeding Controlled with Pressure Pressure Pressure -Treatment Response Procedure Procedure Procedure Tolerated Well Tolerated Well Tolerated Well -Offloading No No No -Debridement - Subq, 1st 20sq cm No No No #10 R 2nd toe -Time -Correct Patient -Correct Side, Site, Position -Correct Procedure -Procedure Performed -Type of Procedure -Clinical Debridement -Tissue Removed -Post Debridement (cm) - Length -Post Debridement (cm) - Width -Post Debridement (cm) - Depth -Total Square (Post) (cm) -Area of Debridement (cm) - Length -Area of Debridement (cm) - Width -Total Square (Area) (cm) -Tunneling -Undermining/Tunneling -Circular Undermining -Wound/Ulcer Outcome -Ulcer Cleansing -Foul Odor after Cleansing -Bioengineered Tissue -Bleeding Controlled with -Treatment Response -Offloading -Debridement - Subq, 20sq cm #5- R FOOT PLANTAR -Time 10:34 11:07 11:35 -Correct Patient Yes Yes Yes -Correct Side, Site, Position Yes Yes Yes -Correct Procedure Yes Yes Yes -Procedure Performed Yes Yes Yes -Type of Procedure Debridement Debridement Debridement -Clinical Debridement Subcutaneous Subcutaneous Subcutaneous -Tissue Removed Subcutaneous Subcutaneous Subcutaneous -Post Debridement (cm) - Length 1.4 1.8 1.3 -Post Debridement (cm) - Width 1.3 1.1 1.1 -Post Debridement (cm) - Depth 0.3 0.3 0.2 -Total Square (Post) (cm) 1.82 1.98 1.43 -Area of Debridement (cm) - Length 1.4 1.8 1.3 -Area of Debridement (cm) - Width 1.3 1.1 1.1 -Total Square (Area) (cm) 1.82 1.98 1.43 -Tunneling No No No -Undermining/Tunneling No No No -Circular Undermining No No No -Wound/Ulcer Outcome Not Healed Not Healed Not Healed -Ulcer Cleansing Rinsed/ Rinsed/ Rinsed/ Irrigated with Irrigated with Irrigated with Saline Saline Saline -Foul Odor after Cleansing No No No -Bioengineered Tissue No No No -Bleeding Controlled with Pressure Pressure Pressure -Treatment Response Procedure Procedure Procedure Tolerated Well Tolerated Well Tolerated Well -Offloading No No No -Debridement - Subq, 1st 20sq cm No Yes Yes Pain Scale: 0-10 Numeric Is Patient Pain Free? Yes Yes Yes 11/22/22 08:26 Wound Center Nurse 2 #8- R 3RD TOE -Time -Correct Patient -Correct Side, Site, Position -Correct Procedure -Procedure Performed -Type of Procedure -Clinical Debridement -Tissue Removed -Post Debridement (cm) - Length -Post Debridement (cm) - Width -Post Debridement (cm) - Depth -Total Square (Post) (cm) -Area of Debridement (cm) - Length -Area of Debridement (cm) - Width -Total Square (Area) (cm) -Tunneling -Undermining/Tunneling -Circular Undermining -Wound/Ulcer Outcome -Ulcer Cleansing -Foul Odor after Cleansing -Bioengineered Tissue -Bleeding Controlled with -Treatment Response -Offloading -Debridement - Subq, 1st 20sq cm #3- L 2ND TOE PLANTAR -Time 08:28 -Correct Patient Yes -Correct Side, Site, Position Yes -Correct Procedure Yes -Procedure Performed No -Type of Procedure -Clinical Debridement -Tissue Removed -Post Debridement (cm) - Length -Post Debridement (cm) - Width -Post Debridement (cm) - Depth -Total Square (Post) (cm) -Area of Debridement (cm) - Length -Area of Debridement (cm) - Width -Total Square (Area) (cm) -Tunneling No -Undermining/Tunneling No -Circular Undermining No -Wound/Ulcer Outcome Healed- Epithelialized -Ulcer Cleansing -Foul Odor after Cleansing -Bioengineered Tissue -Bleeding Controlled with -Treatment Response -Offloading -Debridement - Subq, 1st 20sq cm #10 R 2nd toe -Time 08:26 -Correct Patient Yes -Correct Side, Site, Position Yes -Correct Procedure Yes -Procedure Performed Yes -Type of Procedure Debridement -Clinical Debridement Subcutaneous -Tissue Removed Subcutaneous -Post Debridement (cm) - Length 0.8 -Post Debridement (cm) - Width 0.9 -Post Debridement (cm) - Depth 0.1 -Total Square (Post) (cm) 0.72 -Area of Debridement (cm) - Length 0.8 -Area of Debridement (cm) - Width 0.9 -Total Square (Area) (cm) 0.72 -Tunneling No -Undermining/Tunneling No -Circular Undermining No -Wound/Ulcer Outcome Not Healed -Ulcer Cleansing Rinsed/ Irrigated with Saline -Foul Odor after Cleansing No -Bioengineered Tissue No -Bleeding Controlled with Pressure -Treatment Response Procedure Tolerated Well -Offloading No -Debridement - Subq, 1st 20sq cm Yes #5- R FOOT PLANTAR -Time 08:28 -Correct Patient Yes -Correct Side, Site, Position Yes -Correct Procedure Yes -Procedure Performed Yes -Type of Procedure Debridement -Clinical Debridement Subcutaneous -Tissue Removed Subcutaneous -Post Debridement (cm) - Length 1.2 -Post Debridement (cm) - Width 1.0 -Post Debridement (cm) - Depth 0.2 -Total Square (Post) (cm) 1.20 -Area of Debridement (cm) - Length 1.2 -Area of Debridement (cm) - Width 1.0 -Total Square (Area) (cm) 1.20 -Tunneling No -Undermining/Tunneling No -Circular Undermining No -Wound/Ulcer Outcome Not Healed -Ulcer Cleansing Rinsed/ Irrigated with Saline -Foul Odor after Cleansing No -Bioengineered Tissue No -Bleeding Controlled with Pressure -Treatment Response Procedure Tolerated Well -Offloading No -Debridement - Subq, 1st 20sq cm No Pain Scale: 0-10 Numeric Is Patient Pain Free? Yes WC - Nurse 3 - General Ulcer D/C NN Start: 11/01/22 10:02 Freq: Status: Active Protocol: Activity Type Activity Date Activity User E-sign Co-sign Detail Recorded Client Recorded Date Recorded By Document 11/01/22 11:11 RB [id number] 11/01/22 11:12 RB Document 11/15/22 11:57 RB [id number] 11/15/22 11:58 RB Document 11/22/22 08:52 BMF [id number] 11/22/22 08:53 BMF 11/01/22 11/15/22 11/22/22 11:11 11:57 08:52 Wound Care Center Nurse 3 #8- R 3RD TOE -Ulcer Cleansing Rinsed/ Irrigated with Saline -Primary Dressing Applied Fibracol Plus 4x4 -Other Dressing bactroban, gauze ,coban -Primary Dressing Covered/Secured with Dry Gauze -Fibracol Plus 4x4 1 #3- L 2ND TOE PLANTAR -Other Dressing bactroban , bactroban, fibroacol fibracol gauze -Primary Dressing Covered/Secured with Dry Gauze Dry Gauze, Secured with Tape #10 R 2nd toe -Ulcer Cleansing Rinsed/ Irrigated with Saline -Foul Odor after Cleansing No -Primary Dressing Applied Fibracol Plus 4x4 -Other Dressing BACTROBAN -Primary Dressing Covered/Secured with Dry Gauze -Other Covering SECURED W/ COBAN -Fibracol Plus 4x4 1 #5- R FOOT PLANTAR -Ulcer Cleansing Rinsed/ Irrigated with Saline -Foul Odor after Cleansing No -Primary Dressing Applied Fibracol Plus Fibracol Plus 4x4 4x4 -Other Dressing bactoban , thin layer of BACTROBAN, fibracol, coban bactroban, SECURED W/ gauze and coban COBAN -Primary Dressing Covered/Secured with Dry Gauze Dry Gauze -Fibracol Plus 4x4 1 0 Treatment Response Procedure Procedure Procedure Tolerated Well Tolerated Well Tolerated Well Pain Scale: 0-10 Numeric Is Patient Pain Free? Yes Yes Yes WC - Visit Discharge Discharge Condition Stable Stable Stable Ambulatory Status Ambulatory Ambulatory Ambulatory Transportation Private Auto Private Auto Private Auto Medication Reconcilliation completed & No No provided to patient/care provider Clinical Summary of Care Provided Yes Yes Assessment/Plan Assessment/Plan (1) Idiopathic neuropathy: CODE(S): G60.9 - Hereditary and idiopathic neuropathy, unspecified (2) Non-pressure chronic ulcer of other part of right foot with fat layer exposed: CODE(S): L97.512 - Non-pressure chronic ulcer of other part of right foot with fat layer exposed PLAN: Wash foot with antibacterial soap and apply Bactroban nickel thickness in base of wound cover with the fibrocall gauze and tape Continue wound care till transfer care to Dr. Jo (3) Ulcer of toe: CODE(S): L97.509 - Non-pressure chronic ulcer of other part of unspecifiedfoot with unspecified severity QUALIFIERS: Laterality: unspecified laterality Non-pressure ulcerstage: limited to breakdown of skin Qualified Code(s): L97.501 - Non-pressure chronic ulcer of other part of unspecified foot limited to breakdown of skin PLAN: Wash foot with antibacterial soap apply stasis pad to left second toe to help with callus formation Discharge from the wound center and transfer care to podiatry for surgery (4) Osteomyelitis of toe of right foot: CODE(S): M86.9 - Osteomyelitis, unspecified PLAN: Patient will be scheduled for a partial metatarsal amputation of the rightfoot 11/22/22 1044 <Electronically signed by Mary Basilio NP [employer]> Cosigner Signature (if applicable): CC: ~ Signed [facility] Work Phone: [phone] 398-384507-19-2023 Progress note Author Mary Basilio [facility] November 15, 2022 12:31pm Note Date/Time November 15, 2022 12:3 1pm [facility] [address] [place] [id number] Progress Note - Wound Care 11/15/22 1225 MR#: [id number] Acct: [id number] Name: LANI YUSUF KWABENA Rep #:[id number] : 1955 67 From: Mary Basilio NP, NP-C PCP: MELITON Bernal Status:REG RCR Location: History of Present Illness Date of Service: 11/15/22 Chief Complaint: Follow-up multiple wounds of right great toe plantar side rightsecond third and fourth toe right heel and left second toe all from her idiopathic neuropathy. Patient refuses to stay off her feet and is on working 10 to 12 hours a day. She also likes to pick at her wounds which does not help. 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 She was seen in my office about 6 months ago and was given to her calcium alginate. Still using that and Neosporin on her wounds. She feels the toes are from the shoe she pumped it up too high and her toes wereextended past the ends and she does not realize that they are getting hit or rubbing when she walks. The right second and third fourth toe are all superficial wounds that are now healed. But the right third toe is stayed erythematous and swollen. X-ray and MRI showsosteomyelitis in that joint. She does have an appointment with infectious disease next Sunday, November 15. The right heel looks like she had some skin cracking and is picking at it and opened some wounds on her heel. Again very superficial and has healed. The worst would be the right foot plantar that is open and has some depth. The left second toe at the tip is mostly healed she has a lot of callus around the healing area that I will try to debride off that may have some bleeding thatwe might need to cover for 1 more week otherwise will be healed. Progress of Wound: Patient was seen by Dr. Jo over in [place]. He is taking her to surgery in2 weeks. We will continue seeing her until she has the surgery he is going to take the top of the third right toe off and then he will do a entrance from the side to shave the bone on the plantar side so that plantar wound will close. She will then follow-up with him unless he wants us to follow it up on the wounds but he should finish her up. Today is her appointment with Dr. Vu which is the I&D Dr. She is still taking the linezolid antibiotic. She stoppedtaking her sertraline 25 daily because of the interaction she says she is reallycannot tell a difference being off of it. I told her that is because it still in her blood system and she is getting some effects. We will continue the same wound care until Dr. Jo does the surgery Subjective Subjective Patient agreed with outcomes and plan of action Objective Data Objective Data Measurements are all smaller on all her wounds she is looking good no sign of infection no odor no redness even the maintenance mechanic millwright thought it looked good. Vital Signs: Vital Signs Temp Pulse Resp BP O2 Del Method 96.4 F L 59 L 16 149/44 H Room Air 11/15/22 11:18 11/15/22 11:18 11/15/22 11:18 11/15/22 11:18 11/15/22 11:18 Oxygen Delivery Method Room Air Weight: 195 lb Body Mass Index (BMI) 34.5 Lab / Micro Data Micro: Microbiology 11/01/22 10:40 Tissue Ulcer - 3rd Toe Gram Stain - Final 11/01/22 10:40 Tissue Ulcer - 3rd Toe Wound Culture - Final Enterococcus faecalis Staphylococcus haemolyticus 11/01/22 10:40 Tissue Ulcer - 3rd Toe Anaerobic Culture - Final No anaerobic bacteria isolated. Physical Exam Const oriented x3 General Appearance: cooperative Exam Limitations: no limitations HEENT normocephalic Eyes PERRL Resp normal respiratory effort Effort and Inspection: able to speak in complete sentences Auscultation: clear to auscultation bilaterally Cardio regular rate and regular rhythm Palpation: normal PMI Rate: regular rate Rhythm: regular rhythm Extremity Extremity Narrative: Right foot has wounds on right plantar amputated partial of the right great toe and open wounds on second third and fourth toe plantar side. Right heel is openwounds from cracked skin and left second toe is open also General Extremity: amputation Skin Wounds: wounds noted Neuro oriented x3 Psych Appearance: grossly normal Speech: normal speech Thought Content: normal thought content Judgement: judgement good Debridement Note Debridement Note Wound debrided: Right plantar great toe nonpressure ulcer Type of Debridement: Excisional debridement Anesthesia Used: 5% Lidocaine Gel Depth: Down to and including healthy tissue Percentage of wound debrided: 100 Instrument Used: 7mm curette Tissue Removed: Fibrin Severity: Fat Layer Exposed Amount of bleeding with debridement: Mild Bleeding Controlled with: Compression and gauze Patient tolerated procedure: Patient tolerated procedure well Post-Debridement Measurements and Additional Note: Post-Debridement Measurements/Treatment WC - Nurse 1 - General Ulcer Assessment Start: 11/01/22 10:02 Freq: Status: Active Protocol: SANDRO Activity Type Activity Date Activity User E-sign Co-sign Detail Recorded Client Recorded Date Recorded By Document 11/01/22 10:19 [facility] [id number] 11/01/22 10:28 BM Document 11/08/22 10:22 [facility] [id number] 11/08/22 10:33 BM Document 11/15/22 11:18 [facility] [id number] 11/15/22 11:27 BM 11/01/22 11/08/22 11/15/22 10:19 10:22 11:18 WC - Today's Visit Information Type of service Follow-up Visit Follow-up Visit 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 (Physician/METAL RIVET MACHINE OPERATOR (Physician/METAL RIVET MACHINE OPERATOR ) ) ) Arrival Mode Ambulatory Ambulatory Ambulatory Transfer Assistance None None None Accompanied by boyfriend BOYFRIEND BOYFRIEND Patient Identification Verified (Name & Yes Yes Yes ) Patient Requires Transmission-Based No No No Precautions Height and Weight Weight Measurement Method Estimated by Patient Body Mass Index (BMI) 34.5 34.5 34.5 BMI Classification Obese Obese Obese Vital Signs Temperature (97.8 F-99.1 F) 97.4 F L 96.8 F L 96.4 F L Temperature Source Temporal Temporal Temporal Pulse Rate (60-100) 56 L 54 L 59 L Pulse Location Monitor Monitor Monitor Respiratory Rate (12-18) 16 16 16 Respiratory rate source Observation Observation Observation Oxygen Delivery Method Room Air Room Air Room Air Blood Pressure (90/60-120/80) 152/56 H 155/74 H 149/44 H Blood Pressure Mean (mm Hg) 88 101 79 Source Monitor Monitor Monitor Position Sitting Sitting Sitting Blood Pressure Location Left Arm Left Arm Left Arm History Since Last Visit- (Skip if this is Patient's initial visit) Have you changed medications since your No No No last visit? Any new allergies or adverse reactions No No No Had a fall/change in ADL's that may No No No increase risk of falls Signs or symptoms of abuse and/or No No No neglect since last visit Have you been in the hospital since your No No No last visit? Has dressing in place as prescribed Yes No No Has compression in place as prescribed N/A N/A N/A Has offloadiing in place as prescribed N/A N/A No Experienced any changes in pain level or No No No management Left Footwear Regular Shoe Regular Shoe Regular Shoe Right Footwear Regular Shoe Regular Shoe Regular Shoe Pain Scale: 0-10 Numeric Is Patient Pain Free? Yes Yes Yes WC - Nurse 1 - General Ulcer Measurement Start: 11/01/22 10:02 Freq: Status: Active Protocol: Activity Type Activity Date Activity User E-sign Co-sign Detail Recorded Client Recorded Date Recorded By Document 11/01/22 10:19 [id number] 11/01/22 10:28 [facility] Document 11/08/22 10:22 [facility] [facility] [id number] 11/08/22 10:33 [facility] Document 11/15/22 11:18 [facility] [id number] 11/15/22 11:27 [facility] 11/01/22 11/08/22 11/15/22 10:19 10:22 11:18 Wound Center Nurse 1 #8- R 3RD TOE -Combined with other wound No No -Current Size (cm) - Length 0.1 0.1 -Current Size (cm) - Width 0.1 0.1 -Current Size (cm) - Depth 0.1 0.1 -Total Square Cm 0.01 0.01 -Date of Last Picture (Recall this 11/01/22 field) -Photo Taken Yes No -Epithelialization Large 67-100% -Tunneling No -Undermining/Tunneling No -Circular Undermining No -Exudate Amt None Present -Texture (Sammie-wound Skin Appearance) Assessed, Assessed Scarring -Moisture (Sammie-wound Skin Appearance) Assessed,Dry/ Assessed Scaly -Color (Sammie-wound Skin Appearance) Assessed Assessed -Temperature (Sammie-wound Skin No Abnormality No Abnormality Appearance) (Pt Warm) (Pt Warm) -Tenderness on Palpation (Sammie-wound No No Skin Appearance) -Ulcer Cleansing Rinsed/ Rinsed/ Irrigated with Irrigated with Saline Saline -Foul Odor after Cleansing No No -Anesthetic Used 5% Lidocaine 5% Lidocaine Gel Gel #5- R FOOT PLANTAR -Combined with other wound No No No -Current Size (cm) - Length 1.3 1.1 1.3 -Current Size (cm) - Width 1.1 1 1.1 -Current Size (cm) - Depth 0.2 0.4 0.2 -Total Square Cm 1.43 1.1 1.43 -Date of Last Picture (Recall this 11/01/22 11/15/22 field) -Photo Taken Yes No Yes -Epithelialization Small 1-33% Small 1-33% Small 1-33% -Tunneling No No No -Undermining/Tunneling No No No -Circular Undermining No No No -Exudate Amt Medium Medium Medium -Exudate Type Serosanguineous Serosanguineous Serosanguineous -Wound Margin Distinct, Distinct, Distinct, Outline Outline Outline Attached Attached Attached -Granulation Amt Large (67-100%) Large (67-100%) Large (67-100%) -Granulation Quality Red Red [place] -Slough/Fibrin Yes No No -Necrosis Amt Small (1-33%) None Present (0 None Present (0 %) %) -Necrotic Tissue Type Adherent Slough -Texture (Sammie-wound Skin Appearance) Assessed, Assessed,Callus Assessed, Scarring Scarring -Moisture (Sammie-wound Skin Appearance) Assessed,Dry/ Assessed,Dry/ Assessed Scaly Scaly -Color (Sammie-wound Skin Appearance) Assessed Assessed Assessed -Temperature (Sammie-wound Skin No Abnormality No Abnormality No Abnormality Appearance) (Pt Warm) (Pt Warm) (Pt Warm) -Tenderness on Palpation (Sammie-wound No No No Skin Appearance) -Ulcer Cleansing Rinsed/ Rinsed/ Rinsed/ Irrigated with Irrigated with Irrigated with Saline Saline Saline -Foul Odor after Cleansing No No No -Anesthetic Used 5% Lidocaine 5% Lidocaine 5% Lidocaine Gel Gel Gel #3- L 2ND TOE PLANTAR -Combined with other wound No No No -Current Size (cm) - Length 0.4 0.2 0.1 -Current Size (cm) - Width 0.5 0.2 0.1 -Current Size (cm) - Depth 0.2 0.1 0.1 -Total Square Cm 0.20 0.04 0.01 -Date of Last Picture (Recall this 11/01/22 11/15/22 field) -Photo Taken Yes No Yes -Epithelialization Small 1-33% Medium 34-66% -Tunneling No No -Undermining/Tunneling No No -Circular Undermining No No -Exudate Amt Medium Small -Exudate Type Serosanguineous Serosanguineous -Wound Margin Distinct, Distinct, Outline Outline Attached Attached -Granulation Amt Large (67-100%) Large (67-100%) -Granulation Quality Red Red -Slough/Fibrin Yes Yes -Necrosis Amt Small (1-33%) Small (1-33%) -Necrotic Tissue Type Adherent Slough Adherent Slough -Texture (Sammie-wound Skin Appearance) Assessed, Assessed Assessed,Callus Scarring -Moisture (Sammie-wound Skin Appearance) Assessed,Dry/ Assessed,Dry/ Assessed Scaly Scaly -Color (Sammie-wound Skin Appearance) Assessed Assessed Assessed -Temperature (Sammie-wound Skin No Abnormality No Abnormality No Abnormality Appearance) (Pt Warm) (Pt Warm) (Pt Warm) -Tenderness on Palpation (Sammie-wound No No No Skin Appearance) -Ulcer Cleansing Rinsed/ Rinsed/ Rinsed/ Irrigated with Irrigated with Irrigated with Saline Saline Saline -Foul Odor after Cleansing No No No -Anesthetic Used 5% Lidocaine 5% Lidocaine 5% Lidocaine Gel Gel Gel WC - Nurse 2 - General Ulcer CM Notes Start: 11/01/22 10:02 Freq: Status: Active Protocol: Activity Type Activity Date Activity User E-sign Co-sign Detail Recorded Client Recorded Date Recorded By Document 11/01/22 10:33 MW [id number] 11/01/22 10:47 MW Document 11/08/22 11:05 MW [id number] 11/08/22 11:16 MW Document 11/15/22 11:34 MW [id number] 11/15/22 11:43 MW 11/01/22 11/08/22 11/15/22 10:33 11:05 11:34 Wound Center Nurse 2 #8- R 3RD TOE -Time 10:34 11:06 -Correct Patient Yes Yes -Correct Side, Site, Position Yes Yes -Correct Procedure Yes Yes -Procedure Performed Yes No -Type of Procedure Debridement -Clinical Debridement Subcutaneous -Tissue Removed Subcutaneous -Post Debridement (cm) - Length 1.0 0 -Post Debridement (cm) - Width 0.5 0 -Post Debridement (cm) - Depth 0.2 0 -Total Square (Post) (cm) 0.50 0 -Area of Debridement (cm) - Length 1.0 -Area of Debridement (cm) - Width 0.5 -Total Square (Area) (cm) 0.50 -Tunneling No No -Undermining/Tunneling No No -Circular Undermining No No -Wound/Ulcer Outcome Not Healed Healed- Epithelialized -Ulcer Cleansing Rinsed/ Irrigated with Saline -Foul Odor after Cleansing No -Bioengineered Tissue No -Bleeding Controlled with Pressure -Treatment Response Procedure Tolerated Well -Offloading No -Debridement - Subq, 1st 20sq cm Yes #5- R FOOT PLANTAR -Time 10:34 11:07 11:35 -Correct Patient Yes Yes Yes -Correct Side, Site, Position Yes Yes Yes -Correct Procedure Yes Yes Yes -Procedure Performed Yes Yes Yes -Type of Procedure Debridement Debridement Debridement -Clinical Debridement Subcutaneous Subcutaneous Subcutaneous -Tissue Removed Subcutaneous Subcutaneous Subcutaneous -Post Debridement (cm) - Length 1.4 1.8 1.3 -Post Debridement (cm) - Width 1.3 1.1 1.1 -Post Debridement (cm) - Depth 0.3 0.3 0.2 -Total Square (Post) (cm) 1.82 1.98 1.43 -Area of Debridement (cm) - Length 1.4 1.8 1.3 -Area of Debridement (cm) - Width 1.3 1.1 1.1 -Total Square (Area) (cm) 1.82 1.98 1.43 -Tunneling No No No -Undermining/Tunneling No No No -Circular Undermining No No No -Wound/Ulcer Outcome Not Healed Not Healed Not Healed -Ulcer Cleansing Rinsed/ Rinsed/ Rinsed/ Irrigated with Irrigated with Irrigated with Saline Saline Saline -Foul Odor after Cleansing No No No -Bioengineered Tissue No No No -Bleeding Controlled with Pressure Pressure Pressure -Treatment Response Procedure Procedure Procedure Tolerated Well Tolerated Well Tolerated Well -Offloading No No No -Debridement - Subq, 1st 20sq cm No Yes Yes #3- L 2ND TOE PLANTAR -Time 10:35 11:08 11:35 -Correct Patient Yes Yes Yes -Correct Side, Site, Position Yes Yes Yes -Correct Procedure Yes Yes Yes -Procedure Performed Yes Yes Yes -Type of Procedure Debridement Debridement Debridement -Clinical Debridement Subcutaneous Subcutaneous Subcutaneous -Tissue Removed Subcutaneous Subcutaneous Subcutaneous -Post Debridement (cm) - Length 0.8 0.2 1.0 -Post Debridement (cm) - Width 0.8 0.2 0.5 -Post Debridement (cm) - Depth 0.1 0.1 0.1 -Total Square (Post) (cm) 0.64 0.04 0.50 -Area of Debridement (cm) - Length 0.8 0.2 1.0 -Area of Debridement (cm) - Width 0.8 0.2 0.5 -Total Square (Area) (cm) 0.64 0.04 0.50 -Tunneling No No No -Undermining/Tunneling No No No -Circular Undermining No No No -Wound/Ulcer Outcome Not Healed Not Healed Not Healed -Ulcer Cleansing Rinsed/ Rinsed/ Rinsed/ Irrigated with Irrigated with Irrigated with Saline Saline Saline -Foul Odor after Cleansing No No No -Bioengineered Tissue No No No -Bleeding Controlled with Pressure Pressure Pressure -Treatment Response Procedure Procedure Procedure Tolerated Well Tolerated Well Tolerated Well -Offloading No No No -Debridement - Subq, 1st 20sq cm No No No Pain Scale: 0-10 Numeric Is Patient Pain Free? Yes Yes Yes - Nurse 3 - General Ulcer D/C NN Start: 11/01/22 10:02 Freq: Status: Active Protocol: Activity Type Activity Date Activity User E-sign Co-sign Detail Recorded Client Recorded Date Recorded By Document 11/01/22 11:11 RB [id number] 11/01/22 11:12 RB Document 11/15/22 11:57 RB [id number] 11/15/22 11:58 RB 11/01/22 11/15/22 11:11 11:57 Wound Care Center Nurse 3 #8- R 3RD TOE -Ulcer Cleansing Rinsed/ Irrigated with Saline -Primary Dressing Applied Fibracol Plus 4x4 -Other Dressing bactroban, gauze ,coban -Primary Dressing Covered/Secured with Dry Gauze -Fibracol Plus 4x4 1 #5- R FOOT PLANTAR -Primary Dressing Applied Fibracol Plus 4x4 -Other Dressing bactoban , thin layer of fibracol, coban bactroban, gauze and coban -Primary Dressing Covered/Secured with Dry Gauze -Fibracol Plus 4x4 1 #3- L 2ND TOE PLANTAR -Other Dressing bactroban , bactroban, fibroacol fibracol gauze -Primary Dressing Covered/Secured with Dry Gauze Dry Gauze, Secured with Tape Treatment Response Procedure Procedure Tolerated Well Tolerated Well Pain Scale: 0-10 Numeric Is Patient Pain Free? Yes Yes - Visit Discharge Discharge Condition Stable Stable Ambulatory Status Ambulatory Ambulatory Transportation Private Auto Private Auto Medication Reconcilliation completed & No No provided to patient/care provider Clinical Summary of Care Provided Yes Yes Assessment/Plan Assessment/Plan (1) Idiopathic neuropathy: CODE(S): G60.9 - Hereditary and idiopathic neuropathy, unspecified (2) Non-pressure chronic ulcer of other part of right foot with fat layer exposed: CODE(S): L97.512 - Non-pressure chronic ulcer of other part of right foot with fat layer exposed PLAN: Wash foot with antibacterial soap and apply Bactroban nickel thickness in base of wound cover with the fibrocall gauze and tape MRI ordered of the right foot and toe done and discussed with patient both are osteomyelitis Keep appointment with infectious disease on November 15 here at the wound center Though bacteria is rare we will treat with linezolid 2 times a day for 14 days Follow-up with Dr. Jo for podiatry for surgery scheduled in 2 weeks Follow-up in 1 week (3) Ulcer of toe: CODE(S): L97.509 - Non-pressure chronic ulcer of other part of unspecifiedfoot with unspecified severity QUALIFIERS: Laterality: unspecified laterality Non-pressure ulcerstage: limited to breakdown of skin Qualified Code(s): L97.501 - Non-pressure chronic ulcer of other part of unspecified foot limited to breakdown of skin PLAN: Wash foot with antibacterial soap and apply fibrin call to all open woundson toes cover with gauze and tape Follow-up in 1 week 11/15/22 1231 <Electronically signed by Mary Basilio NP [employer]> Cosigner Signature (if applicable): CC: ~ Signed [facility] Work Phone: [phone]) 952-330807-12-2023 Progress note Author Mary Basilio [facility] November 08, 2022 12:46pm Note Date/Time November 08, 2022 12:4 7pm [facility] [address] [place] [address] Progress Note - Wound Care 11/08/22 1238 MR#: [id number] Acct: [id number] Name: LANI YUSUF KWABENA Rep #:[id number] : 1955 67 From: Mary MARSC PCP: MELITON Bernal Status:REG RCR Location: History of Present Illness Date of Service: 11/08/22 Chief Complaint: Follow-up multiple wounds of right great toe plantar side rightsecond third and fourth toe right heel and left second toe all from her idiopathic neuropathy. Patient refuses to stay off her feet and is on working 10 to 12 hours a day. She also likes to pick at her wounds which does not help. 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 She was seen in my office about 6 months ago and was given to her calcium alginate. Still using that and Neosporin on her wounds. She feels the toes are from the shoe she pumped it up too high and her toes wereextended past the ends and she does not realize that they are getting hit or rubbing when she walks. The right second and third fourth toe are all superficial wounds that are now healed. But the right third toe is stayed erythematous and swollen. X-ray and MRI showsosteomyelitis in that joint. She does have an appointment with infectious disease next Sunday, November 15. The right heel looks like she had some skin cracking and is picking at it and opened some wounds on her heel. Again very superficial and has healed. The worst would be the right foot plantar that is open and has some depth. The left second toe at the tip is mostly healed she has a lot of callus around the healing area that I will try to debride off that may have some bleeding thatwe might need to cover for 1 more week otherwise will be healed. Progress of Wound: So the right plantar great toe is looking good continues to heal and get smallerusing the Bactroban and the Fibracol together she is very happy. The right third toe does show osteo had an MRI done today. She does have an appointment November 15 with infectious disease. We will get cultures today for the third toe also she has a slight open wound at the tip. The bacteria shows rare but I am going to go ahead and treat it because of the osteomyelitis emergent start her on linezolid 600 mg twice a day for 14 days. Debrided a lot with nippers to getall the skin. Subjective Subjective Discussed with patient about an alternative surgeon in case she has to have a toe amputation and we will send her to Dr. Rosalia Solano in [place] we we will refer her over there they are happy with that. They prefer not to go back to the sameoffice of Dr. Dempsey and they prefer not to go to [facility]. Objective Data Objective Data As stated all above feet are looking better the toes are healing we will progress on and continue all treatments and antibiotic therapy till she can get seen by infectious disease and Dr. Jo Vital Signs: Vital Signs Temp Pulse Resp BP O2 Del Method 96.8 F L 54 L 16 155/74 H Room Air 11/08/22 10:22 11/08/22 10:22 11/08/22 10:22 11/08/22 10:22 11/08/22 10:22 Oxygen Delivery Method Room Air Weight: 195 lb Body Mass Index (BMI) 34.5 Lab / Micro Data Attestation: I reviewed the patient's lab results. Micro: Microbiology 11/01/22 10:40 Tissue Ulcer - 3rd Toe Gram Stain - Final 11/01/22 10:40 Tissue Ulcer - 3rd Toe Wound Culture - Final Enterococcus faecalis Staphylococcus haemolyticus 11/01/22 10:40 Tissue Ulcer - 3rd Toe Anaerobic Culture - Final No anaerobic bacteria isolated. Physical Exam Const oriented x3 General Appearance: cooperative Exam Limitations: no limitations HEENT normocephalic Eyes PERRL Resp normal respiratory effort Effort and Inspection: able to speak in complete sentences Auscultation: clear to auscultation bilaterally Cardio regular rate and regular rhythm Palpation: normal PMI Rate: regular rate Rhythm: regular rhythm Extremity Extremity Narrative: Right foot has wounds on right plantar amputated partial of the right great toe and open wounds on second third and fourth toe plantar side. Right heel is openwounds from cracked skin and left second toe is open also General Extremity: amputation Skin Wounds: wounds noted Neuro oriented x3 Psych Appearance: grossly normal Speech: normal speech Thought Content: normal thought content Judgement: judgement good Debridement Note Debridement Note Wound debrided: Right great toe plantar side ulcer from trauma nontraumatic amputation of f Type of Debridement: Excisional debridement Anesthesia Used: 5% Lidocaine Gel Depth: Down to and including healthy tissue Percentage of wound debrided: 100 Instrument Used: 5mm curette Tissue Removed: Fibrin and callus and devitalized tissue Severity: Fat Layer Exposed Amount of bleeding with debridement: Mild Bleeding Controlled with: Pressure and Compression and gauze Patient tolerated procedure: Patient tolerated procedure well Post-Debridement Measurements and Additional Note: Post-Debridement Measurements/Treatment ZAIN - Nurse 1 - General Ulcer Assessment Start: 11/01/22 10:02 Freq: Status: Active Protocol: SANDRO Activity Type Activity Date Activity User E-sign Co-sign Detail Recorded Client Recorded Date Recorded By Document 11/01/22 10:19 [facility] [id number] 11/01/22 10:28 [facility] Document 11/08/22 10:22 [facility] [id number] 11/08/22 10:33 [facility] 11/01/22 11/08/22 10:19 10:22 - Today's Visit Information Type of service Follow-up Visit 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 (Physician/METAL RIVET MACHINE OPERATOR ) ) Arrival Mode Ambulatory Ambulatory Transfer Assistance None None Accompanied by boyfriend BOYFRIEND Patient Identification Verified (Name & Yes Yes ) Patient Requires Transmission-Based No No Precautions Height and Weight Weight Measurement Method Estimated by Patient Body Mass Index (BMI) 34.5 34.5 BMI Classification Obese Obese Vital Signs Temperature (97.8 F-99.1 F) 97.4 F L 96.8 F L Temperature Source Temporal Temporal Pulse Rate (60-100) 56 L 54 L Pulse Location Monitor Monitor Respiratory Rate (12-18) 16 16 Respiratory rate source Observation Observation Oxygen Delivery Method Room Air Room Air Blood Pressure (90/60-120/80) 152/56 H 155/74 H Blood Pressure Mean (mm Hg) 88 101 Source Monitor Monitor Position Sitting Sitting Blood Pressure Location Left Arm Left Arm History Since Last Visit- (Skip if this is Patient's initial visit) Have you changed medications since your No No last visit? Any new allergies or adverse reactions No No Had a fall/change in ADL's that may No No increase risk of falls Signs or symptoms of abuse and/or No No neglect since last visit Have you been in the hospital since your No No last visit? Has dressing in place as prescribed Yes No Has compression in place as prescribed N/A N/A Has offloadiing in place as prescribed N/A N/A Experienced any changes in pain level or No No management Left Footwear Regular Shoe Regular Shoe Right Footwear Regular Shoe Regular Shoe Pain Scale: 0-10 Numeric Is Patient Pain Free? Yes Yes - Nurse 1 - General Ulcer Measurement Start: 11/01/22 10:02 Freq: Status: Active Protocol: Activity Type Activity Date Activity User E-sign Co-sign Detail Recorded Client Recorded Date Recorded By Document 11/01/22 10:19 [facility] [id number] 11/01/22 10:28 BMF Document 11/08/22 10:22 [facility] [id number] 11/08/22 10:33 BM 11/01/22 11/08/22 10:19 10:22 Wound Center Nurse 1 #8- R 3RD TOE -Combined with other wound No No -Current Size (cm) - Length 0.1 0.1 -Current Size (cm) - Width 0.1 0.1 -Current Size (cm) - Depth 0.1 0.1 -Total Square Cm 0.01 0.01 -Date of Last Picture (Recall this 11/01/22 field) -Photo Taken Yes No -Epithelialization Large 67-100% -Tunneling No -Undermining/Tunneling No -Circular Undermining No -Exudate Amt None Present -Texture (Sammie-wound Skin Appearance) Assessed, Assessed Scarring -Moisture (Sammie-wound Skin Appearance) Assessed,Dry/ Assessed Scaly -Color (Sammie-wound Skin Appearance) Assessed Assessed -Temperature (Sammie-wound Skin No Abnormality No Abnormality Appearance) (Pt Warm) (Pt Warm) -Tenderness on Palpation (Sammie-wound No No Skin Appearance) -Ulcer Cleansing Rinsed/ Rinsed/ Irrigated with Irrigated with Saline Saline -Foul Odor after Cleansing No No -Anesthetic Used 5% Lidocaine 5% Lidocaine Gel Gel #5- R FOOT PLANTAR -Combined with other wound No No -Current Size (cm) - Length 1.3 1.1 -Current Size (cm) - Width 1.1 1 -Current Size (cm) - Depth 0.2 0.4 -Total Square Cm 1.43 1.1 -Date of Last Picture (Recall this 11/01/22 field) -Photo Taken Yes No -Epithelialization Small 1-33% Small 1-33% -Tunneling No No -Undermining/Tunneling No No -Circular Undermining No No -Exudate Amt Medium Medium -Exudate Type Serosanguineous Serosanguineous -Wound Margin Distinct, Distinct, Outline Outline Attached Attached -Granulation Amt Large (67-100%) Large (67-100%) -Granulation Quality Red Red -Slough/Fibrin Yes No -Necrosis Amt Small (1-33%) None Present (0 %) -Necrotic Tissue Type Adherent Slough -Texture (Sammie-wound Skin Appearance) Assessed, Assessed,Callus Scarring -Moisture (Sammie-wound Skin Appearance) Assessed,Dry/ Assessed,Dry/ Scaly Scaly -Color (Asmmie-wound Skin Appearance) Assessed Assessed -Temperature (Sammie-wound Skin No Abnormality No Abnormality Appearance) (Pt Warm) (Pt Warm) -Tenderness on Palpation (Sammie-wound No No Skin Appearance) -Ulcer Cleansing Rinsed/ Rinsed/ Irrigated with Irrigated with Saline Saline -Foul Odor after Cleansing No No -Anesthetic Used 5% Lidocaine 5% Lidocaine Gel Gel #3- L 2ND TOE PLANTAR -Combined with other wound No No -Current Size (cm) - Length 0.4 0.2 -Current Size (cm) - Width 0.5 0.2 -Current Size (cm) - Depth 0.2 0.1 -Total Square Cm 0.20 0.04 -Date of Last Picture (Recall this 11/01/22 field) -Photo Taken Yes No -Epithelialization Small 1-33% Medium 34-66% -Tunneling No No -Undermining/Tunneling No No -Circular Undermining No No -Exudate Amt Medium Small -Exudate Type Serosanguineous Serosanguineous -Wound Margin Distinct, Distinct, Outline Outline Attached Attached -Granulation Amt Large (67-100%) Large (67-100%) -Granulation Quality Red Red -Slough/Fibrin Yes Yes -Necrosis Amt Small (1-33%) Small (1-33%) -Necrotic Tissue Type Adherent Slough Adherent Slough -Texture (Sammie-wound Skin Appearance) Assessed, Assessed Scarring -Moisture (Sammie-wound Skin Appearance) Assessed,Dry/ Assessed,Dry/ Scaly Scaly -Color (Sammie-wound Skin Appearance) Assessed Assessed -Temperature (Sammie-wound Skin No Abnormality No Abnormality Appearance) (Pt Warm) (Pt Warm) -Tenderness on Palpation (Sammie-wound No No Skin Appearance) -Ulcer Cleansing Rinsed/ Rinsed/ Irrigated with Irrigated with Saline Saline -Foul Odor after Cleansing No No -Anesthetic Used 5% Lidocaine 5% Lidocaine Gel Gel WC - Nurse 2 - General Ulcer CM Notes Start: 11/01/22 10:02 Freq: Status: Active Protocol: Activity Type Activity Date Activity User E-sign Co-sign Detail Recorded Client Recorded Date Recorded By Document 11/01/22 10:33 MW [id number] 07/05/23 10:47 MW Document 11/08/22 11:05 MW [id number] 11/08/22 11:16 MW 11/01/22 11/08/22 10:33 11:05 Wound Center Nurse 2 #8- R 3RD TOE -Time 10:34 11:06 -Correct Patient Yes Yes -Correct Side, Site, Position Yes Yes -Correct Procedure Yes Yes -Procedure Performed Yes No -Type of Procedure Debridement -Clinical Debridement Subcutaneous -Tissue Removed Subcutaneous -Post Debridement (cm) - Length 1.0 0 -Post Debridement (cm) - Width 0.5 0 -Post Debridement (cm) - Depth 0.2 0 -Total Square (Post) (cm) 0.50 0 -Area of Debridement (cm) - Length 1.0 -Area of Debridement (cm) - Width 0.5 -Total Square (Area) (cm) 0.50 -Tunneling No No -Undermining/Tunneling No No -Circular Undermining No No -Wound/Ulcer Outcome Not Healed Healed- Epithelialized -Ulcer Cleansing Rinsed/ Irrigated with Saline -Foul Odor after Cleansing No -Bioengineered Tissue No -Bleeding Controlled with Pressure -Treatment Response Procedure Tolerated Well -Offloading No -Debridement - Subq, 1st 20sq cm Yes #5- R FOOT PLANTAR -Time 10:34 11:07 -Correct Patient Yes Yes -Correct Side, Site, Position Yes Yes -Correct Procedure Yes Yes -Procedure Performed Yes Yes -Type of Procedure Debridement Debridement -Clinical Debridement Subcutaneous Subcutaneous -Tissue Removed Subcutaneous Subcutaneous -Post Debridement (cm) - Length 1.4 1.8 -Post Debridement (cm) - Width 1.3 1.1 -Post Debridement (cm) - Depth 0.3 0.3 -Total Square (Post) (cm) 1.82 1.98 -Area of Debridement (cm) - Length 1.4 1.8 -Area of Debridement (cm) - Width 1.3 1.1 -Total Square (Area) (cm) 1.82 1.98 -Tunneling No No -Undermining/Tunneling No No -Circular Undermining No No -Wound/Ulcer Outcome Not Healed Not Healed -Ulcer Cleansing Rinsed/ Rinsed/ Irrigated with Irrigated with Saline Saline -Foul Odor after Cleansing No No -Bioengineered Tissue No No -Bleeding Controlled with Pressure Pressure -Treatment Response Procedure Procedure Tolerated Well Tolerated Well -Offloading No No -Debridement - Subq, 1st 20sq cm No Yes #3- L 2ND TOE PLANTAR -Time 10:35 11:08 -Correct Patient Yes Yes -Correct Side, Site, Position Yes Yes -Correct Procedure Yes Yes -Procedure Performed Yes Yes -Type of Procedure Debridement Debridement -Clinical Debridement Subcutaneous Subcutaneous -Tissue Removed Subcutaneous Subcutaneous -Post Debridement (cm) - Length 0.8 0.2 -Post Debridement (cm) - Width 0.8 0.2 -Post Debridement (cm) - Depth 0.1 0.1 -Total Square (Post) (cm) 0.64 0.04 -Area of Debridement (cm) - Length 0.8 0.2 -Area of Debridement (cm) - Width 0.8 0.2 -Total Square (Area) (cm) 0.64 0.04 -Tunneling No No -Undermining/Tunneling No No -Circular Undermining No No -Wound/Ulcer Outcome Not Healed Not Healed -Ulcer Cleansing Rinsed/ Rinsed/ Irrigated with Irrigated with Saline Saline -Foul Odor after Cleansing No No -Bioengineered Tissue No No -Bleeding Controlled with Pressure Pressure -Treatment Response Procedure Procedure Tolerated Well Tolerated Well -Offloading No No -Debridement - Subq, 1st 20sq cm No No Pain Scale: 0-10 Numeric Is Patient Pain Free? Yes Yes - Nurse 3 - General Ulcer D/C NN Start: 11/01/22 10:02 Freq: Status: Active Protocol: Activity Type Activity Date Activity User E-sign Co-sign Detail Recorded Client Recorded Date Recorded By Document 11/01/22 11:11 [id number] 11/01/22 11:12 RB 11/01/22 11:11 Wound Care Center Nurse 3 #8- R 3RD TOE -Ulcer Cleansing Rinsed/ Irrigated with Saline -Primary Dressing Applied Fibracol Plus 4x4 -Other Dressing bactroban, gauze ,coban -Primary Dressing Covered/Secured with Dry Gauze -Fibracol Plus 4x4 1 #5- R FOOT PLANTAR -Other Dressing bactoban , fibracol, coban -Primary Dressing Covered/Secured with Dry Gauze #3- L 2ND TOE PLANTAR -Other Dressing bactroban , fibroacol -Primary Dressing Covered/Secured with Dry Gauze Treatment Response Procedure Tolerated Well Pain Scale: 0-10 Numeric Is Patient Pain Free? Yes WC - Visit Discharge Discharge Condition Stable Ambulatory Status Ambulatory Transportation Private Auto Medication Reconcilliation completed & No provided to patient/care provider Clinical Summary of Care Provided Yes Additional Wound Wound debrided: Left second toe callus Type of Debridement: Excisional debridement Anesthesia Used: 5% Lidocaine Gel Depth: Down to and including healthy tissue Percentage of wound debrided: 100 Instrument Used: - (Nippers) Tissue Removed: Callus fibrin Severity: Limited To Skin Breakdown Amount of bleeding with debridement: Mild Bleeding Controlled with: Compression and gauze Patient tolerated procedure: Patient tolerated procedure well Assessment/Plan Assessment/Plan (1) Idiopathic neuropathy: CODE(S): G60.9 - Hereditary and idiopathic neuropathy, unspecified (2) Non-pressure chronic ulcer of other part of right foot with fat layer exposed: CODE(S): L97.512 - Non-pressure chronic ulcer of other part of right foot with fat layer exposed PLAN: Wash foot with antibacterial soap and apply Bactroban nickel thickness in base of wound cover with the fibrocall gauze and tape MRI ordered of the right foot and toe done and discussed with patient both are osteomyelitis Keep appointment with infectious disease on November 15 here at the wound center Though bacteria is rare we will treat with linezolid 2 times a day for 14 days We will send a referral to Dr. Jo for podiatry possibly surgery if needed for amputation Follow-up in 1 week (3) Ulcer of toe: CODE(S): L97.509 - Non-pressure chronic ulcer of other part of unspecifiedfoot with unspecified severity QUALIFIERS: Laterality: unspecified laterality Non-pressure ulcerstage: limited to breakdown of skin Qualified Code(s): L97.501 - Non-pressure chronic ulcer of other part of unspecified foot limited to breakdown of skin PLAN: Wash foot with antibacterial soap and apply fibrin call to all open woundson toes cover with gauze and tape Follow-up in 1 week 11/08/22 1246 <Electronically signed by Mary Basilio NP [employer]> Cosigner Signature (if applicable): CC: ~ Signed [facility] Work Phone: [phone]) 767-222307-05-2023 Progress note Author Mary Basilio [facility] November 01, 2022 12:48pm Note Date/Time November 01, 2022 12:41 pm [facility] [address] [place] [address] Progress Note - Wound Care 11/01/22 1240 MR#: [id number] Acct: [id number] Name: LANI YUSUF Rep #:[id number] : 1955 67 From: Mary Basilio NP [employer] PCP: MELITON Bernal Status:REG RCR Location: MRI History of Present Illness Date of Service: 11/01/22 Chief Complaint: Follow-up multiple wounds of right great toe plantar side rightsecond third and fourth toe right heel and left second toe all from her idiopathic neuropathy. Patient refuses to stay off her feet and is on working 10 to 12 hours a day. She also likes to pick at her wounds which does not help. 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 She was seen in my office about 6 months ago and was given to her calcium alginate. Still using that and Neosporin on her wounds. She feels the toes are from the shoe she pumped it up too high and her toes wereextended past the ends and she does not realize that they are getting hit or rubbing when she walks. The right second and third fourth toe are all superficial wounds The right heel looks like she had some skin cracking and is picking at it and opened some wounds on her heel. Again very superficial The worst would be the right foot plantar that is open and has some depth. We will order x-rays to check for osteomyelitis and have patient follow-up in 1 week with a different dressing change. Progress of Wound: So the right plantar great toe is looking good continues to heal and get smallerusing the Bactroban and the Fibracol together she is very happy. The right third toe does show osteo had an MRI done today. She does have an appointment November 15 with infectious disease. We will get cultures today for the third toe also she has a slight open wound at the tip. Debrided a lot with nippers to getall the skin. Subjective Subjective Patient had given reassurance that were on top of everything and that her left foot is fine Objective Data Objective Data Measurements for everything is about the same pending her cultures we will get her started on antibiotics we will call her and we will call her when we get theMRI results that were done today. Vital Signs: Vital Signs Temp Pulse Resp BP O2 Del Method 97.4 F L 56 L 16 152/56 H Room Air 11/01/22 10:19 11/01/22 10:19 11/01/22 10:19 11/01/22 10:19 11/01/22 10:19 Oxygen Delivery Method Room Air Weight: 195 lb Body Mass Index (BMI) 34.5 Lab / Micro Data Attestation: I reviewed the patient's lab results. Physical Exam Const oriented x3 General Appearance: cooperative Exam Limitations: no limitations HEENT normocephalic Eyes PERRL Resp normal respiratory effort Effort and Inspection: able to speak in complete sentences Auscultation: clear to auscultation bilaterally Cardio regular rate and regular rhythm Palpation: normal PMI Rate: regular rate Rhythm: regular rhythm Extremity Extremity Narrative: Right foot has wounds on right plantar amputated partial of the right great toe and open wounds on second third and fourth toe plantar side. Right heel is openwounds from cracked skin and left second toe is open also General Extremity: amputation Skin Wounds: wounds noted Neuro oriented x3 Psych Appearance: grossly normal Speech: normal speech Thought Content: normal thought content Judgement: judgement good Debridement Note Debridement Note Wound debrided: Right great toe plantar side DFU Laterality: Right Type of Debridement: Excisional debridement Anesthesia Used: 5% Lidocaine Gel Depth: in the subcutaneous layer Percentage of wound debrided: 100 Instrument Used: 7mm curette Tissue Removed: Callus devitalized tissue and fibrin Severity: Limited To Skin Breakdown Amount of bleeding with debridement: Mild Bleeding Controlled with: Compression and gauze Patient tolerated procedure: Patient tolerated procedure well Post-Debridement Measurements and Additional Note: Post-Debridement Measurements/Treatment - Nurse 1 - General Ulcer Assessment Start: 11/01/22 10:02 Freq: Status: Active Protocol: SANDRO Activity Type Activity Date Activity User E-sign Co-sign Detail Recorded Client Recorded Date Recorded By Document 11/01/22 10:19 [facility] [id number] 11/01/22 10:28 [facility] 11/01/22 10:19 - Today's Visit Information Type of service 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 ) Arrival Mode Ambulatory Transfer Assistance None Accompanied by boyfriend Patient Identification Verified (Name & Yes ) Patient Requires Transmission-Based No Precautions Height and Weight Weight Measurement Method Estimated by Patient Body Mass Index (BMI) 34.5 BMI Classification Obese Vital Signs Temperature (97.8 F-99.1 F) 97.4 F L Temperature Source Temporal Pulse Rate (60-100) 56 L Pulse Location Monitor Respiratory Rate (12-18) 16 Respiratory rate source Observation Oxygen Delivery Method Room Air Blood Pressure (90/60-120/80) 152/56 H Blood Pressure Mean (mm Hg) 88 Source Monitor Position Sitting Blood Pressure Location Left Arm History Since Last Visit- (Skip if this is Patient's initial visit) Have you changed medications since your No last visit? Any new allergies or adverse reactions No Had a fall/change in ADL's that may No increase risk of falls Signs or symptoms of abuse and/or No neglect since last visit Have you been in the hospital since your No last visit? Has dressing in place as prescribed Yes Has compression in place as prescribed N/A Has offloadiing in place as prescribed N/A Experienced any changes in pain level or No management Left Footwear Regular Shoe Right Footwear Regular Shoe Pain Scale: 0-10 Numeric Is Patient Pain Free? Yes WC - Nurse 1 - General Ulcer Measurement Start: 11/01/22 10:02 Freq: Status: Active Protocol: Activity Type Activity Date Activity User E-sign Co-sign Detail Recorded Client Recorded Date Recorded By Document 11/01/22 10:19 [facility] [id number] 11/01/22 10:28 [facility] 11/01/22 10:19 Wound Center Nurse 1 #8- R 3RD TOE -Combined with other wound No -Current Size (cm) - Length 0.1 -Current Size (cm) - Width 0.1 -Current Size (cm) - Depth 0.1 -Total Square Cm 0.01 -Date of Last Picture (Recall this 11/01/22 field) -Photo Taken Yes -Texture (Sammie-wound Skin Appearance) Assessed, Scarring -Moisture (Sammie-wound Skin Appearance) Assessed,Dry/ Scaly -Color (Sammie-wound Skin Appearance) Assessed -Temperature (Sammie-wound Skin No Abnormality Appearance) (Pt Warm) -Tenderness on Palpation (Sammie-wound No Skin Appearance) -Ulcer Cleansing Rinsed/ Irrigated with Saline -Foul Odor after Cleansing No -Anesthetic Used 5% Lidocaine Gel #5- R FOOT PLANTAR -Combined with other wound No -Current Size (cm) - Length 1.3 -Current Size (cm) - Width 1.1 -Current Size (cm) - Depth 0.2 -Total Square Cm 1.43 -Date of Last Picture (Recall this 11/01/22 field) -Photo Taken Yes -Epithelialization Small 1-33% -Tunneling No -Undermining/Tunneling No -Circular Undermining No -Exudate Amt Medium -Exudate Type Serosanguineous -Wound Margin Distinct, Outline Attached -Granulation Amt Large (67-100%) -Granulation Quality Red -Slough/Fibrin Yes -Necrosis Amt Small (1-33%) -Necrotic Tissue Type Adherent Slough -Texture (Sammie-wound Skin Appearance) Assessed, Scarring -Moisture (Sammie-wound Skin Appearance) Assessed,Dry/ Scaly -Color (Sammie-wound Skin Appearance) Assessed -Temperature (Sammie-wound Skin No Abnormality Appearance) (Pt Warm) -Tenderness on Palpation (Sammie-wound No Skin Appearance) -Ulcer Cleansing Rinsed/ Irrigated with Saline -Foul Odor after Cleansing No -Anesthetic Used 5% Lidocaine Gel #3- L 2ND TOE PLANTAR -Combined with other wound No -Current Size (cm) - Length 0.4 -Current Size (cm) - Width 0.5 -Current Size (cm) - Depth 0.2 -Total Square Cm 0.20 -Date of Last Picture (Recall this 11/01/22 field) -Photo Taken Yes -Epithelialization Small 1-33% -Tunneling No -Undermining/Tunneling No -Circular Undermining No -Exudate Amt Medium -Exudate Type Serosanguineous -Wound Margin Distinct, Outline Attached -Granulation Amt Large (67-100%) -Granulation Quality Red -Slough/Fibrin Yes -Necrosis Amt Small (1-33%) -Necrotic Tissue Type Adherent Slough -Texture (Sammie-wound Skin Appearance) Assessed, Scarring -Moisture (Sammie-wound Skin Appearance) Assessed,Dry/ Scaly -Color (Sammie-wound Skin Appearance) Assessed -Temperature (Sammie-wound Skin No Abnormality Appearance) (Pt Warm) -Tenderness on Palpation (Sammie-wound No Skin Appearance) -Ulcer Cleansing Rinsed/ Irrigated with Saline -Foul Odor after Cleansing No -Anesthetic Used 5% Lidocaine Gel WC - Nurse 2 - General Ulcer CM Notes Start: 11/01/22 10:02 Freq: Status: Active Protocol: Activity Type Activity Date Activity User E-sign Co-sign Detail Recorded Client Recorded Date Recorded By Document 11/01/22 10:33 MW [id number] 11/01/22 10:47 MW 11/01/22 10:33 Wound Center Nurse 2 #8- R 3RD TOE -Time 10:34 -Correct Patient Yes -Correct Side, Site, Position Yes -Correct Procedure Yes -Procedure Performed Yes -Type of Procedure Debridement -Clinical Debridement Subcutaneous -Tissue Removed Subcutaneous -Post Debridement (cm) - Length 1.0 -Post Debridement (cm) - Width 0.5 -Post Debridement (cm) - Depth 0.2 -Total Square (Post) (cm) 0.50 -Area of Debridement (cm) - Length 1.0 -Area of Debridement (cm) - Width 0.5 -Total Square (Area) (cm) 0.50 -Tunneling No -Undermining/Tunneling No -Circular Undermining No -Wound/Ulcer Outcome Not Healed -Ulcer Cleansing Rinsed/ Irrigated with Saline -Foul Odor after Cleansing No -Bioengineered Tissue No -Bleeding Controlled with Pressure -Treatment Response Procedure Tolerated Well -Offloading No -Debridement - Subq, 1st 20sq cm Yes #5- R FOOT PLANTAR -Time 10:34 -Correct Patient Yes -Correct Side, Site, Position Yes -Correct Procedure Yes -Procedure Performed Yes -Type of Procedure Debridement -Clinical Debridement Subcutaneous -Tissue Removed Subcutaneous -Post Debridement (cm) - Length 1.4 -Post Debridement (cm) - Width 1.3 -Post Debridement (cm) - Depth 0.3 -Total Square (Post) (cm) 1.82 -Area of Debridement (cm) - Length 1.4 -Area of Debridement (cm) - Width 1.3 -Total Square (Area) (cm) 1.82 -Tunneling No -Undermining/Tunneling No -Circular Undermining No -Wound/Ulcer Outcome Not Healed -Ulcer Cleansing Rinsed/ Irrigated with Saline -Foul Odor after Cleansing No -Bioengineered Tissue No -Bleeding Controlled with Pressure -Treatment Response Procedure Tolerated Well -Offloading No -Debridement - Subq, 1st 20sq cm No #3- L 2ND TOE PLANTAR -Time 10:35 -Correct Patient Yes -Correct Side, Site, Position Yes -Correct Procedure Yes -Procedure Performed Yes -Type of Procedure Debridement -Clinical Debridement Subcutaneous -Tissue Removed Subcutaneous -Post Debridement (cm) - Length 0.8 -Post Debridement (cm) - Width 0.8 -Post Debridement (cm) - Depth 0.1 -Total Square (Post) (cm) 0.64 -Area of Debridement (cm) - Length 0.8 -Area of Debridement (cm) - Width 0.8 -Total Square (Area) (cm) 0.64 -Tunneling No -Undermining/Tunneling No -Circular Undermining No -Wound/Ulcer Outcome Not Healed -Ulcer Cleansing Rinsed/ Irrigated with Saline -Foul Odor after Cleansing No -Bioengineered Tissue No -Bleeding Controlled with Pressure -Treatment Response Procedure Tolerated Well -Offloading No -Debridement - Subq, 1st 20sq cm No Pain Scale: 0-10 Numeric Is Patient Pain Free? Yes - Nurse 3 - General Ulcer D/C NN Start: 11/01/22 10:02 Freq: Status: Active Protocol: Activity Type Activity Date Activity User E-sign Co-sign Detail Recorded Client Recorded Date Recorded By Document 11/01/22 11:11 [id number] 11/01/22 11:12 RB 11/01/22 11:11 Wound Care Center Nurse 3 #8- R 3RD TOE -Ulcer Cleansing Rinsed/ Irrigated with Saline -Primary Dressing Applied Fibracol Plus 4x4 -Other Dressing bactroban, gauze ,coban -Primary Dressing Covered/Secured with Dry Gauze -Fibracol Plus 4x4 1 #5- R FOOT PLANTAR -Other Dressing bactoban , fibracol, coban -Primary Dressing Covered/Secured with Dry Gauze #3- L 2ND TOE PLANTAR -Other Dressing bactroban , fibroacol -Primary Dressing Covered/Secured with Dry Gauze Treatment Response Procedure Tolerated Well Pain Scale: 0-10 Numeric Is Patient Pain Free? Yes - Visit Discharge Discharge Condition Stable Ambulatory Status Ambulatory Transportation Private Auto Medication Reconcilliation completed & No provided to patient/care provider Clinical Summary of Care Provided Yes Additional Wound Wound debrided: Right third toe plantar side nonhealing ulcer with osteomyelitis Laterality: Right Type of Debridement: Excisional debridement Anesthesia Used: 5% Lidocaine Gel Depth: Down to and including healthy tissue Percentage of wound debrided: 100 Instrument Used: 5mm curette and - (Nippers) Tissue Removed: Devitalized tissue and callus fibrin Severity: Limited To Skin Breakdown Amount of bleeding with debridement: Mild Bleeding Controlled with: Compression and gauze Patient tolerated procedure: Patient tolerated procedure well Additional Wound Wound debrided: Left fourth toe ulcers nonhealing nonpressure Type of Debridement: Excisional debridement Anesthesia Used: 5% Lidocaine Gel Depth: Down to and including healthy tissue Percentage of wound debrided: 100 Instrument Used: 5mm curette and - (Nippers) Tissue Removed: Devitalized tissue and callus fibrin Severity: Limited To Skin Breakdown Amount of bleeding with debridement: Mild Bleeding Controlled with: Compression and gauze Patient tolerated procedure: Patient tolerated procedure well Assessment/Plan Assessment/Plan (1) Idiopathic neuropathy: CODE(S): G60.9 - Hereditary and idiopathic neuropathy, unspecified (2) Non-pressure chronic ulcer of other part of right foot with fat layer exposed: CODE(S): L97.512 - Non-pressure chronic ulcer of other part of right foot with fat layer exposed PLAN: Wash foot with antibacterial soap and apply Bactroban nickel thickness in base of wound cover with the fibrocall gauze and tape MRI ordered of the right foot and toe done today we will call with results Keep appointment with infectious disease on November 15 here at the wound center Pending culture results we will get on antibiotics. Follow-up in 1 week (3) Ulcer of toe: CODE(S): L97.509 - Non-pressure chronic ulcer of other part of unspecifiedfoot with unspecified severity QUALIFIERS: Laterality: unspecified laterality Non-pressure ulcerstage: limited to breakdown of skin Qualified Code(s): L97.501 - Non-pressure chronic ulcer of other part of unspecified foot limited to breakdown of skin PLAN: Wash foot with antibacterial soap and apply fibrin call to all open woundson toes cover with gauze and tape Follow-up in 1 week 11/01/22 1248 <Electronically signed by Mary Basilio NP [employer]> Cosigner Signature (if applicable): CC: ~ Signed [facility] Work Phone: [phone]) 520-729206-28-2023 Progress note Author Mary Basilio [facility] October 25, 2022 11:46am Note Date/Time October 25, 2022 11:3 5am [facility] [address] [place] [address] Progress Note - Wound Care 10/25/22 1133 MR#: [id number] Acct: [id number] Name: LANI YUSUF Rep #:[id number] : 1955 67 From: Mary Basilio NP [employer] PCP: MELITON Bernal Status:REG RCR Location: History of Present Illness Date of Service: 10/25/22 Chief Complaint: Follow-up multiple wounds of right great toe plantar side rightsecond third and fourth toe right heel and left second toe all from her idiopathic neuropathy. Patient refuses to stay off her feet and is on working 10 to 12 hours a day. She also likes to pick at her wounds which does not help. 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 She was seen in my office about 6 months ago and was given to her calcium alginate. Still using that and Neosporin on her wounds. She feels the toes are from the shoe she pumped it up too high and her toes wereextended past the ends and she does not realize that they are getting hit or rubbing when she walks. The right second and third fourth toe are all superficial wounds The right heel looks like she had some skin cracking and is picking at it and opened some wounds on her heel. Again very superficial The worst would be the right foot plantar that is open and has some depth. We will order x-rays to check for osteomyelitis and have patient follow-up in 1 week with a different dressing change. Progress of Wound: Debrided all wounds well all measuring smaller more superficial. The right third toe is still very red. [place] of the third toe shows possible osteomyelitis ordering an MRI now of the foot and toe. Patient has a appointment with infectious disease on November 17 at 245 here at the wound center. We will continue with the same wound care until seen by him. . Subjective Subjective Patient is just nervous that she is can lose her foot Objective Data Objective Data All measurements on wounds look better the plantar right great toe is much improved Vital Signs: Vital Signs Temp Pulse Resp BP O2 Del Method 96.7 F L 69 16 168/85 H Room Air 10/18/22 10:07 10/18/22 10:07 10/18/22 10:07 10/18/22 10:07 10/18/22 10:07 Oxygen Delivery Method Room Air Weight: 195 lb Body Mass Index (BMI) 34.5 Lab / Micro Data Attestation: I reviewed the patient's lab results. Physical Exam Const oriented x3 General Appearance: cooperative Exam Limitations: no limitations HEENT normocephalic Eyes PERRL Resp normal respiratory effort Effort and Inspection: able to speak in complete sentences Auscultation: clear to auscultation bilaterally Cardio regular rate and regular rhythm Palpation: normal PMI Rate: regular rate Rhythm: regular rhythm Extremity Extremity Narrative: Right foot has wounds on right plantar amputated partial of the right great toe and open wounds on second third and fourth toe plantar side. Right heel is openwounds from cracked skin and left second toe is open also General Extremity: amputation Skin Wounds: wounds noted Neuro oriented x3 Psych Appearance: grossly normal Speech: normal speech Thought Content: normal thought content Judgement: judgement good Debridement Note Debridement Note Wound debrided: Right plantar foot great toe chronic wound nonpressure Laterality: Right Type of Debridement: Excisional debridement Anesthesia Used: 5% Lidocaine Gel Depth: Down to and including healthy tissue Percentage of wound debrided: 100 Instrument Used: 5mm curette Tissue Removed: Fibrin Severity: Fat Layer Exposed Amount of bleeding with debridement: Mild Bleeding Controlled with: Compression and gauze Patient tolerated procedure: Patient tolerated procedure well Post-Debridement Measurements and Additional Note: Post-Debridement Measurements/Treatment - Nurse 1 - General Ulcer Assessment Start: 10/18/22 10:02 Freq: Status: Active Protocol: SANDRO Activity Type Activity Date Activity User E-sign Co-sign Detail Recorded Client Recorded Date Recorded By Document 10/18/22 10:07 [facility] [id number] 10/18/22 10:32 [facility] 10/18/22 10:07 - Today's Visit Information Type of service Initial Visit Arrival Mode Ambulatory Transfer Assistance None Accompanied by SIG OTHER Patient Identification Verified (Name & Yes ) Patient Requires Transmission-Based No Precautions Height and Weight Height 5 ft 3 in Weight 195 lb Weight in Pounds 195.0 lbs Weight Measurement Method Estimated by Patient Body Mass Index (BMI) 34.5 BMI Classification Obese BSA - Nick 1.91 Vital Signs Temperature (97.8 F-99.1 F) 96.7 F L Temperature Source Temporal Pulse Rate (60-100) 69 Pulse Location Monitor Respiratory Rate (12-18) 16 Respiratory rate source Observation Oxygen Delivery Method Room Air Blood Pressure (90/60-120/80) 168/85 H Blood Pressure Mean (mm Hg) 112 Source Monitor Position Sitting Blood Pressure Location Left Arm History Since Last Visit- (Skip if this is Patient's initial visit) Left Footwear Regular Shoe Right Footwear Removable Cast Walker/Walking Boot Pain Scale: 0-10 Numeric Is Patient Pain Free? Yes Lower Extremity Assessment/ Foot Assessment/ Toe Nail Assessment Right -Lower Extremity Comment (If N/A Above ARTERIAL ) STUDIES 01/2022 Left -Lower Extremity Comment (If N/A Above ARTERIAL ) STUDIES 01/2022 Communication Assessment Preferred language [place]ian Investigations Chief Required No Able to Read Yes Able to Write Yes Communication Tools None Right Hearing Abillity Normal Left Hearing Abillity Normal Visual Assistive Devices Glasses Teaching Assessment Preferences Verbal,Written, Audio/Visual, Demonstration Barriers to Learning None Readiness To Learn Excellent Willingness to Engage in Self Management High Activies Readiness to Engage in Self Management High Activities Anxiety Level Calm Cooperation Cooperative Perception Coherent Interest in Health Problem Asks Questions Education Importance Acknowledges Need Does Patient Smoke tobacco or other No substances Is Patient Diabetic No Functional Assessment Recent Decline in Ability to Perform Denies Any Declines Culture/Sabianist/Lapeler Cultural/Sabianist Needs that may affect No Treatment Plan WC - Nurse 1 - General Ulcer Measurement Start: 10/18/22 10:02 Freq: Status: Active Protocol: Activity Type Activity Date Activity User E-sign Co-sign Detail Recorded Client Recorded Date Recorded By Document 10/18/22 10:07 [facility] [id number] 10/18/22 10:32 [facility] 10/18/22 10:07 Wound Center Nurse 1 #4- L KNEE -Combined with other wound No -Current Size (cm) - Length 0.5 -Current Size (cm) - Width 0.7 -Current Size (cm) - Depth 0.1 -Total Square Cm 0.35 -Date of Last Picture (Recall this 10/18/22 field) -Photo Taken Yes -Epithelialization None Present -Tunneling No -Undermining/Tunneling No -Circular Undermining No -Exudate Amt None Present -Wound Margin Distinct, Outline Attached -Granulation Amt None Present (0 %) -Slough/Fibrin Yes -Necrosis Amt Large (67-100%) -Necrotic Tissue Type Eschar -Texture (Sammie-wound Skin Appearance) Assessed, Localized Edema ,Scarring -Moisture (Sammie-wound Skin Appearance) Assessed,Dry/ Scaly -Color (Sammie-wound Skin Appearance) Assessed, Erythema -Temperature (Sammie-wound Skin No Abnormality Appearance) (Pt Warm) -Tenderness on Palpation (Sammie-wound No Skin Appearance) -Ulcer Cleansing Rinsed/ Irrigated with Saline -Foul Odor after Cleansing No -Anesthetic Used 5% Lidocaine Gel #9- R 4TH TOE -Combined with other wound No -Current Size (cm) - Length 0.1 -Current Size (cm) - Width 0.1 -Current Size (cm) - Depth 0.1 -Total Square Cm 0.01 -Date of Last Picture (Recall this 10/18/22 field) -Photo Taken Yes -Epithelialization None Present -Tunneling No -Undermining/Tunneling No -Circular Undermining No -Exudate Amt Small -Exudate Type Serosanguineous -Wound Margin Distinct, Outline Attached -Granulation Amt Large (67-100%) -Granulation Quality Red -Slough/Fibrin No -Necrosis Amt None Present (0 %) -Texture (Sammie-wound Skin Appearance) Assessed,Callus ,Scarring -Moisture (Sammie-wound Skin Appearance) Assessed,Dry/ Scaly -Color (Sammie-wound Skin Appearance) Assessed -Temperature (Sammie-wound Skin No Abnormality Appearance) (Pt Warm) -Tenderness on Palpation (Sammie-wound No Skin Appearance) -Ulcer Cleansing Rinsed/ Irrigated with Saline -Foul Odor after Cleansing No -Anesthetic Used 5% Lidocaine Gel #8- R 3RD TOE -Combined with other wound No -Current Size (cm) - Length 0.3 -Current Size (cm) - Width 0.4 -Current Size (cm) - Depth 0.1 -Total Square Cm 0.12 -Date of Last Picture (Recall this 10/18/22 field) -Photo Taken Yes -Epithelialization None Present -Tunneling No -Undermining/Tunneling No -Circular Undermining No -Exudate Amt Small -Exudate Type Serosanguineous -Wound Margin Distinct, Outline Attached -Granulation Amt Large (67-100%) -Granulation Quality Red -Slough/Fibrin No -Necrosis Amt None Present (0 %) -Texture (Sammie-wound Skin Appearance) Assessed,Callus ,Scarring -Moisture (Sammie-wound Skin Appearance) Assessed,Dry/ Scaly -Color (Sammie-wound Skin Appearance) Assessed -Temperature (Sammie-wound Skin No Abnormality Appearance) (Pt Warm) -Tenderness on Palpation (Sammie-wound No Skin Appearance) -Ulcer Cleansing Rinsed/ Irrigated with Saline -Foul Odor after Cleansing No -Anesthetic Used 5% Lidocaine Gel #7- R 2ND TOE PLANTAR -Combined with other wound No -Current Size (cm) - Length 0.2 -Current Size (cm) - Width 0.2 -Current Size (cm) - Depth 0.1 -Total Square Cm 0.04 -Date of Last Picture (Recall this 10/18/22 field) -Photo Taken Yes -Epithelialization None Present -Tunneling No -Undermining/Tunneling No -Circular Undermining No -Exudate Amt Small -Exudate Type Serosanguineous -Wound Margin Flat & Intact -Granulation Amt Large (67-100%) -Granulation Quality Red -Slough/Fibrin No -Necrosis Amt None Present (0 %) -Texture (Sammie-wound Skin Appearance) Assessed,Callus ,Scarring -Moisture (Sammie-wound Skin Appearance) Assessed -Color (Sammie-wound Skin Appearance) Assessed -Temperature (Sammie-wound Skin No Abnormality Appearance) (Pt Warm) -Tenderness on Palpation (Sammie-wound No Skin Appearance) -Ulcer Cleansing Rinsed/ Irrigated with Saline -Foul Odor after Cleansing No -Anesthetic Used 5% Lidocaine Gel #6- R HEEL CLUSTER -Combined with other wound No -Current Size (cm) - Length 4.5 -Current Size (cm) - Width 4 -Current Size (cm) - Depth 0.1 -Total Square Cm 18.0 -Date of Last Picture (Recall this 10/18/22 field) -Photo Taken Yes -Epithelialization None Present -Tunneling No -Undermining/Tunneling No -Circular Undermining No -Exudate Amt Small -Exudate Type Serosanguineous -Wound Margin Flat & Intact -Granulation Amt Large (67-100%) -Granulation Quality Red -Slough/Fibrin Yes -Necrosis Amt Small (1-33%) -Necrotic Tissue Type Eschar -Texture (Sammie-wound Skin Appearance) Assessed, Scarring -Moisture (Sammie-wound Skin Appearance) Assessed,Dry/ Scaly -Color (Sammie-wound Skin Appearance) Assessed -Temperature (Sammie-wound Skin No Abnormality Appearance) (Pt Warm) -Tenderness on Palpation (Sammie-wound No Skin Appearance) -Ulcer Cleansing Soap and Water -Foul Odor after Cleansing No -Anesthetic Used 5% Lidocaine Gel #5- R FOOT PLANTAR -Combined with other wound No -Current Size (cm) - Length 1.7 -Current Size (cm) - Width 1.5 -Current Size (cm) - Depth 0.5 -Total Square Cm 2.55 -Date of Last Picture (Recall this 10/18/22 field) -Photo Taken Yes -Epithelialization None Present -Tunneling No -Undermining/Tunneling No -Circular Undermining No -Exudate Amt Medium -Exudate Type Serosanguineous -Wound Margin Distinct, Outline Attached -Granulation Amt Large (67-100%) -Granulation Quality Red -Slough/Fibrin Yes -Necrosis Amt Small (1-33%) -Necrotic Tissue Type Adherent Slough -Texture (Sammie-wound Skin Appearance) Assessed,Callus ,Scarring -Moisture (Sammie-wound Skin Appearance) Assessed,Dry/ Scaly -Color (Sammie-wound Skin Appearance) Assessed -Temperature (Sammie-wound Skin No Abnormality Appearance) (Pt Warm) -Tenderness on Palpation (Sammie-wound No Skin Appearance) -Ulcer Cleansing Rinsed/ Irrigated with Saline -Foul Odor after Cleansing No -Anesthetic Used 5% Lidocaine Gel #3- L 2ND TOE PLANTAR -Combined with other wound No -Current Size (cm) - Length 1 -Current Size (cm) - Width 1.1 -Current Size (cm) - Depth 0.1 -Total Square Cm 1.1 -Date of Last Picture (Recall this 10/18/22 field) -Photo Taken Yes -Epithelialization None Present -Tunneling No -Undermining/Tunneling No -Circular Undermining No -Exudate Amt Medium -Exudate Type Serosanguineous -Wound Margin Flat & Intact -Granulation Amt Large (67-100%) -Granulation Quality Red -Slough/Fibrin Yes -Necrosis Amt Small (1-33%) -Necrotic Tissue Type Adherent Slough -Texture (Sammie-wound Skin Appearance) Assessed,Callus ,Scarring -Moisture (Sammie-wound Skin Appearance) Assessed,Dry/ Scaly -Color (Sammie-wound Skin Appearance) Assessed -Temperature (Sammie-wound Skin No Abnormality Appearance) (Pt Warm) -Tenderness on Palpation (Sammie-wound No Skin Appearance) -Ulcer Cleansing Rinsed/ Irrigated with Saline -Foul Odor after Cleansing No -Anesthetic Used 5% Lidocaine Gel Right Calf (cm) 36.7 Right Ankle (cm) 21.7 Left Calf (cm) 38 Left Ankle (cm) 21.7 WC - Nurse 2 - General Ulcer CM Notes Start: 10/18/22 10:02 Freq: Status: Active Protocol: Activity Type Activity Date Activity User E-sign Co-sign Detail Recorded Client Recorded Date Recorded By Document 10/18/22 10:49 MW [id number] 10/18/22 11:03 MW 10/18/22 10:49 Wound Center Nurse 2 #9- R 4TH TOE -Time 10:50 -Correct Patient Yes -Correct Side, Site, Position Yes -Correct Procedure Yes -Procedure Performed Yes -Type of Procedure Debridement -Clinical Debridement Subcutaneous -Tissue Removed Subcutaneous -Post Debridement (cm) - Length 0.2 -Post Debridement (cm) - Width 0.1 -Post Debridement (cm) - Depth 0.1 -Total Square (Post) (cm) 0.02 -Area of Debridement (cm) - Length 0.2 -Area of Debridement (cm) - Width 0.1 -Total Square (Area) (cm) 0.02 -Tunneling No -Undermining/Tunneling No -Circular Undermining No -Wound/Ulcer Outcome Not Healed -Ulcer Cleansing Rinsed/ Irrigated with Saline -Foul Odor after Cleansing No -Bioengineered Tissue No -Bleeding Controlled with Pressure -Treatment Response Procedure Tolerated Well -Offloading No -Debridement - Subq, 1st 20sq cm No #8- R 3RD TOE -Time 10:50 -Correct Patient Yes -Correct Side, Site, Position Yes -Correct Procedure Yes -Procedure Performed Yes -Type of Procedure Debridement -Clinical Debridement Subcutaneous -Tissue Removed Subcutaneous -Post Debridement (cm) - Length 0.3 -Post Debridement (cm) - Width 0.4 -Post Debridement (cm) - Depth 0.1 -Total Square (Post) (cm) 0.12 -Area of Debridement (cm) - Length 0.3 -Area of Debridement (cm) - Width 0.4 -Total Square (Area) (cm) 0.12 -Tunneling No -Undermining/Tunneling No -Circular Undermining No -Wound/Ulcer Outcome Not Healed -Ulcer Cleansing Rinsed/ Irrigated with Saline -Foul Odor after Cleansing No -Bioengineered Tissue No -Bleeding Controlled with Pressure -Treatment Response Procedure Tolerated Well -Offloading No -Debridement - Subq, 1st 20sq cm No #7- R 2ND TOE PLANTAR -Time 10:51 -Correct Patient Yes -Correct Side, Site, Position Yes -Correct Procedure Yes -Procedure Performed Yes -Type of Procedure Debridement -Clinical Debridement Subcutaneous -Tissue Removed Subcutaneous -Post Debridement (cm) - Length 0.5 -Post Debridement (cm) - Width 0.3 -Post Debridement (cm) - Depth 0.1 -Total Square (Post) (cm) 0.15 -Area of Debridement (cm) - Length 0.5 -Area of Debridement (cm) - Width 0.3 -Total Square (Area) (cm) 0.15 -Tunneling No -Undermining/Tunneling No -Circular Undermining No -Wound/Ulcer Outcome Not Healed -Ulcer Cleansing Rinsed/ Irrigated with Saline -Foul Odor after Cleansing No -Bioengineered Tissue No -Bleeding Controlled with Pressure -Treatment Response Procedure Tolerated Well -Offloading No -Debridement - Subq, 1st 20sq cm No #6- R HEEL CLUSTER -Time 10:51 -Correct Patient Yes -Correct Side, Site, Position Yes -Correct Procedure Yes -Procedure Performed Yes -Type of Procedure Debridement -Clinical Debridement Subcutaneous -Tissue Removed Subcutaneous -Post Debridement (cm) - Length 3.5 -Post Debridement (cm) - Width 4.0 -Post Debridement (cm) - Depth 0.1 -Total Square (Post) (cm) 14.00 -Area of Debridement (cm) - Length 3.5 -Area of Debridement (cm) - Width 4.0 -Total Square (Area) (cm) 14.00 -Tunneling No -Undermining/Tunneling No -Circular Undermining No -Wound/Ulcer Outcome Not Healed -Ulcer Cleansing Rinsed/ Irrigated with Saline -Foul Odor after Cleansing No -Bioengineered Tissue No -Bleeding Controlled with Pressure -Treatment Response Procedure Tolerated Well -Offloading No -Debridement - Subq, 1st 20sq cm No #5- R FOOT PLANTAR -Time 10:51 -Correct Patient Yes -Correct Side, Site, Position Yes -Correct Procedure Yes -Procedure Performed Yes -Type of Procedure Debridement -Clinical Debridement Subcutaneous -Tissue Removed Subcutaneous -Post Debridement (cm) - Length 1.7 -Post Debridement (cm) - Width 1.5 -Post Debridement (cm) - Depth 0.2 -Total Square (Post) (cm) 2.55 -Area of Debridement (cm) - Length 1.7 -Area of Debridement (cm) - Width 1.5 -Total Square (Area) (cm) 2.55 -Tunneling No -Undermining/Tunneling No -Circular Undermining No -Wound/Ulcer Outcome Not Healed -Ulcer Cleansing Rinsed/ Irrigated with Saline -Foul Odor after Cleansing No -Bioengineered Tissue No -Bleeding Controlled with Pressure -Treatment Response Procedure Tolerated Well -Offloading No -Debridement - Subq, 1st 20sq cm Yes #3- L 2ND TOE PLANTAR -Time 10:52 -Correct Patient Yes -Correct Side, Site, Position Yes -Correct Procedure Yes -Procedure Performed Yes -Type of Procedure Debridement -Clinical Debridement Subcutaneous -Tissue Removed Subcutaneous -Post Debridement (cm) - Length 1.5 -Post Debridement (cm) - Width 1.5 -Post Debridement (cm) - Depth 0.1 -Total Square (Post) (cm) 2.25 -Area of Debridement (cm) - Length 1.5 -Area of Debridement (cm) - Width 1.5 -Total Square (Area) (cm) 2.25 -Tunneling No -Undermining/Tunneling No -Circular Undermining No -Wound/Ulcer Outcome Not Healed -Ulcer Cleansing Rinsed/ Irrigated with Saline -Foul Odor after Cleansing No -Bioengineered Tissue No -Bleeding Controlled with Pressure -Treatment Response Procedure Tolerated Well -Offloading No -Debridement - Subq, 1st 20sq cm No Pain Scale: 0-10 Numeric Is Patient Pain Free? Yes WC - Nurse 3 - General Ulcer D/C NN Start: 10/18/22 10:02 Freq: Status: Active Protocol: Activity Type Activity Date Activity User E-sign Co-sign Detail Recorded Client Recorded Date Recorded By Document 10/18/22 11:20 [facility] [id number] 10/18/22 11:22 [facility] 10/18/22 11:20 Wound Care Center Nurse 3 #9- R 4TH TOE -Ulcer Cleansing Rinsed/ Irrigated with Saline -Foul Odor after Cleansing No -Primary Dressing Applied Fibracol Plus 4x4 -Primary Dressing Covered/Secured with Dry Gauze & Roll Gauze, Secured with Tape -Fibracol Plus 4x4 1 #8- R 3RD TOE -Ulcer Cleansing Rinsed/ Irrigated with Saline -Foul Odor after Cleansing No -Primary Dressing Applied Fibracol Plus 4x4 -Primary Dressing Covered/Secured with Dry Gauze & Roll Gauze, Secured with Tape -Fibracol Plus 4x4 0 #7- R 2ND TOE PLANTAR -Ulcer Cleansing Rinsed/ Irrigated with Saline -Foul Odor after Cleansing No -Primary Dressing Applied Fibracol Plus 4x4 -Primary Dressing Covered/Secured with Dry Gauze & Roll Gauze, Secured with Tape -Fibracol Plus 4x4 0 #6- R HEEL CLUSTER -Ulcer Cleansing Rinsed/ Irrigated with Saline -Foul Odor after Cleansing No -Primary Dressing Applied Fibracol Plus 4x4 -Primary Dressing Covered/Secured with Dry Gauze & Roll Gauze, Secured with Tape -Fibracol Plus 4x4 0 #5- R FOOT PLANTAR -Ulcer Cleansing Rinsed/ Irrigated with Saline -Foul Odor after Cleansing No -Primary Dressing Applied Fibracol Plus 4x4 -Other Dressing BACTROBAN -Primary Dressing Covered/Secured with Dry Gauze & Roll Gauze, Secured with Tape -Fibracol Plus 4x4 0 #3- L 2ND TOE PLANTAR -Ulcer Cleansing Rinsed/ Irrigated with Saline -Foul Odor after Cleansing No -Primary Dressing Applied Fibracol Plus 4x4 -Primary Dressing Covered/Secured with Dry Gauze & Roll Gauze, Secured with Tape -Fibracol Plus 4x4 0 Treatment Response Procedure Tolerated Well Pain Scale: 0-10 Numeric Is Patient Pain Free? Yes WC - Visit Discharge Discharge Condition Stable Ambulatory Status Ambulatory Transportation Private Auto Accompanied by BOYFRIEND Additional Wound Wound debrided: Right foot plantar fourth toe superficial open wound Type of Debridement: Excisional debridement Anesthesia Used: 5% Lidocaine Gel Depth: Down to and including healthy tissue Percentage of wound debrided: 100 Instrument Used: 5mm curette Severity: Limited To Skin Breakdown Amount of bleeding with debridement: Mild Bleeding Controlled with: Pressure and Compression and gauze Patient tolerated procedure: Patient tolerated procedure well Additional Wound Wound debrided: Right third toe plantar superficial open wound nonhealing nonpressure Type of Debridement: Excisional debridement Anesthesia Used: 5% Lidocaine Gel Depth: Down to and including healthy tissue Percentage of wound debrided: 100 Instrument Used: 5mm curette Tissue Removed: Fibrin Severity: Limited To Skin Breakdown Amount of bleeding with debridement: Mild Bleeding Controlled with: Compression and gauze Patient tolerated procedure: Patient tolerated procedure well Additional Wound Wound debrided: Right second toe plantar nonpressure Type of Debridement: Excisional debridement Anesthesia Used: 5% Lidocaine Gel Depth: Down to and including healthy tissue Percentage of wound debrided: 100 Instrument Used: 5mm curette Tissue Removed: Fibrin Severity: Limited To Skin Breakdown Amount of bleeding with debridement: Mild Bleeding Controlled with: Compression and gauze Patient tolerated procedure: Patient tolerated procedure well Operative Diagnosis: Left second toe plantar open nonhealing chronic nonpressure Additional Wound Laterality: Left Type of Debridement: Excisional debridement Anesthesia Used: 5% Lidocaine Gel Depth: Down to and including healthy tissue Percentage of wound debrided: 100 Instrument Used: 5mm curette Tissue Removed: Fibrin Severity: Limited To Skin Breakdown Amount of bleeding with debridement: Mild Bleeding Controlled with: Compression and gauze Patient tolerated procedure: Patient tolerated procedure well Assessment/Plan Assessment/Plan (1) Idiopathic neuropathy: CODE(S): G60.9 - Hereditary and idiopathic neuropathy, unspecified (2) Non-pressure chronic ulcer of other part of right foot with fat layer exposed: CODE(S): L97.512 - Non-pressure chronic ulcer of other part of right foot with fat layer exposed PLAN: Wash foot with antibacterial soap and apply Bactroban nickel thickness in base of wound cover with the fibrocall gauze and tape MRI ordered of the right foot and toe Keep appointment with infectious disease on November 17 here at the wound center (3) Ulcer of toe: CODE(S): L97.509 - Non-pressure chronic ulcer of other part of unspecifiedfoot with unspecified severity QUALIFIERS: Laterality: unspecified laterality Non-pressure ulcerstage: limited to breakdown of skin Qualified Code(s): L97.501 - Non-pressure chronic ulcer of other part of unspecified foot limited to breakdown of skin PLAN: Wash foot with antibacterial soap and apply fibrin call to all open woundson toes cover with gauze and tape Follow-up in 1 week 10/25/22 1146 <Electronically signed by Mary Basilio NP [employer]> Cosigner Signature (if applicable): CC: ~ Signed [facility] Work Phone: [phone]) 949-812706-21-2023 Progress note Author Mary Basilio [facility] October 18, 2022 12:16pm Note Date/Time October 18, 2022 11:4 9am [facility] [address] [place] [address] Progress Note - Wound Care 10/18/22 1147 MR#: [id number] Acct: [id number] Name: LANI YUSUF Rep #:[id number] : 1955 67 From: Mary Basilio NP, NP-C PCP: MELITON Bernal Status:REG RCR Location: History of Present Illness Date of Service: 10/18/22 Chief Complaint: Follow-up multiple wounds of right great toe plantar side rightsecond third and fourth toe right heel and left second toe all from her idiopathic neuropathy. Patient refuses to stay off her feet and is on working 10 to 12 hours a day. She also likes to pick at her wounds which does not help. 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 She was seen in my office about 6 months ago and was given to her calcium alginate. Still using that and Neosporin on her wounds. She feels the toes are from the shoe she pumped it up too high and her toes wereextended past the ends and she does not realize that they are getting hit or rubbing when she walks. The right second and third fourth toe are all superficial wounds The right heel looks like she had some skin cracking and is picking at it and opened some wounds on her heel. Again very superficial The worst would be the right foot plantar that is open and has some depth. We will order x-rays to check for osteomyelitis and have patient follow-up in 1 week with a different dressing change. Progress of Wound: Debrided all wounds well all wounds look clean no odor will start her on Bactroban and Fibracol over top on the right plantar ulcer. All the other ulcers will just cover with fibrin call . Subjective Subjective Patient is okay with outcomes and with treatment plan Objective Data Objective Data Again we will try using fibric all this time and not the calcium alginate and see if that works better for her wound get x-rays. Vital Signs: Vital Signs Temp Pulse Resp BP O2 Del Method 96.7 F L 69 16 168/85 H Room Air 10/18/22 10:07 10/18/22 10:07 10/18/22 10:07 10/18/22 10:07 10/18/22 10:07 Oxygen Delivery Method Room Air Weight: 195 lb Body Mass Index (BMI) 34.5 Lab / Micro Data Attestation: I reviewed the patient's lab results. Physical Exam Const oriented x3 General Appearance: cooperative Exam Limitations: no limitations HEENT normocephalic Eyes PERRL Resp normal respiratory effort Effort and Inspection: able to speak in complete sentences Auscultation: clear to auscultation bilaterally Cardio regular rate and regular rhythm Palpation: normal PMI Rate: regular rate Rhythm: regular rhythm Extremity Extremity Narrative: Right foot has wounds on right plantar amputated partial of the right great toe and open wounds on second third and fourth toe plantar side. Right heel is openwounds from cracked skin and left second toe is open also General Extremity: amputation Skin Wounds: wounds noted Neuro oriented x3 Psych Appearance: grossly normal Speech: normal speech Thought Content: normal thought content Judgement: judgement good Debridement Note Debridement Note Wound debrided: Right great toe nonpressure ulcer Laterality: Right Type of Debridement: Excisional debridement Anesthesia Used: 5% Lidocaine Gel Depth: Down to and including healthy tissue Percentage of wound debrided: 100 Instrument Used: 5mm curette Tissue Removed: Callus and devitalized tissue and fibrin Severity: Limited To Skin Breakdown Amount of bleeding with debridement: Mild Bleeding Controlled with: Compression and gauze Patient tolerated procedure: Patient tolerated procedure well Post-Debridement Measurements and Additional Note: Post-Debridement Measurements/Treatment ZAIN - Nurse 1 - General Ulcer Assessment Start: 10/18/22 10:02 Freq: Status: Active Protocol: SANDRO Activity Type Activity Date Activity User E-sign Co-sign Detail Recorded Client Recorded Date Recorded By Document 10/18/22 10:07 [facility] [id number] 10/18/22 10:32 [facility] 10/18/22 10:07 - Today's Visit Information Type of service Initial Visit Arrival Mode Ambulatory Transfer Assistance None Accompanied by SIG OTHER Patient Identification Verified (Name & Yes ) Patient Requires Transmission-Based No Precautions Height and Weight Height 5 ft 3 in Weight 195 lb Weight in Pounds 195.0 lbs Weight Measurement Method Estimated by Patient Body Mass Index (BMI) 34.5 BMI Classification Obese BSA - Nick 1.91 Vital Signs Temperature (97.8 F-99.1 F) 96.7 F L Temperature Source Temporal Pulse Rate (60-100) 69 Pulse Location Monitor Respiratory Rate (12-18) 16 Respiratory rate source Observation Oxygen Delivery Method Room Air Blood Pressure (90/60-120/80) 168/85 H Blood Pressure Mean (mm Hg) 112 Source Monitor Position Sitting Blood Pressure Location Left Arm History Since Last Visit- (Skip if this is Patient's initial visit) Left Footwear Regular Shoe Right Footwear Removable Cast Walker/Walking Boot Pain Scale: 0-10 Numeric Is Patient Pain Free? Yes Lower Extremity Assessment/ Foot Assessment/ Toe Nail Assessment Right -Lower Extremity Comment (If N/A Above ARTERIAL ) STUDIES 01/2022 Left -Lower Extremity Comment (If N/A Above ARTERIAL ) STUDIES 01/2022 Communication Assessment Preferred language [employer] Chief Required No Able to Read Yes Able to Write Yes Communication Tools None Right Hearing Abillity Normal Left Hearing Abillity Normal Visual Assistive Devices Glasses Teaching Assessment Preferences Verbal,Written, Audio/Visual, Demonstration Barriers to Learning None Readiness To Learn Excellent Willingness to Engage in Self Management High Activies Readiness to Engage in Self Management High Activities Anxiety Level Calm Cooperation Cooperative Perception Coherent Interest in Health Problem Asks Questions Education Importance Acknowledges Need Does Patient Smoke tobacco or other No substances Is Patient Diabetic No Functional Assessment Recent Decline in Ability to Perform Denies Any Declines Culture/Sabianist/Lapeler Cultural/Sabianist Needs that may affect No Treatment Plan - Nurse 1 - General Ulcer Measurement Start: 10/18/22 10:02 Freq: Status: Active Protocol: Activity Type Activity Date Activity User E-sign Co-sign Detail Recorded Client Recorded Date Recorded By Document 10/18/22 10:07 [facility] [id number] 10/18/22 10:32 [facility] 10/18/22 10:07 Wound Center Nurse 1 #4- L KNEE -Combined with other wound No -Current Size (cm) - Length 0.5 -Current Size (cm) - Width 0.7 -Current Size (cm) - Depth 0.1 -Total Square Cm 0.35 -Date of Last Picture (Recall this 10/18/22 field) -Photo Taken Yes -Epithelialization None Present -Tunneling No -Undermining/Tunneling No -Circular Undermining No -Exudate Amt None Present -Wound Margin Distinct, Outline Attached -Granulation Amt None Present (0 %) -Slough/Fibrin Yes -Necrosis Amt Large (67-100%) -Necrotic Tissue Type Eschar -Texture (Sammie-wound Skin Appearance) Assessed, Localized Edema ,Scarring -Moisture (Sammie-wound Skin Appearance) Assessed,Dry/ Scaly -Color (Sammie-wound Skin Appearance) Assessed, Erythema -Temperature (Sammie-wound Skin No Abnormality Appearance) (Pt Warm) -Tenderness on Palpation (Sammie-wound No Skin Appearance) -Ulcer Cleansing Rinsed/ Irrigated with Saline -Foul Odor after Cleansing No -Anesthetic Used 5% Lidocaine Gel #9- R 4TH TOE -Combined with other wound No -Current Size (cm) - Length 0.1 -Current Size (cm) - Width 0.1 -Current Size (cm) - Depth 0.1 -Total Square Cm 0.01 -Date of Last Picture (Recall this 10/18/22 field) -Photo Taken Yes -Epithelialization None Present -Tunneling No -Undermining/Tunneling No -Circular Undermining No -Exudate Amt Small -Exudate Type Serosanguineous -Wound Margin Distinct, Outline Attached -Granulation Amt Large (67-100%) -Granulation Quality Red -Slough/Fibrin No -Necrosis Amt None Present (0 %) -Texture (Sammie-wound Skin Appearance) Assessed,Callus ,Scarring -Moisture (Sammie-wound Skin Appearance) Assessed,Dry/ Scaly -Color (Sammie-wound Skin Appearance) Assessed -Temperature (Sammie-wound Skin No Abnormality Appearance) (Pt Warm) -Tenderness on Palpation (Sammie-wound No Skin Appearance) -Ulcer Cleansing Rinsed/ Irrigated with Saline -Foul Odor after Cleansing No -Anesthetic Used 5% Lidocaine Gel #8- R 3RD TOE -Combined with other wound No -Current Size (cm) - Length 0.3 -Current Size (cm) - Width 0.4 -Current Size (cm) - Depth 0.1 -Total Square Cm 0.12 -Date of Last Picture (Recall this 10/18/22 field) -Photo Taken Yes -Epithelialization None Present -Tunneling No -Undermining/Tunneling No -Circular Undermining No -Exudate Amt Small -Exudate Type Serosanguineous -Wound Margin Distinct, Outline Attached -Granulation Amt Large (67-100%) -Granulation Quality Red -Slough/Fibrin No -Necrosis Amt None Present (0 %) -Texture (Sammie-wound Skin Appearance) Assessed,Callus ,Scarring -Moisture (Sammie-wound Skin Appearance) Assessed,Dry/ Scaly -Color (Sammie-wound Skin Appearance) Assessed -Temperature (Sammie-wound Skin No Abnormality Appearance) (Pt Warm) -Tenderness on Palpation (Sammie-wound No Skin Appearance) -Ulcer Cleansing Rinsed/ Irrigated with Saline -Foul Odor after Cleansing No -Anesthetic Used 5% Lidocaine Gel #7- R 2ND TOE PLANTAR -Combined with other wound No -Current Size (cm) - Length 0.2 -Current Size (cm) - Width 0.2 -Current Size (cm) - Depth 0.1 -Total Square Cm 0.04 -Date of Last Picture (Recall this 10/18/22 field) -Photo Taken Yes -Epithelialization None Present -Tunneling No -Undermining/Tunneling No -Circular Undermining No -Exudate Amt Small -Exudate Type Serosanguineous -Wound Margin Flat & Intact -Granulation Amt Large (67-100%) -Granulation Quality Red -Slough/Fibrin No -Necrosis Amt None Present (0 %) -Texture (Sammie-wound Skin Appearance) Assessed,Callus ,Scarring -Moisture (Sammie-wound Skin Appearance) Assessed -Color (Sammie-wound Skin Appearance) Assessed -Temperature (Sammie-wound Skin No Abnormality Appearance) (Pt Warm) -Tenderness on Palpation (Sammie-wound No Skin Appearance) -Ulcer Cleansing Rinsed/ Irrigated with Saline -Foul Odor after Cleansing No -Anesthetic Used 5% Lidocaine Gel #6- R HEEL CLUSTER -Combined with other wound No -Current Size (cm) - Length 4.5 -Current Size (cm) - Width 4 -Current Size (cm) - Depth 0.1 -Total Square Cm 18.0 -Date of Last Picture (Recall this 10/18/22 field) -Photo Taken Yes -Epithelialization None Present -Tunneling No -Undermining/Tunneling No -Circular Undermining No -Exudate Amt Small -Exudate Type Serosanguineous -Wound Margin Flat & Intact -Granulation Amt Large (67-100%) -Granulation Quality Red -Slough/Fibrin Yes -Necrosis Amt Small (1-33%) -Necrotic Tissue Type Eschar -Texture (Sammie-wound Skin Appearance) Assessed, Scarring -Moisture (Sammie-wound Skin Appearance) Assessed,Dry/ Scaly -Color (Sammie-wound Skin Appearance) Assessed -Temperature (Sammie-wound Skin No Abnormality Appearance) (Pt Warm) -Tenderness on Palpation (Sammie-wound No Skin Appearance) -Ulcer Cleansing Soap and Water -Foul Odor after Cleansing No -Anesthetic Used 5% Lidocaine Gel #5- R FOOT PLANTAR -Combined with other wound No -Current Size (cm) - Length 1.7 -Current Size (cm) - Width 1.5 -Current Size (cm) - Depth 0.5 -Total Square Cm 2.55 -Date of Last Picture (Recall this 10/18/22 field) -Photo Taken Yes -Epithelialization None Present -Tunneling No -Undermining/Tunneling No -Circular Undermining No -Exudate Amt Medium -Exudate Type Serosanguineous -Wound Margin Distinct, Outline Attached -Granulation Amt Large (67-100%) -Granulation Quality Red -Slough/Fibrin Yes -Necrosis Amt Small (1-33%) -Necrotic Tissue Type Adherent Slough -Texture (Sammie-wound Skin Appearance) Assessed,Callus ,Scarring -Moisture (Sammie-wound Skin Appearance) Assessed,Dry/ Scaly -Color (Sammie-wound Skin Appearance) Assessed -Temperature (Sammie-wound Skin No Abnormality Appearance) (Pt Warm) -Tenderness on Palpation (Sammie-wound No Skin Appearance) -Ulcer Cleansing Rinsed/ Irrigated with Saline -Foul Odor after Cleansing No -Anesthetic Used 5% Lidocaine Gel #3- L 2ND TOE PLANTAR -Combined with other wound No -Current Size (cm) - Length 1 -Current Size (cm) - Width 1.1 -Current Size (cm) - Depth 0.1 -Total Square Cm 1.1 -Date of Last Picture (Recall this 10/18/22 field) -Photo Taken Yes -Epithelialization None Present -Tunneling No -Undermining/Tunneling No -Circular Undermining No -Exudate Amt Medium -Exudate Type Serosanguineous -Wound Margin Flat & Intact -Granulation Amt Large (67-100%) -Granulation Quality Red -Slough/Fibrin Yes -Necrosis Amt Small (1-33%) -Necrotic Tissue Type Adherent Slough -Texture (Sammie-wound Skin Appearance) Assessed,Callus ,Scarring -Moisture (Sammie-wound Skin Appearance) Assessed,Dry/ Scaly -Color (Sammie-wound Skin Appearance) Assessed -Temperature (Sammie-wound Skin No Abnormality Appearance) (Pt Warm) -Tenderness on Palpation (Sammie-wound No Skin Appearance) -Ulcer Cleansing Rinsed/ Irrigated with Saline -Foul Odor after Cleansing No -Anesthetic Used 5% Lidocaine Gel Right Calf (cm) 36.7 Right Ankle (cm) 21.7 Left Calf (cm) 38 Left Ankle (cm) 21.7 WC - Nurse 2 - General Ulcer CM Notes Start: 10/18/22 10:02 Freq: Status: Active Protocol: Activity Type Activity Date Activity User E-sign Co-sign Detail Recorded Client Recorded Date Recorded By Document 10/18/22 10:49 MW [id number] 10/18/22 11:03 MW 10/18/22 10:49 Wound Center Nurse 2 #9- R 4TH TOE -Time 10:50 -Correct Patient Yes -Correct Side, Site, Position Yes -Correct Procedure Yes -Procedure Performed Yes -Type of Procedure Debridement -Clinical Debridement Subcutaneous -Tissue Removed Subcutaneous -Post Debridement (cm) - Length 0.2 -Post Debridement (cm) - Width 0.1 -Post Debridement (cm) - Depth 0.1 -Total Square (Post) (cm) 0.02 -Area of Debridement (cm) - Length 0.2 -Area of Debridement (cm) - Width 0.1 -Total Square (Area) (cm) 0.02 -Tunneling No -Undermining/Tunneling No -Circular Undermining No -Wound/Ulcer Outcome Not Healed -Ulcer Cleansing Rinsed/ Irrigated with Saline -Foul Odor after Cleansing No -Bioengineered Tissue No -Bleeding Controlled with Pressure -Treatment Response Procedure Tolerated Well -Offloading No -Debridement - Subq, 1st 20sq cm No #8- R 3RD TOE -Time 10:50 -Correct Patient Yes -Correct Side, Site, Position Yes -Correct Procedure Yes -Procedure Performed Yes -Type of Procedure Debridement -Clinical Debridement Subcutaneous -Tissue Removed Subcutaneous -Post Debridement (cm) - Length 0.3 -Post Debridement (cm) - Width 0.4 -Post Debridement (cm) - Depth 0.1 -Total Square (Post) (cm) 0.12 -Area of Debridement (cm) - Length 0.3 -Area of Debridement (cm) - Width 0.4 -Total Square (Area) (cm) 0.12 -Tunneling No -Undermining/Tunneling No -Circular Undermining No -Wound/Ulcer Outcome Not Healed -Ulcer Cleansing Rinsed/ Irrigated with Saline -Foul Odor after Cleansing No -Bioengineered Tissue No -Bleeding Controlled with Pressure -Treatment Response Procedure Tolerated Well -Offloading No -Debridement - Subq, 1st 20sq cm No #7- R 2ND TOE PLANTAR -Time 10:51 -Correct Patient Yes -Correct Side, Site, Position Yes -Correct Procedure Yes -Procedure Performed Yes -Type of Procedure Debridement -Clinical Debridement Subcutaneous -Tissue Removed Subcutaneous -Post Debridement (cm) - Length 0.5 -Post Debridement (cm) - Width 0.3 -Post Debridement (cm) - Depth 0.1 -Total Square (Post) (cm) 0.15 -Area of Debridement (cm) - Length 0.5 -Area of Debridement (cm) - Width 0.3 -Total Square (Area) (cm) 0.15 -Tunneling No -Undermining/Tunneling No -Circular Undermining No -Wound/Ulcer Outcome Not Healed -Ulcer Cleansing Rinsed/ Irrigated with Saline -Foul Odor after Cleansing No -Bioengineered Tissue No -Bleeding Controlled with Pressure -Treatment Response Procedure Tolerated Well -Offloading No -Debridement - Subq, 1st 20sq cm No #6- R HEEL CLUSTER -Time 10:51 -Correct Patient Yes -Correct Side, Site, Position Yes -Correct Procedure Yes -Procedure Performed Yes -Type of Procedure Debridement -Clinical Debridement Subcutaneous -Tissue Removed Subcutaneous -Post Debridement (cm) - Length 3.5 -Post Debridement (cm) - Width 4.0 -Post Debridement (cm) - Depth 0.1 -Total Square (Post) (cm) 14.00 -Area of Debridement (cm) - Length 3.5 -Area of Debridement (cm) - Width 4.0 -Total Square (Area) (cm) 14.00 -Tunneling No -Undermining/Tunneling No -Circular Undermining No -Wound/Ulcer Outcome Not Healed -Ulcer Cleansing Rinsed/ Irrigated with Saline -Foul Odor after Cleansing No -Bioengineered Tissue No -Bleeding Controlled with Pressure -Treatment Response Procedure Tolerated Well -Offloading No -Debridement - Subq, 1st 20sq cm No #5- R FOOT PLANTAR -Time 10:51 -Correct Patient Yes -Correct Side, Site, Position Yes -Correct Procedure Yes -Procedure Performed Yes -Type of Procedure Debridement -Clinical Debridement Subcutaneous -Tissue Removed Subcutaneous -Post Debridement (cm) - Length 1.7 -Post Debridement (cm) - Width 1.5 -Post Debridement (cm) - Depth 0.2 -Total Square (Post) (cm) 2.55 -Area of Debridement (cm) - Length 1.7 -Area of Debridement (cm) - Width 1.5 -Total Square (Area) (cm) 2.55 -Tunneling No -Undermining/Tunneling No -Circular Undermining No -Wound/Ulcer Outcome Not Healed -Ulcer Cleansing Rinsed/ Irrigated with Saline -Foul Odor after Cleansing No -Bioengineered Tissue No -Bleeding Controlled with Pressure -Treatment Response Procedure Tolerated Well -Offloading No -Debridement - Subq, 1st 20sq cm Yes #3- L 2ND TOE PLANTAR -Time 10:52 -Correct Patient Yes -Correct Side, Site, Position Yes -Correct Procedure Yes -Procedure Performed Yes -Type of Procedure Debridement -Clinical Debridement Subcutaneous -Tissue Removed Subcutaneous -Post Debridement (cm) - Length 1.5 -Post Debridement (cm) - Width 1.5 -Post Debridement (cm) - Depth 0.1 -Total Square (Post) (cm) 2.25 -Area of Debridement (cm) - Length 1.5 -Area of Debridement (cm) - Width 1.5 -Total Square (Area) (cm) 2.25 -Tunneling No -Undermining/Tunneling No -Circular Undermining No -Wound/Ulcer Outcome Not Healed -Ulcer Cleansing Rinsed/ Irrigated with Saline -Foul Odor after Cleansing No -Bioengineered Tissue No -Bleeding Controlled with Pressure -Treatment Response Procedure Tolerated Well -Offloading No -Debridement - Subq, 1st 20sq cm No Pain Scale: 0-10 Numeric Is Patient Pain Free? Yes WC - Nurse 3 - General Ulcer D/C NN Start: 10/18/22 10:02 Freq: Status: Active Protocol: Activity Type Activity Date Activity User E-sign Co-sign Detail Recorded Client Recorded Date Recorded By Document 10/18/22 11:20 [facility] [id number] 10/18/22 11:22 [facility] 10/18/22 11:20 Wound Care Center Nurse 3 #9- R 4TH TOE -Ulcer Cleansing Rinsed/ Irrigated with Saline -Foul Odor after Cleansing No -Primary Dressing Applied Fibracol Plus 4x4 -Primary Dressing Covered/Secured with Dry Gauze & Roll Gauze, Secured with Tape -Fibracol Plus 4x4 1 #8- R 3RD TOE -Ulcer Cleansing Rinsed/ Irrigated with Saline -Foul Odor after Cleansing No -Primary Dressing Applied Fibracol Plus 4x4 -Primary Dressing Covered/Secured with Dry Gauze & Roll Gauze, Secured with Tape -Fibracol Plus 4x4 0 #7- R 2ND TOE PLANTAR -Ulcer Cleansing Rinsed/ Irrigated with Saline -Foul Odor after Cleansing No -Primary Dressing Applied Fibracol Plus 4x4 -Primary Dressing Covered/Secured with Dry Gauze & Roll Gauze, Secured with Tape -Fibracol Plus 4x4 0 #6- R HEEL CLUSTER -Ulcer Cleansing Rinsed/ Irrigated with Saline -Foul Odor after Cleansing No -Primary Dressing Applied Fibracol Plus 4x4 -Primary Dressing Covered/Secured with Dry Gauze & Roll Gauze, Secured with Tape -Fibracol Plus 4x4 0 #5- R FOOT PLANTAR -Ulcer Cleansing Rinsed/ Irrigated with Saline -Foul Odor after Cleansing No -Primary Dressing Applied Fibracol Plus 4x4 -Other Dressing BACTROBAN -Primary Dressing Covered/Secured with Dry Gauze & Roll Gauze, Secured with Tape -Fibracol Plus 4x4 0 #3- L 2ND TOE PLANTAR -Ulcer Cleansing Rinsed/ Irrigated with Saline -Foul Odor after Cleansing No -Primary Dressing Applied Fibracol Plus 4x4 -Primary Dressing Covered/Secured with Dry Gauze & Roll Gauze, Secured with Tape -Fibracol Plus 4x4 0 Treatment Response Procedure Tolerated Well Pain Scale: 0-10 Numeric Is Patient Pain Free? Yes WC - Visit Discharge Discharge Condition Stable Ambulatory Status Ambulatory Transportation Private Auto Accompanied by BOYFRIEND Additional Wound Wound debrided: Right second third fourth toe nonpressure ulcers from her neuropathy Type of Debridement: Excisional debridement Anesthesia Used: 5% Lidocaine Gel Depth: Down to and including healthy tissue Percentage of wound debrided: 100 Instrument Used: 5mm curette Tissue Removed: Fibrin Severity: Limited To Skin Breakdown Amount of bleeding with debridement: Mild Bleeding Controlled with: Pressure Patient tolerated procedure: Patient tolerated procedure well Additional Wound Wound debrided: Left second toe nonpressure ulcer Type of Debridement: Excisional debridement Anesthesia Used: 5% Lidocaine Gel Depth: Down to and including healthy tissue Percentage of wound debrided: 100 Instrument Used: 5mm curette Tissue Removed: Fibrin Severity: Limited To Skin Breakdown Amount of bleeding with debridement: Mild Bleeding Controlled with: Compression and gauze Patient tolerated procedure: Patient tolerated procedure well Assessment/Plan Assessment/Plan (1) Idiopathic neuropathy: CODE(S): G60.9 - Hereditary and idiopathic neuropathy, unspecified (2) Non-pressure chronic ulcer of other part of right foot with fat layer exposed: CODE(S): L97.512 - Non-pressure chronic ulcer of other part of right foot with fat layer exposed PLAN: Wash foot with antibacterial soap and apply Bactroban nickel thickness in base of wound cover with the recall gauze and tape X-ray bilateral feet for osteomyelitis (3) Ulcer of toe: CODE(S): L97.509 - Non-pressure chronic ulcer of other part of unspecifiedfoot with unspecified severity PLAN: Wash foot with antibacterial soap and apply fibrin call to all open woundson toes cover with gauze and tape Follow-up in 1 week 10/18/22 1216 <Electronically signed by Mary Basilio NP [employer]> Cosigner Signature (if applicable): CC: ~ Signed [facility] Work Phone: Evaluation + Plan note Future Appointments [facility] Evaluation note* Diagnosis Onset Date Resolution Status Cellulitis acute Infected wound acute Nonhealing nonsurgical wound acute Polyneuropathy acute Ulcer of great toe acute Cellulitis acute Infected wound acute Nonhealing nonsurgical wound acute Ulcer of great toe acute Nonhealing nonsurgical wound acute Osteomyelitis of great toe of right foot acute Septic arthritis of right foot acute [facility] Work Phone: Evaluation note* Diagnosis Onset Date Resolution Status Cellulitis acute Infected wound acute Nonhealing nonsurgical wound acute Polyneuropathy acute Ulcer of great toe acute Cellulitis acute Infected wound acute Nonhealing nonsurgical wound acute Ulcer of great toe acute Idiopathic neuropathy acute Nonhealing nonsurgical wound acute Osteomyelitis of foot, right, acute acute Osteomyelitis of great toe of right foot acute Septic arthritis of right foot acute 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 [facility] Work Phone: Evaluation note* Diagnosis Onset Date Resolution Status Cellulitis acute Infected wound acute Nonhealing nonsurgical wound acute Polyneuropathy acute Ulcer of great toe acute Cellulitis acute Infected wound acute Nonhealing nonsurgical wound acute Ulcer of great toe acute Idiopathic neuropathy acute Nonhealing nonsurgical wound acute Osteomyelitis of foot, right, acute acute Osteomyelitis of great toe of right foot acute Septic arthritis of right foot acute 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 Depression acute Idiopathic neuropathy acute Partial nontraumatic amputation of foot acute [facility] Work Phone: Evaluation note* Diagnosis Onset Date Resolution Status Bronchitis acute Left otitis media acute Nonhealing nonsurgical wound acute Partial nontraumatic amputation of foot acute Bronchitis acute Left otitis media acute Idiopathic neuropathy acute Ulcer of toe acute 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 [facility] Work Phone: Evaluation note* Diagnosis Onset Date Resolution Status Bronchitis acute Left otitis media acute Nonhealing nonsurgical wound acute Partial nontraumatic amputation of foot acute Bronchitis acute Left otitis media acute Idiopathic neuropathy acute Ulcer of toe acute 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 acute Osteomyelitis of toe of right foot acute Ulcer of toe acute 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 [facility] Work Phone: Evaluation note* Diagnosis Onset Date Resolution Status Wellness examination acute [facility] Work Phone: Hospital course Narrative No data available for this section [facility] Hospital Discharge instructions No data available for this section [facility] Progress note No data available for this section [facility] Chief Complaint and Reason for Visit Chief Complaint I&D(R)infected toe R great toe ulcer,infected ulcer,hyperlipidemia R great toe ulcer,infected ulcer,hyperlipidemia OSTEOMYELITIS R FOOT OSTEOMYELITIS R FOOT Reason for Visit Cellulitis Infected wound Nonhealing nonsurgical wound Polyneuropathy Ulcer of great toe Cellulitis Infected wound Nonhealing nonsurgical wound Ulcer of great toe Nonhealing nonsurgical wound Osteomyelitis of great toe of right foot Septic arthritis of right foot Chief Complaint I&D(R)infected toe R great toe ulcer,infected ulcer,hyperlipidemia R great toe ulcer,infected ulcer,hyperlipidemia OSTEOMYELITIS R FOOT OSTEOMYELITIS R FOOT OSTEOMYELITIS R FOOT Reason for Visit Cellulitis Infected wound Nonhealing nonsurgical wound Polyneuropathy Ulcer of great toe Cellulitis Infected wound Nonhealing nonsurgical wound Ulcer of great toe Idiopathic neuropathy Nonhealing nonsurgical wound Osteomyelitis of foot, right, acute Osteomyelitis of great toe of right foot Septic arthritis of right foot Non-pressure chronic ulcer of other part of right foot with fat layer exposed Chief Complaint I&D(R)infected toe R great toe ulcer,infected ulcer,hyperlipidemia R great toe ulcer,infected ulcer,hyperlipidemia OSTEOMYELITIS R FOOT OSTEOMYELITIS R FOOT OSTEOMYELITIS R FOOT OSTEOMYELITIS R FOOT Reason for Visit Cellulitis Infected wound Nonhealing nonsurgical wound Polyneuropathy Ulcer of great toe Cellulitis Infected wound Nonhealing nonsurgical wound Ulcer of great toe Idiopathic neuropathy Nonhealing nonsurgical wound Osteomyelitis of foot, right, acute Osteomyelitis of great toe of right foot Septic arthritis of right foot Non-pressure chronic ulcer of other part of right foot with fat layer exposed Chief Complaint I&D(R)infected toe R great toe ulcer,infected ulcer,hyperlipidemia R great toe ulcer,infected ulcer,hyperlipidemia OSTEOMYELITIS R FOOT OSTEOMYELITIS R FOOT OSTEOMYELITIS R FOOT OSTEOMYELITIS R FOOT OSTEOMYELITIS R FOOT F/up W/toe EDEMA Reason for Visit Cellulitis Infected wound Nonhealing nonsurgical wound Polyneuropathy Ulcer of great toe Cellulitis Infected wound Nonhealing nonsurgical wound Ulcer of great toe Idiopathic neuropathy Nonhealing nonsurgical wound Osteomyelitis of foot, right, acute Osteomyelitis of great toe of right foot Septic arthritis of right foot Non-pressure chronic ulcer of other part of right foot with fat layer exposed Depression 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 Chief Complaint Sinus & congestion Upper respiratory infection WOUND/OSTEOMYLITIS MRI of Foot/3rd toe MRI of Foot/3rd toe Reason for Visit Bronchitis Left otitis media Nonhealing nonsurgical wound Partial nontraumatic amputation of foot Bronchitis Left otitis media Idiopathic neuropathy Ulcer of toe Non-pressure chronic ulcer of other part of right foot with fat layer exposed Chief Complaint Sinus & congestion Upper respiratory infection WOUND/OSTEOMYLITIS MRI of Foot/3rd toe MRI of Foot/3rd toe MRI of Foot/3rd toe MRI of Foot/3rd toe MRI of Foot/3rd toe MRI of Foot/3rd toe MRI of Foot/3rd toe Reason for Visit Bronchitis Left otitis media Nonhealing nonsurgical wound Partial nontraumatic amputation of foot Bronchitis Left otitis media Idiopathic neuropathy Ulcer of toe Non-pressure chronic ulcer of other part of right foot with fat layer exposed Idiopathic neuropathy Osteomyelitis of toe of right foot Ulcer of toe Non-pressure chronic ulcer of other part of right foot with fat layer exposed Chief Complaint Preventive wellness exam/medrefills PE Reason for Visit Wellness examination Advance Directives No Advanced Directives Records Found Advance Directive Response Recorded Date/ Time Living Will No February 22 8:02pm Power of Snow Removing Supervisor No February 22, 2022 8:02pm Advance Directive Response Recorded Date/ Time Living Will No February 22 7:02pm Power of Snow Removing Supervisor No February 22, 2022 7:02pm Summary Purpose Family History No Family History Records Found Additional Source Comments Goals (unrecognized section and content) Goals may be documented in a n alternate sectionGoals may be documented in an alternate section No data available for this sectionGoals may be documented in an alternate sectionGoals may be documented in an alternate section No data available for this section Care Teams (unrecognized sec tion and content) Team Status: Active Member Role Status Dates Mary Basilio NP, [employer] Primary Care Provider Active Team Status: Inactive Member Role Status Dates Mary Basilio NP, [employer] Primary Care Pr ovider, Attending Provider, Referring Provider Active Team Status: Active Member Role Status Dates Mary Basilio NP, [employer] Primary Care Pr david, Attending Provider, Referring Provider, Other Provider Active INFORMATION SOURCE (unrecogn ized section and content) DATE CREATED AUTHOR 11/29/2022 [facility] ([place]) DATE CREATED AUTHOR AUTHOR'S ELDER SALES 06/26/2024 [facility] FOR RECORDS PERTAINING TO PATIENTS WHO ARE [...] BE BASED ON THE PRIMARY CLINICAL RECORDS. [employer] provides no warranty or guarantee of the accuracy or completeness of information in this document.
[2024-10-21 02:42] LABS: Absolute Lymphocyte Count 1.12 X10^3/uL (0.83-4.51); Basophil# 0.04 X10^3/uL; Basophil% 0.5 % (0-1); Eosinophil# 0.28 X10^3/uL; Eosinophils% 3.5 % (0-5); Hematocrit 38.7 % (37-47); Hemoglobin 12.3 g/dL (12.0-15.0); Lymphocyte # 1.12 X10^3/ul (0.83-4.51); Lymphocyte % 13.9 % (19-41); Mean Corp Hgb Conc 31.8 g/dL (32-36); Mean Corpuscular Hgb 29.1 pg (27.0-32.0); Mean Corpuscular Volume 91.7 fL (81-99); Mean Platelet Vol. 11.5 fl (6.2-12.0); Monocyte# 0.58 X10^3/uL; Monocyte% 7.2 % (0-10); NRBC Flagged by Analyzer 0 % (0-5); Neutrophil # 6.02 X10^3/uL (2.7-7.7); Neutrophil % 74.5 % (47-70); Platelet Count 289 K/mm3 (150-450); RBC Distribution Width CV 13.6 % (11.6-14.6); RBC Distribution Width SD 46.2 fl (35.1-43.9); Red Blood Count 4.22 M/mm3 (4.2-5.4); White Blood Count 8.1 K/mm3 (4.4-11.0)
[2024-10-21 03:09] LABS: ALB/GLOB Ratio 1.1 RATIO (0.9-2.4); AST(SGOT) 38 U/L (<=31); Alanine Aminotransfer ALT/SGPT 40 U/L (<=34); Albumin, Serum 3.6 g/dL (3.4-4.8); Alkaline Phosphatase 142 U/L (35-104); Anion Gap 11 (5-15); BUN 16 mg/dL (4-19); BUN/Creat Ratio 17.4 RATIO (10-20); Calcium,Total 9.3 mg/dL (7.6-11.0); Carbon Dioxide 25.6 mmol/L (21.0-32.0); Chloride 104 mmol/L (98-108); Creatinine, Serum 0.92 mg/dL (0.70-1.20); EST Glomerular Filtration Rate 68 (>60); Globulin 3.4 g/dL (2.2-4.2); Glucose 101 mg/dL (70-99); Potassium 4.6 mmol/L (3.3-5.1); Sodium Level 140 mmol/L (133-145); Total Bilirubin 0.42 mg/dL (0.00-1.30)
[2024-10-22 13:08] LABS: Anti-Centromere B Ab <0.2 AI (0.0-0.9); Anti-Chromatin <0.2 AI (0.0-0.9); Anti-Jo <0.2 AI (0.0-0.9); Anti-Scleroderma-70 AB <0.2 AI (0.0-0.9); Anti-dsDNA Ab <1 IU/mL (0-9); RNP Ab 0.2 AI (0.0-0.9); SJOGREN'S Anti-SS-A test < 0.2 AI (0.0-0.9); SJOGREN'S Anti-SS-B test < 0.2 AI (0.0-0.9); Smith Ab <0.2 AI (0.0-0.9)
== END | disposition home or self-care (01) ==
PROVIDERS: PCP Nurse Practitioner; Referring Provider Nurse Practitioner; Visit Provider Nurse Practitioner
DX: R21 Rash and other nonspecific skin eruption (principal); R60.0 Localized edema
CPT/HCPCS: 80053; 85025; 86225; 86235

== ENCOUNTER → 2025-02-13 | Outpatient (CLI) | payer MEDICARE, SELFPAY ==
--- OUTSIDE RECORDS SUMMARY | 2025-02-13 22:36 | XMS RPT_ITS | CCD ---
Author Organization [facility] Care Team Providers Care Marketing Systems Manager Name Role Phone Praful DIRECTOR OF IT OPERATIONS, DIRECTOR OF IT OPERATIONS-C Mary Primary Care Provider Dr. Kendell Proctor Emergency Provider [phone] Dr. Agustin Hammer Admit Provider Dr. Agustin Hammer Attending Provider Dr. Agustin Hammer Other Provider Dr. Mary Carrillo Attending Provider Dr. Mary Carrillo Other Provider Dr. Juliano Nunez Other Provider [phone] Bassam Hernandez Other Provider [phone] Praful DIRECTOR OF IT OPERATIONS, DIRECTOR OF IT OPERATIONS-C Mary Primary Care Provider Dr. Kendell Proctor Emergency Provider Dr. Agustin Hammer Admit Provider Dr. Agustin Hammer Attending Provider Dr. Agustin Hammer Other Provider Dr. Ila Paez Attending Provider Dr. Agustin Hammer Referring Provider Dr. Mary Carrillo Attending Provider Dr. Mray Carrillo Other Provider Dr. Juliano Nunez Other Provider Dr. Bassam Hernandez Other Provider SUPPЕКАТЕРИНА MANN DPM Attending Unavailable SUPPAN DPM, ЕКАТЕРИНА N Attending Unavailable Praful DIRECTOR OF IT OPERATIONS-C, Mary Primary Care Provider Praful DIRECTOR OF IT OPERATIONS-C, Mary Attending Provider Praful DIRECTOR OF IT OPERATIONS-C, Mary Referring Provider [phone] Praful DIRECTOR OF IT OPERATIONS, Mary Primary Care Unavailable Praful DIRECTOR OF IT OPERATIONS, Mary Referring Unavailable Praful DIRECTOR OF IT OPERATIONS, Mary Attending Unavailable Praful DIRECTOR OF IT OPERATIONS, Mary Referring Unavailable Praful DIRECTOR OF IT OPERATIONS, Mary Attending Unavailable Praful DIRECTOR OF IT OPERATIONS, Mary Primary Care Unavailable Medications Current Medications [...] Status: Ordered mupirocin 0.02 mg/mg topical ointment (3 sources) RNA Synthetase Inhibitor Antibacterial Start: 06-06-2024 Mupirocin 2 % ointment Active 1 NMA TOPICAL TWICE A DAY June 06, 2024 1:00am Start: 11-22-2022 mupirocin 2% t opical ointment Apply 1 va, Topical, Daily, 0 Refill(s) Start Date: 11/22/22 Status: Ordered naproxen sodium 220 mg oral tablet (10 sources) Nonsteroidal Anti-inflammatory Drug Start: 11-22-2022 Aleve 220 mg oral tablet Dose : 440 mg = 2 tab(s), Oral, Daily, PRN as needed for pain Start Date: 11/22/22 Status: Ordered Start: 02-22-2022 take 2 tablets by mo uth once daily Naproxen Sodium (Aleve) 220 mg Tablet Active 440 mg PO DAILY February 22, 2022 12:00am predniSONE 20 mg oral tablet (1 source) Start: 10-20-2024 take 2 tablets by mouth once daily Prednisone 20 mg tablet Active 40 mg PO DAILY October 20, 2024 12:00am sertraline 50 mg oral tablet (20 sources) Serotonin Reuptake Inhibitor Start: 02-22-2022 End: 06-06-2024 take 1 tablet by mouth once daily Sertraline 50 mg tablet Active 50 mg PO DAILY June 06, 2024 7:44pm Start: 02-26-2018 End: 05-12-2021 take 1 tablet by mouth once daily Sertraline 50 mg tablet Discontinued 50 mg PO DAILY April 08, 2020 6:00pm May 12, 2021 5:31pm Completed/Discontinued Medications Medication Drug Class(es) Dates Sig (Normalized) Sig (Original) amoxicillin 875 mg oral tablet (8 sources) Penicillin-class Antibacterial Start: 04-14-2019 End: 04-08-2020 take 1 tablet by mouth twice daily Amoxicillin 875 mg tablet Discontinued 875 mg PO TWICE A DAY April 14, 2019 1:00am April 08, 2020 5:52pm cefuroxime 500 mg oral tablet (4 sources) Cephalosporin Antibacterial Start: 08-04-2022 End: 08-14-2022 take 1 tablet by mouth twice daily Cefuroxime Axetil 500 mg tablet Discontinued 500 mg PO TWICE A DAY August 04, 2022 12:00am August 14, 2022 5:48pm meclizine hydrochloride 12.5 mg oral tablet (8 sources) Antiemetic Start: 04-14-2019 End: 04-08-2020 take 1 tablet by mouth three times daily as needed for dizziness Meclizine 12.5 mg tablet Discontinued 12.5 mg PO THREE TIMES A DAY as needed for dizziness April 14, 2019 1:00am April 08, 2020 5:52pm sulfamethoxazole 800 mg / trimethoprim 160 mg oral tablet (14 sources) Dihydrofolate Reductase Inhibitor Antibacterial, Sulfonamide Antimicrobial Start: 02-20-2022 End: 08-04-2022 Sulfamethoxazole- Trimethoprim (Bactrim Ds) 800-160 mg tablet Discontinued 1 {tbl} PO TWICE A DAY 10 11February 24, 2022 12:00am August 04, 2022 4:01pm Start: 02-20-2022 End: 02-24-2022 take 1 tablet by mouth twice daily Sulfamethoxazole-Trimethoprim Discontinu ed 1 TABLET PO TWICE A DAY 16 02February 19, 2022 11:00pm February 24, 2022 1:02pm Problems Problem Classification Problem Date Documented Da te Episodic/Chronic Chronic obstructive pulmonary disease and bronchiectasis (4 sources) Bronchitis; Translations: [Bronchitis, not specified as acute or chronic] 08-04-2022 Episodic Chronic ulcer of skin (20 sources) Ulcer of big toe; Translations: [Non-pressure chronic ulcer of other part of unspecified foot with unspecified severity] Chronic Conditions associated with dizziness or vertigo (8 sources) Dizziness; Translations: [Dizziness and giddiness] 04-14-2019 Episodic Diabetes mellitus without complication (1 source) Hyperglycemia; Translations: [Hyperglycemia, unspecified] 06-06-2024 Episodic Disorders of lipid metabolism (9 sources) Hypertriglyceridemia ; Translations: [Pure hyperglyceridemia] Onset: 06-24-2024 02-26-2018 Chronic Infective arthritis and osteomyelitis (except that caused by tuberculosis or sexually transmitted disease) (20 sources) Osteomyelitis of forefoot; Translations: [Osteomyelitis, unspecified] Chronic Infective arthritis and osteomyelitis (except that caused by tuberculosis or sexually transmitted disease) (12 sources) Infective arthritis of ankle and/or foot; Translations: [Pyogenic arthritis, unspecified] Episodic Mood disorders (8 sources) Depressive disorder; Translations: [Depression] 03-11-2019 Chronic Other bone disease and musculoskeletal deformities (5 sources) Amputated foot; Translations: [Acquired absence of unspecified foot] 03-19-2022 Chronic Other circulatory disease (8 sources) Elevated blood-pressure reading without diagnosis of hypertension; Translations: [Elevated blood-pressure reading, without diagnosis of hypertension] 04-14-2019 Episodic Other injuries and conditions due to external causes (8 sources) Local infection of wound; Translations: [Other [...] wound infection not elsewhere classified] Episodic Other injuries and conditions due to external causes (1 source) Open wound; Translations: [Other injury of unspecified body region, initial encounter] 02-20-2022 Episodic Other nervous system disorders (8 sources) Polyneuropathy; Translations: [Polyneuropathy, unspecified] 02-20-2022 Chronic Other nervous system disorders (7 sources) Neuropathy; Translations: [Hereditary and idiopathic neuropathy, unspecified] 02-23-2022 Chronic Other nervous system disorders (6 sources) Hereditary and idiopathic neuropathy, unspecified; Translations: [Mononeuritis of unspecified site] Chronic Other skin disorders (2 sources) Eruption; Translations: [Rash and other nonspecific skin eruption] 10-20-2024 Episodic Other skin disorders (1 source) Rash and other nonspecific skin eruption; Translations: [Rash and other nonspecific skin eruption] Onset: 11-06-2024 Episodic Otitis media and related conditions (4 sources) Otitis media; Translations: [Otitis media, unspecified, left ear] 08-04-2022 Episodic Residual codes; unclassified (2 sources) Periorbital edema; Translations: [Localized edema] 10-20-2024 Episodic Skin and subcutaneous tissue infections (12 sources) Cellulitis; Translations: [Cellulitis, unspecified] Episodic Results Test Name Value Interpretation Reference Range Facility [facility] ANTI-DNA (DS)AB <1 Normal 0-9 [facility] Comment on above: Result Comment: Nega tive <5 Equivocal 5 - 9 Positive >9 Performed By: #### L 500.4050, L100.0100, L3100.5440 #### [facility] [address] [place], [address] ANTI-SS-A < 0.2 Normal 0.0-0.9 [facility] Comment on above: Performed By: #### L 500.4050, L100.0100, L3100.5440 #### [facility] [address] [place], [address] ANTI-SS-B < 0.2 Normal 0.0-0.9 [facility] Comment on above: Performed By: #### L 500.4050, L100.0100, L3100.5440 #### [facility] [address] [place], [address] CBC W/Diff, Automatedon - Absolute Lymph 1.12 X10 3/uL Normal 0.83-4.51 [facility] Comment on above: Performed By: #### L 500.4050, L100.0100, L3100.5440 #### [facility] [address] [place], [address] Absolute Neut 6.0 X10 3/uL Normal 2.0-7.7 [facility] Comment on above: Performed By: #### L 500.4050, L100.0100, [id number] #### [facility] [address] [place], [address] Basophils/100 WBC (Bld) 0.5 % Normal 0-1 [facility] Comment on above: Performed By: #### L 500.4050, L100.0100, [id number] #### [facility] [address] [place], [address] Eosinophils/100 WBC (Bld) 3.5 % Normal 0-5 [facility] Comment on above: Performed By: #### L 500.4050, L100.0100, [id number] #### [facility] [address] [place], [address] Erythrocyte distribution width (RBC) [Ratio] 13.6 % Normal 11.6-14.6 [facility] Comment on above: Performed By: #### L 500.4050, L100.0100, L3100.5440 #### [facility] [address] [place], [address] Hematocrit (Bld) [Volume fraction] 38.7 % Normal 37-47 [facility] Comment on above: Performed By: #### L 500.4050, L100.0100, [id number] #### [facility] [address] [place], [address] Hemoglobin (Bld) [Mass/Vol] 12.3 g/dL Normal 12.0-15.0 [facility] Comment on above: Performed By: #### L 500.4050, L100.0100, L3100.5440 #### [facility] [address] [place], [address] IG% 0.400 Normal 0.0-0.9 [facility] Comment on above: Result Comment: IG% - Immature Granulocytes (promyelocytes, myelocytes and metamyelocytes) > 1% indicates that a LEFT SHIFT is Present. Performed By: #### L 500.4050, L100.0100, L3100.5440 #### [facility] [address] [place], [address] Lymphocytes/100 WBC (Bld) 13.9 % Low 19-41 [facility] Comment on above: Performed By: #### L 500.4050, L100.0100, [id number] #### [facility] [address] [place], [address] MCH (RBC) [Entitic mass] 29.1 pg Normal 27.0-32.0 [facility] Comment on above: Performed By: #### L 500.4050, L100.0100, L3100.5440 #### [facility] [address] [place], [address] MCHC (RBC) [Mass/Vol] 31.8 g/dL Low 32-36 [facility] Comment on above: Performed By: #### L 500.4050, L100.0100, [id number] #### [facility] [address] [place], [address] MCV (RBC) [Entitic vol] 91.7 fL Normal 81-99 [facility] Comment on above: Performed By: #### L 500.4050, L100.0100, L3100.5440 #### [facility] [address] [place], [address] Monocytes/100 WBC (Bld) 7.2 % Normal 0-10 [facility] Comment on above: Performed By: #### L 500.4050, L100.0100, L3100.5440 #### [facility] [address] [place], [address] Neutrophils/100 WBC (Bld) 74.5 % High 47-70 [facility] Comment on above: Performed By: #### L 500.4050, L100.0100, L3100.5440 #### [facility] [address] [place], [address] Nucleated RBC (Bld) [#/Vol] 0 10*3/uL Normal 0-5 [facility] Comment on above: Performed By: #### L 500.4050, L100.0100, L3100.5440 #### [facility] [address] [place], [address] Platelet mean volume (Bld) [Entitic vol] 11.5 fL Normal 6.2-12.0 [facility] Comment on above: Performed By: #### L 500.4050, L100.0100, L3100.5440 #### [facility] [address] [place], [address] Platelets (Bld) [#/Vol] 289 10*3/uL Normal 150-450 [facility] Comment on above: Performed By: #### L 500.4050, L100.0100, [id number] #### [facility] [address] [place], [address] RBC (Bld) [#/Vol] 4.22 10*6/uL Normal 4.2-5.4 [facility] Comment on above: Performed By: #### L 500.4050, L100.0100, L3100.5440 #### [facility] [address] [place], [address] RDW SD 46.2 fl High 35.1-43.9 [facility] Comment on above: Performed By: #### L 500.4050, L100.0100, [id number] #### [facility] [address] [place], [address] WBC (Bld) [#/Vol] 8.1 10*3/uL Normal 4.4-11.0 [facility] Comment on above: Performed By: #### L 500.4050, L100.0100, L3100.5440 #### [facility] [address] [place], [address] Comprehensive Metabolic [facility] 10-21-2024 Albumin [Mass/Vol] 3.6 g/dL Normal 3.4-4.8 [facility] Comment on above: Performed By: #### L 500.4050, L100.0100, L3100.5440 #### [facility] [address] [place], [address] Albumin/Globulin [Mass ratio] 1.1 {ratio} Normal 0.9-2.4 [facility] Comment on above: Performed By: #### L 500.4050, L100.0100, L3100.5440 #### [facility] [address] [place], [address] ALK PHOS 142 U/L High 35-104 [facility] Comment on above: Performed By: #### L 500.4050, L100.0100, L3100.5440 #### [facility] [address] [place], [address] ALT [Catalytic activity/Vol] 40 U/L High <=34 [facility] Comment on above: Performed By: #### L 500.4050, L100.0100, L3100.5440 #### [facility] [address] [place], [address] AST [Catalytic activity/Vol] 38 U/L High <=31 [facility] Comment on above: Performed By: #### L 500.4050, L100.0100, L3100.5440 #### [facility] [address] [place], [address] Bilirubin [Mass/Vol] 0.42 mg/dL Normal 0.00-1.30 [facility] Comment on above: Performed By: #### L 500.4050, L100.0100, L3100.5440 #### [facility] [address] [place], [address] BUN/CRE 17.4 RATIO Normal 10-20 [facility] Comment on above: Performed By: #### L 500.4050, L100.0100, L3100.5440 #### [facility] [address] [place], [address] Calcium [Mass/Vol] 9.3 mg/dL Normal 7.6-11.0 [facility] Comment on above: Performed By: #### L 500.4050, L100.0100, L3100.5440 #### [facility] [address] [place], [address] Chloride [Moles/Vol] 104 mmol/L Normal 98-108 [facility] Comment on above: Performed By: #### L 500.4050, L100.0100, L3100.5440 #### [facility] [address] [place], [address] CO2 [Moles/Vol] 25.6 mmol/L Normal 21.0-32.0 [facility] Comment on above: Performed By: #### L 500.4050, L100.0100, L3100.5440 #### [facility] [address] [place], [address] Creatinine [Mass/Vol] 0.92 mg/dL Normal 0.70-1.20 [facility] Comment on above: Performed By: #### L 500.4050, L100.0100, L3100.5440 #### [facility] [address] [place], [address] GAP 11 Normal 5-15 [facility] Comment on above: Performed By: #### L 500.4050, L100.0100, L3100.5440 #### [facility] [address] [place], [address] GFR/1.73 sq M.predicted among non-blacks MDRD (S/P/Bld) [Vol rate/Area] 68 mL/min/{1.73_m2} Normal >60 [facility] Comment on above: Result Comment: mL/m in/1.73m2 CKD-EPI Creatinine Equation (2020) Performed By: #### L 500.4050, L100.0100, L3100.5440 #### [facility] [address] [place], [address] Globulin (S) [Mass/Vol] 3.4 g/dL Normal 2.2-4.2 [facility] Comment on above: Performed By: #### L 500.4050, L100.0100, L3100.5440 #### [facility] [address] [place], [address] Glucose [Mass/Vol] 101 mg/dL High 70-99 [facility] Comment on above: Performed By: #### L 500.4050, L100.0100, L3100.5440 #### [facility] [address] [place], [address] Potassium [Moles/Vol] 4.6 mmol/L Normal 3.3-5.1 [facility] Comment on above: Performed By: #### L 500.4050, L100.0100, L3100.5440 #### [facility] [address] [place], [address] Sodium [Moles/Vol] 140 mmol/L Normal 133-145 [facility] Comment on above: Performed By: #### L 500.4050, L100.0100, L3100.5440 #### [facility] [address] [place], [address] T PROT 7.0 g/dL Normal 5.9-8.4 [facility] Comment on above: Performed By: #### L 500.4050, L100.0100, L3100.5440 #### [facility] [address] [place], [address] Urea nitrogen [Mass/Vol] 16 mg/dL Normal 4-19 [facility] Comment on above: Performed By: #### L 500.4050, L100.0100, L3100.5440 #### [facility] [address] [place], [address] Absolute lymphocyte countOrd ered By: Mary Basilio on 10-20-2024 Lymphocytes Auto (Unsp spec) [#/Vol] 1.12 10*3/uL 0.83-4.51 [facility] Absolute neutrophil countOrd ered By: Mary Basilio on 10-20-2024 Neutrophils (Bld) [#/Vol] 6.0 10*3/uL 2.0-7.7 [facility] Anion gap in Serum or Plasma Ordered By: Mary Basilio on 10-20-2024 Anion gap [Moles/Vol] 11 mmol/L 5-15 [facility] Automated lymphocyte count a s percentage of total leukocytesOrdered By: Mary Basilio on 10-20-2024 Lymphocytes/100 WBC Auto (Unsp spec) 13.9 % Low 19-41 [facility] BUN/creatinine ratioOrdered By: Mary Basilio on 10-20-2024 Urea nitrogen/Creatinine [Mass ratio] 17.4 mg/mg 10-20 [facility] Basophil percentageOrdered B y: Mary Basilio on 10-20-2024 Basophils/100 WBC (Bld) 0.5 % 0-1 [facility] Bilirubin, totalOrdered By: Mary Basilio on 10-20-2024 Bilirubin [Mass/Vol] 0.42 mg/dL 0.00-1.30 [facility] Carbon dioxide, total [Moles /volume] in Central venous bloodOrdered By: Mary Basilio on 10-20-2024 CO2 [Moles/Vol] 25.6 mmol/L 21.0-32.0 [facility] Chloride assayOrdered By: Do ra Basilio on 10-20-2024 Chloride [Moles/Vol] 104 mmol/L 98-108 [facility] Eosinophil percentageOrdered By: Mary Basilio on 10-20-2024 Eosinophils/100 WBC (Bld) 3.5 % 0-5 [facility] Erythrocyte distribution wid th ratioOrdered By: Mary Basilio on 10-20-2024 Erythrocyte distribution width (RBC) [Ratio] 13.6 % 11.6-14.6 [facility] Erythrocyte distribution wid th standard deviationOrdered By: Mary Basilio on 10-20-2024 Erythrocyte distribution width (RBC) [Ratio] 46.2 fl High 35.1-43.9 [facility] Glomerular filtration rate ( GFR) estimation/1.73 sq m using serum, plasma, or whole bOrdered By: Mary Basilio on 10-20-2024 GFR/1.73 sq M.predicted among non-blacks MDRD (S/P/Bld) [Vol rate/Area] 68 mL/min/{1.73_m2} >60 [facility] Comment on above: mL/min/1.73m2 CKD-EP I Creatinine Equation (2020) Hematocrit Auto (Bld) [Volum e fraction]Ordered By: Mary Basilio on 10-20-2024 Hematocrit (Bld) [Volume fraction] 38.7 % 37-47 [facility] Hemoglobin measurementOrdere d By: Mary Basilio on 10-20-2024 Hemoglobin (Bld) [Mass/Vol] 12.3 g/dL 12.0-15.0 [facility] Immature granulocytes/100 WB C Auto (Bld)Ordered By: Mary Basilio on 10-20-2024 Immature granulocytes/100 WBC (Bld) 0.400 % 0.0-0.9 [facility] Comment on above: IG% - Immature Granu locytes (promyelocytes, myelocytes and metamyelocytes) > 1% indicates that a LEFT SHIFT is Present. Laboratory - Chemistry and C hemistry - challengeOrdered By: Mary Basilio on 10-20-2024 AST [Catalytic activity/Vol] 38 U/L High <32 [facility] MCV (mean corpuscular volume ) determinationOrdered By: Mary Basilio on 10-20-2024 MCV (RBC) [Entitic vol] 91.7 fL 81-99 [facility] Mean corpuscular hemoglobin (MCH) determinationOrdered By: Mary Basilio on 10-20-2024 MCH (RBC) [Entitic mass] 29.1 pg 27.0-32.0 [facility] Mean corpuscular hemoglobin concentration (MCHC) determinationOrdered By: Mary Basilio on 10-20-2024 MCHC (RBC) [Mass/Vol] 31.8 g/dL Low 32-36 [facility] Mean platelet volume determi nationOrdered By: Mary Basilio on 10-20-2024 Platelet mean volume (Bld) [Entitic vol] 11.5 fL 6.2-12.0 [facility] Monocyte percentageOrdered B y: Mary Basilio on 10-20-2024 Monocytes/100 WBC (Bld) 7.2 % 0-10 [facility] Neutrophil percentageOrdered By: Mary Basilio on 10-20-2024 Neutrophils/100 WBC (Bld) 74.5 % High 47-70 [facility] Nucleated red blood cell per centageOrdered By: Mray Basilio on 10-20-2024 Nucleated RBC/100 WBC (Bld) [Ratio] 0 % 0-5 [facility] Platelet countOrdered By: Do ra Basilio on 10-20-2024 Platelets (Bld) [#/Vol] 289 10*3/uL 150-450 [facility] Potassium measurement (mass/ volume)Ordered By: Mary Basilio on 10-20-2024 Potassium (Unsp spec) [Mass/Vol] 4.6 mmol/L 3.3-5.1 [facility] RBC Auto (Bld) [#/Vol]Ordere d By: Mary Basilio on 10-20-2024 RBC (Bld) [#/Vol] 4.22 10*6/uL 4.2-5.4 [facility] Serum DNA double strand anti body assay (units/volume)Ordered By: Mary Basilio on 10-20-2024 DNA double strand Ab Qn (S) [IU]/mL 0-9 [facility] Comment on above: Negative <5 Equivoca l 5 - 9 Positive >9 Serum Scl-70 antibody assay (units/volume)Ordered By: Mary Basilio on 10-20-2024 SCL-70 extractable nuclear Ab Qn (S) <0.2 AI 0.0-0.9 [facility] Comment on above: Previous reported re sult: TNP AIEdited by: DAYAMI on 10/22/24:1308 AMENDED REPORT 10/22/24 1308 ANTISCLER previously reported as: Test not performed Serum creatinine measurement (mass/volume)Ordered By: Mary Basilio on 10-20-2024 Creatinine [Mass/Vol] 0.92 mg/dL 0.70-1.20 [facility] Serum globulin measurementOr dered By: Mary Basilio on 10-20-2024 Globulin (S) [Mass/Vol] 3.4 g/dL 2.2-4.2 [facility] Serum glucose measurement (m ass/volume)Ordered By: Mary Basilio on 10-20-2024 Glucose [Mass/Vol] 101 mg/dL High 70-99 [facility] Serum or plasma alanine corea otransferase (ALT) measurementOrdered By: Mary Basilio on 10-20-2024 ALT [Catalytic activity/Vol] 40 U/L High <35 [facility] Serum or plasma albumin shannon urement (mass/volume)Ordered By: Mary Basilio on 10-20-2024 Albumin [Mass/Vol] 3.6 g/dL 3.4-4.8 [facility] Serum or plasma albumin/glob ulin mass ratioOrdered By: Mary Basilio on 10-20-2024 Albumin/Globulin [Mass ratio] 1.1 {ratio} 0.9-2.4 [facility] Serum or plasma alkaline gale sphatase measurementOrdered By: Mary Basilio on 10-20-2024 ALP [Catalytic activity/Vol] 142 U/L High 35-104 [facility] Serum or plasma calcium shannon urement (mass/volume)Ordered By: Mary Basilio on 10-20-2024 Calcium [Mass/Vol] 9.3 mg/dL 7.6-11.0 [facility] Serum or plasma urea nitroge n measurement (mass/volume)Ordered By: Mary Basilio on 10-20-2024 Urea nitrogen [Mass/Vol] 16 mg/dL 4-19 [facility] Sodium levelOrdered By: Mary Basilio on 10-20-2024 Sodium [Moles/Vol] 140 mmol/L 133-145 [facility] Total proteinOrdered By: Peter Basilio on 10-20-2024 Protein [Mass/Vol] 7.0 g/dL 5.9-8.4 [facility] White blood cell (WBC) count Ordered By: Mary Basilio on 10-20-2024 WBC (Bld) [#/Vol] 8.1 10*3/uL 4.4-11.0 [facility] Hemoglobin A1con 06-08-2024 HbA1c (Bld) [Mass fraction] 5.7 % High 3.8-5.6 [facility] Comment on above: Result Comment: Norm al < 5.7 % Prediabetic 5.7 - 6.4 % Diabetic >or= 6.5 % Please note range changes. Performed By: #### L 100.0100, L500.4100, L501.9985, L500.4050 #### [facility] [address] [place], [address] CBC W/Diff, Automatedon 02 Absolute Lymph 2.01 X10 3/uL Normal 0.83-4.51 [facility] Comment on above: Performed By: #### L 100.0100, L500.4100, L501.9985, L500.4050 #### [facility] [address] [place], [address] Absolute Neut 6.1 X10 3/uL Normal 2.0-7.7 [facility] Comment on above: Performed By: #### L 100.0100, L500.4100, L501.9985, L500.4050 #### [facility] [address] [place], [address] Basophils/100 WBC (Bld) 0.5 % Normal 0-1 [facility] Comment on above: Performed By: #### L 100.0100, L500.4100, L501.9985, L500.4050 #### [facility] [address] [place], [address] Eosinophils/100 WBC (Bld) 3.2 % Normal 0-5 [facility] Comment on above: Performed By: #### L 100.0100, L500.4100, L501.9985, L500.4050 #### [facility] [address] [place], [address] Erythrocyte distribution width (RBC) [Ratio] 14.0 % Normal 11.6-14.6 [facility] Comment on above: Performed By: #### L 100.0100, L500.4100, L501.9985, L500.4050 #### [facility] [address] [place], [address] Hematocrit (Bld) [Volume fraction] 43.5 % Normal 37-47 [facility] Comment on above: Performed By: #### L 100.0100, L500.4100, L501.9985, L500.4050 #### [facility] [address] [place], [address] Hemoglobin (Bld) [Mass/Vol] 14.0 g/dL Normal 12.0-15.0 [facility] Comment on above: Performed By: #### L 100.0100, L500.4100, L501.9985, L500.4050 #### [facility] [address] [place], [address] IG% 0.500 Normal 0.0-0.9 [facility] Comment on above: Result Comment: IG% - Immature Granulocytes (promyelocytes, myelocytes and metamyelocytes) > 1% indicates that a LEFT SHIFT is Present. Performed By: #### L 100.0100, L500.4100, L501.9985, L500.4050 #### [facility] [address] [place], [address] Lymphocytes/100 WBC (Bld) 21.7 % Normal 19-41 [facility] Comment on above: Performed By: #### L 100.0100, L500.4100, L501.9985, L500.4050 #### [facility] [address] [place], [address] MCH (RBC) [Entitic mass] 28.4 pg Normal 27.0-32.0 [facility] Comment on above: Performed By: #### L 100.0100, L500.4100, L501.9985, L500.4050 #### [facility] [address] [place], [address] MCHC (RBC) [Mass/Vol] 32.2 g/dL Normal 32-36 [facility] Comment on above: Performed By: #### L 100.0100, L500.4100, L501.9985, L500.4050 #### [facility] [address] [place], [address] MCV (RBC) [Entitic vol] 88.2 fL Normal 81-99 [facility] Comment on above: Performed By: #### L 100.0100, L500.4100, L501.9985, L500.4050 #### [facility] [address] [place], [address] Monocytes/100 WBC (Bld) 8.0 % Normal 0-10 [facility] Comment on above: Performed By: #### L 100.0100, L500.4100, L501.9985, L500.4050 #### [facility] [address] [place], [address] Neutrophils/100 WBC (Bld) 66.1 % Normal 47-70 [facility] Comment on above: Performed By: #### L 100.0100, L500.4100, L501.9985, L500.4050 #### [facility] [address] [place], [address] Nucleated RBC (Bld) [#/Vol] 0 10*3/uL Normal 0-5 [facility] Comment on above: Performed By: #### L 100.0100, L500.4100, L501.9985, L500.4050 #### [facility] [address] [place], [address] Platelet mean volume (Bld) [Entitic vol] 12.2 fL High 6.2-12.0 [facility] Comment on above: Performed By: #### L 100.0100, L500.4100, L501.9985, L500.4050 #### [facility] [address] [place], [address] Platelets (Bld) [#/Vol] 249 10*3/uL Normal 150-450 [facility] Comment on above: Performed By: #### L 100.0100, L500.4100, L501.9985, L500.4050 #### [facility] [address] [place], [address] RBC (Bld) [#/Vol] 4.93 10*6/uL Normal 4.2-5.4 [facility] Comment on above: Performed By: #### L 100.0100, L500.4100, L501.9985, L500.4050 #### [facility] [address] [place], [address] RDW SD 44.7 fl High 35.1-43.9 [facility] Comment on above: Performed By: #### L 100.0100, L500.4100, L501.9985, L500.4050 #### [facility] [address] [place], [address] WBC (Bld) [#/Vol] 9.3 10*3/uL Normal 4.4-11.0 [facility] Comment on above: Performed By: #### L 100.0100, L500.4100, L501.9985, L500.4050 #### [facility] [address] [place], [address] Comprehensive Metabolic Prof [facility] 06-07-2024 Albumin [Mass/Vol] 3.7 g/dL Normal 3.2-5.0 [facility] Comment on above: Performed By: #### L 100.0100, L500.4100, L501.9985, L500.4050 #### [facility] [address] [place], [address] Albumin/Globulin [Mass ratio] 1.0 {ratio} Normal 0.9-2.4 [facility] Comment on above: Performed By: #### L 100.0100, L500.4100, L501.9985, L500.4050 #### [facility] [address] [place], [address] ALK P 124 U/L High 45-117 [facility] Comment on above: Performed By: #### L 100.0100, L500.4100, L501.9985, L500.4050 #### [facility] [address] [place], [address] ALT [Catalytic activity/Vol] 21 U/L Normal 13-56 [facility] Comment on above: Performed By: #### L 100.0100, L500.4100, L501.9985, L500.4050 #### [facility] [address] [place], [address] AST [Catalytic activity/Vol] 16 U/L Normal 15-37 [facility] Comment on above: Performed By: #### L 100.0100, L500.4100, L501.9985, L500.4050 #### [facility] [address] [place], [address] Bilirubin [Mass/Vol] 0.30 mg/dL Normal 0.20-1.00 [facility] Comment on above: Result Comment: For patients on eltrombopag therapy, use of Dimension [place] TBIL is not recommended. Performed By: #### L 100.0100, L500.4100, L501.9985, L500.4050 #### [facility] [address] [place], [address] BUN/CRE 18.3 RATIO Normal 10-20 [facility] Comment on above: Performed By: #### L 100.0100, L500.4100, L501.9985, L500.4050 #### [facility] [address] [place], [address] CA,Total 8.6 mg/dL Normal 8.5-10.1 [facility] Comment on above: Performed By: #### L 100.0100, L500.4100, L501.9985, L500.4050 #### [facility] [address] [place], [address] Chloride [Moles/Vol] 108 mmol/L High 98-107 [facility] Comment on above: Performed By: #### L 100.0100, L500.4100, L501.9985, L500.4050 #### [facility] [address] [place], [address] CO2 [Moles/Vol] 27.0 mmol/L Normal 21.0-32.0 [facility] Comment on above: Performed By: #### L 100.0100, L500.4100, L501.9985, L500.4050 #### [facility] [address] [place], [address] Creatinine [Mass/Vol] 0.88 mg/dL Normal 0.55-1.02 [facility] Comment on above: Result Comment: The validity of the calculated GFR GFRAA in patients over 70 years has not been determined. Clinical correlation is essential. Performed By: #### L 100.0100, L500.4100, L501.9985, L500.4050 #### [facility] [address] [place], [address] EST GFR - AA 83 mL/min Normal >60 [facility] Comment on above: Result Comment: Afri can Wallisian GFR Calc Performed By: #### L 100.0100, L500.4100, L501.9985, L500.4050 #### [facility] [address] [place], [address] GAP 9 Normal 5-15 [facility] Comment on above: Performed By: #### L 100.0100, L500.4100, L501.9985, L500.4050 #### [facility] [address] [place], [address] GFR/1.73 sq M.predicted among non-blacks MDRD (S/P/Bld) [Vol rate/Area] 69 mL/min/{1.73_m2} Normal >60 [facility] Comment on above: Result Comment: Non- GFR Calc Performed By: #### L 100.0100, L500.4100, L501.9985, L500.4050 #### [facility] [address] [place], [address] Globulin (S) [Mass/Vol] 3.8 g/dL Normal 2.2-4.2 [facility] Comment on above: Performed By: #### L 100.0100, L500.4100, L501.9985, L500.4050 #### [facility] [address] [place], [address] Glucose [Mass/Vol] 87 mg/dL Normal 74-106 [facility] Comment on above: Performed By: #### L 100.0100, L500.4100, L501.9985, L500.4050 #### [facility] [address] [place], [address] Potassium [Moles/Vol] 3.6 mmol/L Normal 3.5-5.1 [facility] Comment on above: Performed By: #### L 100.0100, L500.4100, L501.9985, L500.4050 #### [facility] [address] [place], [address] Sodium [Moles/Vol] 143 mmol/L Normal 136-145 [facility] Comment on above: Performed By: #### L 100.0100, L500.4100, L501.9985, L500.4050 #### [facility] [address] [place], [address] T PROT 7.5 g/dL Normal 6.4-8.2 [facility] Comment on above: Performed By: #### L 100.0100, L500.4100, L501.9985, L500.4050 #### [facility] [address] [place], [address] Urea nitrogen [Mass/Vol] 16 mg/dL Normal 7-18 [facility] Comment on above: Performed By: #### L 100.0100, L500.4100, L501.9985, L500.4050 #### [facility] [address] [place], [address] Lipid Profileon 06-07-2024 Cholesterol [Mass/Vol] 216 mg/dL High 200 [facility] Comment on above: Result Comment: <200 mg/dL Desirable 200-240 mg/dL Borderline >240 mg/dL High Risk Performed By: #### L 100.0100, L500.4100, L501.9985, L500.4050 #### [facility] [address] [place], [address] Cholesterol in HDL [Mass/Vol] 64 mg/dL Normal [facility] Comment on above: Result Comment: The drugs N-Acetylcysteine and Metamizole may falsely depress this assay. Reference Range HDL <40 mg/dL Low HDL Cholesterol HDL >or= 60 mg/dL High HDL Cholesterol Performed By: #### L 100.0100, L500.4100, L501.9985, L500.4050 #### [facility] [address] [place], [address] Cholesterol in LDL [Mass/Vol] 112 mg/dL Normal 0-130 [facility] Comment on above: Performed By: #### L 100.0100, L500.4100, L501.9985, L500.4050 #### [facility] [address] [place], [address] Cholesterol in VLDL [Mass/Vol] 40 mg/dL Normal 5-40 [facility] Comment on above: Performed By: #### L 100.0100, L500.4100, L501.9985, L500.4050 #### [facility] [address] [place], [place], [address] Triglyceride [Mass/Vol] 202 mg/dL High [facility] Comment on above: Result Comment: The drugs N-Acetylcysteine and Metamizole may falsely depress this assay. Serum Triglycerides Reference Interval Normal <150 mg/dL Borderline high 150 - 199 mg/dL High 200 - 499 mg/dL Very High > or = 500 mg/dL Performed By: #### L 100.0100, L500.4100, L501.9985, L500.4050 #### [facility] [address] [place], [place], [address] Absolute lymphocyte countOrd ered By: Mary Basilio on 06-01-2023 Lymphocytes Auto (Unsp spec) [#/Vol] 2.77 10*3/uL 0.83-4.51 [facility] Automated lymphocyte count a s percentage of total leukocytesOrdered By: Mary Basilio on 06-01-2023 Lymphocytes/100 WBC Auto (Unsp spec) 27.1 % 19-41 [facility] Basophil percentageOrdered B y: Mary Basilio on 06-01-2023 Basophils/100 WBC (Bld) 1.0 % 0-1 [facility] Bilirubin [Mass/Vol] 0.30 mg/dL 0.20-1.00 [facility] Comment on above: For patients on eltr ombopag therapy, use of Dimension [place] TBIL is not recommended. Chloride [Moles/Vol] 107 mmol/L 98-107 [facility] Cholesterol [Mass/Vol] 214 mg/dL <200 [facility] Comment on above: <200 mg/dL Desirable 200-240 mg/dL Borderline >240 mg/dL High Risk Eosinophils/100 WBC (Bld) 3.3 % 0-5 [facility] Glucose [Mass/Vol] 91 mg/dL 74-106 [facility] Hemoglobin (Bld) [Mass/Vol] 13.8 g/dL 12.0-15.0 [facility] Monocytes/100 WBC (Bld) 7.1 % 0-10 [facility] Neutrophils (Bld) [#/Vol] 6.3 10*3/uL 2.0-7.7 [facility] Neutrophils/100 WBC (Bld) 61.2 % 47-70 [facility] Potassium [Moles/Vol] 3.5 mmol/L 3.5-5.1 [facility] Protein [Mass/Vol] 7.3 g/dL 6.4-8.2 [facility] Sodium [Moles/Vol] 138 mmol/L 136-145 [facility] Triglyceride [Mass/Vol] 335 mg/dL <199 [facility] Comment on above: The drugs N-Acetylcy steine and Metamizole may falsely depress this assay.Serum Triglycerides Reference Interval Normal <150 mg/dL Borderline high 150 - 199 mg/dL High 200 - 499 mg/dL Very High > or = 500 mg/dL WBC (Bld) [#/Vol] 10.2 10*3/uL 4.4-11.0 [facility] Determination of erythrocyte mean corpuscular volume (MCV)Ordered By: Mary Basilio on 06-01-2023 MCV (RBC) [Entitic vol] 89.5 fL 81-99 [facility] Erythrocyte distribution wid th ratioOrdered By: Mary Basilio on 06-01-2023 Erythrocyte distribution width (RBC) [Ratio] 14.0 % 11.6-14.6 [facility] Erythrocyte distribution wid th standard deviationOrdered By: Mary Basilio on 06-01-2023 Erythrocyte distribution width (RBC) [Entitic vol] 45.7 fL 35.1-43.9 [facility] Hematocrit Auto (Bld) [Volum e fraction]Ordered By: Mary Basilio on 06-01-2023 Hematocrit (Bld) [Volume fraction] 43.6 % 37-47 [facility] Immature granulocytes/100 WB C Auto (Bld)Ordered By: Mary Basilio on 06-01-2023 Immature granulocytes/100 WBC (Bld) 0.300 % 0.0-0.9 [facility] Comment on above: IG% - Immature Granu locytes (promyelocytes, myelocytes and metamyelocytes) > 1% indicates that a LEFT SHIFT is Present. Laboratory - Chemistry and C hemistry - challengeOrdered By: Mary Basilio on 06-01-2023 Albumin/Globulin [Mass ratio] 0.9 {ratio} 0.9-2.4 [facility] ALP [Catalytic activity/Vol] 109 U/L 45-117 [facility] ALT [Catalytic activity/Vol] 23 U/L 13-56 [facility] Cholesterol in HDL (Body fld) [Mass/Vol] 57 mg/dL >40 [facility] Comment on above: The drugs N-Acetylcy steine and Metamizole may falsely depress this assay. Reference Range HDL <40 mg/dL Low HDL Cholesterol HDL >or= 60 mg/dL High HDL Cholesterol Cholesterol in LDL (Body fld) [Moles/Vol] 90 mg/dL 0-130 [facility] Cholesterol in VLDL Calc [Moles/Vol] 67 mg/dL 5-40 [facility] CO2 [Moles/Vol] 28.0 mmol/L 21.0-32.0 [facility] Globulin (S) [Mass/Vol] 3.8 g/dL 2.2-4.2 [facility] Urea nitrogen/Creatinine [Mass ratio] 23.2 mg/mg 10-20 [facility] - Hematology and Cell countsOrdered By: Mary Basilio on 06-01-2023 MCH (RBC) [Entitic mass] 28.3 pg 27.0-32.0 [facility] MCHC (RBC) [Mass/Vol] 31.7 g/dL 32-36 [facility] Nucleated RBC/100 WBC (Bld) [Ratio] 0 % 0-5 [facility] Platelets (Bld) [#/Vol] 294 10*3/uL 150-450 [facility] No Panel InformationOrdered By: Mary Basilio on 06-01-2023 Estimated GFR (MDRD) Amer 76 mL/min >60 [facility] Comment on above: GFR Calc Estimated GFR (MDRD) Non-Af Amer 63 mL/min >60 [facility] Comment on above: Non- GFR Calc Platelet mean volume John-Ec ker (Bld) [Entitic vol]Ordered By: Mary Basilio on 06-01-2023 Platelet mean volume (Bld) [Entitic vol] 11.3 fL 6.2-12.0 [facility] RBC Auto (Bld) [#/Vol]Ordere d By: Mary Basilio on 06-01-2023 RBC (Bld) [#/Vol] 4.87 10*6/uL 4.2-5.4 [facility] Serum or plasma calcium shannon urement (mass/volume)Ordered By: Mary Basilio on 06-01-2023 Calcium [Mass/Vol] 9.0 mg/dL 8.5-10.1 [facility] Serum or plasma creatinine m easurement (mass/volume)Ordered By: Mary Basilio on 06-01-2023 Creatinine [Mass/Vol] 0.95 mg/dL 0.55-1.02 [facility] Comment on above: The validity of the calculated GFR & GFRAA in patients over 70 years has not been determined. Clinical correlation is essential. Serum or plasma urea nitroge n measurement (mass/volume)Ordered By: Mary Basilio on 06-01-2023 Urea nitrogen [Mass/Vol] 22 mg/dL 7-18 [facility] Thin prep Papanicolaou smear with manual screeningOrdered By: Mary Basilio on 06-01-2023 Thin prep Papanicolaou smear with manual screening 3.5 g/dL 3.2-5.0 [facility] Thin prep Papanicolaou smear with manual screening 16 U/L 15-37 [facility] Thin prep Papanicolaou smear with manual screening 3 5-15 [facility] .GFRon 11-22-2022 GFR 63 ml/min/1.73sqm Normal [facility] ([place]) Comment on above: Result Comment: GFR Population [...] 15 mL/min/1.73 square meters Performed By: #### G , BMP #### [address] [address] GFR Non- 52 ml/min/1.73sqm Normal [facility] ([place]) Comment on above: Result Comment: GFR Population [...] 15 mL/min/1.73 square meters Performed By: #### G FR, BMP #### [address] [address] BMPon 11-22-2022 BUN/Creatinine Ratio 18 ratio Normal 7-27 [facility] ([place]) Comment on above: Performed By: #### G FR, BMP #### [address] [address] Calcium [Mass/Vol] 8.9 mg/dL Normal 8.4-10.2 [facility] ([place]) Comment on above: Performed By: #### G FR, BMP #### [address] [address] Chloride [Moles/Vol] 104 mmol/L Normal 98-107 [facility] ([place]) Comment on above: Performed By: #### G FR, BMP #### [address] [address] CO2 [Moles/Vol] 27 mmol/L Normal 23-31 [facility] ([place]) Comment on above: Performed By: #### G FR, BMP #### [address] [address] Creatinine [Mass/Vol] 1.06 mg/dL High 0.55-1.02 [facility] ([place] Comment on above: Performed By: #### G , BMP #### [address] [address] Electrolyte Balance 9.0 mEq/L Normal 4.0-15.0 [facility] ([place]) Comment on above: Performed By: #### G , BMP #### [address] [address] Glucose [Mass/Vol] 114 mg/dL Normal 80-115 [facility] ([place]) Comment on above: Performed By: #### G , BMP #### [address] [address] Potassium [Moles/Vol] 3.8 mmol/L Normal 3.5-5.1 [facility] Comment on above: Performed By: #### Pradip PRIDE, BMP #### [address] [address] Sodium [Moles/Vol] 140 mmol/L Normal 136-145 [facility] ([place]) Comment on above: Performed By: #### G , BMP #### [address] [address] Urea nitrogen [Mass/Vol] 19 mg/dL High 7-18 [facility] ([place]) Comment on above: Performed By: #### G , BMP #### [address] [address] LABORATORYOrdered By: SYSTEM SYSTEM on 11-22-2022 Calcium [...] Nom (Unsp spec) No anaerobic bacteria isolated. [facility] Bacteria identified Cx Nom ( Wound)Ordered By: Mary Basilio on 11-01-2022 Wound Culture Enterococcus faecalis [facility] Wound Culture Staphylococcus haemolyticus [facility] Gram stain for investigation of transfusion reactionOrdered By: Mary Basilio on 11-01-2022 Microscopic observation Gram stain Nom (Unsp spec) [facility] Absolute lymphocyte counton 02-24-2022 Lymphocytes Auto (Unsp spec) [#/Vol] 0.86 10*3/uL 0.83-4.51 [facility] Work Phone: [phone] Basophil percentageon 2021 Basophils/100 WBC (Bld) 0.2 % 0-1 [facility] Work Phone: [phone] Bilirubin [Mass/Vol] 0.20 mg/dL 0.20-1.00 [facility] Work Phone: Comment on above: For patients on eltr ombopag therapy, use of Dimension [place] TBIL is not recommended. Chloride [Moles/Vol] 107 mmol/L 98-107 [facility] Work Phone: [phone] Eosinophils/100 WBC (Bld) 0.1 % 0-5 [facility] Work Phone: [phone] Glucose [Mass/Vol] 200 mg/dL 74-106 [facility] Work Phone: [phone] Comment on above: Glucose result great er than or equal to 200 mg/dLsuggests DIABETES MELLITUS per A.D.A. criteria. Neutrophils (Bld) [#/Vol] 10.6 10*3/uL 2.0-7.7 [facility] Work Phone: [phone] Neutrophils/100 WBC (Bld) 88.1 % 47-70 [facility] Work Phone: [phone] Potassium [Moles/Vol] 4.4 mmol/L 3.5-5.1 [facility] Work Phone: [phone] Protein [Mass/Vol] 6.4 g/dL 6.4-8.2 [facility] Work Phone: Sodium [Moles/Vol] 138 mmol/L 136-145 [facility] Work Phone: WBC (Bld) [#/Vol] 12.0 10*3/uL 4.4-11.0 [facility]: Blood erythrocytes count (nu mber/volume)on 02-24-2022 RBC (Bld) [#/Vol] 4.25 10*6/uL 4.2-5.4 [facility] Work Phone: Blood hemoglobin measurement (mass/volume)on 02-24-2022 Hemoglobin (Bld) [Mass/Vol] 11.6 g/dL 12.0-15.0 [facility] Work Phone: Blood lymphocytes/100 leukoc yteson 02-24-2022 Lymphocytes/100 WBC (Bld) 7.2 % 19-41 [facility] Work Phone: Blood monocytes/100 leukocyt eson 02-24-2022 Monocytes/100 WBC (Bld) 3.9 % 0-10 [facility] Work Phone: Blood platelet mean volumeon 02-24-2022 Platelet mean volume (Bld) [Entitic vol] 10.4 fL 6.2-12.0 [facility] Work Phone: Determination of erythrocyte mean corpuscular volume (MCV)on 02-24-2022 MCV (RBC) [Entitic vol] 84.5 fL 81-99 [facility] Work Phone: Hematocrit Auto (Bld) [Volum e fraction]on 02-24-2022 Hematocrit (Bld) [Volume fraction] 35.9 % 37-47 [facility] Work Phone: Laboratory - Chemistry and C hemistry - challengeon 02-24-2022 ALP [Catalytic activity/Vol] 91 U/L 45-117 [facility] Work Phone: ALT [Catalytic activity/Vol] 18 U/L 13-56 [facility] Work Phone: CO2 [Moles/Vol] 26.0 mmol/L 21.0-32.0 [facility] Work Phone: [phone] Globulin (S) [Mass/Vol] 4.0 g/dL 2.2-4.2 [facility] Work Phone: Urea nitrogen/Creatinine [Mass ratio] 13.2 mg/mg 10-20 [facility] Work Phone: Laboratory - Hematology and Cell countson 02-24-2022 Erythrocyte distribution width (RBC) [Entitic vol] 40.1 fL 35.1-43.9 [facility] Work Phone: Erythrocyte distribution width (RBC) [Ratio] 13.1 % 11.6-14.6 [facility] Work Phone: Immature granulocytes/100 WBC (Bld) 0.500 % 0.0-0.9 [facility] Work Phone: Comment on above: IG% - Immature Granu locytes (promyelocytes, myelocytes and metamyelocytes) > 1% indicates that a LEFT SHIFT is Present. MCH (RBC) [Entitic mass] 27.3 pg 27.0-32.0 [facility] Work Phone: Nucleated RBC/100 WBC (Bld) [Ratio] 0 % 0-5 [facility] Work Phone: MCHC Auto (RBC) [Mass/Vol]on 02-24-2022 MCHC (RBC) [Mass/Vol] 32.3 g/dL 32-36 [facility] Work Phone: Comment on above: Delta: 30.6 on 02/2306 No Panel Informationon 02-24 Estimated Creatinine Clearance Calc 47.97 ml/min [facility] Work Phone: Estimated GFR (MDRD) Amer 73 mL/min >60 [facility] Work Phone: Comment on above: GFR Calc Estimated GFR (MDRD) Non-Af Amer 60 mL/min >60 [facility] Work Phone: Comment on above: Non- GFR Calc Platelets bldon 02-24-2022 Platelets (Bld) [#/Vol] 377 10*3/uL 150-450 [facility] Work Phone: Serum or plasma albumin shannon urement (mass/volume)on 02-24-2022 Albumin [Mass/Vol] 2.4 g/dL 3.2-5.0 [facility] Work Phone: Serum or plasma albumin/glob ulin mass ratioon 02-24-2022 Albumin/Globulin [Mass ratio] 0.6 {ratio} 0.9-2.4 [facility] Work Phone: Serum or plasma calcium shannon urement (mass/volume)on 02-24-2022 Calcium [Mass/Vol] 8.6 mg/dL 8.5-10.1 [facility] Work Phone: Serum or plasma creatinine m easurement (mass/volume)on 02-24-2022 Creatinine [Mass/Vol] 0.98 mg/dL 0.55-1.02 [facility] Work Phone: Comment on above: The validity of the calculated GFR & GFRAA in patients over 70 years has not been determined. Clinical correlation is essential. Serum or plasma urea nitroge n measurement (mass/volume)on 02-24-2022 Urea nitrogen [Mass/Vol] 13 mg/dL 7-18 [facility] Work Phone: Thin prep Papanicolaou smear with manual screeningon 02-24-2022 Thin prep Papanicolaou smear with manual screening 13 U/L 15-37 [facility] Work Phone: Thin prep Papanicolaou smear with manual screening 5 5-15 [facility] Work Phone: Vancomycin troughon 02-25-20 22 Vancomycin trough [Mass/Vol] 11.5 ug/mL 5.0-15.0 [facility] Work Phone: Comment on above: VANCOMYCIN STANDARED DRUG THERAPY TROUGH LEVEL: 5.0 - 15.0 mg/L VANCOMYCIN HIGH INTENSITY THERAPY TROUGH LEVEL: 15.0 - 20.0 mg/L High Intensity therapy recommended for serious lifethreatening infections include:- Nvyboclkjh-Khjuxyaaqzhh-Shvhyuugt (Ventilator/Healtcare Associated)-Sepsis PLEASE CONTACT PHARMACY SERVICES (#[id number]) FOR INTERPRETATIONOF RESULTS. Absolute lymphocyte counton 02-23-2022 Lymphocytes Auto (Unsp spec) [#/Vol] 1.44 10*3/uL 0.83-4.51 [facility] Work Phone: Basophil percentageon 2021 Basophils/100 WBC (Bld) 0.5 % 0-1 [facility] Work Phone: Chloride [Moles/Vol] 108 mmol/L 98-107 [facility] Work Phone: Eosinophils/100 WBC (Bld) 6.3 % 0-5 [facility] Work Phone: Glucose [Mass/Vol] 107 mg/dL 74-106 [facility] Work Phone: Comment on above: Fasting Glucose resu lt from 100 to 125 mg/dL suggests IMPAIRED HOMEOSTASIS per A.D.A. criteria. Neutrophils (Bld) [#/Vol] 5.6 10*3/uL 2.0-7.7 [facility] Work Phone: Neutrophils/100 WBC (Bld) 67.1 % 47-70 [facility] Work Phone: Potassium [Moles/Vol] 4.0 mmol/L 3.5-5.1 [facility] Work Phone: Sodium [Moles/Vol] 139 mmol/L 136-145 [facility] Work Phone: WBC (Bld) [#/Vol] 8.3 10*3/uL 4.4-11.0 [facility] Work Phone: Blood erythrocytes count (nu mber/volume)on 02-23-2022 RBC (Bld) [#/Vol] 4.04 10*6/uL 4.2-5.4 [facility] Work Phone: Blood hemoglobin measurement (mass/volume)on 02-23-2022 Hemoglobin (Bld) [Mass/Vol] 10.6 g/dL 12.0-15.0 [facility] Work Phone: [phone] Blood lymphocytes/100 leukoc yteson 02-23-2022 Lymphocytes/100 WBC (Bld) 17.3 % 19-41 [facility] Work Phone: Blood monocytes/100 leukocyt eson 02-23-2022 Monocytes/100 WBC (Bld) 8.2 % 0-10 [facility] Work Phone: Blood platelet mean volumeon 02-23-2022 Platelet mean volume (Bld) [Entitic vol] 10.7 fL 6.2-12.0 [facility] Work Phone: Determination of erythrocyte mean corpuscular volume (MCV)on 02-23-2022 MCV (RBC) [Entitic vol] 85.6 fL 81-99 [facility] Work Phone: Hematocrit Auto (Bld) [Volum e fraction]on 02-23-2022 Hematocrit (Bld) [Volume fraction] 34.6 % 37-47 [facility] Work Phone: Laboratory - Chemistry and C hemistry - challengeon 02-23-2022 CO2 [Moles/Vol] 26.0 mmol/L 21.0-32.0 [facility] Work Phone: Urea nitrogen/Creatinine [Mass ratio] 15.1 mg/mg 10-20 [facility] Work Phone: Laboratory - Hematology and Cell countson 02-23-2022 Erythrocyte distribution width (RBC) [Entitic vol] 40.9 fL 35.1-43.9 [facility] Work Phone: Erythrocyte distribution width (RBC) [Ratio] 13.2 % 11.6-14.6 [facility] Work Phone: Immature granulocytes/100 WBC (Bld) 0.600 % 0.0-0.9 [facility] Work Phone: Comment on above: IG% - Immature Granu locytes (promyelocytes, myelocytes and metamyelocytes) > 1% indicates that a LEFT SHIFT is Present. MCH (RBC) [Entitic mass] 26.2 pg 27.0-32.0 [facility] Work Phone: Nucleated RBC/100 WBC (Bld) [Ratio] 0 % 0-5 [facility] Work Phone: MCHC Auto (RBC) [Mass/Vol]on 02-23-2022 MCHC (RBC) [Mass/Vol] 30.6 g/dL 32-36 [facility] Work Phone: No Panel Informationon 02-23 Estimated Creatinine Clearance Calc 54.67 ml/min [facility] Work Phone: Estimated GFR (MDRD) Amer 85 mL/min >60 [facility] Work Phone: Comment on above: GFR Calc Estimated GFR (MDRD) Non-Af Amer 71 mL/min >60 [facility] Work Phone: Comment on above: Non- GFR Calc Thyroid Stimulating Hormone (TSH) 2.68 uIU/mL 0.358-3.74 [facility] Work Phone: Platelets bldon 02-23-2022 Platelets (Bld) [#/Vol] 357 10*3/uL 150-450 [facility] Work Phone: Serum or plasma calcium shannon urement (mass/volume)on 02-23-2022 Calcium [Mass/Vol] 8.6 mg/dL 8.5-10.1 [facility] Work Phone: Serum or plasma creatinine m easurement (mass/volume)on 02-23-2022 Creatinine [Mass/Vol] 0.86 mg/dL 0.55-1.02 [facility] Work Phone: Comment on above: The validity of the calculated GFR & GFRAA in patients over 70 years has not been determined. Clinical correlation is essential. Serum or plasma urea nitroge n measurement (mass/volume)on 02-23-2022 Urea nitrogen [Mass/Vol] 13 mg/dL 7-18 [facility] Work Phone: Thin prep Papanicolaou smear with manual screeningon 02-23-2022 Thin prep Papanicolaou smear with manual screening 5 5-15 [facility] Work Phone: Whole blood hemoglobin A1c/t otal hemoglobin ratio (mass fraction)on 02-23-2022 HbA1c (Bld) [Mass fraction] 6.0 % 3.8-5.6 [facility] Work Phone: Comment on above: Normal < 5.7 % Predi abetic 5.7 - 6.4 % Diabetic >or= 6.5 % Please note range changes. Absolute lymphocyte counton 02-22-2022 Lymphocytes Auto (Unsp spec) [#/Vol] 2.29 10*3/uL 0.83-4.51 [facility] Work Phone: Basophil percentageon 2021 Lactate [Moles/Vol] 1.4 mmol/L 0.4-2.0 [facility] Work Phone: Basophils/100 WBC (Bld) 0.7 % 0-1 [facility] Work Phone: Bilirubin [Mass/Vol] 0.20 mg/dL 0.20-1.00 [facility] Work Phone: Comment on above: For patients on eltr ombopag therapy, use of Dimension [place] TBIL is not recommended. Chloride [Moles/Vol] 105 mmol/L 98-107 [facility] Work Phone: Cholesterol [Mass/Vol] 134 mg/dL <200 [facility] Work Phone: Comment on above: <200 mg/dL Desirable 200-240 mg/dL Borderline >240 mg/dL High Risk Eosinophils/100 WBC (Bld) 3.8 % 0-5 [facility] Work Phone: Glucose [Mass/Vol] 96 mg/dL 74-106 [facility] Work Phone: Neutrophils (Bld) [#/Vol] 6.1 10*3/uL 2.0-7.7 [facility] Work Phone: Neutrophils/100 WBC (Bld) 64.1 % 47-70 [facility] Work Phone: [phone] Potassium [Moles/Vol] 3.9 mmol/L 3.5-5.1 [facility] Work Phone: Protein [Mass/Vol] 7.3 g/dL 6.4-8.2 [facility] Work Phone: Sodium [Moles/Vol] 137 mmol/L 136-145 [facility] Work Phone: Triglyceride [Mass/Vol] 81 mg/dL <199 [facility] Work Phone: Comment on above: The drugs N-Acetylcy steine and Metamizole may falsely depress this assay.Serum Triglycerides Reference Interval Normal <150 mg/dL Borderline high 150 - 199 mg/dL High 200 - 499 mg/dL Very High > or = 500 mg/dL WBC (Bld) [#/Vol] 9.5 10*3/uL 4.4-11.0 [facility] Work Phone: Blood erythrocytes count (nu mber/volume)on 02-22-2022 RBC (Bld) [#/Vol] 4.29 10*6/uL 4.2-5.4 [facility] Work Phone: Blood hemoglobin measurement (mass/volume)on 02-22-2022 Hemoglobin (Bld) [Mass/Vol] 11.5 g/dL 12.0-15.0 [facility] Work Phone: Blood lymphocytes/100 leukoc yteson 02-22-2022 Lymphocytes/100 WBC (Bld) 24.1 % 19-41 [facility] Work Phone: Blood monocytes/100 leukocyt eson 02-22-2022 Monocytes/100 WBC (Bld) 7.0 % 0-10 [facility] Work Phone: Blood platelet mean volumeon 02-22-2022 Platelet mean volume (Bld) [Entitic vol] 10.2 fL 6.2-12.0 [facility] Work Phone: Determination of erythrocyte mean corpuscular volume (MCV)on 02-22-2022 MCV (RBC) [Entitic vol] 86.7 fL 81-99 [facility] Work Phone: Erythrocyte sedimentation ra bailey 02-22-2022 ESR (Bld) [Velocity] 34 mm/h 0-30 [facility] Work Phone: Hematocrit Auto (Bld) [Volum e fraction]on 02-22-2022 Hematocrit (Bld) [Volume fraction] 37.2 % 37-47 [facility] Work Phone: Laboratory - Chemistry and C hemistry - challengeon 02-22-2022 ALP [Catalytic activity/Vol] 99 U/L 45-117 [facility] Work Phone: ALT [Catalytic activity/Vol] 22 U/L 13-56 [facility] Work Phone: CO2 [Moles/Vol] 26.0 mmol/L 21.0-32.0 [facility] Work Phone: Globulin (S) [Mass/Vol] 4.3 g/dL 2.2-4.2 [facility] Work Phone: Urea nitrogen/Creatinine [Mass ratio] 19.3 mg/mg 10-20 [facility] Work Phone: Laboratory - Hematology and Cell countson 02-22-2022 Erythrocyte distribution width (RBC) [Entitic vol] 41.8 fL 35.1-43.9 [facility] Work Phone: Erythrocyte distribution width (RBC) [Ratio] 13.2 % 11.6-14.6 [facility] Work Phone: Immature granulocytes/100 WBC (Bld) 0.300 % 0.0-0.9 [facility] Work Phone: Comment on above: IG% - Immature Granu locytes (promyelocytes, myelocytes and metamyelocytes) > 1% indicates that a LEFT SHIFT is Present. MCH (RBC) [Entitic mass] 26.8 pg 27.0-32.0 [facility] Work Phone: Nucleated RBC/100 WBC (Bld) [Ratio] 0 % 0-5 [facility] Work Phone: MCHC Auto (RBC) [Mass/Vol]on 02-22-2022 MCHC (RBC) [Mass/Vol] 30.9 g/dL 32-36 [facility] Work Phone: No Panel Informationon 02-22 Estimated Creatinine Clearance Calc 53.43 ml/min [facility] Work Phone: Estimated GFR (MDRD) Amer 83 mL/min >60 [facility] Work Phone: Comment on above: GFR Calc Estimated GFR (MDRD) Non-Af Amer 68 mL/min >60 [facility] Work Phone: Comment on above: Non- GFR Calc Platelets bldon 02-22-2022 Platelets (Bld) [#/Vol] 412 10*3/uL 150-450 [facility] Work Phone: Serum or plasma C reactive p rotein measurement (mass/volume)on 02-22-2022 CRP [Mass/Vol] 86.10 mg/L 0.0-3.0 [facility] Work Phone: Comment on above: C-Reactive Protein ( CRP) provides useful information for thediagnosis, therapy and monitoring of inflammatory processesand associated diseases. For the evaluation of Relative Riskfor Cardiovascular Disease, a High Sensitivity CRP (HSCRP)should be ordered. Serum or plasma albumin shannon urement (mass/volume)on 02-22-2022 Albumin [Mass/Vol] 3.0 g/dL 3.2-5.0 [facility] Work Phone: Serum or plasma albumin/glob ulin mass ratioon 02-22-2022 Albumin/Globulin [Mass ratio] 0.7 {ratio} 0.9-2.4 [facility] Work Phone: Serum or plasma calcium shannon urement (mass/volume)on 02-22-2022 Calcium [Mass/Vol] 8.9 mg/dL 8.5-10.1 [facility] Work Phone: Serum or plasma cholesterol in HDL measurement (mass/volume)on 02-22-2022 Cholesterol in HDL [Mass/Vol] 43 mg/dL >40 [facility] Work Phone: Comment on above: The drugs N-Acetylcy steine and Metamizole may falsely depress this assay. Reference Range HDL <40 mg/dL Low HDL Cholesterol HDL >or= 60 mg/dL High HDL Cholesterol Serum or plasma cholesterol in VLDL measurement (mass/volume)on 02-22-2022 Cholesterol in VLDL [Mass/Vol] 16 mg/dL 5-40 [facility] Work Phone: Serum or plasma creatinine m easurement (mass/volume)on 02-22-2022 Creatinine [Mass/Vol] 0.88 mg/dL 0.55-1.02 [facility] Work Phone: Comment on above: The validity of the calculated GFR & GFRAA in patients over 70 years has not been determined. Clinical correlation is essential. Serum or plasma low density lipoprotein (LDL) cholesterol measurement (mass/volume)on 02-22-2022 Cholesterol in LDL [Mass/Vol] 75 mg/dL 0-130 [facility] Work Phone: Serum or plasma transthyreti n measurement (mass/volume)on 02-22-2022 Prealbumin [Mass/Vol] 9.8 mg/dL 20.0-40.0 [facility] Work Phone: Serum or plasma urea nitroge n measurement (mass/volume)on 02-22-2022 Urea nitrogen [Mass/Vol] 17 mg/dL 7-18 [facility] Work Phone: Thin prep Papanicolaou smear with manual screeningon 02-22-2022 Thin prep Papanicolaou smear with manual screening 13 U/L 15-37 [facility] Work Phone: Thin prep Papanicolaou smear with manual screening 6 5-15 [facility] Work Phone: Bacteria identified Anaer cx Nom (Unsp spec) Anaerobic Culture Anaerobic cocci [facility] Work Phone: Bacteria identified Cx Nom ( Wound) Wound Culture Staphylococcus aureus [facility] Work Phone: Fungus culture Fungus identified Cx Nom (Unsp spec) [facility] Work Phone: Fungus stain Fungus identified Fungus stain Nom (Unsp spec) [facility] Work Phone: Gram stain for investigation of transfusion reaction Microscopic observation Gram stain Nom (Unsp spec) [facility] Work Phone: Laboratory - Microbiology an d Antimicrobial susceptibility Bacteria identified Cx Nom (Bld) No growth in 5 days. [facility] Work Phone: Thin prep Papanicolaou smear with manual screening Thin prep Papanicolaou smear with manual screening [facility] Work Phone: Vital Signs Date Time Vital Sign Value Performing Clinician Facility 10-20-2024 15:35-0400 Body height 160.02 cm Mary MARSC Work Phone: [facility] 10-20-2024 15:35-0400 Body mass index (BMI) [Ratio] 34.7 kg/m2 Mary Basilio NP-C Work Phone: [facility] 10-20-2024 15:35-0400 Body temperature 98.1 [degF] Mary Basilio NP-C Work Phone: [facility] 10-20-2024 15:35-0400 Body weight 88.9 kg Mary Basilio DIRECTOR OF IT OPERATIONS-C Work Phone: [facility] 10-20-2024 15:35-0400 Diastolic blood pressure 60 mm[Hg] Mary Basilio DIRECTOR OF IT OPERATIONS-C Work Phone: [facility] 10-20-2024 15:35-0400 Heart rate 79 /min Mary Basilio DIRECTOR OF IT OPERATIONS-C Work Phone: [facility] 10-20-2024 15:35-0400 Respiratory rate 18 /min Mary Basilio DIRECTOR OF IT OPERATIONS-C Work Phone: [facility] 10-20-2024 15:35-0400 SaO2% (BldA) [Mass fraction] 98 % Mary Basilio DIRECTOR OF IT OPERATIONS-C Work Phone: [facility] 10-20-2024 15:35-0400 Systolic blood pressure 114 mm[Hg] Mary Basilio DIRECTOR OF IT OPERATIONS-C Work Phone: [facility] 06-01-2023 16:08-0500 Body height 160.02 cm [facility] 06-01-2023 16:08-0500 Body mass index (BMI) [Ratio] 35 kg/m2 [facility] 06-01-2023 16:08-0500 Body temperature 97.3 [degF] [facility] 06-01-2023 16:08-0500 Body weight 89.81 kg [facility] 06-01-2023 16:08-0500 Diastolic blood pressure 80 mm[Hg] [facility] 06-01-2023 16:08-0500 Heart rate 79 /min [facility] 06-01-2023 16:08-0500 Respiratory rate 18 /min [facility] 06-01-2023 16:08-0500 SaO2% (BldA) [Mass fraction] 99 % [facility] 06-01-2023 16:08-0500 Systolic blood pressure 138 mm[Hg] [facility] 11-24-2022 10:19-0400 Diastolic Blood Pressure Non-Invasive 71 1 ЕКАТЕРИНА SUPPAN DPM [facility] 11-24-2022 10:19-0400 Heart rate 61 /min ЕКАТЕРИНА SUPPAN DPM [facility] 11-24-2022 10:19-0400 Respiratory rate 13 /min ЕКАТЕРИНА SUPPAN DPM [facility] 11-24-2022 10:19-0400 Systolic Blood Pressure Non-Invasive 129 1 ЕКАТЕРИНА SUPPAN DPM [facility] 11-24-2022 10:03-0400 Diastolic Blood Pressure Non-Invasive 68 1 ЕКАТЕРИНА SUPPAN DPM [facility] 11-24-2022 10:03-0400 Heart rate 65 /min ЕКАТЕРИНА SUPPAN DPM [facility] 11-24-2022 10:03-0400 Respiratory rate 14 /min ЕКАТЕРИНА SUPPAN DPM [facility] 11-24-2022 10:03-0400 Systolic Blood Pressure Non-Invasive 128 1 ЕКАТЕРИНА SUPPAN DPM [facility] 11-24-2022 09:54-0400 Diastolic Blood Pressure Non-Invasive 62 1 ЕКАТЕРИНА SUPPAN DPM [facility] 11-24-2022 09:54-0400 Heart rate 69 /min ЕКАТЕРИНА SUPPAN DPM [facility] 11-24-2022 09:54-0400 Respiratory rate 11 /min ЕКАТЕРИНА SUPPAN DPM [facility] 11-24-2022 09:54-0400 Systolic Blood Pressure Non-Invasive 112 1 ЕКАТЕРИНА SUPPAN DPM [facility] 11-24-2022 09:40-0400 Respiratory Rate - Anes 9 br/min ЕКАТЕРИНА SUPPAN DPM [facility] 11-24-2022 09:35-0400 Respiratory Rate - Anes 11 br/min ЕКАТЕРИНА SUPPAN DPM [facility] 11-24-2022 09:30-0400 Respiratory Rate - Anes 11 br/min ЕКАТЕРИНА SUPPAN DPM [facility] 11-24-2022 08:02-0400 Blood Pressure Cuff Size ЕКАТЕРИНА SUPPAN DPM [facility] 11-24-2022 08:02-0400 Blood Pressure Location ЕКАТЕРИНА SUPPAN DPM [facility] 11-24-2022 08:02-0400 Blood Pressure Method ЕКАТЕРИНА SUPPAN DPM [facility] 11-24-2022 08:02-0400 Body height 162.6 cm ЕКАТЕРИНА SUPPAN DPM [facility] 11-24-2022 08:02-0400 Body temperature 96.08 [degF] ЕКАТЕРИНА SUPPAN DPM [facility] 11-24-2022 08:02-0400 Body weight 88.6 kg ЕКАТЕРИНА SUPPAN DPM [facility] 11-24-2022 08:02-0400 Diastolic blood pressure 65 mm[Hg] ЕКАТЕРИНА SUPPAN DPM [facility] 11-24-2022 08:02-0400 Heart rate 62 /min ЕКАТЕРИНА SUPPAN DPM [facility] 11-24-2022 08:02-0400 Systolic blood pressure 138 mm[Hg] ЕКАТЕРИНА SUPPAN DPM [facility] 11-22-2022 13:10-0400 Blood Pressure Location ЕКАТЕРИНА SUPPAN DPM [facility] 11-22-2022 13:10-0400 Body height 162.6 cm ЕКАТЕРИНА SUPPAN DPM [facility] 11-22-2022 13:10-0400 Body weight 88.6 kg ЕКАТЕРИНА SUPPAN DPM [facility] 11-22-2022 13:10-0400 Body weight 33.51 kg/m2 ЕКАТЕРИНА SUPPAN DPM [facility] 11-22-2022 13:10-0400 Diastolic Blood Pressure Non-Invasive 70 1 ЕКАТЕРИНА SUPPAN DPM [facility] 11-22-2022 13:10-0400 Heart rate 67 /min ЕКАТЕРИНА SUPPAN DPM [facility] 11-22-2022 13:10-0400 Respiratory rate 20 /min ЕКАТЕРИНА SUPPAN DPM [facility] 11-22-2022 13:10-0400 Systolic Blood Pressure Non-Invasive 130 1 ЕКАТЕРИНА SUPPAN DPM [facility] 11-22-2022 08:08-0400 Body mass index (BMI) [Ratio] 34.5 kg/m2 [facility] 11-22-2022 08:08-0400 Body temperature 97.3 [degF] [facility] 11-22-2022 08:08-0400 Diastolic blood pressure 58 mm[Hg] [facility] 11-22-2022 08:08-0400 Heart rate 60 /min [facility] 11-22-2022 08:08-0400 Respiratory rate 20 /min [facility] 11-22-2022 08:08-0400 Systolic blood pressure 163 mm[Hg] [facility] 10-28-2022 01:45-0400 Body weight 88.45 kg [facility] 10-25-2022 11:36-0400 Body mass index (BMI) [Ratio] 34.5 kg/m2 [facility] 10-25-2022 11:36-0400 Body temperature 96.7 [degF] [facility] 10-25-2022 11:36-0400 Diastolic blood pressure 55 mm[Hg] [facility] 10-25-2022 11:36-0400 Heart rate 68 /min [facility] 10-25-2022 11:36-0400 Systolic blood pressure 145 mm[Hg] [facility] 10-18-2022 10:07-0400 Body height 160.02 cm [facility] 10-18-2022 10:07-0400 Body weight 88.45 kg [facility] 10-18-2022 10:07-0400 Respiratory rate 16 /min [facility] 08-14-2022 17:45-0400 Body mass index (BMI) [Ratio] 31.6 kg/m2 [facility] 08-14-2022 17:45-0400 Body temperature 97.3 [degF] [facility] 08-14-2022 17:45-0400 Body weight 88.9 kg [facility] 08-14-2022 17:45-0400 Diastolic blood pressure 80 mm[Hg] [facility] 08-14-2022 17:45-0400 Heart rate 117 /min [facility] 08-14-2022 17:45-0400 Respiratory rate 18 /min [facility] 08-14-2022 17:45-0400 SaO2% (BldA) [Mass fraction] 98 % [facility] 08-14-2022 17:45-0400 Systolic blood pressure 170 mm[Hg] [facility] 08-04-2022 16:00-0400 Body mass index (BMI) [Ratio] 34.2 kg/m2 [facility] 08-04-2022 16:00-0400 Body temperature 98.2 [degF] [facility] 08-04-2022 16:00-0400 Body weight 87.54 kg [facility] 08-04-2022 16:00-0400 Diastolic blood pressure 70 mm[Hg] [facility] 08-04-2022 16:00-0400 Heart rate 74 /min [facility] 08-04-2022 16:00-0400 Respiratory rate 18 /min [facility] 08-04-2022 16:00-0400 SaO2% (BldA) [Mass fraction] 97 % [facility] 08-04-2022 16:00-0400 Systolic blood pressure 130 mm[Hg] [facility] 03-09-2022 16:43-0500 Body height 160.02 cm DIRECTOR OF IT OPERATIONS-C Mary Basilio DIRECTOR OF IT OPERATIONS Work Phone: [facility] Work Phone: 03-09-2022 16:43-0500 Body mass index (BMI) [Ratio] 34.7 kg/m2 DIRECTOR OF [employer]PERATIONS-C Mary Basilio DIRECTOR OF IT OPERATIONS Work Phone: [facility] Work Phone: 03-09-2022 16:43-0500 Body weight 88.9 kg DIRECTOR OF IT OPERATIONS-C Mary Basilio DIRECTOR OF IT OPERATIONS Work Phone: [facility] Work Phone: 03-09-2022 16:43-0500 Diastolic blood pressure 80 mm[Hg] DIRECTOR OF IT OPERATIONS-C Mary Basilio DIRECTOR OF IT OPERATIONS Work Phone: [facility] Work Phone: 03-09-2022 16:43-0500 Systolic blood pressure 150 mm[Hg] DIRECTOR OF IT OPERATIONS-C Mary Basilio DIRECTOR OF IT OPERATIONS Work Phone: [facility] Work Phone: 03-09-2022 16:33-0500 Body temperature 97.7 [degF] DIRECTOR OF IT OPERATIONS-C Mary Basilio DIRECTOR OF IT OPERATIONS Work Phone: [facility] Work Phone: 03-09-2022 16:33-0500 Heart rate 57 /min DIRECTOR OF IT OPERATIONS-C Mary Basilio DIRECTOR OF IT OPERATIONS Work Phone: [facility] Work Phone: 03-09-2022 16:33-0500 Respiratory rate 18 /min DIRECTOR OF IT OPERATIONS-C Mary Basilio DIRECTOR OF IT OPERATIONS Work Phone: [facility] Work Phone: 03-09-2022 16:33-0500 SaO2% (BldA) [Mass fraction] 98 % DIRECTOR OF IT OPERATIONS-C Mary Basilio DIRECTOR OF IT OPERATIONS Work Phone: [facility] Work Phone: 02-24-2022 14:10-0400 Body temperature 97.5 [degF] DIRECTOR OF IT OPERATIONS-C Mary Basilio DIRECTOR OF IT OPERATIONS Work Phone: [facility] Work Phone: 02-24-2022 14:10-0400 Diastolic blood pressure 59 mm[Hg] DIRECTOR OF IT OPERATIONS-C Mary Basilio DIRECTOR OF IT OPERATIONS Work Phone: [facility] Work Phone: 02-24-2022 14:10-0400 Heart rate 55 /min DIRECTOR OF IT OPERATIONS-C Mary Basilio DIRECTOR OF IT OPERATIONS Work Phone: [facility] Work Phone: 02-24-2022 14:10-0400 Respiratory rate 18 /min DIRECTOR OF IT OPERATIONS-C Mary Basilio DIRECTOR OF IT OPERATIONS Work Phone: [facility] Work Phone: 02-24-2022 14:10-0400 SaO2% (BldA) [Mass fraction] 100 % DIRECTOR OF IT OPERATIONS-C Mary Basilio DIRECTOR OF IT OPERATIONS Work Phone: [facility] Work Phone: 02-24-2022 14:10-0400 Systolic blood pressure 114 mm[Hg] DIRECTOR OF IT OPERATIONS-C Mary Basilio DIRECTOR OF IT OPERATIONS Work Phone: [facility] Work Phone: 02-23-2022 15:19-0400 Body temperature 97.1 [degF] DIRECTOR OF IT OPERATIONS-C Mary Basilio DIRECTOR OF IT OPERATIONS Work Phone: [facility] Work Phone: 02-23-2022 15:19-0400 Diastolic blood pressure 60 mm[Hg] DIRECTOR OF IT OPERATIONS-C Mary Basilio DIRECTOR OF IT OPERATIONS Work Phone: [facility] Work Phone: 02-23-2022 15:19-0400 Heart rate 46 /min DIRECTOR OF IT OPERATIONS-C Mary Basilio DIRECTOR OF IT OPERATIONS Work Phone: [facility] Work Phone: 02-23-2022 15:19-0400 Respiratory rate 18 /min DIRECTOR OF IT OPERATIONS-C Mary Basilio DIRECTOR OF IT OPERATIONS Work Phone: [facility] Work Phone: 02-23-2022 15:19-0400 SaO2% (BldA) [Mass fraction] 100 % DIRECTOR OF IT OPERATIONS-C Mary Basilio DIRECTOR OF IT OPERATIONS Work Phone: [facility] Work Phone: 02-23-2022 15:19-0400 Systolic blood pressure 110 mm[Hg] DIRECTOR OF IT OPERATIONS-C Mary Basilio DIRECTOR OF IT OPERATIONS Work Phone: [facility] Work Phone: 02-23-2022 14:13-0400 Body height 160.02 cm DIRECTOR OF IT OPERATIONS-C Mary Basilio DIRECTOR OF IT OPERATIONS Work Phone: [facility] Work Phone: 02-23-2022 14:13-0400 Body weight 87.5 kg DIRECTOR OF IT OPERATIONS-C Mary Basilio DIRECTOR OF IT OPERATIONS Work Phone: [facility] Work Phone: 02-23-2022 12:10-0400 Body mass index (BMI) [Ratio] 34.2 kg/m2 DIRECTOR OF IT OPERATIONS-C Mary Basilio DIRECTOR OF IT OPERATIONS Work Phone: [facility] Work Phone: 02-22-2022 20:00-0400 Body temperature 98.8 [degF] DIRECTOR OF IT OPERATIONS-C Mary Basilio DIRECTOR OF IT OPERATIONS Work Phone: [facility] Work Phone: 02-22-2022 20:00-0400 Diastolic blood pressure 35 mm[Hg] DIRECTOR OF IT OPERATIONS-C Mary Basilio DIRECTOR OF IT OPERATIONS Work Phone: [facility] Work Phone: 02-22-2022 20:00-0400 Heart rate 66 /min DIRECTOR OF IT OPERATIONS-C Mary Basilio DIRECTOR OF IT OPERATIONS Work Phone: [facility] Work Phone: 02-22-2022 20:00-0400 Respiratory rate 18 /min DIRECTOR OF IT OPERATIONS-C Mary Basilio DIRECTOR OF IT OPERATIONS Work Phone: [facility] Work Phone: 02-22-2022 20:00-0400 SaO2% (BldA) [Mass fraction] 99 % DIRECTOR OF IT OPERATIONS-C Mary Basilio DIRECTOR OF IT OPERATIONS Work Phone: [facility] Work Phone: 02-22-2022 20:00-0400 Systolic blood pressure 156 mm[Hg] DIRECTOR OF IT OPERATIONS-C Mary Basilio DIRECTOR OF IT OPERATIONS Work Phone: [facility] Work Phone: 02-22-2022 15:33-0400 Body height 160.02 cm DIRECTOR OF IT OPERATIONS-C Mary Basilio DIRECTOR OF IT OPERATIONS Work Phone: [facility] Work Phone: 02-22-2022 15:33-0400 Body mass index (BMI) [Ratio] 34.7 kg/m2 DIRECTOR OF IT OPERATIONS-C Mary Basilio DIRECTOR OF IT OPERATIONS Work Phone: [facility] Work Phone: 02-22-2022 15:33-0400 Body weight 88.9 kg DIRECTOR OF IT OPERATIONS-C Mary Basilio DIRECTOR OF IT OPERATIONS Work Phone: [facility] Work Phone: 02-22-2022 08:24-0400 Body mass index (BMI) [Ratio] 34.3 kg/m2 DIRECTOR OF IT OPERATIONS-C Mary Basilio DIRECTOR OF IT OPERATIONS Work Phone: [facility] Work Phone: 02-22-2022 08:05-0400 Body temperature 97.1 [degF] DIRECTOR OF IT OPERATIONS-C Mary Basilio DIRECTOR OF IT OPERATIONS Work Phone: [facility] Work Phone: 02-22-2022 08:05-0400 Body weight 87.99 kg DIRECTOR OF IT OPERATIONS-C Mary Basilio DIRECTOR OF IT OPERATIONS Work Phone: [facility] Work Phone: 02-22-2022 08:05-0400 Diastolic blood pressure 68 mm[Hg] DIRECTOR OF IT OPERATIONS-C Mary Basilio DIRECTOR OF IT OPERATIONS Work Phone: [facility] Work Phone: 02-22-2022 08:05-0400 Heart rate 69 /min DIRECTOR OF IT OPERATIONS-C Mary Basilio DIRECTOR OF IT OPERATIONS Work Phone: [facility] Work Phone: 02-22-2022 08:05-0400 Systolic blood pressure 143 mm[Hg] DIRECTOR OF IT OPERATIONS-C Mary Basilio DIRECTOR OF IT OPERATIONS Work Phone: [facility] Work Phone: 02-20-2022 20:50-0400 Body mass index (BMI) [Ratio] 32.6 kg/m2 DIRECTOR OF IT OPERATIONS-C Mary Fryeson DIRECTOR OF IT OPERATIONS Work Phone: [facility] Work Phone: 02-20-2022 20:50-0400 Body temperature 97.7 [degF] DIRECTOR OF IT OPERATIONS-C Mary Basilio DIRECTOR OF IT OPERATIONS Work Phone: [facility] Work Phone: 02-20-2022 20:50-0400 Body weight 87.99 kg DIRECTOR OF IT OPERATIONS-C Mary Basilio DIRECTOR OF IT OPERATIONS Work Phone: [facility] Work Phone: 02-20-2022 20:50-0400 Diastolic blood pressure 60 mm[Hg] DIRECTOR OF IT OPERATIONS-C Mary Basilio DIRECTOR OF IT OPERATIONS Work Phone: [facility] Work Phone: 02-20-2022 20:50-0400 Heart rate 93 /min DIRECTOR OF IT OPERATIONS-C Mary Basilio DIRECTOR OF IT OPERATIONS Work Phone: [facility] Work Phone: 02-20-2022 20:50-0400 Respiratory rate 18 /min DIRECTOR OF IT OPERATIONS-C Mary Basilio DIRECTOR OF IT OPERATIONS Work Phone: [facility] Work Phone: 02-20-2022 20:50-0400 SaO2% (BldA) [Mass fraction] 97 % DIRECTOR OF IT OPERATIONS-C Mary Basilio DIRECTOR OF IT OPERATIONS Work Phone: [facility] Work Phone: 02-20-2022 20:50-0400 Systolic blood pressure 110 mm[Hg] DIRECTOR OF IT OPERATIONS-C Mary Basilio DIRECTOR OF IT OPERATIONS Work Phone: [facility] Work Phone: Encounters Encounter Date Encounter Type Care Provider Facility Start: 10-20-2024 End: 10-20-2024 ambulatory Mary Basilio DIRECTOR OF IT OPERATIONS-C Work Phone: [facility] Work Phone: Start: 10-20-2024 End: 10-20-2024 Patient encounter procedure Mary Basilio DIRECTOR OF IT OPERATIONS-C -Laboratory Specimen Work Phone: Start: 10-20-2024 End: 10-20-2024 ambulatory Mary Basilio DIRECTOR OF IT OPERATIONS Facility:[facility] Start: 06-06-2024 End: 06-06-2024 ambulatory Mary Basilio DIRECTOR OF IT OPERATIONS Facility:[facility] Start: 06-01-2023 End: 06-01-2023 ambulatory [facility] Work Phone: Start: 06-01-2023 End: 06-01-2023 Patient encounter procedure [facility]-Laboratory, Specimen Work Phone: Start: 06-01-2023 Patient encounter status [facility] Start: 11-24-2022 End: 11-24-2022 ambulatory ЕКАТЕРИНА JO DPM Facility:B Start: 11-24-2022 End: 11-24-2022 SAME DAY STAY ЕКАТЕРИНА JO DPM [facility] Start: 11-22-2022 End: 11-23-2022 ambulatory ЕКАТЕРИНА JO DPM Facility:B Start: 11-22-2022 End: 11-22-2022 Admission to [facility] ЕКАТЕРИНА JO DPM [facility] Start: 11-22-2022 Non-patient / Non-visit After Hours [facility] Start: 11-22-2022 End: 11-27-2022 ambulatory [facility] Work Phone: Start: 11-22-2022 End: 11-27-20[address] [facility] Work Phone: Start: 11-15-2022 Non-patient / Non-visit After Hours [facility] Start: 11-08-2022 Non-patient / Non-visit After Hours [facility] Start: 11-01-2022 Non-patient / Non-visit After Hours [facility] Start: 10-25-2022 Non-patient / Non-visit After Hours [facility] Start: 10-25-2022 End: 10-27-2022 ambulatory [facility] Work Phone: Start: 10-25-2022 End: 10-27-[address] [facility] Work Phone: Start: 10-18-2022 Non-patient / Non-visit After Hours [facility] Start: 03-31-2022 End: 03-31-2022 ambulatory DIRECTOR OF IT OPERATIONS-C Mary Basilio DIRECTOR OF IT OPERATIONS Work Phone: [facility] Work Phone: Start: 03-31-2022 End: 03-31-2022 Patient encounter procedure DIRECTOR OF IT OPERATIONS-C Mary Basilio DIRECTOR OF IT OPERATIONS Work Phone: [facility]-Cardiovascul ar Services Start: 02-24-2022 Non-patient / Non-visit DIRECTOR OF IT OPERATIONS-C Allen Basilio DIRECTOR OF IT OPERATIONS Work Phone: [facility] Start: 02-23-2022 Non-patient / Non-visit DIRECTOR OF IT OPERATIONS-C Allen Basilio DIRECTOR OF IT OPERATIONS Work Phone: [facility] Start: 02-22-2022 Non-patient / Non-visit DIRECTOR OF IT OPERATIONS-C Allen Basilio DIRECTOR OF IT OPERATIONS Work Phone: [facility] Start: 02-22-2022 End: 02-24-2022 Evaluation and management of inpatient DIRECTOR OF IT OPERATIONS-C Mary Basilio DIRECTOR OF IT OPERATIONS Work Phone: [facility]-Medical Surgical 3 Start: 02-22-2022 End: 02-24-2022 Non-patient / Non-visit DIRECTOR OF IT OPERATIONS-C Mary Basilio DIRECTOR OF IT OPERATIONS Work Phone: [facility] Start: 02-22-2022 End: 02-27-2022 Discharged Recurring DIRECTOR OF IT OPERATIONS-C Mary Basilio DIRECTOR OF IT OPERATIONS [facility] Start: 02-22-2022 Registered Recurring DIRECTOR OF IT OPERATIONS-C Mary Basilio DIRECTOR OF IT OPERATIONS [facility] Start: 02-20-2022 End: 02-20-2022 ambulatory DIRECTOR OF IT OPERATIONS-C Mary Basilio DIRECTOR OF IT OPERATIONS Work Phone: [facility] Work Phone: Start: 02-20-2022 End: 02-20-2022 Patient encounter procedure DIRECTOR OF IT OPERATIONS-C Mary Basilio DIRECTOR OF IT OPERATIONS Work Phone: [facility]-Laboratory, Specimen Procedures Date Procedure Procedure Detail Performing Clinician Start: 10-20-2024 Antibody to centrome re measurement Mary Basilio DIRECTOR OF IT OPERATIONS-C Work Phone: Comment on above: Previous reported re sult: TNP AIEdited by: ESHACE on 10/22/24:1308 AMENDED REPORT 10/22/24 1308 ANTI-CENT B previously reported as: Test not performed Start: 10-20-2024 Antibody to extracta ble nuclear antigen measurement Mary Basilio DIRECTOR OF IT OPERATIONS-C Work Phone: Comment on above: Previous reported re sult: TNP AIEdited by: ESHACE on 10/22/24:1308 AMENDED REPORT 10/22/24 1308 MCCLURE Ab previously reported as: Test not performed Start: 10-20-2024 Antibody to CARLYN-1 measurement Mary Basilio DIRECTOR OF IT OPERATIONS-C Work Phone: Comment on above: Previous reported re sult: TNP AIEdited by: DAYAMI on 10/22/24:1308 AMENDED REPORT 10/22/24 1308 ANTI-CARLYN previously reported as: Test not performed Start: 10-20-2024 Antibody to lupus La protein measurement Mary Basilio DIRECTOR OF IT OPERATIONS-C Work Phone: Start: 10-20-2024 Antibody to SS-A measurement Mary Basilio DIRECTOR OF IT OPERATIONS-C Work Phone: Start: 10-20-2024 Autoantibody measurement Mary Basilio DIRECTOR OF IT OPERATIONS-C Work Phone: Comment on above: Previous reported re sult: TNP AIEdited by: ESHACE on 10/22/24:1308 AMENDED REPORT 10/22/24 1308 ANTICHROMATIN previously reported as: Test not performed Start: 10-20-2024 POWER PLANT INSPECTOR antibody measurement Mary Basilio DIRECTOR OF IT OPERATIONS-C Work Phone: Comment on above: Previous reported re sult: TNP AIEdited by: ESHACE on 10/22/24:1308 AMENDED REPORT 10/22/24 1308 POWER PLANT INSPECTOR Ab previously reported as: Test not performed Start: 11-01-2022 Anaerobic microbial culture Start: 11-01-2022 Investigation of tra nsfusion reaction Start: 11-01-2022 Microbial culture, routine Start: 11-01-2022 MRI of lower extremity Start: 10-18-2022 End: 10-18-2022 X-ray of both feet Start: 02-23-2022 Amputation of toe DIRECTOR OF IT OPERATIONS-Kayla Basilio DIRECTOR OF IT OPERATIONS Work Phone: Start: 02-23-2022 Fluoroscopic guidance N P-Kayla Basilio DIRECTOR OF IT OPERATIONS Work Phone: Start: 02-23-2022 Radiography of foot DIRECTOR OF IT OPERATIONS- Kayla Basilio DIRECTOR OF IT OPERATIONS Work Phone: Start: 02-22-2022 Plain X-ray of toe DIRECTOR OF IT OPERATIONS-Kayla Basilio DIRECTOR OF IT OPERATIONS Work Phone: Start: 02-22-2022 X-ray of both feet DIRECTOR OF IT OPERATIONS-Kayla Basilio DIRECTOR OF IT OPERATIONS Work Phone: Start: 04-30-2021 Amputation of right great toe ЕКАТЕРИНА JO DPM Acid fast bacilli culture DIRECTOR OF IT OPERATIONS -Kayla Basilio DIRECTOR OF IT OPERATIONS Work Phone: Anaerobic microbial culture DIRECTOR OF IT OPERATIONS-Kayla Basilio DIRECTOR OF IT OPERATIONS Work Phone: Bacteria identified in Blood by Culture DIRECTOR OF IT OPERATIONS-Kayla Basilio DIRECTOR OF IT OPERATIONS Work Phone: Cholecystectomy ЕКАТЕРИНА JO DPM Cytopathology proced ure, preparation of smear, genital source DIRECTOR OF IT OPERATIONS-Kayla Basilio DIRECTOR OF IT OPERATIONS Work Phone: Fungus stain method DIRECTOR OF IT OPERATIONS-C Peter Basilio DIRECTOR OF IT OPERATIONS Work Phone: Investigation of tra nsfusion reaction DIRECTOR OF IT OPERATIONS-Kayla Basilio DIRECTOR OF IT OPERATIONS Work Phone: Microbial culture, routine N P-Kayla Basilio DIRECTOR OF IT OPERATIONS Work Phone: Mycology culture DIRECTOR OF IT OPERATIONS-C Mary Houston juni DIRECTOR OF IT OPERATIONS Work Phone: Plan of Treatment Date Care Activity Detail Author Start: 02-25-2022 [facility] Work Phone: Start: 02-24-2022 Patient discharge [facility] Work Phone: Start: 02-24-2022 [facility] Work Phone: Start: 02-23-2022 Referral to service [facility] Work Phone: Start: 02-23-2022 [facility] Work Phone: Start: 02-23-2022 Consultation [facility] Work Phone: Start: 02-23-2022 Radiography of foot Foot 2 Views [facility] Work Phone: Start: 02-23-2022 XR Foot 2 Views [facility] Work Phone: Start: 02-23-2022 Referral to lip reading teacher [facility] Work Phone: Start: 02-22-2022 Ambulation without limitation [facility] Work Phone: Start: 02-22-2022 Assessment of risk of venous thromboembolism [facility] Work Phone: Start: 02-22-2022 Consultation for treatment [facility] Work Phone: Start: 02-22-2022 Insertion of catheter into peripheral vein [facility] Work Phone: Start: 02-22-2022 Providing care according to standard [facility] Work Phone: Start: 02-22-2022 Wound care [facility] Work Phone: Start: 02-22-2022 [facility] Work Phone: Start: 02-22-2022 Following clinical pathway protocol [facility] Work Phone: Start: 02-22-2022 Verification routine [facility] Work Phone: Start: 02-22-2022 Admission procedure [facility] Work Phone: Start: 02-22-2022 End: 02-22-2022 Blood culture [facility] Work Phone: Start: 02-22-2022 End: 02-22-2022 [facility] Work Phone: Start: 02-20-2022 [facility] Work Phone: Acid Fast Bacilli Culture Acid F ast Bacilli Culture [facility] Work Phone: Acid fast bacilli culture [facility] Work Phone: Acid Fast Bacilli Smear Acid Fas t Bacilli Smear [facility] Work Phone: Anaerobic Culture Anaerobic Culture [facility] Work Phone: Anaerobic microbial culture Anaerobic Cul ture [facility] Work Phone: Bacteria identified in Blood by Culture Blood Culture [facility] Work Phone: Bacteria identified in Unspecified specimen by Anaerobe culture [facility] Work Phone: Blood culture [facility] Work Phone: Fungal Culture Fungal Culture [facility] Work Phone: Fungal Smear Fungal Smear [facility] Work Phone: Microbial culture, routine Wound Culture [facility] Work Phone: Microscopic observat ion [Identifier] in Unspecified specimen by Gram stain Gram Stain [facility] Work Phone: Mycobacterium sp silvia ntified in Unspecified specimen by Organism specific culture [facility] Work Phone: Patient referral [facility] Work Phone: Wound Culture Wound Culture [facility] Work Phone: [facility] Work Phone: Payers Date Payer Category Payer Medicare [id number] 2024 Self-pay [id number] 2022 Unknown [id number] 1955 Unknown [id number] 1955 Unknown [id number] Unknown [facility] [id number] DO NOT USE* [id number] Unknown [id number] * * DO NOT USE [id number] Unknown [id number] Unknown [id number] Unknown [id number] Social History Date Type Detail Facility Start: 02-22-2022 End: 02-22-2022 Tobacco smoking status NHIS Unknown if ever smoked [facility] Start: 1955 Sex Assigned At Female W [facility] Start: 02-22-2022 End: 11-22-2022 Tobacco smoking status Never smoked tobacco (finding) [facility] Goals Date Patient Goal Desired Activity /State Functional Status Date Assessment Result Facility 11-24-2022 Functional Status Sleeps intermittently A [facility] 11-24-2022 Functional Status Maintained [facility] 11-22-2022 Functional Status Sensory Deficits None A [facility] 02-24-2022 Functional status Bedrest;Bathroom Privil ege [facility] Work Phone: 02-23-2022 Functional status Ambulates [facility] Work Phone: Mental Status Date Assessment Result Facility 11-24-2022 Mental Status Orientation Oriented x 4 [facility] 11-24-2022 Mental Status [facility] 02-24-2022 Cognitive function Voice/Name [facility] Work Phone: 02-23-2022 Cognitive function Voice/Name [facility] Work Phone: Clinical Notes 10-18-2022 to 10-20-2024 Note Date & Type Note Facility 10-20-2024 Evaluation note Diagnosis Onset Date Resolution Periorbital edema acute October 202024 3:18pm Rash acute October 20 3:18pm [facility] Work Phone: [phone] 462-396307-28-2023 Hospital Discharge instructions Patient Education 11/24/2022 09:57:15 Toe Amputation, [...] Follow these instructions at home: Medicines Take shrt-iup-uwzcsqa and prescription medicines only as told by your health care provider. If you were prescribed an antibiotic medicine, take it as told by your health care provider. Do notstop taking the antibiotic even if you start to feel better. Ask your health care provider if the medicine prescribed to you: ?Requires you to avoid driving or using heavy machinery. ?Can cause constipation. You may need to take actions to prevent or treat constipation, such as: ?Drink enough fluid to keep your urine pale yellow. ?Take xyte-yyw-pxhdcvq or prescription medicines. ? Eat foods that [...] and water are not available, use hand nuclear reactor engineer. ?Change your dressing as told by your [...] your foot until your health care provider approves.Ask your health care provider if you may [...] contain nicotine or tobacco, such as cigarettes, e- cigarettes, and chewing tobacco. If you need help [...] told by your health care provider. Do notstop taking the antibiotic even if you start [...] 03/27/2016 Document Revised: 08/06/2019 Document Reviewed: 04/08/2019 [employer] Patient Education 2020 [employer]. 11/24/2022 09:57:04 Moderate Conscious Sedation, Adult, Care After Moderate Conscious Sedation, Adult, Care After These instructions provide you with information about caring for yourself after your procedure. Your health care provider may also give you more specific instructions. Your treatment has been plannedaccording to current medical practices, but problems sometimes [...] until you are awake and alert. Take lhcv-ybt-wmlvxac and prescription medicines only as told by [...] 02/04/2014 Document Revised: 03/29/2018 Document Reviewed: 08/05/2016 [employer] Patient Education 2020 [employer]. Follow Up Care 11/22/2022 07:59:07 With:ЕКАТЕРИНА JO DPM, Surgery Address: [address] [place] [address], [address] [facility] [place], [place] [address]- When: Unknown Comments:Follow up in office november 30 @ 1PM [facility] 07-28-2023 Summary of episode note Discharge Instructions Thank you for allowing [facility] to assist you with your healthcare needs. The following is importantdischarge information regarding your hospital visit. What to do next Follow Up Appointments Follow Up with ЕКАТЕРИНА JO DPM, Surgery When Why: Follow up in office november 30 @ 1PM Where: [facility], [address] [facility] [place], [place] [address]- Allergies NKA Medications Please ask your primary doctor or pharmacist before taking any other medication not listed, including over the counter drugs, herbal medications, vitamins and or supplements as they may interact withur home medications. What How Much When Instructions [...] Follow these instructions at home: Medicines Take hscl-xca-nnaqbvo and prescription medicines only as told by your health care provider. If you were prescribed an antibiotic medicine, take it as told by your health care provider. Do notstop taking the antibiotic even if you start to feel better. Ask your health care provider if the medicine prescribed to you: ? Requires you to avoid driving or using heavy machinery. ? Can cause constipation. You may need to take actions to prevent or treat constipation, such as: ? Drink enough fluid to keep your urine pale yellow. ? Take john-rrg-xwaqpht or prescription medicines. ? Eat foods that [...] and water are not available, use hand nuclear reactor engineer. ? Change your dressing as told by [...] your foot until your health care provider approves.Ask your health care provider if you may [...] contain nicotine or tobacco, such as cigarettes, e- cigarettes, and chewing tobacco. If you need help [...] told by your health care provider. Do notstop taking the antibiotic even if you start [...] 03/27/2016 Document Revised: 08/06/2019 Document Reviewed: 04/08/2019 [employer] Patient Education 2020 [employer] Moderate Conscious Sedation, Adult, Care After These instructions provide you with information about caring for yourself after your procedure. Your health care provider may also give you more specific instructions. Your treatment has been plannedaccording to current medical practices, but problems sometimes [...] until you are awake and alert. Take aibg-vqq-uclnwlj and prescription medicines only as told by [...] 02/04/2014 Document Revised: 03/29/2018 Document Reviewed: 08/05/2016 [employer] Patient Education 2020 [employer]. Additional Information VACCINATE! IT SAVES LIVES! Members of the community who have not yet received the COVID-19 vaccine and would like to receive it can visit one of [facility] vaccine clinics. There are many vaccine clinic locations within the [facility]. For locations and available times, please visit [email or web address].[place].gov/. It is important to note that some COVID mobile vaccine clinics are held outdoors and may be canceled in rainy or stormy conditions. To learn more about pediatric vaccinations (ages 5-11), we invite you to visit the [facility] webpage. https://www.[email or web address].org/pages/0288-Uvygi-Kitaorgazyj-Iccloeildo-Nvdct-Sov stions.htmlTo learn more about the COVID-19 vaccine, we invite you to visit the CDC website for a list of frequently asked questions.https://www.cdc.gov/coronavirus/2019-ncov/vaccines/faq.html [facility] Patient Portal Access Instructions: Stay connected with your healthcare team and access your personal medical information anytime with the [facility] Patient Portal. Please follow the directions below to create your To[facility] account: 1.Access the email account you provided upon registration to the hospital/physician office.2.Look for an invitation email from [facility].3.Open the email and access the invitation link: AcceptInvitation to [facility].4.Fill in the required seals to create your account. To access your account, visit [email or web address]. Click the blue button labeled "Access Patient Portal" and then log in with the username and password that you created in the steps above. You will be able to view your test results, lab results, a summary of your visits, upcoming appointments and more. There is also a convenient messaging option where you can send secure messages to your p Modern Mastvider. In addition, you will have the ability to download any documents or summaries to your computer and/or send the information securely to a physician. Remember that your healthcare information is confidential, so carefully consider who you will allowto register on the [facility] Patient Portal for access to your information. You can also access the [facility] Patient Portal on the [facility] [place]. Simply click on "Patient Portal" and then log into your account. If you would like to receive a full copy of your medical records, please contact the [facility] Medical Records Department by calling [phone], Sunday through Sunday between 8 a.m. and 4:30 p.m. HOW TO SAFELY DISPOSE OF PRESCRIPTION MEDICATIONS Please use one of the following methods to safely dispose of your unused medications. 1.Use a drug disposal kit: the drug disposal pouch allows you to safely discard your old and unuseddrugs. Ask your nurse to give you one when you are discharged.2.Visit a local take-back location: Many local pharmacies and police departments have programs that collect old and unwanted prescriptiondrugs. Call your local pharmacy or go to http://bit.ly/4G6Np1g to find one close to you.3.Make use of household items: Use cat litter or old coffee grounds to dispose medications if other options arenot available. Mix your drugs with these household products, seal them in an airtight container andthrow it into the garbage. Call [facility]: [phone] to be sure your drugs can be [...] been reviewed and explained to me and IMADELIN RENI A understand my current condition and have read and understand these discharge instructions. I have received a written copy of the plan/instructions. If I have questions, I am aware that I should contact my doctor. Patient/Hospital Medical Assistant Signature: Date/Time: Relationship to Patient: Witness Name/Signature: Date/Time: [facility] Anesthesiology Consult note Patient: LANI YUSUF Age: 67 years Sex: Female : 1955 Associated Diagnoses: None Author: RAJINDER EVANS APRN-ROSANGELA Preoperative Information Time of last food or [...] Procedure history: Amputation of right great toe (2102052021) in 2021 at 66 Years. Cholecystectomy (47803686). Social History Social & Psychosocial Habits Alcohol 11/22/2022 Use: Never Substance Abuse 11/22/2022 Use: Never Tobacco 11/22/2022 Tobacco Use: Never (less than 100 in l Home/Environment 11/22/2022 Domestic Concerns None Living situation: Home/Independent Primary Teaching Fellow: Self Current Home Treatments None Special Services [...] Height 162.6 cm Admission Weight 88.6 kg [place] Body Weight 54.74 kg Admission Body Mass [...] Safety Brochure Information Reviewed Unable to complete Jarred Collazo Video Viewed No Prev Test Positive/Diagnosis w/COVID-19 No Admission Note-Nursing Same Day Patient History (Modified) 11/24/2022 8:14 EDT Individuals Taught Patient Learning Readiness Willing to learn Barriers to Learning None evident Teaching Method Explanation, Printed materials Preferred Spoken Language Cambodian Preferred Written Language Cambodian Equipment Education SCDs 11/24/2022 8:09 EDT Continuous [...] Allergies No Anesthesia Extension Set Applied Yes Retail Pharmacy Manager On Yes Consent Form Signed Yes Patient Dressed In Hospital gown CHG Preoperative Wash/Wipe Night before procedure, Day of [...] Height 162.6 cm Admission Weight 88.6 kg [place] Body Weight 54.74 kg Admission Body Mass [...] Quadrants Present Skin Temperature Warm Skin Description [place], Dry Skin Integrity Intact Skin Moisture General [...] Awake Activity Assistance Independent 11/23/2022 8:46 EDT CSummary CSUMMARBernard . Assessment and Plan [place] Society of Anesthesiologists (ASA) physical status classification: Class III. Anesthetic Preoperative Plan Premedication: intravenous. Anesthetic technique: MAC. Induction: intravenously. Maintenance airway: Mask. Postoperative pain management: Per surgeon. Risks discussed: nausea, vomiting, headache, sore throat, dental injury, hypotension, allergic reaction, serious complications. Informed consent: signed by patient. Digitally Signed by RAJINDER EVANS APRN-ROSANGELA on 11/24/2022 08:23 AM [facility]07-26-2023 Progress note Author Mary Basilio [facility] November 22, 2022 10:44am Note Date/Time November 22, 2022 9:49 am [facility] [address] [place] [address] Progress Note - Wound Care 11/22/22 0946 MR#: [id number] Acct: [id number] Name: LANI YUSUF KWABENA Rep #:[id number] : 1955 67 From: Mary Basilio NP DIRECTOR OF IT OPERATIONS-C PCP: MELITON Bernal Status:REG RCR Location: History [...] also sent her to Dr. Jo a lip reading teacher in [place]. And he is going to perform a a transmetatarsal amputation of the right foot. Progress of Wound: Patient was seen by Dr. Jo over in [place]. He is taking her to surgery this [...] Start: 11/01/22 10:02 Freq: Status: Active Protocol: .LOWEX Activity Type Activity Date Activity User E-sign Co-sign Detail Recorded Client Recorded Date Recorded By Document 11/01/22 10:19 [facility] [id number] 11/01/22 10:28 [facility] Document 11/08/22 10:22 [facility] [id number] 11/08/22 10:33 [facility] Document 11/15/22 11:18 BMF [id number] 11/15/22 11:27 BM Document 11/22/22 08:08 DL [id number] 11/22/22 08:12 DL 11/01/22 11/08/22 11/15/22 10:19 10:22 11:18 - Today's Visit Information Type of service Follow-up Visit Follow-up Visit Follow-up Visit (Physician/ASSISTANT GROCERY (Physician/ASSISTANT GROCERY (Physician/ASSISTANT GROCERY ) ) ) Arrival Mode Ambulatory Ambulatory [...] Pain Free? Yes Yes Yes 11/22/22 08:08 WC - Today's Visit Information Type of service Follow-up Visit (Physician/ASSISTANT GROCERY ) Arrival Mode Ambulatory Transfer Assistance None [...] Recorded Date Recorded By Document 11/01/22 10:19 [facility] [id number] 11/01/22 10:28 [facility] Document 11/08/22 10:22 [facility] [id number] 11/08/22 10:33 [facility] Document 11/15/22 11:18 BM [id number] 11/15/22 11:27 BM Document 11/22/22 08:08 DL [id number] 11/22/22 08:12 DL 11/01/22 11/08/22 11/15/22 10:19 [...] (67-100%) Large (67-100%) -Granulation Quality Red Red [place] -Slough/Fibrin Yes No No -Necrosis Amt Small [...] Attached -Granulation Amt Small (1-33%) -Granulation Quality Pale,[place] -Slough/Fibrin -Necrosis Amt Small (1-33%) -Necrotic Tissue [...] Attached -Granulation Amt Large (67-100%) -Granulation Quality Pale,[place] -Necrosis Amt None Present (0 %) -Structure [...] Thickened -Granulation Amt Large (67-100%) -Granulation Quality Pale,[place] -Slough/Fibrin -Necrosis Amt Small (1-33%) -Necrotic Tissue [...] Date Recorded By Document 11/01/22 10:33 MW [id number] 11/01/22 10:47 MW Document 11/08/22 11:05 MW [id number] 11/08/22 11:16 MW Document 11/15/22 11:34 MW [id number] 11/15/22 11:43 MW Document 11/22/22 08:26 MW [id number] 11/22/22 08:38 MW 11/01/22 11/08/22 11/15/22 10:33 [...] -Offloading -Debridement - Subq, 1st 20sq cm #5- R FOOT PLANTAR -Time [...] Tolerated Well -Offloading No -Debridement - Subq, 20sq cm Yes #5- R FOOT PLANTAR [...] Tolerated Well -Offloading No -Debridement - Subq, 20sq cm No Pain Scale: 0-10 Numeric Is Patient Pain Free? Yes WC - Nurse 3 - General Ulcer D/C NN Start: 11/01/22 10:02 Freq: Status: Active Protocol: Activity Type Activity Date Activity User E-sign Co-sign Detail Recorded Client Recorded Date Recorded By Document 11/01/22 11:11 RB [id number] 11/01/22 11:12 RB Document 11/15/22 11:57 RB [id number] 11/15/22 11:58 RB Document 11/22/22 08:52 [facility] [id number] 11/22/22 08:53 [facility] 11/01/22 11/15/22 11/22/22 11:11 11:57 08:52 Wound [...] 1044 <Electronically signed by Mary Basilio NP DIRECTOR OF IT OPERATIONS-C> Cosigner Signature (if applicable): CC: ~ Signed [facility] Work Phone: 1(633) 762-427107-19-2023 Progress note Author Mary Basilio [facility] November 15, 2022 12:31pm Note Date/Time November 15, 2022 12:3 1pm [facility] [address] [place] [address] Progress Note - Wound Care 11/15/22 1225 MR#: [id number] Acct: [id number] Name: LANI YUSUF KWABENA Rep #:[id number] : 1955 67 From: Mary Basilio NP, [...] was seen by Dr. Jo over in [place]. He is taking her to surgery in2 [...] infection no odor no redness even the lip reading teacher thought it looked good. Vital Signs: Vital [...] Recorded Date Recorded By Document 11/01/22 10:19 [facility] [id number] 11/01/22 10:28 [facility] Document 11/08/22 10:22 [facility] [id number] 11/08/22 10:33 BM Document 11/15/22 11:18 [facility] [id number] 11/15/22 11:27 [facility] 11/01/22 11/08/22 11/15/22 10:19 10:22 11:18 - Today's Visit Information Type of service Follow-up Visit Follow-up Visit Follow-up Visit (Physician/ASSISTANT GROCERY (Physician/ASSISTANT GROCERY (Physician/ASSISTANT GROCERY ) ) ) Arrival Mode Ambulatory Ambulatory [...] Pain Free? Yes Yes Yes - Nurse 1 - General Ulcer Measurement Start: 11/01/22 10:02 Freq: Status: Active Protocol: Activity Type Activity Date Activity User E-sign Co-sign Detail Recorded Client Recorded Date Recorded By Document 11/01/22 10:19 [facility] [id number] 11/01/22 10:28 BM Document 11/08/22 10:22 [facility] [id number] 11/08/22 10:33 [facility] Document 11/15/22 11:18 [facility] [id number] 11/15/22 11:27 BMF 11/01/22 11/08/22 11/15/22 10:19 10:22 11:18 Wound [...] (67-100%) Large (67-100%) -Granulation Quality Red Red [place] -Slough/Fibrin Yes No No -Necrosis Amt Small [...] Tissue Type Adherent Slough Adherent Slough -Texture (Sammei-wound Skin Appearance) Assessed, Assessed Assessed,Callus Scarring -Moisture [...] Date Recorded By Document 11/01/22 10:33 MW [id number] 11/01/22 10:47 MW Document 11/08/22 11:05 MW [id number] 11/08/22 11:16 MW Document 11/15/22 11:34 MW [id number] 11/15/22 11:43 MW 11/01/22 11/08/22 11/15/22 10:33 [...] Date Recorded By Document 11/01/22 11:11 RB [id number] 11/01/22 11:12 RB Document 11/15/22 11:57 RB [id number] 11/15/22 11:58 RB 11/01/22 11/15/22 11:11 11:57 [...] 1231 <Electronically signed by Mary Basilio NP DIRECTOR OF IT OPERATIONS-C> Cosigner Signature (if applicable): CC: ~ Signed [facility] Work Phone: 1(777) 351-664007-12-2023 Progress note Author Mary Basilio [facility] November 08, 2022 12:46pm Note Date/Time November 08, 2022 12:4 7pm [facility] [address] [place] [id number] Progress Note - Wound Care 11/08/22 1238 MR#: [id number] Acct: [id number] Name: LANI YUSUF KWABENA Rep #:[id number] : 1955 67 From: Mary Basilio NP DIRECTOR OF IT OPERATIONS-C PCP: MELITON Bernal Status:REG RCR Location: History [...] send her to Dr. Rosalia Solano in [place] we we will refer her over there they are happy with that. They prefer not to go back to the sameoffice of Dr. Dempsey and they prefer not to go to [facility]. Objective Data Objective Data As stated all [...] Recorded Date Recorded By Document 11/01/22 10:19 [facility] [id number] 11/01/22 10:28 [facility] Document 11/08/22 10:22 [facility] [id number] 11/08/22 10:33 [facility] 11/01/22 11/08/22 10:19 10:22 - Today's Visit Information Type of service Follow-up Visit Follow-up Visit (Physician/ASSISTANT GROCERY (Physician/ASSISTANT GROCERY ) ) Arrival Mode Ambulatory Ambulatory Transfer [...] Recorded Date Recorded By Document 11/01/22 10:19 [facility] [id number] 11/01/22 10:28 [facility] Document 11/08/22 10:22 [facility] [id number] 11/08/22 10:33 BM 11/01/22 11/08/22 10:19 10:22 [...] Date Recorded By Document 11/01/22 10:33 MW [id number] 11/01/22 10:47 MW Document 11/08/22 11:05 MW [id number] 11/08/22 11:16 MW 11/01/22 11/08/22 10:33 11:05 [...] Numeric Is Patient Pain Free? Yes Yes WC - Nurse 3 - General Ulcer D/C NN Start: 11/01/22 10:02 Freq: Status: Active Protocol: Activity Type Activity Date Activity User E-sign Co-sign Detail Recorded Client Recorded Date Recorded By Document 11/01/22 11:11 RB [id number] 11/01/22 11:12 RB 11/01/22 11:11 Wound Care [...] and tape Follow-up in 1 week 11/08/22 5238 <Electronically signed by Mary Basilio NP DIRECTOR OF IT OPERATIONS-C> Cosigner Signature (if applicable): CC: ~ Signed [facility] Work Phone: 1(953) 438-322707-05-2023 Progress note Author Mary Basilio [facility] November 01, 2022 12:48pm Note Date/Time November 01, 2022 12:41 pm [facility] [address] [place] [address] Progress Note - Wound Care 11/01/22 1240 MR#: [id number] Acct: [id number] Name: LANI YUSUF Rep #:[id number] : 1955 67 From: Mary Basilio NP DIRECTOR OF IT OPERATIONS-C PCP: MELITON Bernal Status:REG RCR Location: MRI [...] Recorded Date Recorded By Document 11/01/22 10:19 [facility] [id number] 11/01/22 10:28 [facility] 11/01/22 10:19 - Today's Visit Information Type of service Follow-up Visit (Physician/ASSISTANT GROCERY ) Arrival Mode Ambulatory Transfer Assistance None [...] Recorded Date Recorded By Document 11/01/22 10:19 [facility] [id number] 11/01/22 10:28 [facility] 11/01/22 10:19 Wound Center Nurse 1 #8- [...] Date Recorded By Document 11/01/22 10:33 MW [id number] 11/01/22 10:47 MW 11/01/22 10:33 Wound Center [...] Recorded Date Recorded By Document 11/01/22 11:11 LYLE [id number] 11/01/22 11:12 RB 11/01/22 11:11 Wound Care [...] and tape Follow-up in 1 week 11/01/22 1429 <Electronically signed by Mary Basilio NP DIRECTOR OF IT OPERATIONS-C> Cosigner Signature (if applicable): CC: ~ Signed [facility] Work Phone: 1(240) 901-790606-28-2023 Progress note Author Mary Basilio [facility] October 25, 2022 11:46am Note Date/Time October 25, 2022 11:3 5am [facility] [address] [place] [address] Progress Note - Wound Care 10/25/22 1133 MR#: [id number] Acct: [id number] Name: LANI YUSUF Rep #:[id number] : 1955 67 From: Mary Basilio NP DIRECTOR OF IT OPERATIONS-C PCP: MELITON Bernal Status:REG RCR Location: History [...] right third toe is still very red. Eldon of the third toe shows possible osteomyelitis ordering an MRI now of the foot and toe. Patient [facility] We will [...] Recorded Date Recorded By Document 10/18/22 10:07 [facility] [id number] 10/18/22 10:32 [facility] 10/18/22 10:07 - Today's Visit Information Type [...] ) STUDIES 01/2022 Communication Assessment Preferred language Cambodian Communications And Signals Supervisor Required No Able to Read Yes Able [...] in Ability to Perform Denies Any Declines Culture/Congregational/Geodetic Surveyor Technologist Cultural/Congregational Needs that may affect No Treatment Plan WC - Nurse 1 - General Ulcer Measurement Start: 10/18/22 10:02 Freq: Status: Active Protocol: Activity Type Activity Date Activity User E-sign Co-sign Detail Recorded Client Recorded Date Recorded By Document 10/18/22 10:07 [facility] [id number] 10/18/22 10:32 [facility] 10/18/22 10:07 Wound Center Nurse 1 #4- [...] -Necrosis Amt None Present (0 %) -Texture (Smamie-wound Skin Appearance) Assessed,Callus ,Scarring -Moisture (Sammie-wound Skin [...] Date Recorded By Document 10/18/22 10:49 MW [id number] 10/18/22 11:03 MW 10/18/22 10:49 Wound Center [...] Recorded Date Recorded By Document 10/18/22 11:20 [facility] [id number] 10/18/22 11:22 [facility] 10/18/22 11:20 Wound Care Center Nurse 3 [...] 1146 <Electronically signed by Mary Basilio NP DIRECTOR OF IT OPERATIONS-C> Cosigner Signature (if applicable): CC: ~ Signed [facility] Work Phone: 1(734) 618-849606-21-2023 Progress note Author Mary Basilio [facility] October 18, 2022 12:16pm Note Date/Time October 18, 2022 11:4 9am [facility] [address] [place] [address] Progress Note - Wound Care 10/18/22 1147 MR#: [id number] Acct: [id number] Name: LANI YUSUF KWABENA Rep #:[id number] : 1955 67 From: Mary Basilio NP, [...] Recorded Date Recorded By Document 10/18/22 10:07 [facility] [id number] 10/18/22 10:32 [facility] 10/18/22 10:07 WC - Today's Visit Information Type of [...] ) STUDIES 01/2022 Communication Assessment Preferred language Cambodian Communications And Signals Supervisor Required No Able to Read Yes Able [...] in Ability to Perform Denies Any Declines Culture/Congregational/Geodetic Surveyor Technologist Cultural/Congregational Needs that may affect No Treatment Plan ZAIN - Nurse 1 - General Ulcer Measurement Start: 10/18/22 10:02 Freq: Status: Active Protocol: Activity Type Activity Date Activity User E-sign Co-sign Detail Recorded Client Recorded Date Recorded By Document 10/18/22 10:07 [facility] [id number] 10/18/22 10:32 [facility] 10/18/22 10:07 Wound Center Nurse 1 #4- [...] Date Recorded By Document 10/18/22 10:49 MW [id number] 10/18/22 11:03 MW 10/18/22 10:49 Wound Center [...] Recorded Date Recorded By Document 10/18/22 11:20 [facility] [id number] 10/18/22 11:22 [facility] 10/18/22 11:20 Wound Care Center Nurse 3 [...] 1216 <Electronically signed by Mary Basilio NP DIRECTOR OF IT OPERATIONS-C> Cosigner Signature (if applicable): CC: ~ Signed [facility] Work Phone: Evaluation + Plan note Future Appointments [facility] Evaluation note* Diagnosis Onset Date Resolution Status Cellulitis acute Infected wound acute Nonhealing nonsurgical wound acute Polyneuropathy acute Ulcer of great toe acute Cellulitis acute Infected wound acute Nonhealing nonsurgical wound acute Ulcer of great toe acute Nonhealing nonsurgical wound acute Osteomyelitis of great toe of right foot acute Septic arthritis of right foot acute [facility] Work Phone: Evaluation note* Diagnosis Onset Date [...] right foot with fat layer exposed chronic [facility] Work Phone: Evaluation note* Diagnosis Onset Date [...] acute Partial nontraumatic amputation of foot acute [facility] Work Phone: Evaluation note* Diagnosis Onset Date Resolution Status Bronchitis acute Left otitis media acute Nonhealing nonsurgical wound acute Partial nontraumatic amputation of foot acute Bronchitis acute Left otitis media acute Idiopathic neuropathy acute Ulcer of toe acute 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 [facility] Work Phone: Evaluation note* Diagnosis Onset Date [...] right foot with fat layer exposed chronic [facility] Work Phone: Evaluation note* Diagnosis Onset Date Resolution Status Wellness examination acute [facility] Work Phone: Hospital course Narrative No data available for this section [facility] Hospital Discharge instructions No data available for this section [facility] Progress note No data available for this section [facility] Reason for referral (narrative)No reason for referral information availableWSCC[facility] Work Phone: Chief Complaint and Reason for Visit Chief [...] exam/medrefills PE Reason for Visit Wellness examination Reason for Visit Admit Date Periorbital edema October 20, 2024 3:18 pm Rash October 20, 2024 3:18 pm Advance Directives No Advanced Directives Records Found Advance Directive Response Recorded Date/ Time Living Will No February 22 8:02pm Power of Residential Door Installer No February 22, 2022 8:02pm Advance Directive Response Recorded Date/ Time Living Will No February 22 7:02pm Power of Residential Door Installer No February 22, 2022 7:02pm Summary Purpose [...] may be documented in an alternate section Care Teams (unrecognized sec tion and content) Team Status: Active Member Role Status Dates Mary Basilio DIRECTOR OF IT OPERATIONS, DIRECTOR OF IT OPERATIONS-C Primary Care Provider Active Team Status: Inactive Member Role Status Dates Mary Basilio DIRECTOR OF IT OPERATIONS, DIRECTOR OF IT OPERATIONS-C Primary Care Pr ovider, Attending Provider, Referring Provider Active Team Status: Active Member Role Status Dates Mary Basilio DIRECTOR OF IT OPERATIONS, DIRECTOR OF IT OPERATIONS-C Primary Care Pr ovider, Attending Provider, Referring Provider, Other Provider Active Team Status: Inactive Member Role Status Dates Mary Basilio DIRECTOR OF IT OPERATIONS, DIRECTOR OF IT OPERATIONS-C Primary Care Provider Active Start: October 20, 2024 End: October 20, 2024 Mary Basilio DIRECTOR OF IT OPERATIONS, DIRECTOR OF IT OPERATIONS-C Attending Provider Active Start: October 20, 2024 End: October 20, 2024 Mary Basilio DIRECTOR OF IT OPERATIONS, DIRECTOR OF IT OPERATIONS-C Referring Provider Active Start: October 20, 2024 End: October 20, 2024 INFORMATION SOURCE (unrecogn ized section and content) DATE CREATED AUTHOR 11/29/2022 [facility] ([place]) DATE CREATED AUTHOR AUTHOR'S ORGANIZ ATION 11/11/2024 [facility] FOR RECORDS PERTAINING TO PATIENTS WHO ARE [...] BE BASED ON THE PRIMARY CLINICAL RECORDS. [facility]. provides no warranty or guarantee of the accuracy or completeness of information in this document.
== END | disposition home or self-care (01) ==
PROVIDERS: PCP Nurse Practitioner; Visit Provider Nurse Practitioner
DX: G57.93 Unspecified mononeuropathy of bilateral lower limbs (principal); S91.309A Unspecified open wound, unspecified foot, initial encounter; T14.8XXA Other injury of unspecified body region, initial encounter; L08.9 Local infection of the skin and subcutaneous tissue, unspecified
CPT/HCPCS: 87070; 87075; 87186; 87205

== ENCOUNTER 2025-02-25 13:51 | Outpatient (RCR) | payer MEDICARE, SELFPAY ==
[2025-02-25 14:20] VITALS: BP 120/78; PULSE 108; RESP 16; TEMP 37; BMI 73.7
--- NOTE | 2025-02-26 11:48 | WC ---
PHOTO-RIGHT FOOT PLANTAR 02/25/25
--- NOTE | 2025-02-26 11:50 | WC ---
PHOTO-LEFT PLANTAR HALLUX 02/25/25
--- NOTE | 2025-02-26 21:40 | PCM.WC.HP ---
History of Present Illness Date of Service: 02/25/25 Chief Complaint: Right full-thickness wound to the plantar first metatarsal head, full-thickness wound left hallux. Present for many years. 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 She was seen in my office about 6 months ago and was given to her calcium alginate. Still using that and Neosporin on her wounds. She feels the toes are from the shoe she pumped it up too high and her toes were extended past the ends and she does not realize that they are getting hit or rubbing when she walks. The right second and third fourth toe are all superficial wounds that are now healed. But the right third toe is stayed erythematous and swollen. X-ray and MRI shows osteomyelitis in that joint. She does have an appointment with infectious disease next Sunday, November 15. The right heel looks like she had some skin cracking and is picking at it and opened some wounds on her heel. Again very superficial and has healed. The worst would be the right foot plantar that is open and has some depth. The left second toe at the tip is mostly healed she has a lot of callus around the healing area that I will try to debride off that may have some bleeding that we might need to cover for 1 more week otherwise will be healed. Update on right foot, seen by infectious disease and he approved of the linzoid antibiotic to be used till surgery. We also sent her to Dr. Jo a senior contracts manager in [place]. And he is going to perform a a transmetatarsal amputation of the right foot. Progress of Wound: Patient is a 69-year-old nondiabetic female presenting to clinic today for second opinion for full-thickness wound to the subfirst metatarsal head on the right foot and multiple full-thickness wounds to left hallux. Patient has extensive history with the full-thickness wound and states the right foot wound has been present for many years. She has tried conservative and in office wound care treatment. She also admits to treating her wounds with bleach which I stated to her is not recommended. Patient is not diabetic but does have neuropathy most likely coming from her back. She was seeing an outside senior contracts manager who recommended for her to stop working and recommends transmetatarsal amputation to the right foot. Patient also suffers from bilateral flatfeet and has not used functional orthotics to treat her condition even though she has been seeing a senior contracts manager for some time now. She denies trauma. Denies constitutional symptoms. No precomplaints at this time. [facility] Medical History Partial nontraumatic amputation of foot Pneumonia Neuropathy Osteoarthritis GERD (gastroesophageal reflux disease) Osteoarthritis Depression Hypertriglyceridemia Home Medications ?Medication ?Instructions ?Recorded ?Last Taken ?Type naproxen sodium 220 mg tablet 440 mg PO DAILY ARTHRITIS 02/22/22 02/21/22 History (Aleve) mupirocin 2 % topical ointment 1 applic topical BID #22 grams 06/06/24 Unknown Rx sertraline 50 mg tablet 50 mg PO DAILY DEPRESSION #90 tabs 06/06/24 Unknown Rx aqaucell with silver 02/13/25 Unknown History linezolid 600 mg tablet 600 mg PO BID 2 weeks #28 tabs 02/25/25 Unknown Rx metronidazole 500 mg tablet 500 mg PO BID 14 days #28 tabs 02/25/25 Unknown Rx Allergy/AdvReac Type Severity Reaction Status Date / Time No Known Allergies Allergy Verified 10/18/22 10:33 Family History Other Diabetes Surgical History History of cholecystectomy Social History Smoking Status: Never smoker Vital Signs Vital Signs Vital Signs: Weight Weight: 195 kg Body Mass Index (BMI) 73.7 Physical Exam Narrative Vascular: DP and PT pulses palpable. CFT brisk. No erythema or proximal streaking. Skin temperature is warm to warm with no focal increase. Nonpitting edema appreciated bilateral extremity. Neurologic: Light touch is intact. Protective station is diminished. Patient does not respond to painful stimuli. Dermatologic: Evidence of full-thickness wound to the plantar aspect of the first metatarsal head of the right foot measuring 2.6 x 2.4 x 0.2 cm. Wound base is granular with no sign of infection. Evidence of full-thickness wound to left hallux measuring 3.0 x 2.3 x 0.2 cm. Wound base is granular. No sign of infection. Excisional debridement down to including subcutaneous tissue with a number 5 mm dermal curette of the full-thickness wound on the plantar aspect of the right foot done without incident. Predebridement measurement was 2.4 x 2.1 x 0.1 cm. Postdebridement measurement is 2.6 x 2.4 x 0.2 cm. Excisional debridement down to and including subcutaneous tissue with a number 5 mm dermal curette of the full-thickness wound on the left hallux done without incident. Predebridement measurement was 2.8 x 2.2 x 0.1 cm. Postdebridement measurement is 3.0 x 2.5 x 0.2 cm. Musculoskeletal: Muscle strength is 5/5 in all quadrants. Evidence of loss medial longitudinal arch in place planus deformity bilateral. No pain to the full-thickness wounds bilateral. No pain with calf compression. Debridement Note Debridement Note Debridement Free Text: Excisional debridement down to including subcutaneous tissue with a number 5 mm dermal curette of the full-thickness wound on the plantar aspect of the right foot done without incident. Predebridement measurement was 2.4 x 2.1 x 0.1 cm. Postdebridement measurement is 2.6 x 2.4 x 0.2 cm. Excisional debridement down to and including subcutaneous tissue with a number 5 mm dermal curette of the full-thickness wound on the left hallux done without incident. Predebridement measurement was 2.8 x 2.2 x 0.1 cm. Postdebridement measurement is 3.0 x 2.5 x 0.2 cm. Post-Debridement Measurements and Additional Note: Post-Debridement Measurements/Treatment - Nurse 1 - General Ulcer Assessment Start: 02/25/25 14:19 Freq: Status: Active Protocol: SANDRO Activity Type Activity Date Activity User E-sign Co-sign Detail Recorded Client Recorded Date Recorded By Document 02/25/25 14:20 [id number] 02/25/25 14:33 TS 02/25/25 14:20 - Today's Visit Information Type of service Initial Visit Arrival Mode Ambulatory Patient Identification Verified (Name & Yes ) Patient Requires Transmission-Based No Precautions Safety Precautions Fall Prevention Height and Weight Height 5 ft 4 in Weight 195 kg Weight in Pounds 429.9 lbs Body Mass Index (BMI) 73.7 BMI Classification Obese Vital Signs Temperature (97.8 F-99.1 F) 98.6 F Temperature Source Temporal Pulse Rate (60-100) 108 H Pulse Location Monitor Respiratory Rate (12-18) 16 Respiratory rate source Observation Oxygen Delivery Method Room Air Blood Pressure (90/60-120/80) 120/78 Blood Pressure Mean 92 Source Monitor Blood Pressure Location Right Arm Pain Scale: 0-10 Numeric Is Patient Pain Free? Yes WC - Nurse 1 - General Ulcer Measurement Start: 02/25/25 14:19 Freq: Status: Active Protocol: Activity Type Activity Date Activity User E-sign Co-sign Detail Recorded Client Recorded Date Recorded By Document 02/25/25 14:20 TS [id number] 02/25/25 14:33 TS 02/25/25 14:20 Wound Center Nurse 1 #11 Left plantar hallux cluster -Current Size (cm) - Length 3.6 -Current Size (cm) - Width 1.4 -Current Size (cm) - Depth 0.1 -Total Square Cm 5.04 -Date of Last Picture (Recall this 02/25/25 field) -Epithelialization None Present -Tunneling No -Undermining/Tunneling No -Circular Undermining No -Exudate Amt Medium -Exudate Type Serous -Wound Margin Distinct, Outline Attached -Slough/Fibrin Yes -Necrosis Amt Medium (34-66%) -Necrotic Tissue Type Adherent Slough -Structure Exposed None/Limited to Skin Breakdown -Texture (Sammie-wound Skin Appearance) Assessed -Moisture (Sammie-wound Skin Appearance) Assessed, Maceration -Color (Sammie-wound Skin Appearance) Assessed -Temperature (Sammie-wound Skin No Abnormality Appearance) (Pt Warm) -Tenderness on Palpation (Sammie-wound No Skin Appearance) -Ulcer Cleansing Soap and Water -Foul Odor after Cleansing No -Anesthetic Used 5% Lidocaine Gel #5- R FOOT PLANTAR -Current Size (cm) - Length 2.6 -Current Size (cm) - Width 2.1 -Current Size (cm) - Depth 0.2 -Total Square Cm 5.46 -Date of Last Picture (Recall this 02/25/25 field) -Photo Taken Yes -Tunneling No -Undermining/Tunneling No -Circular Undermining No -Exudate Amt Medium -Exudate Type Serous -Wound Margin Distinct, Outline Attached -Necrotic Tissue Type Adherent Slough -Structure Exposed None/Limited to Skin Breakdown -Texture (Sammie-wound Skin Appearance) Assessed -Moisture (Sammie-wound Skin Appearance) Assessed, Maceration -Color (Sammie-wound Skin Appearance) Assessed -Temperature (Sammie-wound Skin No Abnormality Appearance) (Pt Warm) -Tenderness on Palpation (Sammie-wound No Skin Appearance) -Ulcer Cleansing Soap and Water -Foul Odor after Cleansing No -Anesthetic Used 5% Lidocaine Gel WC - Nurse 2 - General Ulcer CM Notes Start: 02/25/25 14:19 Freq: Status: Active Protocol: Activity Type Activity Date Activity User E-sign Co-sign Detail Recorded Client Recorded Date Recorded By Document 02/25/25 14:44 MAGGY [id number] 02/25/25 14:46 MAGGY 02/25/25 14:44 Wound Center Nurse 2 #11 Left plantar hallux cluster -Time 14:45 -Correct Patient Yes -Correct Side, Site, Position Yes -Correct Procedure Yes -Procedure Performed Yes -Type of Procedure Debridement -Clinical Debridement Subcutaneous -Tissue Removed Subcutaneous -Post Debridement (cm) - Length 3.0 -Post Debridement (cm) - Width 2.3 -Post Debridement (cm) - Depth 0.2 -Total Square (Post) (cm) 6.90 -Area of Debridement (cm) - Length 3.0 -Area of Debridement (cm) - Width 2.3 -Total Square (Area) (cm) 6.90 -Tunneling No -Undermining/Tunneling No -Circular Undermining No -Wound/Ulcer Outcome Not Healed -Ulcer Cleansing Rinsed/ Irrigated with Saline -Foul Odor after Cleansing No -Bioengineered Tissue No -Bleeding Controlled with Pressure -Treatment Response Procedure Tolerated Well -Offloading No -Debridement - Subq, 1st 20sq cm No #5- R FOOT PLANTAR -Time 14:44 -Correct Patient Yes -Correct Side, Site, Position Yes -Correct Procedure Yes -Procedure Performed Yes -Type of Procedure Debridement -Clinical Debridement Subcutaneous -Tissue Removed Subcutaneous -Post Debridement (cm) - Length 2.6 -Post Debridement (cm) - Width 2.4 -Post Debridement (cm) - Depth 0.2 -Total Square (Post) (cm) 6.24 -Area of Debridement (cm) - Length 2.6 -Area of Debridement (cm) - Width 2.4 -Total Square (Area) (cm) 6.24 -Tunneling No -Undermining/Tunneling No -Circular Undermining No -Wound/Ulcer Outcome Not Healed -Ulcer Cleansing Rinsed/ Irrigated with Saline -Foul Odor after Cleansing No -Bioengineered Tissue No -Bleeding Controlled with Pressure -Treatment Response Procedure Tolerated Well -Offloading No -Debridement - Subq, 1st 20sq cm Yes Pain Scale: 0-10 Numeric Is Patient Pain Free? Yes - Nurse 3 - General Ulcer D/C NN Start: 02/25/25 14:19 Freq: Status: Active Protocol: Activity Type Activity Date Activity User E-sign Co-sign Detail Recorded Client Recorded Date Recorded By Document 02/25/25 15:06 [id number] 02/25/25 15:10 02/25/25 15:06 Wound Care Center Nurse 3 #11 Left plantar hallux cluster -Ulcer Cleansing Rinsed/ Irrigated with Saline -Primary Dressing Applied Hysept -Primary Dressing Covered/Secured with Dry Gauze & Roll Gauze, Secured with Tape -Hysept 1 #5- R FOOT PLANTAR -Ulcer Cleansing Rinsed/ Irrigated with Saline -Primary Dressing Applied Hysept -Primary Dressing Covered/Secured with Dry Gauze & Roll Gauze, Secured with Tape -Hysept 0 Pain Scale: 0-10 Numeric Is Patient Pain Free? Yes - Visit Discharge Discharge Condition Stable Ambulatory Status Ambulatory Transportation Private Auto Medication Reconcilliation completed & No provided to patient/care provider Clinical Summary of Care Provided Yes Assessment/Plan Assessment/Plan (1) Idiopathic neuropathy: CODE(S): G60.9 - Hereditary and idiopathic neuropathy, unspecified PLAN: Patient was examined and evaluated. All findings were discussed with the patient. All questions were answered to the patient's satisfaction. Review of the patient's culture and sensitivity from an outside provider showed multiple organisms that have grown. Will place the patient on linezolid to be taken twice per day for 2 weeks as well as Flagyl to be taken twice per day for 2 weeks. All risk and benefits with the antibiotics were discussed with the patient in great detail. After examination the patient does show evidence of bilateral neuropathy most likely coming from her back as well as pes planus deformity to the bilateral lower extremity. At this time will continue conservative wound care treatment to the bilateral lower extremity. I did discuss surgical intervention with the patient consisting of triple arthrodesis to get the patient's foot under her leg with an accommodative offloading orthotics. At this time the patient will like to continue conservative treatment. Excisional debridement down to including subcutaneous tissue with a number 5 mm dermal curette of the full-thickness wound on the plantar aspect of the right foot done without incident. Predebridement measurement was 2.4 x 2.1 x 0.1 cm. Postdebridement measurement is 2.6 x 2.4 x 0.2 cm. Excisional debridement down to and including subcutaneous tissue with a number 5 mm dermal curette of the full-thickness wound on the left hallux done without incident. Predebridement measurement was 2.8 x 2.2 x 0.1 cm. Postdebridement measurement is 3.0 x 2.5 x 0.2 cm. The bilateral lower extremities were white paint and patted dry. Dakin solution was applied followed by dry sterile dressing compression wrap. Patient will change daily. She was educated not to wash her feet with bleach and to not pick her scabs. Follow-up in 1 week (2) Non-pressure chronic ulcer of other part of right foot with fat layer exposed: CODE(S): L97.512 - Non-pressure chronic ulcer of other part of right foot with fat layer exposed (3) Non-pressure chronic ulcer of other part of left foot with fat layer exposed: CODE(S): L97.522 - Non-pressure chronic ulcer of other part of left foot with fat layer exposed
== END 2025-02-27 23:59 | disposition home or self-care (01) ==
LOC: WC 13:51
PROVIDERS: PCP Nurse Practitioner; Referring Provider Nurse Practitioner; Visit Provider Podiatrist Foot & Ankle Surgery
DX: L97.512 Non-pressure chronic ulcer of other part of right foot with fat layer exposed (principal); L97.522 Non-pressure chronic ulcer of other part of left foot with fat layer exposed; G60.9 Hereditary and idiopathic neuropathy, unspecified; Z89.421 Acquired absence of other right toe(s)
CPT/HCPCS: 11042; 99214; G0463